=== PATIENT | male | born 1945 | race Caucasian/White ===

== ENCOUNTER 2016-09-28 13:49 | Inpatient (IN) | payer MEDICARE, BC ==
[2016-09-28] MEDS ORDERED: IPRATROPIUM-ALBUTEROL 3 ML NEB INHALATION STA ×2 (14:56→16:10)
[2016-09-28] MEDS ORDERED: methylPREDNISolone SOD SUCCI 125 MG/2 ML VIAL IV STA (14:56)
--- NOTE | 2016-09-28 14:59 | ED ---
General Adult HPI - General Chief complaint: Shortness of Breath Stated complaint: sob Time Seen by Provider: 09/28/16 13:50 Source: patient, RN notes reviewed Mode of arrival: EMS Limitations: physical limitation - History of Present Illness Initial comments: This is a 70-year-old male with a past mental history significant for smoking but he states he quit 4 years ago. Patient comes in today because of difficulty breathing over the last 2 weeks per patient states he coughed so hard that is when he becomes very short of breath per patient states he has not producing much sputum. Patient denies any fever chills per patient denies any palpitations chest pain. Patient states he has no headache no numbness no weakness. Patient denies any recent injury or trauma per patient denies abdominal pain patient denies nausea vomiting diarrhea. Patient states she's on 4 L of oxygen 24 7. - Related Data Home Medications Medication Instructions Recorded Confirmed Clopidogrel [Plavix] 75 mg PO DAILY 03/10/14 09/28/16 traZODone HCL [Desyrel] 50 mg PO HS 03/10/14 09/28/16 Aspirin 81 mg PO DAILY 05/01/14 09/28/16 Multivitamin [Men's Multi-Vitamin] 1 tab PO DAILY 05/01/14 09/28/16 Simvastatin [Zocor] 40 mg PO DAILY 05/01/14 09/28/16 ALPRAZolam [Xanax] 0.5 mg PO HS PRN 12/23/14 09/28/16 Losartan [Cozaar] 25 mg PO QAM 12/23/14 09/28/16 Omeprazole [PriLOSEC] 40 mg PO QAM 12/23/14 09/28/16 HYDROcodone/APAP 7.5-325MG [[place] 1 tab PO TID PRN 12/24/14 09/28/16 7.5-325] Acetaminophen/Diphenhydramine 1 tab PO HS PRN 02/02/16 09/28/16 [Tylenol PM 500-25mg] Budesonide/Formoterol Fumarate 2 puff INHALATION RT-BID 02/02/16 09/28/16 [Symbicort 160-4.5 Mcg Inhaler] Carvedilol [Coreg] 3.125 mg PO QAM 02/02/16 09/28/16 Nitroglycerin Sl Tabs [Nitrostat] 0.4 mg SUBLINGUAL Q5M PRN 02/02/16 09/28/16 Oxybutynin Chloride 5 mg PO BID 02/02/16 09/28/16 Polyethylene Glycol 3350 [Miralax] 17 gm PO DAILY 02/02/16 09/28/16 Ranitidine HCl 150 mg PO BID 02/02/16 09/28/16 Tamsulosin [Flomax] 0.4 mg PO DAILY 02/02/16 09/28/16 Citalopram Hydrobromide 40 mg PO HS 03/24/16 09/28/16 [Citalopram HBr] Gabapentin [Neurontin] 300 mg PO QAM 09/02/16 09/28/16 Ipratropium-Albuterol Nebulize 3 ml INHALATION RT-Q6H PRN 09/28/16 09/28/16 [Duoneb 0.5 mg-3 mg/3 ml Soln] Allergies Allergy/AdvReac Type Severity Reaction Status Date / Time No Known Allergies Allergy Verified 09/28/16 14:19 Review of Systems ROS Statement: Those systems with pertinent positive or pertinent negative responses have been documented in the HPI. ROS Other: All systems not noted in ROS Statement are negative. Past Medical History Past Medical History: Coronary Artery Disease (CAD), Chest Pain / Angina, Heart Failure, COPD, CVA/TIA, Deep Vein Thrombosis (DVT), GERD/Reflux, Hearing Disorder / Deafness, Hyperlipidemia, Hypertension, Memory Impairment, Myocardial Infarction (GA), Musculoskeletal Disorder, Pneumonia, Prostate Disorder, Respiratory Disorder, Vascular Disorder Additional Past Medical History / Comment(s): HX OF CVA WITH SOME SPEECH DIFFICULTY (since 1999). TIA'S. PVD. PER PATIENT BLOCKED RIGHT CAROTID. RESPIRATORY FAILURE, CONTINUOUS OXYGEN 4L. BPH. CHRONIC BRONCHITIS. DJD. STOMACH ULCER. DIVERTICULITIS. HEMORRHOIDS, POLYPS. VANIA ANKLE FX IN THE PAST. DJD WITH BACK PAIN . USES WALKER OR WHEELCHAIR. CHRONIC LEG AND BACK PAIN. Last Myocardial Infarction Date:: 1997 History of Any Multi-Drug Resistant Organisms: MRSA Date of last positivie culture/infection: 12/26/2014 MDRO Source:: SPUTUM Past Surgical History: AICD, Back Surgery, Coronary Bypass/CABG, Heart Catheterization, Heart Catheterization With Stent, Pacemaker, Tonsillectomy Additional Past Surgical History / Comment(s): FEBRUARY 2016 PACER ([id number] , #SS [id number]). CABG 5 vessel 1998. Cath with stents (5 total). Bilateral carotid endarterectomies. Back surgery x 2. Bilateral fem/pops, bilateral stenting in legs (5 total). L and R inguinal hernia repairs. Cataract removal bilaterally. Back injections for pain. Past Anesthesia/Blood Transfusion Reactions: No Reported Reaction Additional Past Anesthesia/Blood Transfusion Reaction / Comment(s): Never had blood transfusion. Date of Last Stent Placement:: 2013 Type of Cardiac Device: Permanent Pacemaker, AICD Device Placement Date:: 02/2016 Past Psychological History: Anxiety, Depression Additional Psychological History / Comment(s): . Smoking Status: Former smoker Past Alcohol Use History: None Reported Additional Past Alcohol Use History / Comment(s): Pt quit smoking in 2011. SMOKED 1 PPD, SMOKED FOR 50 YEARS Past Drug Use History: None Reported - Past Family History Brother(s) Family Medical History: Cancer Sister(s) Family Medical History: Congestive Heart Failure (CHF), Vascular Disorder Additional Family Medical History / Comment(s): PVD Mother Family Medical History: Cancer, Coronary Artery Disease (CAD) Additional Family Medical History / Comment(s): Multiple heart surgery Father Family Medical History: Coronary Artery Disease (CAD) Additional Family Medical History / Comment(s): Colon CA after 50's General Exam - General Exam Comments Initial Comments: GENERAL: Patient is well-developed and well-nourished. Patient is nontoxic and well- hydrated and is in mild distress. ENT: Neck is soft and supple. No significant lymphadenopathy is noted. Oropharynx is clear. Moist mucous membranes. Neck has full range of motion without eliciting any pain. EYES: The sclera were anicteric and conjunctiva were pink and moist. Extraocular movements were intact and pupils were equal round and reactive to light. Eyelids were unremarkable. PULMONARY: Patient has diminished breath sounds with expiratory wheezing CARDIOVASCULAR: There is a regular rate and rhythm without any murmurs gallops or rubs. ABDOMEN: Soft and nontender with normal bowel sounds. No palpable organomegaly was noted. There is no palpable pulsatile mass. SKIN: Skin is clear with no lesions or rashes and otherwise unremarkable. NEUROLOGIC: Patient is alert and oriented x3. Cranial nerves II through XII are grossly intact. Motor and sensory are also intact. Normal speech, volume and content. Symmetrical smile. MUSCULOSKELETAL: Normal extremities with adequate strength and full range of motion. No lower extremity swelling or edema. No calf tenderness. LYMPHATICS: No significant lymphadenopathy is noted PSYCHIATRIC: Normal psychiatric evaluation. Normal interpersonal interactions appears functionally intact in deals appropriately with others. No signs of depression. No signs of anxiety. Limitations: physical limitation Course Vital Signs 09/28/16 09/28/16 09/28/16 13:51 14:10 15:11 Temperature 98.5 F Pulse Rate 93 90 Respiratory 18 20 Rate Blood Pressure 108/58 O2 Sat by Pulse 91 L Oximetry 09/28/16 09/28/16 15:22 15:37 Temperature Pulse Rate 100 89 Respiratory 18 Rate Blood Pressure 142/77 O2 Sat by Pulse 98 Oximetry Medical Decision Making - Medical Decision Making EKG shows ventricular paced rhythm at 89 bpm QRS is 254 QT interval 550 QTC is 669. Patient's EKG shows no ST segment elevation or depression or T-wave abdomen is noted. Patient's chest x-ray shows an early infiltrate right lower lobe. I gave the patient a breathing treatment emergency department he continued to have expiratory wheezings are repeated treatment. Patient also got [facility] emergency department. I spoke with Dr. Prieto he agreed to admit the patient a consult to Dr. Mantilla admitted the patient wrote a milligrams continue breathing treatments on the floor as well as steroids. - Lab Data Result diagrams: 09/28/16 14:00 09/28/16 14:00 Lab Results 09/28/16 09/28/16 09/28/16 Range/Units 14:00 14:00 14:00 WBC 4.9 (3.8-10.6) k/uL RBC 4.13 L (4.30-5.90) m/uL Hgb 12.1 L (13.0-17.5) gm/dL Hct 37.3 L (39.0-53.0) % MCV 90.3 (80.0-100.0) fL MCH 29.3 (25.0-35.0) pg MCHC 32.4 (31.0-37.0) g/dL RDW 13.9 (11.5-15.5) % Plt Count 134 L (150-450) k/uL Neutrophils % 82 % Lymphocytes % 8 % Monocytes % 6 % Eosinophils % 1 % Basophils % 0 % Neutrophils # 4.0 (1.3-7.7) k/uL Lymphocytes # 0.4 L (1.0-4.8) k/uL Monocytes # 0.3 (0-1.0) k/uL Eosinophils # 0.1 (0-0.7) k/uL Basophils # 0.0 (0-0.2) k/uL PT (9.0-12.0) sec INR (<1.1) APTT (22.0-30.0) sec Sodium 142 (137-145) mmol/L Potassium 4.5 (3.5-5.1) mmol/L Chloride 98 (98-107) mmol/L Carbon Dioxide 33 H (22-30) mmol/L Anion Gap 11 mmol/L BUN 17 (9-20) mg/dL Creatinine 0.86 (0.66-1.25) mg/dL Est GFR (MDRD) Af Amer >60 (>60 ml/min/1.73 sqM) Est GFR (MDRD) Non-Af >60 (>60 ml/min/1.73 sqM) Glucose 112 H (74-99) mg/dL Calcium 8.9 (8.4-10.2) mg/dL Magnesium 1.9 (1.6-2.3) mg/dL Total Bilirubin 0.8 (0.2-1.3) mg/dL AST 16 L (17-59) U/L ALT 34 (21-72) U/L Alkaline Phosphatase 98 (38-126) U/L Total Creatine Kinase <20 L (55-170) U/L CK-MB (CK-2) 0.9 (0.0-2.4) ng/mL CK-MB (CK-2) Rel Index 0.0 Troponin I 0.014 (0.000-0.034) ng/mL Total Protein 6.7 (6.3-8.2) g/dL Albumin 3.8 (3.5-5.0) g/dL 09/28/16 Range/Units 14:00 WBC (3.8-10.6) k/uL RBC (4.30-5.90) m/uL Hgb (13.0-17.5) gm/dL Hct (39.0-53.0) % MCV (80.0-100.0) fL MCH (25.0-35.0) pg MCHC (31.0-37.0) g/dL RDW (11.5-15.5) % Plt Count (150-450) k/uL Neutrophils % % Lymphocytes % % Monocytes % % Eosinophils % % Basophils % % Neutrophils # (1.3-7.7) k/uL Lymphocytes # (1.0-4.8) k/uL Monocytes # (0-1.0) k/uL Eosinophils # (0-0.7) k/uL Basophils # (0-0.2) k/uL PT 10.5 (9.0-12.0) sec INR 1.0 (<1.1) APTT 23.6 (22.0-30.0) sec Sodium (137-145) mmol/L Potassium (3.5-5.1) mmol/L Chloride (98-107) mmol/L Carbon Dioxide (22-30) mmol/L Anion Gap mmol/L BUN (9-20) mg/dL Creatinine (0.66-1.25) mg/dL Est GFR (MDRD) Af Amer (>60 ml/min/1.73 sqM) Est GFR (MDRD) Non-Af (>60 ml/min/1.73 sqM) Glucose (74-99) mg/dL Calcium (8.4-10.2) mg/dL Magnesium (1.6-2.3) mg/dL Total Bilirubin (0.2-1.3) mg/dL AST (17-59) U/L ALT (21-72) U/L Alkaline Phosphatase (38-126) U/L Total Creatine Kinase (55-170) U/L CK-MB (CK-2) (0.0-2.4) ng/mL CK-MB (CK-2) Rel Index Troponin I (0.000-0.034) ng/mL Total Protein (6.3-8.2) g/dL Albumin (3.5-5.0) g/dL Critical Care Time Critical Care Time: Yes Total Critical Care Time: 35 Disposition Clinical Impression: Acute exacerbation of chronic obstructive airways disease, Pneumonia Disposition: ADMITTED IP TO THIS [facility] Time of Disposition: 16:08
[2016-09-28 15:07] LABS: Basophils % (A) 0 %; CH 28.7; CHCM 31.9; Eosinophils # (A) 0.1 k/uL (0-0.7); Eosinophils % (A) 1 %; HCT 37.3 % (39.0-53.0); HGB 12.1 gm/dL (13.0-17.5); Luc # (Auto) 0.13; Luc % (Auto) 3; Lymphocytes # (A) 0.4 k/uL (1.0-4.8); Lymphocytes % (A) 8 %; MCH 29.3 pg (25.0-35.0); MCHC 32.4 g/dL (31.0-37.0); MCV 90.3 fL (80.0-100.0); Mean Platelet Volume 6.6; Monocytes # (A) 0.3 k/uL (0-1.0); Monocytes % (A) 6 %; Neutrophils % (A) 82 %; RBC 4.13 m/uL (4.30-5.90); RDW 13.9 % (11.5-15.5); WBC 4.9 k/uL (3.8-10.6); WBC (Perox) 4.89
[2016-09-28 15:15] LABS: Partial Thromboplastin Time 23.6 sec (22.0-30.0); Prothrombin Time 10.5 sec (9.0-12.0)
[2016-09-28 15:18] LABS: ALT 34 U/L (21-72); AST 16 U/L (17-59); Alkaline Phosphatase 98 U/L (38-126); Anion Gap 11 mmol/L; Blood Urea Nitrogen 17 mg/dL (9-20); Calcium 8.9 mg/dL (8.4-10.2); Carbon Dioxide 33 mmol/L (22-30); Chloride 98 mmol/L (98-107); Glucose 112 mg/dL (74-99); Magnesium 1.9 mg/dL (1.6-2.3); Non-African American GFR(MDRD) >60 (>60 ml/min/1.73 sqM); Potassium 4.5 mmol/L (3.5-5.1); Sodium 142 mmol/L (137-145); Total Bilirubin 0.8 mg/dL (0.2-1.3); Total Protein 6.7 g/dL (6.3-8.2)
[2016-09-28 15:26] LABS: Creatine Kinase <20 U/L (55-170)
[2016-09-28 15:39] LABS: Creatine Kinase MB 0.9 ng/mL (0.0-2.4); Troponin I 0.014 ng/mL (0.000-0.034)
--- NOTE | 2016-09-28 15:54 | XR ---
EXAMINATION TYPE: XR chest 2V DATE OF EXAM: 09/28/2016 3:48 PM COMPARISON: 06/17/2016 HISTORY: Shortness of breath FINDINGS: The lungs are clear and there is no pneumothorax, pleural effusion, or focal pneumonia. Hypertrophi c and degenerative change of the spine. Postsurgical changes are noted. Hyperinflation suggests COPD. Atherosclerotic change aorta. Subsegmental changes involving the right lung base. IMPRESSION: 1. Right basilar atelectasis versus early infiltrate. Follow to resolution to exclude underlying neop lasm.
[2016-09-28] MEDS ORDERED: LEVOFLOXACIN 750MG-D5W PMX 750 MG in DEXTROSE/WATER 1 150ML.BAG IVPB SCH (16:15)
[2016-09-28] MEDS ORDERED: HYDROcodone/APAP 7.5-325MG 1 EACH TAB PO ONE (17:12)
[2016-09-28] MEDS ORDERED: diphenhydrAMINE 25 MG CAP PO PRN (22:34)
[2016-09-28] MEDS ORDERED: POLYETHYLENE GLYCOL 3350 17 GM POWD.PACK PO PRN (22:34)
[2016-09-28] MEDS ORDERED: NITROGLYCERIN SL TABS 0.4 MG TAB SUBLINGUAL PRN (22:34)
[2016-09-28 23:19] LABS: Glucose,Whole Blood 183 mg/dL (75-99)
[2016-09-28] MEDS: INSULIN LISPRO (humaLOG) 300 UNIT/3 ML VIAL SQ SCH (23:43)
[2016-09-28] MEDS: CITALOPRAM HYDROBROMIDE 20 MG TAB PO SCH (23:44)
[2016-09-28] MEDS: traZODone HCL 50 MG TAB PO SCH (23:44)
[2016-09-28] MEDS: TAMSULOSIN 0.4 MG CAP.ER.24H PO SCH (23:44)
[2016-09-28] MEDS: HYDROcodone/APAP 7.5-325MG 1 EACH TAB PO PRN (23:45)
[2016-09-28] MEDS: HEPARIN SODIUM,PORCINE 5,000 UNIT/ML 1 ML VIAL SQ SCH (23:46)
[2016-09-28] MEDS: methylPREDNISolone SOD SUCCI 125 MG/2 ML VIAL IV SCH (23:55)
[2016-09-29] MEDS: IPRATROPIUM-ALBUTEROL 3 ML NEB INHALATION PRN ×4 (00:17→21:17)
[2016-09-29] MEDS ORDERED: TEMAZEPAM 15 MG CAP PO PRN (00:18)
[2016-09-29] MEDS: ALPRAZolam 0.5 MG TAB PO PRN ×2 (03:52→21:35)
[2016-09-29] MEDS: methylPREDNISolone SOD SUCCI 125 MG/2 ML VIAL IV SCH ×4 (06:04→23:45)
[2016-09-29] MEDS: LOSARTAN 25 MG TAB PO SCH (06:43)
[2016-09-29] MEDS: CARVEDILOL 3.125 MG TAB PO SCH (06:44)
[2016-09-29 07:23] LABS: Glucose,Whole Blood 143 mg/dL (75-99)
[2016-09-29] MEDS: SYMBICORT 160-4.5 MCG INHALER INHALATION SCH ×2 (07:30→21:15)
[2016-09-29] MEDS ORDERED: INSULIN LISPRO (humaLOG) 300 UNIT/3 ML VIAL SQ SCH (07:30)
[2016-09-29] MEDS: ATORVASTATIN 20 MG TAB PO SCH (08:19)
[2016-09-29] MEDS: HEPARIN SODIUM,PORCINE 5,000 UNIT/ML 1 ML VIAL SQ SCH ×3 (08:19→23:45)
[2016-09-29] MEDS: INSULIN LISPRO (humaLOG) 300 UNIT/3 ML VIAL SQ SCH ×4 (08:19→21:27)
[2016-09-29] MEDS: PANTOPRAZOLE 40 MG TABLET PO SCH (08:19)
[2016-09-29] MEDS: ASPIRIN 81 MG CHEW PO SCH (08:19)
[2016-09-29] MEDS: GABAPENTIN 300 MG CAP PO SCH (08:20)
[2016-09-29] MEDS: CLOPIDOGREL 75 MG TAB PO SCH (08:20)
[2016-09-29] MEDS: OXYBUTYNIN CHLORIDE 5 MG TAB PO SCH ×2 (08:20→21:27)
[2016-09-29] MEDS: MULTIVITAMINS, THERA 1 EACH TAB PO SCH (08:20)
[2016-09-29] MEDS ORDERED: AZITHROMYCIN 500 MG in SODIUM CHLORIDE 0.9% 250 ML IVPB SCH (09:00)
--- NOTE | 2016-09-29 09:37 | HP ---
DATE OF ADMISSION: 09/28/2016 DATE OF SERVICE: 09/28/2016 CHIEF COMPLAINT: Shortness of breath and cough. HISTORY OF PRESENT ILLNESS: This 70-year-old gentleman with history of multiple medical problems with past medical history of multiple medical problems such as history of CAD, history of chest pain, CHF, COPD, history of deep venous thrombosis, gastroesophageal reflux disease, hyperlipidemia, cerebrovascular accident being followed by Dr. Oliver in the outpatient setting was complaining of shortness of breath and cough for the past several days. The patient had a significant history of smoking. The patient quit about 4 years ago. The patient became significantly short of breath. The patient denied any fever and because of increasing shortness of breath and cough and sputum the patient came to [facility] and admitted for further evaluation and treatment. A chest x-ray done in the ER showed a right basilar atelectasis versus infiltrate. There was no history of fever, rigors. No history of headache, loss of consciousness, seizures. PAST MEDICAL HISTORY: History of COPD, history of CHF, DVT, history of GERD, hearing defect. Medications prior to admission include: 1. MiraLAX 17 grams p.o. daily p.r.n. 2. Flomax 0.4 q.h.s. 3. Desyrel 50 mg q.h.s. 4. Zocor 40 mg p.o. daily. 5. Ranitidine 150 mg p.o. b.i.d. 6. Oxybutynin 5 mg p.o. b.i.d. 7. Prilosec 40 mg p.o. daily. 8. Nitrostat 0.4 subcu 5 p.r.n. 9. Multivitamin 1 p.o. daily. 10. Cozaar 20 mg q.a.m. 11. DuoNeb q.i.d. and p.r.n. 12. [place] 7.5 t.i.d. p.r.n. 13. Neurontin 300 mg q.a.m. 14. Plavix 75 mg p.o. daily. 15. Celexa 40 mg q.h.s. 16. Coreg 3.125 mg q.a.m. 17. Symbicort 160/4.5, 2 puffs b.i.d. 18. Aspirin 81 mg daily. 19. Tylenol PM 1 tablet q.h.s. p.r.n. 20. Xanax 0.5 mg q.6 p.r.n. ALLERGIES: None. FAMILY HISTORY: History of cancer, CAD, multiple heart surgeries in the family. SOCIAL HISTORY: Previous history of smoking. No history of recent smoking or alcohol intake. REVIEW OF SYSTEMS: ENT: Diminished hearing, diminished vision. CARDIOVASCULAR: No angina. RESPIRATORY: As mentioned earlier. GI: No nausea. : No dysuria. NERVOUS SYSTEM: No numbness or weakness. ALLERGY/IMMUNOLOGY: No asthma or hayfever. MUSCULOSKELETAL: As mentioned earlier. HEMATOLOGY: No history of anemia. ENDOCRINE: No history of diabetes or hypothyroidism. CONSTITUTIONAL: As mentioned earlier. DERMATOLOGY: Negative. RHEUMATOLOGY: Negative. PSYCHIATRY: As mentioned earlier. PHYSICAL EXAMINATION: Alert and oriented x3. Pulse 83, blood pressure 120/86, respirations 18, temperature 99.3, pulse ox 94% on 4 liters. HEENT: Conjunctivae normal. NECK: No jugular venous distention. CARDIOVASCULAR: S1 and S2, muffled. RESPIRATORY: Breath sounds diminished at the bases. Bilateral scattered rhonchi and crackles. Respiratory wheezing also present. ABDOMEN: Soft, nontender. No mass palpable. LEGS: No edema, no swelling. NERVOUS SYSTEM: Higher function as mentioned. Moves all four limbs. No focal motor deficits. LYMPHATIC: No lymphadenopathy in the neck, axillae or groin. SKIN: No ulcer, rash or bleeding. Labs at this time show WBC 4, hemoglobin 12.1. Other labs are noted. ASSESSMENT: 1. Chronic obstructive pulmonary disease acute exacerbation with acute purulent tracheobronchitis, possible right lower lobe bronchopneumonia. 2. Anemia, normocytic. 3. Mild thrombocytopenia. 4. History of coronary artery disease. 5. History of congestive heart failure. 6. History of chronic obstructive pulmonary disease. 7. History of cerebrovascular accident, transient ischemic attack. 8. History of deep venous thrombosis. 9. History of gastroesophageal reflux disease. 10. History of hypertension. 11. History of hyperlipidemia. 12. History of dementia. 13. History of myocardial infarction. 14. History of degenerative joint disease. 15. History of prostate disorder. 16. History of CVI. 17. History of transient ischemic attack. 18. History of peripheral vascular disease. 19. Chronic hypoxic respiratory failure at home on home oxygen 4-L. 20. History of benign prostatic hypertrophy. 21. History of chronic bronchitis. 22. History of stomach ulcer. 23. History of hemorrhoids. 24. History of chronic neck pain. 25. History of degenerative joint disease. 26. History of Methicillin-resistant Staphylococcus aureus. 27. History of automatic implantable cardiovascular defibrillator. 28. History of back surgery. 29. History of coronary artery disease, coronary artery bypass graft and stent. 30. History of bilateral carotid endarterectomy. 31. History of anxiety and depression, not otherwise specified. 32. Remote history of nicotine dependence. 33. FULL CODE. RECOMMENDATIONS AND DISCUSSION: In this 70-year-old gentleman who presented with multiple medical problems, will monitor the patient closely. Continue the current medications and continue symptomatic treatment. Continue with the bronchodilators, continue with empiric antibiotics. Will consult Dr. Rogers. Otherwise, will also give IV steroids. Monitor blood sugars closely. Optimize breathing treatments. I would recommend combination of Rocephin and Zithromax. See orders for details. Further recommendations to follow.
[2016-09-29 12:20] LABS: Glucose,Whole Blood 139 mg/dL (75-99)
[2016-09-29] MEDS: HYDROcodone/APAP 7.5-325MG 1 EACH TAB PO PRN ×2 (13:28→21:35)
[2016-09-29 14:09] VITALS: BMI 22.8
[2016-09-29] MEDS ORDERED: BENZONATATE 100 MG CAP PO PRN (15:57)
--- NOTE | 2016-09-29 15:57 | P.CNPUL ---
History of Present Illness Consult date: 09/29/16 Reason for consult: dyspnea, cough, COPD, pneumonia Chief complaint: Shortness of breath and cough History of present illness: This is a 70-year-old male well-known to me. He has a history of goal stage IV COPD. The last couple weeks has not been feeling well. His complaints include increasing shortness of breath coughing chest congestion some phlegm production. Lots of wheezing. Maybe slight fever and chills. The patient apparently came to the emergency room where he was evaluated admitted primarily with a COPD exacerbation. Despite all these complaints, the think he mostly complains about is his cough. His past medical history is positive for CAD COPD CHF CVA DVT GERD deafness hyperlipidemia hypertension dementia myocardial infarction pneumonia and peripheral last occlusive disease among other things Review of Systems 12 point review of system is positive for shortness of breath chest congestion cough wheezing and some phlegm production. He has not been feeling well for at least 10 days and maybe 14 days. Things have been getting worse. The rest of the 12 point review of system is unremarkable. Past Medical History Past Medical History: Coronary Artery Disease (CAD), Chest Pain / Angina, Heart Failure, COPD, CVA/TIA, Deep Vein Thrombosis (DVT), GERD/Reflux, Hearing Disorder / Deafness, Hyperlipidemia, Hypertension, Memory Impairment, Myocardial Infarction (SD), Musculoskeletal Disorder, Pneumonia, Prostate Disorder, Respiratory Disorder, Vascular Disorder Additional Past Medical History / Comment(s): HX OF CVA WITH SOME SPEECH DIFFICULTY (since 1999). TIA'S. PVD. PER PATIENT BLOCKED RIGHT CAROTID. RESPIRATORY FAILURE, CONTINUOUS OXYGEN 4L. BPH. CHRONIC BRONCHITIS. DJD. STOMACH ULCER. DIVERTICULITIS. HEMORRHOIDS, POLYPS. VANIA ANKLE FX IN THE PAST. DJD WITH BACK PAIN . USES WALKER OR WHEELCHAIR AND IN PROCESS OF GETTING AN ELECTRIC SCOOTER. CHRONIC LEG AND BACK PAIN.CONSTIPATION. PT STATED HAS LOSS OF APPETITE,WT LOSS APPROX 13 POUNDS IN A LITTLE OVER 2 MOTNHS. Last Myocardial Infarction Date:: 1997 History of Any Multi-Drug Resistant Organisms: MRSA Date of last positivie culture/infection: 12/26/2014 MDRO Source:: SPUTUM Past Surgical History: AICD, Back Surgery, Coronary Bypass/CABG, Heart Catheterization, Heart Catheterization With Stent, Pacemaker, Tonsillectomy Additional Past Surgical History / Comment(s): FEBRUARY 2016 PACER ([id number] , #SS [id number]). CABG 5 vessel 1997. Cath with stents (5 total). Bilateral carotid endarterectomies. Back surgery x 2. Bilateral fem/pops, bilateral stenting in legs (5 total). L and R inguinal hernia repairs. Cataract removal bilaterally. Back injections for pain. Past Anesthesia/Blood Transfusion Reactions: No Reported Reaction Additional Past Anesthesia/Blood Transfusion Reaction / Comment(s): Never had blood transfusion. Date of Last Stent Placement:: 2013 Type of Cardiac Device: Permanent Pacemaker, AICD Device Placement Date:: 02/2016 Past Psychological History: Anxiety, Depression Additional Psychological History / Comment(s): .[facility] SOMEONE TO CLEAN HIS APT 2X A MONTH. PT STATED HE COULD USE SOME HELP AT HOME WITH ADLS,SHOPPING ETC- PT STATED HE'S WEAK, CAN'T DO MUCH AND HE GETS TO SOB.IN PROCESS OF GETTING AN ELCTRIC SCOOTER. Smoking Status: Former smoker Past Alcohol Use History: None Reported Additional Past Alcohol Use History / Comment(s): Pt quit smoking in 2011. SMOKED 1 PPD, SMOKED FOR 50 YEARS Past Drug Use History: None Reported - Past Family History Brother(s) Family Medical History: Cancer Sister(s) Family Medical History: Congestive Heart Failure (CHF), Vascular Disorder Additional Family Medical History / Comment(s): PVD Mother Family Medical History: Cancer, Coronary Artery Disease (CAD) Additional Family Medical History / Comment(s): Multiple heart surgery Father Family Medical History: Coronary Artery Disease (CAD) Additional Family Medical History / Comment(s): Colon CA after 50's Medications and Allergies Home Medications Medication Instructions Recorded Confirmed Type Clopidogrel [Plavix] 75 mg PO DAILY 03/10/14 09/28/16 History traZODone HCL [Desyrel] 50 mg PO HS 03/10/14 09/28/16 History Aspirin 81 mg PO DAILY 05/01/14 09/28/16 History Multivitamin [Men's Multi-Vitamin] 1 tab PO DAILY 05/01/14 09/28/16 History Simvastatin [Zocor] 40 mg PO DAILY 05/01/14 09/28/16 History ALPRAZolam [Xanax] 0.5 mg PO HS PRN 12/23/14 09/28/16 History Losartan [Cozaar] 25 mg PO QAM 12/23/14 09/28/16 History Omeprazole [PriLOSEC] 40 mg PO QAM 12/23/14 09/28/16 History HYDROcodone/APAP 7.5-325MG [[place] 1 tab PO TID PRN 12/24/14 09/28/16 History 7.5-325] Acetaminophen/Diphenhydramine 1 tab PO HS PRN 02/02/16 09/28/16 History [Tylenol PM 500-25mg] Budesonide/Formoterol Fumarate 2 puff INHALATION RT-BID 02/02/16 09/28/16 History [Symbicort 160-4.5 Mcg Inhaler] Carvedilol [Coreg] 3.125 mg PO QAM 02/02/16 09/28/16 History Nitroglycerin Sl Tabs [Nitrostat] 0.4 mg SUBLINGUAL Q5M PRN 02/02/16 09/28/16 History Oxybutynin Chloride 5 mg PO BID 02/02/16 09/28/16 History Polyethylene Glycol 3350 [Miralax] 17 gm PO DAILY PRN 02/02/16 09/28/16 History Ranitidine HCl 150 mg PO BID 02/02/16 09/28/16 History Tamsulosin [Flomax] 0.4 mg PO HS 02/02/16 09/28/16 History Citalopram Hydrobromide 40 mg PO HS 03/24/16 09/28/16 History [Citalopram HBr] Gabapentin [Neurontin] 300 mg PO QAM 09/02/16 09/28/16 History Ipratropium-Albuterol Nebulize 3 ml INHALATION RT-Q6H PRN 09/28/16 09/28/16 History [Duoneb 0.5 mg-3 mg/3 ml Soln] Allergies Allergy/AdvReac Type Severity Reaction Status Date / Time No Known Allergies Allergy Verified 09/28/16 14:19 Physical Exam Osteopathic Statement: *. No significant issues noted on an osteopathic structural exam other than those noted in the History and Physical/Consult. Vitals: Vital Signs Temp Pulse Pulse Resp BP BP BP 09/29/16 15:00 98.5 F 99 16 119/64 09/29/16 11:45 82 09/29/16 11:32 80 09/29/16 09:00 120/82 09/29/16 07:40 80 09/29/16 07:30 76 09/29/16 06:20 97.2 F L 77 20 200/90 189/88 09/29/16 04:00 79 158/87 09/29/16 00:26 84 09/29/16 00:17 84 09/28/16 23:00 97.0 F L 99 20 141/91 09/28/16 20:35 99.6 F 86 18 127/66 09/28/16 19:40 90 16 136/81 09/28/16 18:44 103 H 18 136/81 09/28/16 17:41 102 H 18 132/57 09/28/16 16:50 104 H 20 122/55 09/28/16 16:34 96 09/28/16 16:22 98 Pulse Ox 09/29/16 15:00 94 L 09/29/16 11:45 09/29/16 11:32 09/29/16 09:00 09/29/16 07:40 09/29/16 07:30 09/29/16 06:20 98 09/29/16 04:00 09/29/16 00:26 09/29/16 00:17 09/28/16 23:00 96 09/28/16 20:35 95 09/28/16 19:40 98 09/28/16 18:44 96 09/28/16 17:41 96 09/28/16 16:50 97 09/28/16 16:34 09/28/16 16:22 Intake and Output 09/29/16 09/29/16 09/29/16 06:59 14:59 22:59 Intake Total 250 350 Balance 250 350 Intake: Intake, IV Titration 350 Amount Azithromycin 500 mg In 250 Sodium Chloride 0.9% 250 ml @ 125 mls/hr IVPB DAILY [facility]IND[facility] Rx#:[id number] cefTRIAXone 1,000 mg In 100 Sodium Chloride 0.9% 50 ml @ 100 mls/hr IVPB Q24HR SIND[facility] Rx#:[id number] Oral 250 Other: Weight 60.5 kg 60.5 kg Patient Weight 09/30/16 06:59 Weight 60.5 kg No acute distress, oriented 3. No respiratory distress. No audible wheezing. HEENT examination is grossly unremarkable. Mucous membranes are moist. No oral lesions. Neck supple. No adenopathy or thyromegaly. Cardiovascular examination reveals regular rhythm rate. Not tachycardic. S1- S2 normal. Lungs reveal coarse rhonchi and wheezes. Breath sounds diminished. This prolongation. Abdomen soft Extremities are intact. Results - Laboratory Findings CBC and BMP: 09/28/16 14:00 09/28/16 14:00 PT/INR, D-dimer PT 10.5 sec (9.0-12.0) 09/28/16 14:00 INR 1.0 (<1.1) 09/28/16 14:00 Abnormal lab findings: Abnormal Labs 09/28/16 09/29/16 09/29/16 23:15 07:18 12:19 POC Glucose (mg/dL) 183 H 143 H 139 H Assessment and Plan (1) Acute exacerbation of chronic obstructive airways disease Status: Acute (2) Pneumonia Status: Acute (3) COPD exacerbation Status: Acute Plan: The patient has either purulent tracheobronchitis or bronchopneumonia right lower lobe complicating his COPD exacerbation. We'll make sure he is on all the appropriate medications including things to help with his cough. He seems to be mostly focused on his cough more than anything else. We'll continue with oxygen bronchodilators steroids and antibiotics. Prognosis is guarded. Time with Patient: Greater than 30
[2016-09-29] MEDS: CHLORPHEN-HYDROcod 8-10mg/5ml 5 ML ORAL.SYRG PO SCH ×2 (16:12→23:45)
[2016-09-29 17:29] LABS: Glucose,Whole Blood 171 mg/dL (75-99)
[2016-09-29 20:48] LABS: Glucose,Whole Blood 180 mg/dL (75-99)
[2016-09-29] MEDS: TAMSULOSIN 0.4 MG CAP.ER.24H PO SCH (21:26)
[2016-09-29] MEDS: CITALOPRAM HYDROBROMIDE 20 MG TAB PO SCH (21:27)
[2016-09-29] MEDS: traZODone HCL 50 MG TAB PO SCH (21:27)
[2016-09-30 02:46] VITALS: PULSE 74
[2016-09-30] MEDS: methylPREDNISolone SOD SUCCI 125 MG/2 ML VIAL IV SCH (06:14)
[2016-09-30 07:41] LABS: Glucose,Whole Blood 164 mg/dL (75-99)
[2016-09-30 07:47] VITALS: BP 134/65; RESP 16; TEMP 97.3
[2016-09-30] MEDS: HEPARIN SODIUM,PORCINE 5,000 UNIT/ML 1 ML VIAL SQ SCH (07:49)
[2016-09-30] MEDS: ATORVASTATIN 20 MG TAB PO SCH (07:49)
[2016-09-30] MEDS: ASPIRIN 81 MG CHEW PO SCH (07:50)
[2016-09-30] MEDS: INSULIN LISPRO (humaLOG) 300 UNIT/3 ML VIAL SQ SCH (07:50)
[2016-09-30] MEDS: PANTOPRAZOLE 40 MG TABLET PO SCH (07:50)
[2016-09-30] MEDS: CARVEDILOL 3.125 MG TAB PO SCH (07:50)
[2016-09-30] MEDS: OXYBUTYNIN CHLORIDE 5 MG TAB PO SCH (07:51)
[2016-09-30] MEDS: LOSARTAN 25 MG TAB PO SCH (07:51)
[2016-09-30] MEDS: CLOPIDOGREL 75 MG TAB PO SCH (07:51)
[2016-09-30] MEDS: GABAPENTIN 300 MG CAP PO SCH (07:51)
[2016-09-30] MEDS: CHLORPHEN-HYDROcod 8-10mg/5ml 5 ML ORAL.SYRG PO SCH (07:51)
[2016-09-30] MEDS: MULTIVITAMINS, THERA 1 EACH TAB PO SCH (07:51)
[2016-09-30] MEDS: SYMBICORT 160-4.5 MCG INHALER INHALATION SCH (08:30)
[2016-09-30 08:38] LABS: Basophils % (A) 0 %; CH 29.1; CHCM 32.3; Eosinophils % (A) 0 %; HCT 35.9 % (39.0-53.0); HDW 2.56; HGB 11.1 gm/dL (13.0-17.5); Luc # (Auto) 0.03; Luc % (Auto) 1; Lymphocytes # (A) 0.3 k/uL (1.0-4.8); Lymphocytes % (A) 5 %; MCH 27.9 pg (25.0-35.0); MCHC 30.8 g/dL (31.0-37.0); MCV 90.6 fL (80.0-100.0); Mean Platelet Volume 7.2; Monocytes # (A) 0.3 k/uL (0-1.0); Monocytes % (A) 5 %; Neutrophils # (A) 5.2 k/uL (1.3-7.7); Neutrophils % (A) 90 %; RBC 3.96 m/uL (4.30-5.90); WBC 5.8 k/uL (3.8-10.6); WBC (Perox) 5.93
[2016-09-30] MEDS ORDERED: AZITHROMYCIN 500 MG TAB PO SCH (09:00)
[2016-09-30 09:06] LABS: Anion Gap 12 mmol/L; Blood Urea Nitrogen 26 mg/dL (9-20); Calcium 8.7 mg/dL (8.4-10.2); Carbon Dioxide 31 mmol/L (22-30); Chloride 100 mmol/L (98-107); Glucose 209 mg/dL (74-99); Non-African American GFR(MDRD) >60 (>60 ml/min/1.73 sqM); Potassium 4.5 mmol/L (3.5-5.1); Sodium 143 mmol/L (137-145)
--- NOTE | 2016-09-30 11:49 | PN ---
DATE OF SERVICE: 09/29/2016 This 70-year-old gentleman admitted with COPD acute exacerbation also had acute purulent tracheobronchitis and possibly right lower lobe bronchopneumonia also. The patient is being closely monitored. At this time the patient still has significant short of breath. Dr. Rogers is followed the patient. The patient is on IV steroids and antibiotics also. PAST MEDICAL HISTORY: Reviewed. REVIEW OF SYSTEMS: CARDIOVASCULAR: No angina. RESPIRATORY: As mentioned earlier. GI: As mentioned earlier. : No dysuria. NERVOUS SYSTEM: No numbness or weakness. ALLERGY/IMMUNOLOGY: No asthma or hayfever. MUSCULOSKELETAL: As mentioned earlier. HEMATOLOGY/ONCOLOGY: No history of anemia. ENDOCRINE: No history of diabetes or hypothyroidism. The current medications are: 1. [place] 7.5 t.i.d. p.r.n. 2. DuoNeb q.i.d. and p.r.n. 3. Xanax 0.5 q.h.s. 4. Aspirin 81 mg daily. 5. Lipitor 20 mg q.h.s. 6. Zithromax 500 mg p.o. daily. 7. Tessalon Perles. 8. Symbicort 160/4.5 two puffs b.i.d. 9. Coreg 3.125 q.a.m. 10. Rocephin 1 gram daily. 11. Tussionex. 12. Plavix 75 mg daily. 13. Benadryl 25 mg q.h.s. p.r.n. 14. Neurontin 300 mg q.a.m. 15. Heparin 5000 subcu . 16. Solu-Medrol 60 IV q.6. 17. Multivitamins 1 p.o. daily. 18. Nitrostat. 19. Ditropan 5 mg p.o. b.i.d. 20. Protonix 40 mg daily. 21. MiraLAX. 22. Flomax. 23. Zestril. 24. Desyrel. PHYSICAL EXAMINATION: The patient is alert and oriented x3. Pulse is 99, blood pressure 119/64, respirations 16, temperature 98.5, pulse ox 94% on 4 L. HEENT: Conjunctivae normal. NECK: No jugular venous distention. CARDIOVASCULAR: S1 and S2, muffled. RESPIRATORY: Breath sounds diminished at the bases. Bilateral scattered rhonchi and crackles. Breathing efforts are markedly increased. ABDOMEN: Soft, nontender. No mass palpable. LEGS: No edema, no swelling. NERVOUS SYSTEM: Higher function as mentioned. Moves all 4 limbs. LYMPHATICS: No lymphadenopathy of neck, axillae or groin. SKIN: No ulcers, rashes, bleeding. LABS: WBC 4.9, hemoglobin 12.1, platelets 134, otherwise Accu-Cheks are noted. Influenza was negative. ASSESSMENT: 1. Chronic obstructive pulmonary disease acute exacerbation with acute purulent tracheobronchitis or right lower lobe bronchopneumonia. 2. Anemia, normocytic, anemia of chronic disease. 3. Mild thrombocytopenia. 4. History of coronary artery disease. 5. History of congestive heart failure. 6. History of chronic obstructive pulmonary disease. 7. History of cerebrovascular accident, transient ischemic attack. 8. History of deep venous thrombosis. 9. History of gastroesophageal reflux disease. 10. Hypertension. 11. Hyperlipidemia. 12. History of dementia. 13. History of myocardial infarction. 14. History of degenerative joint disease. 15. History of prostate disorder. 16. History of CVI. 17. History of transient ischemic attack. 18. History of peripheral vascular disease. 19. Chronic hypoxic respiratory failure on home oxygen 4 L nasal cannula. 20. History of benign prostatic hypertrophy. 21. History of chronic bronchitis. 22. History of stomach ulcer. 23. History of hemorrhoids. 24. History of chronic neck pain. 25. History of degenerative joint disease. 26. History of methicillin-resistant Staphylococcus aureus. 27. History of AICD. 28. History of back surgery. 29. History of coronary artery disease, CABG and stent. 30. History of bilateral carotid endarterectomy. 31. History of anxiety and depression, not otherwise specified. 32. Remote history of nicotine dependence. 33. FULL CODE. RECOMMENDATIONS AND DISCUSSION: This 70-year-old gentleman who presented with multiple complex medical issues, we will monitor the patient closely. Continue the current medications. Continue symptomatic treatment with bronchodilators. Otherwise, continue with steroids, continue with empiric antibiotics. Closely follow with Dr. Rogers. Guarded prognosis because of multiple complex medical issues. Discussed with the patient, understands. Further recommendations to follow. [facility]
[2016-09-30 12:09] LABS: Glucose,Whole Blood 143 mg/dL (75-99)
[2016-09-30] MEDS ORDERED: methylPREDNISolone SOD SUCCI 40 MG/ML 1 ML VIAL IV SCH (16:00)
--- NOTE | 2016-10-01 12:43 | DS ---
DATE OF ADMISSION: 09/28/2016 DATE OF DISCHARGE: 09/30/2016 DATE OF SERVICE: 09/30/2016 FINAL DIAGNOSES: 1. Chronic obstructive pulmonary disease acute exacerbation with acute purulent tracheobronchitis and right lower lobe bronchopneumonia, possibly gram negative. 2. Anemia, normocytic anemia of chronic disease. 3. Mild thrombocytopenia. 4. History of coronary artery disease. 5. History of congestive heart failure. 6. History of chronic obstructive pulmonary disease. 7. History of cerebrovascular accident, transient ischemic attack. 8. History of deep venous thrombosis. 9. History of gastroesophageal reflux disease. 10. Hypertension. 11. Hyperlipidemia. 12. History of dementia. 13. History of myocardial infarction. 14. History of degenerative joint disease. 15. History of cerebrovascular accident. 16. History of transient ischemic attack. 17. History of peripheral vascular disease. 18. Chronic hypoxic respiratory failure on home oxygen 4 L nasal cannula. 19. Benign prostatic hypertrophy. 20. History of chronic bronchitis. 21. History of stomach ulcer. 22. History of hemorrhoids. 23. History of chronic neck pain. 24. History of degenerative joint disease. 25. History of methicillin-resistant Staphylococcus aureus. 26. History of AICD. 27. History of back surgery. 28. History of coronary artery disease, CABG, stent. 29. History of bilateral carotid endarterectomy. 30. Anxiety, depression, not otherwise specified. 31. Remote history of nicotine dependence. 32. FULL CODE. DISCHARGE DISPOSITION: The patient will be discharged in a stable condition with guarded prognosis. HISTORY OF PRESENT ILLNESS: This 70-year-old gentleman with a past medical history of multiple medical problems was admitted with COPD acute exacerbation and purulent tracheobronchitis. The patient was treated empirically with bronchodilators, antibiotics, steroids. Dr. Rogers saw the patient and cleared the patient for discharge. On exam, vitals are stable. CARDIOVASCULAR: S1 and S2, muffled. ABDOMEN: Soft. RESPIRATORY: A few scattered rhonchi. DISCHARGE ADVICE: 1. Diet is cardiac. 2. Activity limited until followup. 3. Follow up with Dr. Oliver in 2 to 3 days. 4. Follow up with Dr. Rogers as recommended. Medications are: 1. Xanax 0.5 q.h.s. p.r.n. 2. Acetaminophen diphenhydramine 1 p.o. q.h.s. p.r.n. 3. Aspirin 81 mg daily. 4. Zithromax 500 mg p.o. daily for 5 days. 5. Symbicort 2 puffs b.i.d. 6. Chlorpheniramine hydrocodone 5 mL b.i.d. p.r.n. 7. Coreg 3.125 mg p.o. q.a.m. 8. Celexa 40 mg q.h.s. 9. Plavix 75 mg p.o. daily. 10. Neurontin 300 mg q.a.m. 11. Hydrocodone 7.5 mg t.i.d. p.r.n. 12. Albuterol Atrovent updrafts q.i.d. and p.r.n. 13. Cozaar 25 mg p.o. q.a.m. 14. Multivitamin 1 p.o. daily. 15. Nitrostat 0.4 sublingual p.r.n. 16. Prilosec 40 mg q.a.m. 17. Oxybutynin 5 mg p.o. b.i.d. 18. MiraLAX 17 grams p.o. daily. 19. Ranitidine 150 mg p.o. b.i.d. 20. Zocor 40 mg p.o. daily. 21. Flomax 0.4 q.h.s. 22. Prednisone 40 mg daily for 3 days, 30 for 3 days, 20 for 3 days, 10 for 3 days and discontinue. 23. Desyrel 50 mg p.o. q.h.s.
== END 2016-09-30 13:14 | disposition home health service (06) | DRG 190 ==
LOC: EC 13:49 → 4MS4W 16:08
PROVIDERS: ADMIT Internal Medicine; ATTEND Internal Medicine
DX: J44.0 Chronic obstructive pulmonary disease with (acute) lower respiratory infection (principal); J18.0 Bronchopneumonia, unspecified organism; J96.11 Chronic respiratory failure with hypoxia; I11.0 Hypertensive heart disease with heart failure; F03.90 Unspecified dementia, unspecified severity, without behavioral disturbance, psychotic disturbance, mood disturbance, and anxiety; I50.9 Heart failure, unspecified; J44.1 Chronic obstructive pulmonary disease with (acute) exacerbation; D69.6 Thrombocytopenia, unspecified; D63.8 Anemia in other chronic diseases classified elsewhere; I25.10 Atherosclerotic heart disease of native coronary artery without angina pectoris; G89.29 Other chronic pain; K21.9 Gastro-esophageal reflux disease without esophagitis; E78.5 Hyperlipidemia, unspecified; M54.2 Cervicalgia; K64.9 Unspecified hemorrhoids; M19.90 Unspecified osteoarthritis, unspecified site; N40.0 Benign prostatic hyperplasia without lower urinary tract symptoms; F41.9 Anxiety disorder, unspecified; F32.9 Major depressive disorder, single episode, unspecified; I25.2 Old myocardial infarction; Z99.81 Dependence on supplemental oxygen; Z95.810 Presence of automatic (implantable) cardiac defibrillator; Z87.11 Personal history of peptic ulcer disease; Z95.1 Presence of aortocoronary bypass graft; Z95.5 Presence of coronary angioplasty implant and graft; Z86.14 Personal history of Methicillin resistant Staphylococcus aureus infection; Z87.891 Personal history of nicotine dependence; Z79.02 Long term (current) use of antithrombotics/antiplatelets; Z79.82 Long term (current) use of aspirin; Z82.49 Family history of ischemic heart disease and other diseases of the circulatory system; Z86.718 Personal history of other venous thrombosis and embolism; H91.90 Unspecified hearing loss, unspecified ear; Z80.0 Family history of malignant neoplasm of digestive organs; K59.00 Constipation, unspecified; M79.606 Pain in leg, unspecified; M54.9 Dorsalgia, unspecified; R63.4 Abnormal weight loss; Z79.891 Long term (current) use of opiate analgesic; Z79.51 Long term (current) use of inhaled steroids; Z79.899 Other long term (current) drug therapy; R53.1 Weakness; Z87.81 Personal history of (healed) traumatic fracture; Z87.01 Personal history of pneumonia (recurrent); Z86.010 Personal history of colon polyps; Z87.19 Personal history of other diseases of the digestive system; Z86.19 Personal history of other infectious and parasitic diseases; B96.89 Other specified bacterial agents as the cause of diseases classified elsewhere; Z98.42 Cataract extraction status, left eye; Z98.41 Cataract extraction status, right eye; I69.328 Other speech and language deficits following cerebral infarction; I65.21 Occlusion and stenosis of right carotid artery; Z95.820 Peripheral vascular angioplasty status with implants and grafts
CPT/HCPCS: 36415; 71020; 80048; 80053; 82550; 82553; 83605; 83735; 84484; 85025; 85610; 85730; 87040; 87502; 93005; 94640; 94760; 96365; 96375; 99291

== ENCOUNTER 2017-01-04 09:12 | Day surgery (SDC) | payer MEDICARE, BC ==
[2016-12-31 10:51] VITALS: BMI 23.1
[~2017-01-04 09:12] MED LIST: LACTATED RINGERS 1,000 ML IV SCH
[2017-01-04 11:17] VITALS: RESP 16; TEMP 97.1
[2017-01-04] MEDS ORDERED: LIDOCAINE 1% 20 ML VIAL (10MG/ML) FOR IV START INTRADERMA ONE (11:23)
[2017-01-04] MEDS ORDERED: fentaNYL (PF) 50 MCG/ML 2 ML AMP ONE (11:37)
[2017-01-04] MEDS ORDERED: hydrALAZINE HCL 20 MG/ML 1 ML VIAL ONE (11:37)
[2017-01-04] MEDS ORDERED: TRIAMCINOLONE ACETONIDE 40 MG/ML 1 ML VIAL ONE (11:37)
[2017-01-04] MEDS ORDERED: BUPIVACAINE (PF) 0.5% 30 ML VIAL ONE (11:37)
[2017-01-04] MEDS ORDERED: ENALAPRILAT 1.25 MG/ML 1 ML VIAL ONE (11:37)
--- NOTE | 2017-01-04 12:04 | P.PCN ---
Date of Procedure: 01/04/17 Procedure(s) Performed: PREOPERATIVE DIAGNOSIS: 1-Lumbar Spondylosis with Facet Arthropathy without myelopathy. 2- Lumber degenerative disc disease POSTOPERATIVE DIAGNOSIS: 1- Lumbar Spondylosis with Facet Arthropathy without myelopathy. 2- Lumber degenerative disc disease PROCEDURES : Left Radiofrequency thermocoagulation, L3-L4, L4-L5, and L5-S1 medial branch, with fluoroscopic guidance ANESTHESIA: IV sedation with fentaneyl 50 mcg and local infiltration with lidocaine 1% 3 ml EBL: Minimal PROCEDURE INDICATION: The patient with low back pain secondary to lumbar facet arthropathy who had more than 50% relief of her pain with previous diagnostic lumbar medial branch block with bupivacaine. PROCEDURE DESCRIPTION / TECHNIQUE: The patient was seen and identified in the preoperative area. Risks, benefits, complications, including but not limited to risk of infection ,bleeding , allergic reactions to the medications and no complete pain releife , and alternatives were discussed with the patient, the patient agreed to proceed with the procedure and signed the consent. IV was started. Vital signs remained stable throughout the procedure. Patient was taken to the OR and time out was completed. The patient was placed in the prone position on the procedure table. The lumber area was prepped and draped in the usual sterile fashion. . Vital signs were closely monitored during the procedure .IV sedation was used during the procedure to decrease patients anxiety. Using AP and then oblique fluoroscopy, the ``eye of the Jonatan dog corresponding to the connection between the superior and transverse articular processes of left L3, L4, and L5 were identified, marked, and localized with 1 % lidocaine. Subsequently, a 18 [id number] radiofrequency cannula with a 10- mm active tip was advanced guided by fluoroscopy to each of the ``eyes of the Jonatan dog at left L3, L4, and L5. Each site then underwent sensory testing at 50 Hz and 0 to 1 volt and motor testing at 2.5 Hz and 0 to 3 volt with local stimulation, but no radicular symptoms down the legs. Thereafter the left L3-4, L4-5, and L5-S1 sites underwent radiofrequency thermocoagulation at 80 degrees celsius for 90 seconds after injecting 0.5 ml of PF lidocaine 1%. then After the thermocoagulation done , 1 ml of the block solution containing Kenalog 40 mg and 3 ml of marain 0.5% was injected at the left L3-4 , L4-5 , and L5-S1, levels after negative aspiration of CSF and blood and with no paresthesias. Cannulas were retracted while injecting lidocaine 1% until the needle is out. At the end of the procedure, the skin was cleansed and bandages were applied. COMPLICATIONS: No acute complications. DISPOSITION / PLANS: The patient was placed in a supine position and transferred to the recovery area in a stable condition for observation and was discharged from the recovery room after meeting discharge criteria. Home discharge instructions given to the patient by the staff. The patient was reexamined prior to discharge. The patient will schedule a follow up in the clinic in 2-4 weeks.
[2017-01-04 12:46] VITALS: BP 122/57; PULSE 82
[2017-01-04] MEDS ORDERED: IV FLUID CONTINUATION 1,000 ML IV ONE (12:51)
--- NOTE | 2017-01-04 14:23 | FL ---
Fluoroscopy HISTORY: Pain 13 seconds fluoroscopy time supplied to the referring clinician. 3 intraoperative C-arm images docum ent the procedure. See dictated report from anesthesia.
== END 2017-01-04 13:18 | disposition home or self-care (01) ==
LOC: ORPAIN 09:12
PROVIDERS: ATTEND Specialist
DX: M51.36 Other intervertebral disc degeneration, lumbar region (principal); M47.816 Spondylosis without myelopathy or radiculopathy, lumbar region; M46.96 Unspecified inflammatory spondylopathy, lumbar region; I11.0 Hypertensive heart disease with heart failure; I50.9 Heart failure, unspecified; I25.10 Atherosclerotic heart disease of native coronary artery without angina pectoris; J44.9 Chronic obstructive pulmonary disease, unspecified; Z79.02 Long term (current) use of antithrombotics/antiplatelets; Z86.73 Personal history of transient ischemic attack (TIA), and cerebral infarction without residual deficits
CPT/HCPCS: 64635; 64636 ×2; 99152; J0360; J3301; J3010

== ENCOUNTER 2017-02-14 07:10 | Day surgery (SDC) | payer MEDICARE, BC ==
[2017-02-10 13:14] VITALS: BMI 23.6
[2017-02-14 07:58] VITALS: TEMP 96.7
[2017-02-14] MEDS: LACTATED RINGERS 1,000 ML IV SCH ×2 (08:06→08:21)
[2017-02-14] MEDS ORDERED: BUPIVACAINE (PF) 0.5% 30 ML VIAL ONE (08:23)
[2017-02-14] MEDS ORDERED: MIDAZOLAM 2 MG/2 ML VIAL ONE (08:23)
[2017-02-14] MEDS ORDERED: TRIAMCINOLONE ACETONIDE 40 MG/ML 1 ML VIAL ONE (08:23)
[2017-02-14] MEDS ORDERED: IV FLUID CONTINUATION 1,000 ML IV ONE (08:56)
--- NOTE | 2017-02-14 09:01 | FL ---
EXAMINATION TYPE: FL guided pain mgmt statistic DATE OF EXAM: 02/14/2017 8:51 AM HISTORY: Flouroscopy time 18 seconds of fluoroscopy provided. IMPRESSION: 1. Fluoroscopy time.
[2017-02-14 09:02] VITALS: RESP 18
--- NOTE | 2017-02-14 09:12 | P.PCN ---
Date of Procedure: 02/14/17 Preoperative Diagnosis: Lumbar spondylosis without myelopathy Lumbar postlaminectomy pain syndrome Postoperative Diagnosis: Same as above Procedure(s) Performed: Right lumbar medial branch radio frequency ablation under fluoroscopic guidance Implants: Anesthesia: other (Moderate sedation) Surgeon: Eb Ronquillo Pathology: none sent Condition: stable Disposition: PACU Indications for Procedure: Operative Findings: Description of Procedure: The patient was seen in the preop holding area consent was obtained then he was brought into the procedure room and placed in prone position. Skin was prepped with ChloraPrep and draped in a sterile manner. Lidocaine 1% was used to numb the skin up at the target points that were chosen as follows: For the L5-S1 level the target point was the superior medial aspect of the sacral ala on the right side of the spine on the AP view of fluoroscopy, the L4 5 level facet joint was identified due to fusion at this level with previous surgery. Then the 4 and L23 levels were identified and the target points were the connection between the transverse process and the superior articular process of L3, and L4 vertebra respectively on the right oblique view of fluoroscopy. I used 18- gauge 100 mm in length with 10 mm curved active tip radio frequency ablation needles for this procedure. AP, oblique, and lateral views of fluoroscopy were used to verify needle tip position. Then motor stimulation showed only local twitches of these needles with no radiation of twitching to the right lower extremity or to the groin anteriorly. Percent solution of 2 MLS Marcaine 0.5% + 40 mg of Kenalog. 1 mL of the solution was given in each needle then residency ablation started for 90 seconds at 80C. After the first session was done the needles were withdrawn by 1 or 2 mm and the bevels were turned 180 and then another session of ablation was started for 90 seconds at 80C. He tolerated procedure well. Fluoroscopy time 18 seconds. The patient will resume his Plavix in 24 hours.
[2017-02-14 09:19] VITALS: BP 124/81; PULSE 82
== END 2017-02-14 09:33 | disposition home or self-care (01) ==
LOC: ORPAIN 07:10
PROVIDERS: ATTEND Anesthesiology
DX: M47.816 Spondylosis without myelopathy or radiculopathy, lumbar region (principal); M96.1 Postlaminectomy syndrome, not elsewhere classified; Z79.02 Long term (current) use of antithrombotics/antiplatelets
CPT/HCPCS: 64635; 64636; 99152; J2250; J3301

== ENCOUNTER → 2017-05-05 | Outpatient (CLI) | payer MEDICARE, BC ==
--- NOTE | 2017-05-05 21:27 | CT ---
EXAMINATION TYPE: CT lumbar spine wo con DATE OF EXAM: 05/05/2017 COMPARISON: CT lumbar spine May 19, 2015 HISTORY: low back pain X many years, no known injury CT DLP: 810 mGycm Automated exposure control for dose reduction was used. FINDINGS: 5 lumbar type vertebral are redemonstrated. There is partial sacralization of the left L5 vertebra. T here is narrowing with slight irregularity and some mild spurring at this abnormal left L5-S1 articul ation which can cause pain redemonstrated without significant interval change. Osseous structures are demineralized. There is slight levoconvex scoliosis or scoliotic curvature centered at L4-L5 level. Spine is straightened on sagittal images. There is new mild height loss or compression along the infe rior L1 endplate which is sclerotic. There is moderate anterior spurring in the lower thoracic spine seen progressed from prior study. There is persistent moderate to advanced disc space narrowing with sclerosis and vacuum disc phenomenon and moderate spurring at right L4-L5 level. Posterior disc herni ations are redemonstrated at L3-L4 and L4-L5 levels on sagittal images. Axial images redemonstrates the T12-L1 and L1-L2 levels to have a mild broad disc bulge and mild face t degenerative changes bilaterally but spinal canal is preserved and bilateral neural foramina are pa tent at both levels. Axial images at the L2-L3 level shows broad-based posterior disc protrusion mild facet degenerative c hanges but spinal canal is preserved and bilateral neural foramina are patent. Axial images at the L3-L4 level show mild/moderate facet degenerative changes bilaterally. There is m oderate broad disc bulge. There is some effacement the anterior thecal sac. There is mild left-sided neural foraminal narrowing. Right-sided neural foramen is patent. No significant change from prior. Axial images at the L4-L5 level show moderate right and mild left facet degenerative changes. There i s moderate to severe broad disc bulge with central disc protrusion component effacing anterior thecal sac. There is moderate to severe right sided neural foraminal narrowing with encroachment on right L 4 nerve suspected on sagittal image 22. There is mild to moderate left-sided neural foraminal narrowi ng. No significant change from prior study is seen. Axial images at the L5-S1 level show sacralized left L5 segment. Spinal canal is preserved. There are mild to moderate facet degenerative changes seen bilaterally. Bilateral neural foramina are patent. Central calcifications in both kidney are presumed vascular. There is moderate to severe calcified pl aque of the aorta extending into branch vessels. There is aneurysmal change to the aorta measuring up to 3.2 cm in AP diameter on axial image 47. There is symmetric cortical thinning and atrophy of righ t kidney that is seen better on current study versus prior. There is irregular spurring and sclerosis of both sacroiliac joints, right greater than left redemons trated. IMPRESSION: MULTILEVEL DEGENERATIVE CHANGES IN LUMBAR SPINE DETAILED ABOVE WITH FINDINGS MOST PROMINENT AT L3- L4 AND L4-L5 LEVELS AGAIN SEEN, ENCROACHMENT ON RIGHT L4 NERVE IS FELT PRESENT. 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 INTERVAL NEW BUT SUSPECTED MILD CHRONIC COMPRESSION TYPE FRACTURE DEFORMITY INFERIOR L2 ENDPLATE OTHERWISE NO SIGNIFICANT CHANGE FROM PRIOR STUDY.
== END | disposition home or self-care (01) ==
LOC: RADCTMAIN 14:27
PROVIDERS: ATTEND Physical Medicine & Rehabilitation
DX: M47.816 Spondylosis without myelopathy or radiculopathy, lumbar region (principal)
CPT/HCPCS: 72131

== ENCOUNTER 2017-07-04 15:11 | Inpatient (IN) | payer MEDICARE, BC ==
[2017-07-04 15:35] LABS: Basophils % (A) 0 %; CH 29.6; CHCM 31.1; Eosinophils # (A) 0.1 k/uL (0-0.7); Eosinophils % (A) 1 %; HCT 44.2 % (39.0-53.0); HDW 2.73; HGB 13.7 gm/dL (13.0-17.5); Hypochromasia Slight; Luc % (Auto) 1; Lymphocytes # (A) 0.7 k/uL (1.0-4.8); Lymphocytes % (A) 7 %; MCH 29.6 pg (25.0-35.0); MCHC 31.1 g/dL (31.0-37.0); MCV 95.4 fL (80.0-100.0); Mean Platelet Volume 6.9; Monocytes # (A) 0.5 k/uL (0-1.0); Monocytes % (A) 5 %; Neutrophils % (A) 87 %; RBC 4.64 m/uL (4.30-5.90); RDW 13.8 % (11.5-15.5); WBC 10.4 k/uL (3.8-10.6); WBC (Perox) 10.74
[2017-07-04 15:46] LABS: ALT 32 U/L (21-72); AST 20 U/L (17-59); Alkaline Phosphatase 70 U/L (38-126); Anion Gap 8 mmol/L; Blood Urea Nitrogen 15 mg/dL (9-20); Calcium 8.5 mg/dL (8.4-10.2); Carbon Dioxide 32 mmol/L (22-30); Chloride 102 mmol/L (98-107); Glucose 168 mg/dL (74-99); Magnesium 1.8 mg/dL (1.6-2.3); Non-African American GFR(MDRD) >60 (>60 ml/min/1.73 sqM); Potassium 4.5 mmol/L (3.5-5.1); Sodium 142 mmol/L (137-145); Total Bilirubin 0.6 mg/dL (0.2-1.3); Total Protein 6.2 g/dL (6.3-8.2)
--- NOTE | 2017-07-04 15:54 | XR ---
EXAMINATION TYPE: XR chest 2V DATE OF EXAM: 07/04/2017 COMPARISON: 09/28/2016 TECHNIQUE: PA and lateral views submitted. HISTORY: Difficulty breathing FINDINGS: The lungs are clear and there is no pneumothorax, pleural effusion, or focal pneumonia. Postoperati ve change and cardiac device seen. Hyperinflation suggests COPD. Hypertrophic and degenerative change of the spine. Atherosclerotic change aorta. Pleural-based thickening on the right noted. No overt fa ilure. IMPRESSION: 1. No acute process. Correlate for COPD.
[2017-07-04 16:05] LABS: INR 1.1 (<1.2); Partial Thromboplastin Time 23.6 sec (22.0-30.0); Prothrombin Time 11.1 sec (9.0-12.0)
--- NOTE | 2017-07-04 16:23 | CT ---
EXAMINATION TYPE: CT lumbar spine wo con DATE OF EXAM: 07/04/2017 COMPARISON: Prior CT lumbar spine 05/05/2017 HISTORY: Patient complains of low back/tailbone pain. CT DLP: 571 mGycm Automated exposure control for dose reduction was used. An unenhanced CT of the lumbar spine was performed. Bone and soft tissue window settings are submitt ed as well as coronal and sagittal reconstructions. FINDINGS: Infrarenal abdominal aorta measures approximately 3.6 cm in greatest AP dimension. Limited dissection is present distally. Extensive atheromatous changes present. There is a spinal curvature. Multilevel spondylosis is present. L1-L2: Broad-based posterior disc bulge, endplate disc complex causes minimal anterior mass effect on the thecal sac. No significant central stenosis. L2-L3: Normal disc space height. No disc herniation protrusion or central stenosis. No facet joint arthropathy. No evidence for foraminal encroachment. L3-L4: Broad-based posterior disc bulge causes anterior mass effect on the thecal sac as on prior exa m. Circumferential extension causes some foraminal encroachment bilaterally. Mild central stenosis. F acet arthropathy with hypertrophy ligamentum flavum encroaches on the lateral recesses. L4-L5: Vacuum phenomenon again noted. Posterior extension of endplate disc complex causes anterior ma ss effect on the thecal sac. Facet arthropathy changes present. Spinal stenosis changes are stable. C ircumferential extension causes some foraminal encroachment right greater than left likely contribute d by scoliosis. L5-S1: No disc herniation protrusion or central stenosis. No facet joint arthropathy. There is facet arthropathy. Loss of disc height noted. No evidence for foraminal encroachment. IMPRESSION: There is not a significant interval change in the appearance of the lumbar spine compared to 2 months prior. Multilevel facet arthropathy. Spinal curvature. Inferior endplate of L1 show some sclerosis a s on prior exam, there may be local endplate deformity due to previous trauma.
--- NOTE | 2017-07-04 16:26 | CT ---
EXAMINATION TYPE: CT pelvis wo con DATE OF EXAM: 07/04/2017 COMPARISON: Previous exam 09/13/2010 HISTORY: Patient complains of low back/tailbone pain. CT DLP: 245.6 mGycm Automated exposure control for dose reduction was used. Helical imaging through the pelvis FINDINGS: Degenerative changes are present at the sacroiliac joints. Bone mineralization is maintained. No frac ture or dislocation. Degenerative changes are present in the lower lumbar spine. Partial sacralizatio n noted of the lumbosacral junction on the left. Sigmoid diverticular disease is present. Scoliotic curvature again noted in the lumbar spine. IMPRESSION: DEGENERATIVE CHANGES DESCRIBED. 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
[2017-07-04 16:27] LABS: Creatine Kinase MB 4.5 ng/mL (0.0-2.4); Troponin I 0.586 ng/mL (0.000-0.034)
--- NOTE | 2017-07-04 16:41 | ED ---
Fall HPI - General Stated Complaint: MEET Time Seen by Provider: 07/04/17 15:11 Source: patient, EMS, RN notes reviewed, old records reviewed - History of Present Illness Initial Comments: This is a 71-year-old male was brought in by EMS for shortness of breath. He started having shortness breath swallowing he states he fell twice last night he states she's felt short of breath and fell because of this. He complains some right-sided low back pain no loss of function is upper or lower extremities was able walk to [facility] upon arrival of EMS. He denies any chest pain he did have decreased breath sounds. MD Complaint: fall - Related Data Home Medications Medication Instructions Recorded Confirmed Clopidogrel [Plavix] 75 mg PO DAILY 03/10/14 07/04/17 traZODone HCL [Desyrel] 50 mg PO HS PRN 03/10/14 07/04/17 Aspirin 81 mg PO DAILY 05/01/14 07/04/17 Multivitamin [Men's Multi-Vitamin] 1 tab PO DAILY 05/01/14 07/04/17 Simvastatin [Zocor] 40 mg PO HS 05/01/14 07/04/17 ALPRAZolam [Xanax] 0.5 mg PO BID PRN 12/23/14 07/04/17 Losartan [Cozaar] 25 mg PO DAILY 12/23/14 07/04/17 HYDROcodone/APAP 7.5-325MG [Pickerel 1 tab PO Q8H PRN 12/24/14 07/04/17 7.5-325] Acetaminophen/Diphenhydramine 2 tab PO HS PRN 02/02/16 07/04/17 [Tylenol PM 500-25mg] Carvedilol [Coreg] 6.25 mg PO BID 02/02/16 07/04/17 Nitroglycerin Sl Tabs [Nitrostat] 0.4 mg SUBLINGUAL Q5M PRN 02/02/16 07/04/17 Oxybutynin Chloride 5 mg PO BID 02/02/16 07/04/17 Polyethylene Glycol 3350 [Miralax] 17 gm PO DAILY PRN 02/02/16 07/04/17 Ranitidine HCl 150 mg PO BID 02/02/16 07/04/17 Tamsulosin [Flomax] 0.4 mg PO HS 02/02/16 07/04/17 Ipratropium-Albuterol Nebulize 3 ml INHALATION RT-Q6H PRN 09/28/16 07/04/17 [Duoneb 0.5 mg-3 mg/3 ml Soln] Acetaminophen [Tylenol Extra 500 mg PO BID PRN 07/04/17 07/04/17 Strength] Albuterol Nebulized (Conc) 2.5 mg INHALATION RT-TID 07/04/17 07/04/17 [Ventolin Nebulized (Conc)] Budesonide [Pulmicort Flexhaler] 2 puff INHALATION RT-BID 07/04/17 07/04/17 Finasteride [Proscar] 5 mg PO DAILY 07/04/17 07/04/17 predniSONE 5 mg PO DAILY 07/04/17 07/04/17 Allergies Allergy/AdvReac Type Severity Reaction Status Date / Time No Known Allergies Allergy Verified 07/04/17 16:15 Review of Systems ROS Statement: Those systems with pertinent positive or pertinent negative responses have been documented in the HPI. ROS Other: All systems not noted in ROS Statement are negative. Past Medical History Past Medical History: Coronary Artery Disease (CAD), Chest Pain / Angina, Heart Failure, COPD, CVA/TIA, Deep Vein Thrombosis (DVT), GERD/Reflux, Hearing Disorder / Deafness, Hyperlipidemia, Hypertension, Memory Impairment, Myocardial Infarction (NE), Musculoskeletal Disorder, Pneumonia, Prostate Disorder, Respiratory Disorder, Vascular Disorder Additional Past Medical History / Comment(s): HX OF CVA WITH SOME SPEECH DIFFICULTY (since 1999). TIA'S. PVD. PER PATIENT BLOCKED RIGHT CAROTID. RESPIRATORY FAILURE, CONTINUOUS OXYGEN 4L. BPH. CHRONIC BRONCHITIS. DJD. STOMACH ULCER. DIVERTICULITIS. HEMORRHOIDS, POLYPS. VANIA ANKLE FX IN THE PAST. DJD WITH BACK PAIN . USES WALKER OR WHEELCHAIR, ELECTRIC SCOOTER. CHRONIC LEG AND BACK PAIN.CONSTIPATION. PT STATED HAS LOSS OF APPETITE,WT LOSS, GLAUCOMA , SHORTNESS OF BREATH Last Myocardial Infarction Date:: 1997 History of Any Multi-Drug Resistant Organisms: MRSA Date of last positivie culture/infection: 12/26/2014 MDRO Source:: SPUTUM Past Surgical History: AICD, Back Surgery, Coronary Bypass/CABG, Heart Catheterization, Heart Catheterization With Stent, Pacemaker, Tonsillectomy Additional Past Surgical History / Comment(s): FEBRUARY 2016 PACER ([id number] , #SS [id number]). CABG 5 vessel 1998. Cath with stents (5 total). Bilateral carotid endarterectomies. Back surgery x 2. Bilateral fem/pops, bilateral stenting in legs (6 total). L and R inguinal hernia repairs. Cataract removal bilaterally. Back injections for pain. Past Anesthesia/Blood Transfusion Reactions: No Reported Reaction Additional Past Anesthesia/Blood Transfusion Reaction / Comment(s): Never had blood transfusion. Date of Last Stent Placement:: 2013 Type of Cardiac Device: Permanent Pacemaker, AICD Device Placement Date:: 02/2016 Smoking Status: Former smoker - Past Family History Brother(s) Family Medical History: Cancer Sister(s) Family Medical History: Congestive Heart Failure (CHF), Vascular Disorder Additional Family Medical History / Comment(s): PVD Mother Family Medical History: Cancer, Coronary Artery Disease (CAD) Additional Family Medical History / Comment(s): Multiple heart surgery Father Family Medical History: Coronary Artery Disease (CAD) Additional Family Medical History / Comment(s): Colon CA after 50's General Exam - General Exam Comments Initial Comments: This is a well-developed well-nourished awake alert oriented 3 male General appearance: alert, in no apparent distress Head exam: Present: atraumatic, normocephalic, normal inspection Eye exam: Present: normal appearance, PERRL, EOMI. Absent: scleral icterus, conjunctival injection, periorbital swelling ENT exam: Present: normal exam, mucous membranes moist Neck exam: Present: normal inspection. Absent: tenderness, meningismus, lymphadenopathy Respiratory exam: Present: decreased breath sounds, other (Some basilar crepitus noted). Absent: respiratory distress, wheezes, rales, rhonchi, stridor Cardiovascular Exam: Present: regular rate, normal rhythm, normal heart sounds. Absent: systolic murmur, diastolic murmur, rubs, gallop, clicks GI/Abdominal exam: Present: soft, normal bowel sounds. Absent: distended, tenderness, guarding, rebound, rigid Extremities exam: Present: normal inspection, full ROM, normal capillary refill. Absent: tenderness, pedal edema, joint swelling, calf tenderness Back exam: Present: normal inspection Neurological exam: Present: alert, oriented X3, CN II-XII intact Psychiatric exam: Present: normal affect, normal mood Skin exam: Present: warm, dry, intact, normal color. Absent: rash Course Vital Signs 07/04/17 07/04/17 07/04/17 15:20 15:27 17:15 Temperature 97.6 F Pulse Rate 90 89 Respiratory 18 18 18 Rate Blood Pressure 137/84 148/85 O2 Sat by Pulse 100 100 Oximetry - Reevaluation(s) Reevaluation #1: 07/04/17 17:28 Reevaluation patient reveals that he feels improved he does admit now he's been having some intermittent chest pains over last day or 2. Medical Decision Making - Medical Decision Making I did discuss the findings with patient family patient will be admitted I did discuss the case with Dr. Rahman as well as with Dr. Stuart from cardiology - Lab Data Result diagrams: 07/04/17 15:26 07/04/17 15:26 Lab Results 07/04/17 07/04/17 07/04/17 Range/Units 15:26 15:26 15:26 WBC 10.4 (3.8-10.6) k/uL RBC 4.64 (4.30-5.90) m/uL Hgb 13.7 (13.0-17.5) gm/dL Hct 44.2 (39.0-53.0) % MCV 95.4 (80.0-100.0) fL MCH 29.6 (25.0-35.0) pg MCHC 31.1 (31.0-37.0) g/dL RDW 13.8 (11.5-15.5) % Plt Count 183 (150-450) k/uL Neutrophils % 87 % Lymphocytes % 7 % Monocytes % 5 % Eosinophils % 1 % Basophils % 0 % Neutrophils # 9.0 H (1.3-7.7) k/uL Lymphocytes # 0.7 L (1.0-4.8) k/uL Monocytes # 0.5 (0-1.0) k/uL Eosinophils # 0.1 (0-0.7) k/uL Basophils # 0.0 (0-0.2) k/uL Hypochromasia Slight PT (9.0-12.0) sec INR (<1.2) APTT (22.0-30.0) sec Sodium 142 (137-145) mmol/L Potassium 4.5 (3.5-5.1) mmol/L Chloride 102 (98-107) mmol/L Carbon Dioxide 32 H (22-30) mmol/L Anion Gap 8 mmol/L BUN 15 (9-20) mg/dL Creatinine 1.02 (0.66-1.25) mg/dL Est GFR (MDRD) Af Amer >60 (>60 ml/min/1.73 sqM) Est GFR (MDRD) Non-Af >60 (>60 ml/min/1.73 sqM) Glucose 168 H (74-99) mg/dL Calcium 8.5 (8.4-10.2) mg/dL Magnesium 1.8 (1.6-2.3) mg/dL Total Bilirubin 0.6 (0.2-1.3) mg/dL AST 20 (17-59) U/L ALT 32 (21-72) U/L Alkaline Phosphatase 70 (38-126) U/L Total Creatine Kinase 45 L (55-170) U/L CK-MB (CK-2) 4.5 H* (0.0-2.4) ng/mL CK-MB (CK-2) Rel Index 10.0 Troponin I 0.586 H* (0.000-0.034) ng/mL NT-Pro-B Natriuret Pep pg/mL Total Protein 6.2 L (6.3-8.2) g/dL Albumin 3.7 (3.5-5.0) g/dL 07/04/17 07/04/17 Range/Units 15:26 15:26 WBC (3.8-10.6) k/uL RBC (4.30-5.90) m/uL Hgb (13.0-17.5) gm/dL Hct (39.0-53.0) % MCV (80.0-100.0) fL MCH (25.0-35.0) pg MCHC (31.0-37.0) g/dL RDW (11.5-15.5) % Plt Count (150-450) k/uL Neutrophils % % Lymphocytes % % Monocytes % % Eosinophils % % Basophils % % Neutrophils # (1.3-7.7) k/uL Lymphocytes # (1.0-4.8) k/uL Monocytes # (0-1.0) k/uL Eosinophils # (0-0.7) k/uL Basophils # (0-0.2) k/uL Hypochromasia PT 11.1 (9.0-12.0) sec INR 1.1 (<1.2) APTT 23.6 (22.0-30.0) sec Sodium (137-145) mmol/L Potassium (3.5-5.1) mmol/L Chloride (98-107) mmol/L Carbon Dioxide (22-30) mmol/L Anion Gap mmol/L BUN (9-20) mg/dL Creatinine (0.66-1.25) mg/dL Est GFR (MDRD) Af Amer (>60 ml/min/1.73 sqM) Est GFR (MDRD) Non-Af (>60 ml/min/1.73 sqM) Glucose (74-99) mg/dL Calcium (8.4-10.2) mg/dL Magnesium (1.6-2.3) mg/dL Total Bilirubin (0.2-1.3) mg/dL AST (17-59) U/L ALT (21-72) U/L Alkaline Phosphatase (38-126) U/L Total Creatine Kinase (55-170) U/L CK-MB (CK-2) (0.0-2.4) ng/mL CK-MB (CK-2) Rel Index Troponin I (0.000-0.034) ng/mL NT-Pro-B Natriuret Pep 1490 pg/mL Total Protein (6.3-8.2) g/dL Albumin (3.5-5.0) g/dL - EKG Data -: EKG Interpreted by Me (Atrial sensed ventricular paced rhythm 88 was a heart rate RI interval 120 ) - Radiology Data Radiology results: report reviewed (Imaging shows no definite acute findings.), image reviewed Critical Care Time Critical Care Time: Yes Critical Care Time: 33 minutes of critical care time which includes initial presentation with monitoring of the EMS run and discussed with paramedics history physical labs x- rays reevaluation patient several occasions discussion with the patient family members regarding the findings discussed with the admitting physician as well as cardiology admission orders and documentation of the above. Disposition Clinical Impression: Non-ST elevation myocardial infarction (NSTEMI), COPD exacerbation Disposition: ADMITTED IP TO THIS HOSP Condition: Stable Referrals: Alejo Oliver MD [Primary Care Provider] - 1-2 days
[2017-07-04] MEDS ORDERED: HYDROcodone/APAP 7.5-325MG 1 EACH TAB PO ONE (17:02)
[2017-07-04] MEDS ORDERED: NITROGLYCERIN SL TABS 0.4 MG TAB SUBLINGUAL PRN ×2 (17:31→17:34)
[2017-07-04] MEDS ORDERED: HEPARIN SODIUM,PORCINE 5,000 UNIT/ML 1 ML VIAL IV ONE (17:31)
[2017-07-04] MEDS ORDERED: POLYETHYLENE GLYCOL 3350 17 GM POWD.PACK PO PRN (17:34)
[2017-07-04] MEDS ORDERED: traZODone HCL 50 MG TAB PO PRN (17:34)
[2017-07-04] MEDS ORDERED: ACETAMINOPHEN TAB 500 MG TAB PO PRN ×2 (17:34)
[2017-07-04] MEDS ORDERED: IPRATROPIUM-ALBUTEROL 3 ML NEB INHALATION PRN (17:34)
[2017-07-04] MEDS ORDERED: diphenhydrAMINE 50 MG CAP PO PRN (18:11)
[2017-07-04] MEDS: BUDESONIDE 0.5 MG/2 ML NEBU INHALATION SCH (19:25)
[2017-07-04] MEDS: HEPARIN SODIUM,PORCINE/D5W PMX 25,000 UNIT in DEXTROSE/WATER 1 500ML.BAG IV SCH (19:26)
[2017-07-04] MEDS: ALBUTEROL NEBULIZED 2.5 MG/3 ML INHALATION SCH (19:51)
[2017-07-04] MEDS: SODIUM CHLORIDE 0.9% 1,000 ML IV SCH (20:37)
[2017-07-04] MEDS: NITROGLYCERIN OINT 1 INCH/GM PACKET TOPICAL SCH (20:38)
[2017-07-04] MEDS: CARVEDILOL 6.25 MG TAB PO SCH (20:38)
[2017-07-04] MEDS: ATORVASTATIN 20 MG TAB PO SCH (20:38)
[2017-07-04] MEDS: TAMSULOSIN 0.4 MG CAP.ER.24H PO SCH (20:38)
[2017-07-04] MEDS: OXYBUTYNIN CHLORIDE 5 MG TAB PO SCH (20:38)
[2017-07-04] MEDS: FAMOTIDINE 20 MG TAB PO SCH (20:38)
[2017-07-04 23:09] LABS: Creatine Kinase MB 4.3 ng/mL (0.0-2.4)
[2017-07-04 23:10] LABS: Troponin I 0.731 ng/mL (0.000-0.034)
[2017-07-05] MEDS: NITROGLYCERIN OINT 1 INCH/GM PACKET TOPICAL SCH ×2 (00:58→05:33)
[2017-07-05 04:38] LABS: Creatine Kinase MB 3.5 ng/mL (0.0-2.4)
[2017-07-05 04:39] LABS: Troponin I 0.522 ng/mL (0.000-0.034)
[2017-07-05 07:16] LABS: Cholesterol 133 mg/dL (<200); HDL Cholesterol 56 mg/dL (40-60)
[2017-07-05] MEDS: ALBUTEROL NEBULIZED 2.5 MG/3 ML INHALATION SCH ×3 (08:01→19:46)
[2017-07-05] MEDS: BUDESONIDE 0.5 MG/2 ML NEBU INHALATION SCH ×2 (08:01→19:46)
[2017-07-05] MEDS: FINASTERIDE 5 MG TAB PO SCH (08:43)
[2017-07-05] MEDS: CARVEDILOL 6.25 MG TAB PO SCH (08:43)
[2017-07-05] MEDS: LOSARTAN 25 MG TAB PO SCH (08:43)
[2017-07-05] MEDS: FAMOTIDINE 20 MG TAB PO SCH ×2 (08:43→20:36)
[2017-07-05] MEDS: CLOPIDOGREL 75 MG TAB PO SCH (08:43)
[2017-07-05] MEDS: predniSONE 5 MG TAB PO SCH (08:44)
[2017-07-05] MEDS: OXYBUTYNIN CHLORIDE 5 MG TAB PO SCH ×2 (08:44→20:36)
[2017-07-05] MEDS: HYDROcodone/APAP 7.5-325MG 1 EACH TAB PO PRN ×2 (08:48→20:39)
[2017-07-05] MEDS ORDERED: ASPIRIN 81 MG PO SCH (09:00)
[2017-07-05] MEDS ORDERED: ASPIRIN 325 MG TAB PO SCH (09:00)
[2017-07-05 10:42] VITALS: BMI 24.5
--- NOTE | 2017-07-05 10:53 | P.CRDCN ---
History of Present Illness Consult date: 07/05/17 Requesting physician: Jeancarlos Rahman Reason for Consult (text): Abnormal troponins Chief complaint: Falls History of present illness: This is a 71-year-old gentleman who follows with Dr. Celena Mason in the office. He has a known history of coronary artery disease with prior bypass surgery in 1997, at which time he underwent a OLIVEIRA to the LAD, saphenous vein graft to the OM1, OM 2, circumflex, and RCA. Subsequent to that patient did undergo angioplasty with stenting of the saphenous vein graft to the OM 1 and 2 in 2008, and saphenous vein graft stenting to the OM1 in 2013, he has history also of hypertension, hyperlipidemia, by V AICD implantation, peripheral vascular disease with prior fem-pop surgery. She also has history of prior CVA , with subsequent memory loss. His daughter works in the operating room here at the hospital. Patient presents to the hospital following several falls at home. He states that he fell a total of 4 times. Patient does state that he was ordered to have a back brace placed as an outpatient because of his falls, he states that he got up in the middle of the night to use the restroom and became extremely dizzy he states that he fell into the wall a couple of times but was able to make it back to bed. Subsequent to that he attempted to get up again and this time fell down to the floor. He states that the reason he fell on this occasion is because his walker was entangled in his bed sheets. He denies syncope. Patient also states that he has noticed himself to be more short of breath than usual however he denies having any chest discomfort. EKG on arrival here showed atrial sensed V paced rhythm. Underlying normal sinus rhythm. Chest x-ray did not reveal any acute process. Suggestion of COPD. CT of the lumbar spine was performed, this revealed no significant interval change as compared to one performed 2 months ago. 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 But pressure on arrival to the hospital 137/80, heart rate 90, 100% on 4 L. Blood pressure this morning 185/ 80 with a heart rate in the 70s, 97% on 4 L of oxygen. White blood cell count on admission 10.4, hemoglobin 13.7, potassium 4.5, BUN 15, creatinine 1.02. BNP level 1490. Troponins 0.58, 73, 0.52. At the time of my examination this morning, patient denies any dizziness or lightheadedness, no chest discomfort, mild back discomfort. Past Medical History Past Medical History: Coronary Artery Disease (CAD), Chest Pain / Angina, Heart Failure, COPD, CVA/TIA, Deep Vein Thrombosis (DVT), GERD/Reflux, Hearing Disorder / Deafness, Hyperlipidemia, Hypertension, Memory Impairment, Myocardial Infarction (ID), Musculoskeletal Disorder, Pneumonia, Prostate Disorder, Respiratory Disorder, Vascular Disorder Additional Past Medical History / Comment(s): HX OF CVA WITH SOME SPEECH DIFFICULTY (since 1999). TIA'S. PVD. PER PATIENT BLOCKED RIGHT CAROTID. RESPIRATORY FAILURE, CONTINUOUS OXYGEN 4L. BPH. CHRONIC BRONCHITIS. DJD. STOMACH ULCER. DIVERTICULITIS. HEMORRHOIDS, POLYPS. VANIA ANKLE FX IN THE PAST. DJD WITH BACK PAIN . USES WALKER OR WHEELCHAIR, ELECTRIC SCOOTER. CHRONIC LEG AND BACK PAIN.CONSTIPATION. PT STATED HAS LOSS OF APPETITE,WT LOSS, GLAUCOMA , SHORTNESS OF BREATH Last Myocardial Infarction Date:: 1997 History of Any Multi-Drug Resistant Organisms: MRSA Date of last positivie culture/infection: 12/26/2014 MDRO Source:: SPUTUM Past Surgical History: AICD, Back Surgery, Coronary Bypass/CABG, Heart Catheterization, Heart Catheterization With Stent, Pacemaker, Tonsillectomy Additional Past Surgical History / Comment(s): FEBRUARY 2016 PACER ([facility] [id number] , #SS [id number]). CABG 5 vessel 1997. Cath with stents (5 total). Bilateral carotid endarterectomies. Back surgery x 2. Bilateral fem/pops, bilateral stenting in legs (6 total). L and R inguinal hernia repairs. Cataract removal bilaterally. Back injections for pain. Past Anesthesia/Blood Transfusion Reactions: No Reported Reaction Additional Past Anesthesia/Blood Transfusion Reaction / Comment(s): Never had blood transfusion. Date of Last Stent Placement:: 2013 Type of Cardiac Device: Permanent Pacemaker, AICD Device Placement Date:: 02/2016 Past Psychological History: Anxiety, Depression Additional Psychological History / Comment(s): .PT [facility] PA[facility] SOMEONE TO CLEAN HIS APT 2X A MONTH AND FAMILY HELPS WITH SHOPPING Smoking Status: Former smoker Past Alcohol Use History: None Reported Additional Past Alcohol Use History / Comment(s): Pt quit smoking in 2011. SMOKED 1 PPD, SMOKED FOR 50 YEARS Past Drug Use History: None Reported - Past Family History Brother(s) Family Medical History: Cancer Sister(s) Family Medical History: Congestive Heart Failure (CHF), Vascular Disorder Additional Family Medical History / Comment(s): PVD Mother Family Medical History: Cancer, Coronary Artery Disease (CAD) Additional Family Medical History / Comment(s): Multiple heart surgery Father Family Medical History: Coronary Artery Disease (CAD) Additional Family Medical History / Comment(s): Colon CA after 50's Medications and Allergies Home Medications Medication Instructions Recorded Confirmed Type Clopidogrel [Plavix] 75 mg PO DAILY 03/10/14 07/04/17 History traZODone HCL [Desyrel] 50 mg PO HS PRN 03/10/14 07/04/17 History Aspirin 81 mg PO DAILY 05/01/14 07/04/17 History Multivitamin [Men's Multi-Vitamin] 1 tab PO DAILY 05/01/14 07/04/17 History Simvastatin [Zocor] 40 mg PO HS 05/01/14 07/04/17 History ALPRAZolam [Xanax] 0.5 mg PO BID PRN 12/23/14 07/04/17 History Losartan [Cozaar] 25 mg PO DAILY 12/23/14 07/04/17 History HYDROcodone/APAP 7.5-325MG [[place] 1 tab PO Q8H PRN 12/24/14 07/04/17 History 7.5-325] Acetaminophen/Diphenhydramine 2 tab PO HS PRN 02/02/16 07/04/17 History [Tylenol PM 500-25mg] Carvedilol [Coreg] 6.25 mg PO BID 02/02/16 07/04/17 History Nitroglycerin Sl Tabs [Nitrostat] 0.4 mg SUBLINGUAL Q5M PRN 02/02/16 07/04/17 History Oxybutynin Chloride 5 mg PO BID 02/02/16 07/04/17 History Polyethylene Glycol 3350 [Miralax] 17 gm PO DAILY PRN 02/02/16 07/04/17 History Ranitidine HCl 150 mg PO BID 02/02/16 07/04/17 History Tamsulosin [Flomax] 0.4 mg PO HS 02/02/16 07/04/17 History Ipratropium-Albuterol Nebulize 3 ml INHALATION RT-Q6H PRN 09/28/16 07/04/17 History [Duoneb 0.5 mg-3 mg/3 ml Soln] Acetaminophen [Tylenol Extra 500 mg PO BID PRN 07/04/17 07/04/17 History Strength] Albuterol Nebulized (Conc) 2.5 mg INHALATION RT-TID 07/04/17 07/04/17 History [Ventolin Nebulized (Conc)] Budesonide [Pulmicort Flexhaler] 2 puff INHALATION RT-BID 07/04/17 07/04/17 History Finasteride [Proscar] 5 mg PO DAILY 07/04/17 07/04/17 History predniSONE 5 mg PO DAILY 07/04/17 07/04/17 History Allergies Allergy/AdvReac Type Severity Reaction Status Date / Time No Known Allergies Allergy Verified 07/04/17 16:15 Physical Exam Vitals: Vital Signs Temp Pulse Pulse Resp BP BP Pulse Ox 07/05/17 08:19 78 07/05/17 08:02 77 97 07/05/17 08:00 97.3 F L 72 18 185/81 96 07/05/17 03:27 97.5 F L 63 16 148/64 93 L 07/04/17 23:12 98.9 F 77 16 153/67 95 07/04/17 20:00 98.8 F 76 16 178/70 94 L 07/04/17 19:29 101 H 07/04/17 17:15 89 18 148/85 100 07/04/17 15:27 18 07/04/17 15:20 97.6 F 90 18 137/84 100 Intake and Output 07/04/17 07/05/17 07/05/17 22:59 06:59 14:59 Intake Total 224 468.266 Output Total 150 Balance 224 318.266 Intake: IV 224 288 Heparin Sodium,Porcine/ 64 128 D5w Pmx 25,000 unit In Dextrose/Water 1 500ml. bag @ 12 UNITS/KG/HR 16 mls/hr IV .Q24H [facility] Rx#: [id number] Sodium Chloride 0.9% 1, 160 160 000 ml @ 20 mls/hr IV . Q24H [facility] Rx#:[id number] Intake, IV Titration 180.266 Amount Heparin Sodium,Porcine/ 180.266 D5w Pmx 25,000 unit In Dextrose/Water 1 500ml. bag @ 12 UNITS/KG/HR 16 mls/hr IV .Q24H [facility] Rx#: [id number] Output: Urine 150 Other: Weight 64.3 kg 64.7 kg PHYSICAL EXAMINATION: HEENT: Head is atraumatic, normocephalic. Pupils equal, round. Neck is supple. There is no elevated jugular venous pressure. HEART EXAMINATION: Heart S1 S2 1 systolic ejection murmur is heard. CHEST EXAMINATION: Lungs are clear with mild diminished air entry to the bases. No chest wall tenderness is noted on palpation or with deep breathing. ABDOMEN: Soft, nontender. Bowel sounds are heard. No organomegaly noted. EXTREMITIES: 1+ peripheral pulses with no evidence of peripheral edema and no calf tenderness noted. NEUROLOGIC patient is awake, alert and oriented -3. Intermittently has memory loss. . Results 07/04/17 15:26 07/04/17 15:26 Cardiac Enzymes 07/04/17 07/04/17 07/04/17 Range/Units 15:26 15:26 21:57 AST 20 (17-59) U/L CK-MB (CK-2) 4.5 H* 4.3 H* (0.0-2.4) ng/mL Troponin I 0.586 H* 0.731 H* (0.000-0.034) ng/mL 07/05/17 Range/Units 03:12 AST (17-59) U/L CK-MB (CK-2) 3.5 H* (0.0-2.4) ng/mL Troponin I 0.522 H* (0.000-0.034) ng/mL Coagulation 07/04/17 07/05/17 07/05/17 Range/Units 15:26 01:02 06:14 PT 11.1 (9.0-12.0) sec APTT 23.6 64.5 H 74.5 H (22.0-30.0) sec Lipids 07/05/17 Range/Units 06:15 Triglycerides 84 (<150) mg/dL Cholesterol 133 (<200) mg/dL HDL Cholesterol 56 (40-60) mg/dL CBC 07/04/17 Range/Units 15:26 WBC 10.4 (3.8-10.6) k/uL RBC 4.64 (4.30-5.90) m/uL Hgb 13.7 (13.0-17.5) gm/dL Hct 44.2 (39.0-53.0) % Plt Count 183 (150-450) k/uL Comprehensive Metabolic Panel 07/04/17 Range/Units 15:26 Sodium 142 (137-145) mmol/L Potassium 4.5 (3.5-5.1) mmol/L Chloride 102 (98-107) mmol/L Carbon Dioxide 32 H (22-30) mmol/L BUN 15 (9-20) mg/dL Creatinine 1.02 (0.66-1.25) mg/dL Glucose 168 H (74-99) mg/dL Calcium 8.5 (8.4-10.2) mg/dL AST 20 (17-59) U/L ALT 32 (21-72) U/L Alkaline Phosphatase 70 (38-126) U/L Total Protein 6.2 L (6.3-8.2) g/dL Albumin 3.7 (3.5-5.0) g/dL Current Medications Generic Name Dose Route Start Last Admin Trade Name Freq PRN Reason Stop Dose Admin Acetaminophen 500 mg 07/04/17 17:34 Tylenol Tab PO BID PRN MILD Pain Acetaminophen 1,000 mg 07/04/17 17:34 Tylenol Tab PO HS PRN for sleep Hydrocodone Bitart/Acetaminophen 1 each 07/04/17 17:34 07/05/17 08:48 [place] 7.5-325 PO 1 each Q8H PRN Administration MODERATE TO SEVERE Pain Albuterol Sulfate 2.5 mg 07/04/17 20:00 07/05/17 08:01 Ventolin Nebulized INHALATION 2.5 mg RT-TID [facility] Administration Albuterol/Ipratropium 3 ml 07/04/17 17:34 07/04/17 19:25 Duoneb 0.5 Mg-3 Mg/3 Ml Soln INHALATION 3 ml RT-Q6H PRN Administration Shortness Of Breath Alprazolam 0.5 mg 07/04/17 17:34 Xanax PO BID PRN Anxiety Aspirin 325 mg 07/05/17 09:00 07/05/17 08:43 Aspirin PO 325 mg DAILY [facility] Administration Atorvastatin Calcium 20 mg 07/04/17 21:00 07/04/17 20:38 Lipitor PO 20 mg HS [facility] Administration Budesonide 0.5 mg 07/04/17 20:00 07/05/17 08:01 Pulmicort INHALATION 0.5 mg RT-BID [facility] Administration Carvedilol 6.25 mg 07/04/17 21:00 07/05/17 08:43 Coreg PO 6.25 mg BID [facility] Administration Clopidogrel Bisulfate 75 mg 07/05/17 09:00 07/05/17 08:43 Plavix PO 75 mg DAILY [facility] Administration Diphenhydramine HCl 50 mg 07/04/17 18:11 Benadryl PO HS PRN for sleep Famotidine 20 mg 07/04/17 21:00 07/05/17 08:43 Pepcid PO 20 mg BID [facility] Administration Finasteride 5 mg 07/05/17 09:00 07/05/17 08:43 Proscar PO 5 mg DAILY [facility] Administration Heparin Sodium/Dextrose 25,000 500 mls @ 16 mls/hr 07/04/17 17:45 07/05/17 06 :42 unit/ IV Solution IV 12 units/kg/hr .Q24H [facility] 16 mls/hr Protocol Titration 12 UNITS/KG/HR Sodium Chloride 1,000 mls @ 20 mls/hr 07/04/17 17:45 07/04/17 20:37 Saline 0.9% IV Not Given .Q24H [facility] Losartan Potassium 25 mg 07/05/17 09:00 07/05/17 08:43 Cozaar PO 25 mg DAILY [facility] Administration Multivitamins 1 each 07/05/17 12:00 Theragran PO DAILY@1200 [facility] Nitroglycerin 1 inch 07/04/17 19:00 07/05/17 05:33 Nitro-Bid Oint TOPICAL 1 inch Q6HR [facility] Administration Nitroglycerin 0.4 mg 07/04/17 17:31 Nitrostat SUBLINGUAL Q5M PRN Chest Pain Oxybutynin Chloride 5 mg 07/04/17 21:00 07/05/17 08:44 Ditropan PO 5 mg BID [facility] Administration Polyethylene Glycol 17 gm 07/04/17 17:34 Miralax PO DAILY PRN Constipation Prednisone 5 mg 07/05/17 09:00 07/05/17 08:44 PO 5 mg DAILY [facility] Administration Tamsulosin HCl 0.4 mg 07/04/17 21:00 07/04/17 20:38 Flomax PO 0.4 mg HS [facility] Administration Trazodone HCl 50 mg 07/04/17 17:34 Desyrel PO HS PRN SLEEP Intake and Output 07/04/17 07/05/17 07/05/17 22:59 06:59 14:59 Intake Total 224 468.266 Output Total 150 Balance 224 318.266 Intake: IV 224 288 Heparin Sodium,Porcine/ 64 128 D5w Pmx 25,000 unit In Dextrose/Water 1 500ml. bag @ 12 UNITS/KG/HR 16 mls/hr IV .Q24H [facility] Rx#: [id number] Sodium Chloride 0.9% 1, 160 160 000 ml @ 20 mls/hr IV . Q24H [facility] Rx#:[id number] Intake, IV Titration 180.266 Amount Heparin Sodium,Porcine/ 180.266 D5w Pmx 25,000 unit In Dextrose/Water 1 500ml. bag @ 12 UNITS/KG/HR 16 mls/hr IV .Q24H [facility] Rx#: [id number] Output: Urine 150 Other: Weight 64.3 kg 64.7 kg 07/04/17 15:26 07/04/17 15:26 EKG Interpretations (text) EKG shows an a sensed V paced rhythm with underlying normal sinus rhythm, nonspecific ST-T wave changes Assessment and Plan Plan: Assessment and plan #1 frequent falls with no clear-cut evidence of syncope. #2 symptoms of shortness of breath, chest x-ray suggests no acute process, correlation for COPD. Mild abnormality in BNP suggesting mild congestive cardiac failure, systolic acute on chronic. Most recent echocardiogram with Doppler study revealed an ejection fraction of 30-35%. #3 history of IV AICD implantation #4 known history of coronary artery disease with prior coronary artery bypass grafting in 1997, subsequent to that patient underwent stenting of the SVG to the OM1 and 2 in 2008 and stenting of the OM1 in 2013 # 5 peripheral vascular disease with prior fem-pop and left carotid endarterectomy #6 hypertension #7 hyperlipidemia #8 prior CVA #9 DVT history #10 COPD #11 abnormal troponins, suggesting possible acute coronary syndrome. Plan We will repeat an echocardiogram with Doppler study. We will also check orthostatic blood pressure and heart rate every shift. Decrease aspirin 81 mg daily, increase Coreg to 12-1/2 mg one tablet by mouth twice a day, continue Lipitor, Cozaar, his continue nitro paste and start the patient on small dose of Imdur. Give the patient one time dose of IV Lasix. Continue maximal medical therapy. Further recommendations to follow. DNP note has been reviewed, I agree with a documented findings and plan of care. Patient was seen and examined.
[2017-07-05] MEDS ORDERED: FUROSEMIDE 10 MG/ML 4 ML VIAL IV STA (10:57)
--- NOTE | 2017-07-05 11:40 | P.PN ---
Progress Note - Text this is an addendum to the dictated cardiology consultation. The patient has a history of CAD, ischemic cardiomyopathy, peripheral vascular disease who presented after a fall and lower back pain. He is limited in his physical activity and has chronic dyspnea on exertion. It is unclear if he had any chest discomfort over the last few days or the last few weeks. If he had discomfort it is not over the last 24 hours and it is at rest. He has a biventricular pacer and his EKG shows no acute changes. He has underwent perkiness revascularization in the past and last underwent cardiac catheterization in February 2014. He uses the walker at home and has a brace for his back. His physical examination shows no significant fluid overload and he has systolic murmur with no gallop. His lab work are suggestive of a non-STEMI but he has no clear evidence of recent chest discomfort. I will obtain an echocardiogram with Doppler, we will interrogate his device to rule out any tachyarrhythmia. I will continue anticoagulation for 24 hours and depending on his progress further recommendation will be made. Thank you for this consult we will follow with you.
[2017-07-05] MEDS: CARVEDILOL 12.5 MG TAB PO SCH ×2 (11:41→17:57)
[2017-07-05] MEDS: MULTIVITAMINS, THERA 1 EACH TAB PO SCH (11:53)
--- NOTE | 2017-07-05 12:22 | ECHOF ---
Referral Reason:chf MEASUREMENTS -------- HEIGHT: 162.6 cm WEIGHT: 64.4 kg BP: 185/81 IVSd: 1.8 cm (0.6 - 1.1) LVIDd: 3.0 cm (3.9 - 5.3) LVPWd: 1.9 cm (0.6 - 1.1) IVSs: 2.0 cm LVIDs: 1.8 cm LVPWs: 2.5 cm Ao Diam: 3.5 cm (2.0 - 3.7) AV Cusp: 1.6 cm (1.5 - 2.6) LA Diam: 4.0 cm (2.7 - 3.8) MV EXCURSION: 21.518 mm (> 18.000) MV EF SLOPE: 123 mm/s (70 - 150) EPSS: 0.6 cm MV E Vince: 0.51 m/s MV DecT: 208 ms MV A Vince: 1.02 m/s MV E/A Ratio: 0.50 RAP: 5.00 mmHg RVSP: 16.07 mmHg FINDINGS -------- Pacerwire seen in RV and RA. AICD This was a technically good study. There is severe concentric left ventricular hypertrophy. Overall left ventricular systolic function is moderately impaired with, an EF between 35 - 40 %. Septal Hypokinesis Mid to basal inferiorlateral is hypokinetic The right ventricle is normal in size and function. The left atrium is normal in size. The right atrium is normal in size. Aortic valve is trileaflet and is mildly thickened. There is mild aortic valve sclerosis. The mitral valve leaflets are mildly thickened. Mild mitral annular calcification present. Mild mitral regurgitation is present. Mild tricuspid regurgitation present. The right ventricular systolic pressure, as measured by Doppler, is 16.07mmHg. Pulmonic valve appears structurally normal. The aortic root is mildy dilated. The pericardium is normal. CONCLUSIONS -------- 1. Pacerwire seen in RV and RA. 2. The right atrium is normal in size. 3. Aortic valve is trileaflet and is mildly thickened. 4. There is mild aortic valve sclerosis. 5. The mitral valve leaflets are mildly thickened. 6. Mild mitral annular calcification present. 7. Mild mitral regurgitation is present. 8. Mild tricuspid regurgitation present. 9. The right ventricular systolic pressure, as measured by Doppler, is 16.07mmHg. 10. Pulmonic valve appears structurally normal. 11. The aortic root is mildy dilated. 12. AICD 13. The pericardium is normal. 14. This was a technically good study. 15. There is severe concentric left ventricular hypertrophy. 16. Overall left ventricular systolic function is moderately impaired with, an EF between 35 - 40 %. 17. Septal Hypokinesis 18. Mid to basal inferiorlateral is hypokinetic 19. The right ventricle is normal in size and function. 20. The left atrium is normal in size. ASSEMBLER FAUCETS: Margie San RDCS
--- NOTE | 2017-07-05 15:52 | HP ---
HISTORY AND PHYSICAL DATE OF ADMISSION: 07/04/17 PRESENTING COMPLAINT: Fall. HISTORY OF PRESENTING COMPLAINT: This is a very pleasant, 71 -year-old patient of Dr. Alejo Oliver with rather extensive medical history. Chronic stable medical conditions include COPD, anemia, congestive heart failure, GERD, hypertension, hyperlipidemia, some dementia, peripheral artery disease, blocked arteries, on home oxygen 4 L. Patient also has an AICD in place. The patient has a wheelchair and a walker. The patient was using a walker when he tripped and fell backwards. He fell very hard he says. He was able to get up. The patient is wearing a brace that he wears when he is ambulatory as he fell 4 weeks ago. He was seen by Dr. Recinos from [facility]. The patient denies any anterior chest wall pain. When he came in the patient's troponins were up and suspected to have acute non-Q-wave myocardial infarction. The patient is on IV heparin. The patient has had no precordial pain. REVIEW OF SYSTEMS: Constitutional: Tired. HEENT: Decreased hearing. Respiratory: Baseline some shortness of breath. CARDIOVASCULAR: Anterior chest wall pain. GASTROINTESTINAL: Heartburn. Genitourinary: None. MUSCULOSKELETAL: Pain in many joints including lower back. Dermatological: Some bruising. Hematological: None. Lymphatics none. Psychiatry: Forgetful. Neurological: None. PAST MEDICAL HISTORY: Past history of COPD, anemia, coronary artery disease with CABG, CHF, DVT, stroke, mildly affecting the speech, GERD, hypertension, hyperlipidemia, some dementia, osteoarthritis, peripheral artery disease with lower extremity arteries blocked, oxygen on 4 L, BPH, peptic ulcer disease, AICD, right calf block, patient uses a wheelchair and a walker. PAST SURGICAL HISTORY: AICD, back surgery, coronary artery bypass. Cardiac cath with stent. Bilateral carotid endarterectomy. Bilateral fem pops. Stenting in the legs, left and right inguinal hernia. Permanent pacemaker. PAST PSYCH HISTORY: Past psych history of anxiety and depression. SOCIAL HISTORY: Patient lives at [facility]. Family helps with shopping. The patient stopped smoking 5 years ago and had smoked a pack a day for 50 years. FAMILY HISTORY: Coronary artery disease. Multiple heart surgeries. HOME MEDICATIONS: 1. Ventolin nebulizer t.i.d. 2. Desyrel 50 mg q.h.s. p.r.n. 3. Flomax 0.4 mg q.h.s. 4. Zocor 40 mg q.h.s. 5. DuoNeb q.6h p.r.n. 6. [place] 7.5, 1 tab q.8h p.r.n. 7. Tylenol p.m. 8. Tylenol extra-strength 500 mg b.i.d. p.r.n. 9. Xanax 0.5 p.o. b.i.d. p.r.n. 10.Zantac 150 mg p.o. b.i.d. 11.Pulmicort 2 puffs b.i.d. 12.Prednisone 5 mg p.o. daily. 13.MiraLAX 17 g p.o. daily p.r.n. 14.Oxybutynin 5 mg p.o. b.i.d. 15.Nitrostat 0.4 sublingual q.5 p.r.n. 16.Plavix 75 mg p.o. daily. 17.Men's multivitamin 1 tab p.o. daily. 18.Cozaar 25 mg p.o. daily. 19.Proscar 5 mg p.o. daily. 20.Coreg 6.25 p.o. b.i.d. 21.Aspirin 81 mg p.o. daily. ALLERGIES: None. PHYSICAL EXAMINATION: Vital signs on presentation: Temperature 97.6, pulse 90, respiratory rate 18, blood pressure 137/84, pulse 100% on 2 L. GENERAL APPEARANCE: Average build, sitting up, tired appearing. Eyes: Pupils equal. Conjunctivae normal. HEENT oral cavity normal. NECK: JVD not raised. Mass not palpable. Respiratory effort normal. LUNGS: Diminished breath sounds. Cardiovascular first and second sounds normal. Minimal edema. ABDOMEN: Soft, nontender. Liver and spleen not palpable. Lymphatics: No lymph nodes palpable in the neck or axillae. Psychiatry alert and oriented times three. Mood and affect normal. Musculoskeletal: Evidence of osteoarthritis especially of the hands and knees. Minimal tenderness of the lumbar spine. Additionally patient is wearing a chest brace in the shape of a cross. INVESTIGATIONS: White count 10.4, hemoglobin 7.7, potassium 4.5, BUN and creatinine is normal. Troponin 0.5, 0.7, 0.5, proBNP 1419. EKG showing paced rhythm. The lumbar CT-spine, source of chronic changes. No acute fracture reported. ASSESSMENT: 1. Possible acute non-Q-wave myocardial infarction. The patient really does not have any chest pain. 2. Coronary artery disease with prior history of coronary bypass. 3. Chronic obstructive pulmonary disease in an ex-smoker. 4. Chronic congestive heart failure. Ejection fraction not known. 5. Gastroesophageal reflux disease. 6. Essential hypertension. 7. Hyperlipidemia. 8. Late onset Alzheimer's dementia. 9. Primary osteoarthritis multiple joints. 10.Severe peripheral artery disease. 11.Chronic hypoxic respiratory failure from chronic obstructive pulmonary disease on 4 L oxygen at home. 12.Benign prostatic hypertrophy. 13.Peptic ulcer disease. 14.AICD. 15.Right carotid 100% stenosis. 16.Gait dysfunction, uses a wheelchair walker. 17.Blood injury to the lumbar spine. PLAN: Cardiology Dr. Clarke was consulted. The patient is on IV heparin. Will consult Dr. Recinos team from [facility]. Patient's home medications were resumed. Care was discussed with the patient. Questions were answered. Copy to Dr. Alejo Oliver. MMODL / IJN: [id number] /
[2017-07-05] MEDS: HEPARIN SODIUM,PORCINE/D5W PMX 25,000 UNIT in DEXTROSE/WATER 1 500ML.BAG IV SCH ×2 (16:33→20:37)
[2017-07-05] MEDS: SODIUM CHLORIDE 0.9% 1,000 ML IV SCH (16:33)
[2017-07-05] MEDS: ATORVASTATIN 20 MG TAB PO SCH (20:36)
[2017-07-05] MEDS: TAMSULOSIN 0.4 MG CAP.ER.24H PO SCH (20:36)
[2017-07-06] MEDS: ALPRAZolam 0.5 MG TAB PO PRN ×2 (02:00→13:37)
[2017-07-06] MEDS: CARVEDILOL 12.5 MG TAB PO SCH (06:16)
[2017-07-06] MEDS: ALBUTEROL NEBULIZED 2.5 MG/3 ML INHALATION SCH ×2 (08:10→13:01)
[2017-07-06] MEDS: BUDESONIDE 0.5 MG/2 ML NEBU INHALATION SCH (08:11)
[2017-07-06] MEDS: FAMOTIDINE 20 MG TAB PO SCH (08:53)
[2017-07-06] MEDS: FINASTERIDE 5 MG TAB PO SCH (08:53)
[2017-07-06] MEDS: CLOPIDOGREL 75 MG TAB PO SCH (08:53)
[2017-07-06] MEDS: predniSONE 5 MG TAB PO SCH (08:54)
[2017-07-06] MEDS: OXYBUTYNIN CHLORIDE 5 MG TAB PO SCH (08:54)
[2017-07-06] MEDS: LOSARTAN 25 MG TAB PO SCH (08:54)
[2017-07-06] MEDS ORDERED: ISOSORBIDE MONONITRATE ER 30 MG TAB.ER.24H PO SCH (09:00)
[2017-07-06] MEDS ORDERED: ASPIRIN 81 MG PO SCH (09:00)
--- NOTE | 2017-07-06 11:13 | P.PN ---
Subjective Progress Note Date: 07/06/17 This is a 71-year-old gentleman who follows with Dr. Celnea Mason in the office. He has a known history of coronary artery disease with prior bypass surgery in 1997, at which time he underwent a OLIVEIRA to the LAD, saphenous vein graft to the OM1, OM 2, circumflex, and RCA. Subsequent to that patient did undergo angioplasty with stenting of the saphenous vein graft to the OM 1 and 2 in 2008, and saphenous vein graft stenting to the OM1 in 2013, he has history also of hypertension, hyperlipidemia, by V AICD implantation, peripheral vascular disease with prior fem-pop surgery. She also has history of prior CVA , with subsequent memory loss. His daughter works in the operating room here at the hospital. Patient presents to the hospital following several falls at home. He states that he fell a total of 4 times. Patient does state that he was ordered to have a back brace placed as an outpatient because of his falls, he states that he got up in the middle of the night to use the restroom and became extremely dizzy he states that he fell into the wall a couple of times but was able to make it back to bed. Subsequent to that he attempted to get up again and this time fell down to the floor. He states that the reason he fell on this occasion is because his walker was entangled in his bed sheets. He denies syncope. Patient also states that he has noticed himself to be more short of breath than usual however he denies having any chest discomfort. EKG on arrival here showed atrial sensed V paced rhythm. Underlying normal sinus rhythm. Chest x-ray did not reveal any acute process. Suggestion of COPD. CT of the lumbar spine was performed, this revealed no significant interval change as compared to one performed 2 months ago. 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 But pressure on arrival to the hospital 137/80, heart rate 90, 100% on 4 L. Blood pressure this morning 185/ 80 with a heart rate in the 70s, 97% on 4 L of oxygen. White blood cell count on admission 10.4, hemoglobin 13.7, potassium 4.5, BUN 15, creatinine 1.02. BNP level 1490. Troponins 0.58, 73, 0.52. At the time of my examination this morning, patient denies any dizziness or lightheadedness, no chest discomfort, mild back discomfort. 07/06/2017 Patient seen and examined this morning, no episodes of dizziness or lightheadedness. Pacemaker was checked yesterday and is functioning appropriately, no evidence of any tachycardia or bradycardia arrhythmias. Blood pressure after medication administration 132/60 with heart rate in the 70s. No orthostatics noted. Objective - Vital Signs Vital signs: Vital Signs Temp 98.2 F 07/06/17 03:47 Pulse 76 07/06/17 08:19 Resp 16 07/06/17 08:00 BP 132/66 07/06/17 08:30 Pulse Ox 97 07/06/17 08:00 Intake & Output 07/05/17 07/06/17 07/06/17 18:59 06:59 18:59 Intake Total 460 962.934 180 Output Total 300 1 Balance 160 961.934 180 Weight 64.7 kg 64.3 kg Intake: IV 576 Heparin Sodium,Porcine/ 256 D5w Pmx 25,000 unit In Dextrose/Water 1 500ml. bag @ 12 UNITS/KG/HR 16 mls/hr IV .Q24H SINDHU Rx#: [id number] Sodium Chloride 0.9% 1, 320 000 ml @ 20 mls/hr IV . Q24H SINDHU Rx#:[id number] Intake, IV Titration 386.934 Amount Heparin Sodium,Porcine/ 386.934 D5w Pmx 25,000 unit In Dextrose/Water 1 500ml. bag @ 12 UNITS/KG/HR 16 mls/hr IV .Q24H SINDHU Rx#: [id number] Oral 460 180 Output: Urine 300 1 Other: # Voids 1 # Bowel Movements 1 - Exam PHYSICAL EXAMINATION: HEENT: Head is atraumatic, normocephalic. Pupils equal, round. Neck is supple. There is no elevated jugular venous pressure. HEART EXAMINATION: Heart S1 S2 1 systolic ejection murmur is heard. CHEST EXAMINATION: Lungs are clear with mild diminished air entry to the bases. No chest wall tenderness is noted on palpation or with deep breathing. ABDOMEN: Soft, nontender. Bowel sounds are heard. No organomegaly noted. EXTREMITIES: 1+ peripheral pulses with no evidence of peripheral edema and no calf tenderness noted. NEUROLOGIC patient is awake, alert and oriented -3. Intermittently has memory loss. . - Labs CBC & Chem 7: 07/04/17 15:26 07/04/17 15:26 Labs: Abnormal Lab Results - Last 24 Hours (Table) 07/05/17 07/06/17 Range/Units 18:59 06:14 APTT 48.1 H 45.3 H (22.0-30.0) sec Assessment and Plan Plan: Assessment and plan #1 frequent falls with no clear-cut evidence of syncope. #2 symptoms of shortness of breath, chest x-ray suggests no acute process, correlation for COPD. Mild abnormality in BNP suggesting mild congestive cardiac failure, systolic acute on chronic. Most recent echocardiogram with Doppler study revealed an ejection fraction of 30-35%. #3 history of IV AICD implantation #4 known history of coronary artery disease with prior coronary artery bypass grafting in 1997, subsequent to that patient underwent stenting of the SVG to the OM1 and 2 in 2008 and stenting of the OM1 in 2013 # 5 peripheral vascular disease with prior fem-pop and left carotid endarterectomy #6 hypertension #7 hyperlipidemia #8 prior CVA #9 DVT history #10 COPD #11 abnormal troponins, suggesting possible acute coronary syndrome. Plan Echo cardiac gram with Doppler study revealed an ejection fraction of 35-40%. No evidence of orthostasis. Pacer check did not reveal any evidence of any tachycardia or bradycardia arrhythmias. From cardiology's perspective, patient may be able to be discharged once cleared by the primary and we will make him a follow-up appointment in the office post discharge. DNP note has been reviewed, I agree with a documented findings and plan of care. Patient was seen and examined.
[2017-07-06 11:21] VITALS: BP 181/86; RESP 18
[2017-07-06 11:40] VITALS: TEMP 96.7
[2017-07-06] MEDS: MULTIVITAMINS, THERA 1 EACH TAB PO SCH (12:34)
[2017-07-06 13:10] VITALS: PULSE 80
[2017-07-06] MEDS: HYDROcodone/APAP 7.5-325MG 1 EACH TAB PO PRN (13:36)
--- NOTE | 2017-07-06 13:40 | P.CNOR ---
History of Present Illness - [facility] Consult date: 07/06/17 Requesting physician: Jeancarlos Rahman Consult reason: fracture (L1 inferior endplate compression fracture deformity), low back pain History of present illness: Patient is a very pleasant 71-year-old male who is seen at the bedside for further evaluation for his known L1 compression fracture deformity. He has been following with Dr. Recinos at [facility] in the outpatient setting. He has a TLSO brace which he has been wearing during activities and while ambulating. Patient presented to the emergency department on 07/04/2017 for shortness of breath along with 2 falls. Medicine states patient tripped on his oxygen tubing the time of his fall. He is currently on home oxygen supplementation. Patient has COPD. Since his admittance to the hospital, he states his low back pain has been fairly well controlled. He has been working with therapy to increase mobility and ambulation. He denies a specific lower extremity weakness or radiculopathy bilaterally. Upon admission , was found to have elevated troponin 1 and CK-MB. He is being seen and treated by cardiology as well. He is currently on a heparin drip. Nursing states they're planning to try to convert him to oral prior to discharge. Patient may be discharged to a rehabilitation facility. Patient currently denies any increased back pain with coughing or sneezing. Past Medical History Past Medical History: Coronary Artery Disease (CAD), Chest Pain / Angina, Heart Failure, COPD, CVA/TIA, Deep Vein Thrombosis (DVT), GERD/Reflux, Hearing Disorder / Deafness, Hyperlipidemia, Hypertension, Memory Impairment, Myocardial Infarction (CA), Musculoskeletal Disorder, Pneumonia, Prostate Disorder, Respiratory Disorder, Vascular Disorder Additional Past Medical History / Comment(s): HX OF CVA WITH SOME SPEECH DIFFICULTY (since 1999). TIA'S. PVD. PER PATIENT BLOCKED RIGHT CAROTID. RESPIRATORY FAILURE, CONTINUOUS OXYGEN 4L. BPH. CHRONIC BRONCHITIS. DJD. STOMACH ULCER. DIVERTICULITIS. HEMORRHOIDS, POLYPS. VANIA ANKLE FX IN THE PAST. DJD WITH BACK PAIN . USES WALKER OR WHEELCHAIR, ELECTRIC SCOOTER. CHRONIC LEG AND BACK PAIN.CONSTIPATION. PT STATED HAS LOSS OF APPETITE,WT LOSS, GLAUCOMA , SHORTNESS OF BREATH Last Myocardial Infarction Date:: 1997 History of Any Multi-Drug Resistant Organisms: MRSA Year Discovered:: 12/26/2014 MDRO Source:: SPUTUM Past Surgical History: AICD, Back Surgery, Coronary Bypass/CABG, Heart Catheterization, Heart Catheterization With Stent, Pacemaker, Tonsillectomy Additional Past Surgical History / Comment(s): FEBRUARY 2016 PACER ([facility] PM [id number] , #SS [id number]). CABG 5 vessel 1998. Cath with stents (5 total). Bilateral carotid endarterectomies. Back surgery x 2. Bilateral fem/pops, bilateral stenting in legs (6 total). L and R inguinal hernia repairs. Cataract removal bilaterally. Back injections for pain. Past Anesthesia/Blood Transfusion Reactions: No Reported Reaction Additional Past Anesthesia/Blood Transfusion Reaction / Comm: Never had blood transfusion. Date of Last Stent Placement:: 2013 Type of Cardiac Device: Permanent Pacemaker, AICD Device Placement Date:: 02/2016 Past Psychological History: Anxiety, Depression Additional Psychological History / Comment(s): .[facility] TO CLEAN HIS APT 2X A MONTH AND FAMILY HELPS WITH SHOPPING Smoking Status: Former smoker Past Alcohol Use History: None Reported Additional Past Alcohol Use History / Comment(s): Pt quit smoking in 2011. SMOKED 1 PPD, SMOKED FOR 50 YEARS Past Drug Use History: None Reported - Past Family History Brother(s) Family Medical History: Cancer Sister(s) Family Medical History: Congestive Heart Failure (CHF), Vascular Disorder Additional Family Medical History / Comment(s): PVD Mother Family Medical History: Cancer, Coronary Artery Disease (CAD) Additional Family Medical History / Comment(s): Multiple heart surgery Father Family Medical History: Coronary Artery Disease (CAD) Additional Family Medical History / Comment(s): Colon CA after 50's Medications and Allergies Home Medications Medication Instructions Recorded Confirmed Type Clopidogrel [Plavix] 75 mg PO DAILY 03/10/14 07/04/17 History traZODone HCL [Desyrel] 50 mg PO HS PRN 03/10/14 07/04/17 History Aspirin 81 mg PO DAILY 05/01/14 07/04/17 History Multivitamin [Men's Multi-Vitamin] 1 tab PO DAILY 05/01/14 07/04/17 History Simvastatin [Zocor] 40 mg PO HS 05/01/14 07/04/17 History ALPRAZolam [Xanax] 0.5 mg PO BID PRN 12/23/14 07/04/17 History Losartan [Cozaar] 25 mg PO DAILY 12/23/14 07/04/17 History HYDROcodone/APAP 7.5-325MG [[place] 1 tab PO Q8H PRN 12/24/14 07/04/17 History 7.5-325] Acetaminophen/Diphenhydramine 2 tab PO HS PRN 02/02/16 07/04/17 History [Tylenol PM 500-25mg] Nitroglycerin Sl Tabs [Nitrostat] 0.4 mg SUBLINGUAL Q5M PRN 02/02/16 07/04/17 History Oxybutynin Chloride 5 mg PO BID 02/02/16 07/04/17 History Polyethylene Glycol 3350 [Miralax] 17 gm PO DAILY PRN 02/02/16 07/04/17 History Ranitidine HCl 150 mg PO BID 02/02/16 07/04/17 History Tamsulosin [Flomax] 0.4 mg PO HS 02/02/16 07/04/17 History Ipratropium-Albuterol Nebulize 3 ml INHALATION RT-Q6H PRN 09/28/16 07/04/17 History [Duoneb 0.5 mg-3 mg/3 ml Soln] Acetaminophen [Tylenol Extra 500 mg PO BID PRN 07/04/17 07/04/17 History Strength] Albuterol Nebulized (Conc) 2.5 mg INHALATION RT-TID 07/04/17 07/04/17 History [Ventolin Nebulized (Conc)] Budesonide [Pulmicort Flexhaler] 2 puff INHALATION RT-BID 07/04/17 07/04/17 History Finasteride [Proscar] 5 mg PO DAILY 07/04/17 07/04/17 History predniSONE 5 mg PO DAILY 07/04/17 07/04/17 History Carvedilol [Coreg*] 12.5 mg PO BID-W/MEALS #60 tab 07/06/17 Rx Isosorbide Mononitrate ER [Imdur] 30 mg PO DAILY #30 tab 07/06/17 Rx Allergies Allergy/AdvReac Type Severity Reaction Status Date / Time No Known Allergies Allergy Verified 07/04/17 16:15 Physical Examination Physical exam: Patient is awake, alert, and oriented 3 Vital signs stable Good chest excursion with deep inspiration and expiration; nasal cannula intact Examination of lumbar spine reveals skin is intact with no abrasions, lacerations or bruises; no erythema, purulence or signs of infection No significant pain with palpation over the lumbar spine Dorsiflexion, plantarflexion, and extensor hallucis longus positive sustained bilaterally Lower extremity strength 5/5 bilaterally Straight leg test negative bilateral lower extremities No signs or symptoms of DVT; no calf pain No pain with internal and external rotation of the hips bilaterally Neurovascularly intact Results Pertinent studies: CT lumbar spine taken on 07/04/2017: L1 inferior endplate compression fracture deformity with some evidence of sclerosis as compared to previous exam taken on 05/05/2017; L1-2 broad-based posterior disc bulge; L3-4 broad-based posterior disc bulge, facet arthropathy, and ligamentum flavum hypertrophy resulting in mild central canal stenosis and foraminal encroachment bilaterally; L4-5 vacuum phenomenon, facet arthropathy, and endplate disc complex resulting in spinal canal stenosis that is stable compared to previous study; L5-S1 degenerative disc disease and facet arthropathy; Degenerative scoliosis; multilevel spondylosis CT of the pelvis: No evidence of fracture or dislocation; degenerative changes present in the sacroiliac joints; degenerative changes present in the lower lumbar spine with partial sacralization noted at the lumbosacral junction on the left; scoliotic curvature of the lumbar spine - Labs Labs: Abnormal Lab Results - Last 24 Hours (Table) 07/05/17 07/06/17 Range/Units 18:59 06:14 APTT 48.1 H 45.3 H (22.0-30.0) sec H & H 07/04/17 Range/Units 15:26 Hgb 13.7 (13.0-17.5) gm/dL Hct 44.2 (39.0-53.0) % Coagulation 07/04/17 Range/Units 15:26 INR 1.1 (<1.2) Result Diagrams: 07/04/17 15:26 07/04/17 15:26 Assessment and Plan (1) Closed compression fracture of L1 lumbar vertebral body Status: Acute (2) Low back pain Status: Acute (3) Lumbar facet arthropathy Status: Acute (4) Lumbar canal stenosis Status: Acute (5) Disc disease, degenerative, lumbar or lumbosacral Status: Acute (6) COPD (chronic obstructive pulmonary disease) Status: Acute (7) Status post fall Status: Acute (8) Elevated troponin I level Status: Acute (9) Elevated CK-MB level Status: Acute Plan: Assessment: L1 inferior endplate compression fracture deformity Low back pain Lumbar facet spondylosis L3-4 and L4-5 spinal canal stenosis L5-S1 degenerative disc disease Elevated troponin and CK-MB at admission COPD Status post-fall 2 Plan: 1. After further examination of the patient, discussed with the patient, and reviewing of imaging, it does not appear he's had significant change in his previously diagnosed L1 compression fracture deformity after his 2 recent falls. He states his back pain has been adequately controlled. He continues to wear his TLSO brace during activities and while ambulating. He is not experiencing any increased pain with coughing or sneezing. He does not have any pain with palpation over his lumbar spine. At this time, we'll plan for him to continue with conservative treatment. He should continue wearing his TLSO brace while sitting upright at greater than 45, while ambulating, while participating in therapy, and while doing activities. He does not have to wear this brace while lying in bed or while bathing. We will plan have him follow up with Dr. Recinos in the outpatient setting for continued treatment for his L1 compression fracture deformity. At this time, patient is clear for discharge from orthopedic spine standpoint. 2. Medicine and cardiology to continue following the patient for his other medical diagnoses Time with Patient: Less than 30
--- NOTE | 2017-07-06 22:44 | DS ---
DISCHARGE SUMMARY FINAL DIAGNOSES: 1. Acute non-Q-wave myocardial infarction. 2. Coronary artery disease with prior history of coronary bypass. 3. Chronic obstructive pulmonary disease in an ex-smoker. 4. Chronic congestive heart failure from systolic dysfunction, ejection fraction 35% to 40% from underlying coronary artery disease. 5. Gastroesophageal reflux disease. 6. Essential hypertension. 7. Hyperlipidemia. 8. Alzheimer's dementia, late onset type. 9. Primary osteoarthritis multiple joints. 10.Severe peripheral artery disease. 11.Chronic hypoxic respiratory failure from chronic obstructive pulmonary disease on 4L oxygen at home. 12.Benign prostatic hypertrophy. 13.Peptic ulcer disease. 14.Automatic implantable cardioverter-defibrillator. 15.Right carotid 100% stenosis, chronic. 16.Gait dysfunction, uses a walker/wheelchair. 17.Subacute L1 compression fracture, some herniated disc and blood injury to the spine. HOSPITAL COURSE: This patient presented with a fall, already is wearing a TLSO brace. Seen by Dr. Burton from orthopedics. The patient admitted to wearing his TLSO brace. Patient does follow with Dr. Recinos as an outpatient, seen by Dr. Clarke from cardiology. Two-D echo showed an EF of 35% to 40%. Care was discussed with the patient. PHYSICAL EXAMINATION: LUNGS: Decreased breath sounds. CARDIOVASCULAR: First and second sounds normal. DISCHARGE MEDICATIONS: 1. Plavix 75 mg a day. 2. Trazodone 50 mg q.h.s. p.r.n. 3. Aspirin 81 mg a day. 4. Men's multivitamin 1 tablet p.o. daily. 5. Zocor 40 mg q.h.s. 6. Xanax 0.5 p.o. b.i.d. p.r.n. 7. Cozaar 25 mg p.o. daily. 8. [place] 7.5, 1 tablet q.8h p.r.n. 9. Tylenol PM 2 tablets q.h.s. p.r.n. 10.Nitrostat 0.4 sublingual q.5 p.r.n. 11.Oxybutynin 5 mg p.o. b.i.d. 12.MiraLAX 17 g p.o. daily p.r.n. 13.Zantac 150 mg p.o. b.i.d. 14.Flomax 0.4 mg p.o. q.h.s. 15.DuoNeb every 6 hours p.r.n. 16.Ventolin 2.5 nebulizer t.i.d. 17.Pulmicort 2 puffs b.i.d. 18.Proscar 5 mg p.o. daily. 19.Prednisone 5 mg p.o. daily. 20.Coreg 12.5 p.o. b.i.d. 21.Imdur ER 30 mg p.o. daily. TLSO brace to continue. Follow up with Dr. Alejo Oliver in 2 days, Dr. Alpesh Recinos on 07/18/2017, Dr. Nataliya Mason in 2 weeks. CBC, BMP in 3 days. Orthopedic instructions as per Dr. Burton's team. Care was discussed with the patient. Questions were answered. Discharge planning more than 35 minutes. MMODL / IJN: [id number] /
== END 2017-07-06 16:44 | disposition home or self-care (01) | DRG 280 ==
LOC: EC 15:11 → 6SEL 17:31
PROVIDERS: ADMIT Hospitalist; ATTEND Hospitalist
DX: I21.4 Non-ST elevation (NSTEMI) myocardial infarction (principal); I50.23 Acute on chronic systolic (congestive) heart failure; J96.11 Chronic respiratory failure with hypoxia; Z99.81 Dependence on supplemental oxygen; M48.56XA Collapsed vertebra, not elsewhere classified, lumbar region, initial encounter for fracture; I65.21 Occlusion and stenosis of right carotid artery; J44.9 Chronic obstructive pulmonary disease, unspecified; G30.1 Alzheimer's disease with late onset; F02.80 Dementia in other diseases classified elsewhere, unspecified severity, without behavioral disturbance, psychotic disturbance, mood disturbance, and anxiety; I25.10 Atherosclerotic heart disease of native coronary artery without angina pectoris; K21.9 Gastro-esophageal reflux disease without esophagitis; E78.5 Hyperlipidemia, unspecified; M19.91 Primary osteoarthritis, unspecified site; I73.9 Peripheral vascular disease, unspecified; N40.0 Benign prostatic hyperplasia without lower urinary tract symptoms; K27.9 Peptic ulcer, site unspecified, unspecified as acute or chronic, without hemorrhage or perforation; R26.9 Unspecified abnormalities of gait and mobility; F41.9 Anxiety disorder, unspecified; H91.90 Unspecified hearing loss, unspecified ear; M51.37 Other intervertebral disc degeneration, lumbosacral region; F32.9 Major depressive disorder, single episode, unspecified; M41.9 Scoliosis, unspecified; M46.96 Unspecified inflammatory spondylopathy, lumbar region; R29.6 Repeated falls; H40.9 Unspecified glaucoma; I11.0 Hypertensive heart disease with heart failure; M48.061 Spinal stenosis, lumbar region without neurogenic claudication; I25.5 Ischemic cardiomyopathy; Z95.810 Presence of automatic (implantable) cardiac defibrillator; Z87.891 Personal history of nicotine dependence; Z95.1 Presence of aortocoronary bypass graft; Z79.82 Long term (current) use of aspirin; Z79.02 Long term (current) use of antithrombotics/antiplatelets; Z79.899 Other long term (current) drug therapy; Z79.52 Long term (current) use of systemic steroids; Z82.49 Family history of ischemic heart disease and other diseases of the circulatory system; Z80.0 Family history of malignant neoplasm of digestive organs; Z87.19 Personal history of other diseases of the digestive system; Z86.718 Personal history of other venous thrombosis and embolism; Z87.11 Personal history of peptic ulcer disease; Z87.01 Personal history of pneumonia (recurrent); I69.328 Other speech and language deficits following cerebral infarction; I25.2 Old myocardial infarction; Z86.14 Personal history of Methicillin resistant Staphylococcus aureus infection; Z98.41 Cataract extraction status, right eye; Z98.42 Cataract extraction status, left eye; Z91.81 History of falling; Q89.9 Congenital malformation, unspecified; W01.0XXA Fall on same level from slipping, tripping and stumbling without subsequent striking against object, initial encounter
CPT/HCPCS: 36415; 71020; 72131; 72192; 80053; 80061; 82550; 82553; 83735; 83880; 84484; 85025; 85610; 85730; 93005; 93306; 94640; 94760; 96365; 96376; 99291

== ENCOUNTER 2017-11-08 05:41 | Day surgery (SDC) | payer MEDICARE, BC ==
[2017-11-03 15:22] VITALS: BMI 24.0
[2017-11-08] MEDS ORDERED: ATORVASTATIN 80 MG TAB PO STA (05:56)
[2017-11-08] MEDS ORDERED: ALPRAZolam 0.5 MG TAB PO PRN (05:56)
[2017-11-08] MEDS ORDERED: ASPIRIN 325 MG TAB PO STA (05:56)
[2017-11-08] MEDS ORDERED: ALPRAZolam 0.25 MG TAB PO PRN (05:56)
[2017-11-08] MEDS ORDERED: SODIUM CHLORIDE 0.9% 1,000 ML in EMPTY BAG 1 BAG IV ONE (05:56)
[2017-11-08] MEDS ORDERED: NITROGLYCERIN SL TABS 0.4 MG TAB SUBLINGUAL PRN (05:56)
[2017-11-08 07:22] VITALS: PULSE 80; TEMP 97.6
[2017-11-08] MEDS ORDERED: MIDAZOLAM 2 MG/2 ML VIAL ONE (07:28)
[2017-11-08] MEDS ORDERED: HEPARIN SODIUM 1,000 UN/ML (10ML VL) ONE (07:28)
[2017-11-08] MEDS ORDERED: diphenhydrAMINE 50 MG/ML 1 ML VIAL ONE (07:28)
[2017-11-08] MEDS ORDERED: VERAPAMIL 2.5 MG/ML 2 ML AMP ONE (07:28)
[2017-11-08] MEDS ORDERED: LIDOCAINE 2% INJ 20 MG/ML (20 ML MDV) ONE (07:28)
[2017-11-08] MEDS ORDERED: MIDAZOLAM 2 MG/2 ML VIAL IV ONE (07:35)
[2017-11-08] MEDS ORDERED: LIDOCAINE 2% INJ 20 MG/ML SQ ONE (07:42)
[2017-11-08] MEDS: VERAPAMIL SYRINGE (5 MG/10 ML) INTRAARTER ONE ×2 (07:45→08:34)
[2017-11-08] MEDS ORDERED: HEPARIN SODIUM 1,000 UN/ML (10ML VL) IV ONE (07:48)
[2017-11-08] MEDS ORDERED: NITROGLYCERIN SL TABS 0.4 MG TAB SUBLINGUAL ONE ×2 (07:49→08:46)
[2017-11-08] MEDS: NITROGLYCERIN SL TABS 0.4 MG TAB SUBLINGUAL ONE ×2 (07:52→08:23)
[2017-11-08] MEDS: NITROGLYCERIN 1000MCG/10ML SYRINGE INTRACORON ONE ×2 (08:16→08:32)
[2017-11-08] MEDS ORDERED: HYDROmorphone 2 MG/ML 1 ML SYRINGE ONE (08:21)
[2017-11-08] MEDS ORDERED: HYDROmorphone 2 MG/ML 1 ML SYRINGE IV ONE (08:23)
[2017-11-08] MEDS ORDERED: IOHEXOL 350 MG/ML (PER ML) 100ML BTL INJ ONE (08:34)
[2017-11-08] MEDS ORDERED: RX INFO: IV CONTRAST WAS GIVEN 1 EACH MISC MISCELLANE PRN (09:07)
[2017-11-08] MEDS ORDERED: HYDROmorphone 0.5 MG/0.5 ML SYRINGE IVP STA (09:09)
[2017-11-08] MEDS ORDERED: CARVEDILOL 3.125 MG TAB PO STA (09:10)
[2017-11-08] MEDS ORDERED: amLODIPine 5 MG TAB PO STA (09:11)
[2017-11-08] MEDS ORDERED: SODIUM CHLORIDE 0.9% 1,000 ML IV SCH (09:15)
--- NOTE | 2017-11-08 10:57 | ECHOF ---
Referral Reason:LV Function MEASUREMENTS -------- HEIGHT: 162.6 cm WEIGHT: 63.5 kg BP: RVIDd: 3.1 cm (< 3.3) IVSd: 1.4 cm (0.6 - 1.1) LVIDd: 3.7 cm (3.9 - 5.3) LVPWd: 1.7 cm (0.6 - 1.1) IVSs: 2.0 cm LVIDs: 2.9 cm LVPWs: 1.9 cm LAESV Index (A-L): 26.12 ml/m Ao Diam: 4.0 cm (2.0 - 3.7) AV Cusp: 1.5 cm (1.5 - 2.6) LA Diam: 4.0 cm (2.7 - 3.8) MV EXCURSION: 16.312 mm (> 18.000) MV EF SLOPE: 27 mm/s (70 - 150) EPSS: 1.2 cm MV E Vince: 0.50 m/s MV DecT: 138 ms MV A Vince: 1.09 m/s MV E/A Ratio: 0.46 RAP: 5.00 mmHg RVSP: 6.62 mmHg FINDINGS -------- Sinus rhythm. Pacerwire seen in RV and RA. This was a technically good study. The left ventricular size is normal. There is moderate concentric left ventricular hypertrophy. O verall left ventricular systolic function is moderate-severely impaired with, an EF between 30 - 35 % . Basal inferior LV wall motion is akinetic. Basal inferoseptal LV wall motion is akinetic. M id inferior LV wall motion is akinetic. Mid inferoseptal LV wall motion is akinetic. Apical inf erior LV wall motion is akinetic. The right ventricle is normal in size and function. The left atrium is normal in size. The right atrium is normal in size. Aortic valve is trileaflet and is mildly thickened. The mitral valve leaflets are mildly thickened. Mild mitral regurgitation is present. Mild tricuspid regurgitation present. There is no evidence of pulmonary hypertension. The right v entricular systolic pressure, as measured by Doppler, is 6.62mmHg. There is no pulmonic regurgitation present. The aortic root is mildy dilated measuring 4.0 cm There is no pericardial effusion. CONCLUSIONS -------- 1. Sinus rhythm. 2. Pacerwire seen in RV and RA. 3. This was a technically good study. 4. The left ventricular size is normal. 5. There is moderate concentric left ventricular hypertrophy. 6. Overall left ventricular systolic function is moderate-severely impaired with, an EF between 30 - 35 %. 7. Basal inferior LV wall motion is akinetic. 8. Basal inferoseptal LV wall motion is akinetic. 9. Mid inferior LV wall motion is akinetic. 10. Mid inferoseptal LV wall motion is akinetic. 11. Apical inferior LV wall motion is akinetic. 12. The left atrium is normal in size. 13. Aortic valve is trileaflet and is mildly thickened. 14. The mitral valve leaflets are mildly thickened. 15. Mild mitral regurgitation is present. 16. Mild tricuspid regurgitation present. 17. There is no evidence of pulmonary hypertension. 18. There is no pulmonic regurgitation present. 19. The aortic root is mildy dilated measuring 4.0 cm 20. There is no pericardial effusion. MARKETING TECHNOLOGY COORDINATOR: Margie San RDCS
[2017-11-08 15:40] VITALS: RESP 20
[2017-11-08 17:22] VITALS: BP 157/89
--- NOTE | 2017-11-09 08:26 | CC ---
CARDIAC CATHETERIZATION REPORT DATE OF SERVICE: 11/08/2017 PROCEDURE: Left heart catheterization, coronary angiography and selective injection of bypass grafts and left internal mammary artery. Procedure performed from left radial approach. Moderate conscious sedation time was 61 minutes. CLINICAL INFORMATION: Mr. Antonio Burton is a 72-year-old gentleman who underwent aortocoronary bypass surgery in 1997 and since then has had intervention of both his vein grafts to the obtuse marginal branches and also RCA. Over the years, the RCA graft was occluded and [place] RCA had diffuse disease. OLIVEIRA was patent. Because of symptoms strongly suggestive of unstable angina, he was advised cardiac catheterization after due discussion regarding risks benefits options. He has history of prior aortobifemoral surgery and therefore procedure was advised to be performed from the left radial approach. PROCEDURE NOTE: Under local anesthesia and strict aseptic precautions, a 6-Filipino introducer was placed in the left radial artery. Using a standard left Genet catheter, I tried to selectively cannulate the left coronary artery, but had to switch to 3.5 curved catheter with this I performed selective coronary angiography of the left system. Using a Daya catheter, I performed selective angiography of the left internal mammary artery graft. The same catheter was used and a sub selective injection of the [place] RCA was performed, which appeared to be totally occluded. Using initially an AR1 catheter, I performed selective coronary angiography of the first obtuse marginal bypass graft. The second obtuse marginal bypass graft was cannulated using a left coronary bypass catheter. I crossed the aortic valve, but very limited data was obtained for LV pressures. The catheter and sheath was taken out and a Vasc Band applied as per protocol. The patient had good hemostasis. Saturation in the fingers of the left hand was 96%. The patient received 2000 units of heparin intravenously. The patient tolerated procedure well without complications. The results were discussed with the patient as well as his daughter and I reviewed the angiograms with the daughter as well. We will pursue medical therapy for now, but he could potentially require intervention of the [place] LAD and/or the first obtuse marginal graft, but I will discuss this further during his office visit. Technically, these are difficult procedures, especially with access from the left radial location. CARDIAC CATHETERIZATION FINDINGS: LEFT MAIN CORONARY ARTERY: This is a short patent vessel which has about a 30% to 35% lesion in the ostium. It bifurcates into LAD and circumflex. LEFT ANTERIOR DESCENDING CORONARY ARTERY: This has a 90% proximal lesion which represents progression of disease. It extends anteriorly gives off a diagonal and septal branch and there is competitive flow in the mid portion suggesting that there is competitive flow from the left internal mammary artery graft. The LAD now has a 90% proximal lesion, which represents progression of disease compared to the previous study from 2013. LEFT POSTERIOR CIRCUMFLEX CORONARY ARTERY: This vessel is totally occluded as a flush without any antegrade flow, but the obtuse marginal branches are grafted. RIGHT CORONARY ARTERY: This was a highly diseased vessel and now I only could get a sub selective injection. It appears that this vessel is occluded chronically right at the ostium. SAPHENOUS VEIN GRAFT TO THE RCA: This graft is totally occluded and seen as a stump. SAPHENOUS VEIN GRAFT TO THE FIRST OBTUSE MARGINAL BRANCH OF CIRCUMFLEX: This was stented in the body of the graft in October of 2013. At the site of the previous stenting, there is about a 40% stenosis within the stent with very brisk flow and all the distal branches were opacified. Just after the origin within the circumflex marginal branch, there is about another 40% to 50% narrowing and minor diffuse irregularities. Within the OM1 graft, there is a 40% stenosis in the stented segment and beyond insertion site there is another 40% to 45% narrowing noted. SAPHENOUS VEIN GRAFT TO THE SECOND OBTUSE MARGINAL GRAFT: This graft is widely patent at its origin, course and insertion site and stented segment is widely patent. Distal branches have mild disease. LEFT INTERNAL MAMMARY ARTERY GRAFT TO THE LAD. This graft is widely patent, opacifies the entire LAD and distally seems to have some minor irregularities. I performed somewhat of a sub selective injection even though it was from the left radial approach. LEFT VENTRICULOGRAM: This was not performed. FINAL IMPRESSION: This patient has progression of disease. The proximal left anterior descending artery has a 90% stenosis and a heavily calcified segment. The ostium of the left main also has 30% to 35% narrowing. The first obtuse marginal graft has about a 40% stenosis within the stented segment and also distally beyond the insertion site. The second obtuse marginal is widely patent and OLIVEIRA to LAD is widely patent. RECOMMENDATIONS: I am recommending medical therapy for now, but down the road if his symptoms persist, PCI of LAD could be performed, although this is a technically difficult procedure. We will discuss further in the office. Findings and details of the procedure were discussed with the patient as well as his daughter. He was sent to the room in a stable condition. MMODL / IJN: [id number] /
--- NOTE | 2017-11-09 08:32 | LTR ---
Dear Dr. Marcos: Please find enclosed my detailed cardiac cath report for Mr. Burton. His options are somewhat limited, but I will decide regarding intervention of the proximal LAD, which is not opacified by the OLIVEIRA graft and this is a progression of disease. Within the body of the vein graft to the obtuse marginal 1, there is 40% stenosis but the flow is brisk and therefore I may not perform intervention. I will discuss this further in the office. Thank you for your referral and please call for questions. With kindest regards. Sincerely yours, Nataliya Mason MD MMABRAML / LOUISEN: [id number] /
== END 2017-11-08 17:25 | disposition home or self-care (01) ==
LOC: CATHCVL 05:41
PROVIDERS: ATTEND Internal Medicine Interventional Cardiology
DX: I25.110 Atherosclerotic heart disease of native coronary artery with unstable angina pectoris (principal); I25.700 Atherosclerosis of coronary artery bypass graft(s), unspecified, with unstable angina pectoris; I25.82 Chronic total occlusion of coronary artery; Z95.1 Presence of aortocoronary bypass graft; Z95.5 Presence of coronary angioplasty implant and graft; Z95.0 Presence of cardiac pacemaker; I08.1 Rheumatic disorders of both mitral and tricuspid valves; I77.819 Aortic ectasia, unspecified site; I11.0 Hypertensive heart disease with heart failure; I50.9 Heart failure, unspecified; J44.9 Chronic obstructive pulmonary disease, unspecified; I25.2 Old myocardial infarction; I95.1 Orthostatic hypotension; E78.00 Pure hypercholesterolemia, unspecified; I77.9 Disorder of arteries and arterioles, unspecified; I44.2 Atrioventricular block, complete; Z82.49 Family history of ischemic heart disease and other diseases of the circulatory system; Z99.81 Dependence on supplemental oxygen; Z79.02 Long term (current) use of antithrombotics/antiplatelets; Z79.51 Long term (current) use of inhaled steroids; Z79.52 Long term (current) use of systemic steroids; Z79.899 Other long term (current) drug therapy; Z87.891 Personal history of nicotine dependence
CPT/HCPCS: 93306; 93459; C1894; J2001; J2250; J1170; Q9967; J1644

== ENCOUNTER 2017-11-22 10:01 | Day surgery (SDC) | payer MEDICARE, BC ==
[~2017-11-22 10:01] MED LIST changes: +ALPRAZolam 0.25 MG TAB PO PRN; +ALPRAZolam 0.5 MG TAB PO PRN; +ASPIRIN 325 MG TAB PO STA; +ATORVASTATIN 80 MG TAB PO STA; -LACTATED RINGERS 1,000 ML IV SCH; +NITROGLYCERIN SL TABS 0.4 MG TAB SUBLINGUAL PRN; +NOREPINEPHRINE 1 MG/ML 4 ML VIAL IV ONE; +SODIUM CHLORIDE 0.9% 1,000 ML in EMPTY BAG 1 BAG IV ONE; +SODIUM CHLORIDE 0.9% 250 ML BAG ONE
[2017-11-22] MEDS ORDERED: LIDOCAINE 2% INJ 20 MG/ML (20 ML MDV) ONE (10:24)
[2017-11-22] MEDS ORDERED: MIDAZOLAM 2 MG/2 ML VIAL ONE (11:42)
[2017-11-22] MEDS ORDERED: diphenhydrAMINE 50 MG/ML 1 ML VIAL ONE (11:43)
[2017-11-22] MEDS ORDERED: fentaNYL (PF) 50 MCG/ML 2 ML AMP ONE (11:46)
[2017-11-22] MEDS ORDERED: NITROGLYCERIN SL TABS 0.4 MG TAB SUBLINGUAL ONE ×4 (11:46→13:11)
[2017-11-22] MEDS ORDERED: diphenhydrAMINE 50 MG/ML 1 ML VIAL IVP ONE (11:51)
[2017-11-22] MEDS ORDERED: fentaNYL (PF) 50 MCG/ML 2 ML AMP IV ONE (11:51)
[2017-11-22] MEDS ORDERED: LIDOCAINE 2% INJ 20 MG/ML SQ ONE (11:52)
[2017-11-22] MEDS ORDERED: MIDAZOLAM 2 MG/2 ML VIAL IVP ONE (11:59)
[2017-11-22] MEDS ORDERED: BIVALIRUDIN BOLUS 250 MG/50 ML IV ONE (12:03)
[2017-11-22] MEDS ORDERED: BIVALIRUDIN 250 MG in SODIUM CHLORIDE 0.9% 50 ML IV ONE ×2 (12:05→13:17)
[2017-11-22] MEDS ORDERED: MORPHINE SULFATE 4 MG/ML SYRINGE ONE (12:25)
[2017-11-22] MEDS ORDERED: MORPHINE SULFATE 4 MG/ML SYRINGE IV ONE (12:30)
[2017-11-22] MEDS ORDERED: niCARdipine 25 MG/10 ML VIAL ONE (13:38)
[2017-11-22] MEDS: niCARdipine Syringe (1,000 mcg/10 mL) INTRAARTER ONE ×2 (13:39→13:45)
[2017-11-22] MEDS ORDERED: CLOPIDOGREL 75 MG TAB ONE ×2 (13:49→13:50)
[2017-11-22] MEDS ORDERED: CLOPIDOGREL 75 MG TAB PO ONE (13:51)
[2017-11-22] MEDS ORDERED: IOHEXOL 350 MG/ML (PER ML) 100ML BTL INJ ONE (13:56)
[2017-11-22] MEDS ORDERED: NITROGLYCERIN SL TABS 0.4 MG TAB SUBLINGUAL PRN (14:12)
[2017-11-22] MEDS ORDERED: ACETAMINOPHEN TAB 500 MG TAB PO PRN ×2 (14:12)
[2017-11-22] MEDS ORDERED: LOSARTAN 25 MG TAB PO PRN (14:12)
[2017-11-22] MEDS ORDERED: ZOLPIDEM 5 MG TAB PO PRN (14:14)
[2017-11-22] MEDS ORDERED: ATROPINE SULFATE 0.1 MG/ML 10ML SYRINGE IV PRN (14:14)
[2017-11-22] MEDS ORDERED: MAG HYDROX/AL HYDROX/SIMETH 30 ML CUP PO PRN (14:14)
[2017-11-22] MEDS ORDERED: RX INFO: IV CONTRAST WAS GIVEN 1 EACH MISC MISCELLANE PRN (14:14)
[2017-11-22] MEDS ORDERED: SODIUM CHLORIDE 0.9% 1,000 ML IV SCH (14:15)
[2017-11-22] MEDS ORDERED: MORPHINE SULFATE 4 MG/ML SYRINGE IVP PRN (14:17)
[2017-11-22] MEDS ORDERED: diphenhydrAMINE 50 MG CAP PO PRN (15:34)
[2017-11-22] MEDS: HYDROcodone/APAP 7.5-325MG 1 EACH TAB PO PRN ×2 (16:42→20:53)
[2017-11-22 17:17] VITALS: RESP 18
[2017-11-22] MEDS: CARVEDILOL 6.25 MG TAB PO SCH (17:44)
[2017-11-22] MEDS: ALBUTEROL NEBULIZED 2.5 MG/3 ML INHALATION SCH (19:53)
[2017-11-22] MEDS ORDERED: ALBUTEROL NEB (CONC) 2.5 MG/0.5 ML INHALATION SCH (20:00)
[2017-11-22] MEDS: FAMOTIDINE 20 MG TAB PO SCH (20:46)
[2017-11-22] MEDS: OXYBUTYNIN CHLORIDE 5 MG TAB PO SCH (20:46)
[2017-11-22] MEDS ORDERED: traZODone HCL 50 MG TAB PO SCH (21:00)
[2017-11-22] MEDS ORDERED: ATORVASTATIN 80 MG TAB PO SCH (21:00)
[2017-11-22] MEDS ORDERED: TAMSULOSIN 0.4 MG CAP.ER.24H PO SCH (21:00)
--- NOTE | 2017-11-22 21:35 | PTCA ---
PERCUTANEOUSTRANS CORORONARY ANGIOGRAPHY DATE OF SERVICE: 11/22/2017 PROCEDURES: 1. Orbital atherectomy of distal left main and proximal left anterior descending coronary artery. 2. Percutaneous transluminal coronary angioplasty and stenting of distal left main and proximal left anterior descending coronary arteries with 2 drug-eluting stents. PERFORMED BY: Dr. Celena Mason ANESTHESIA: Moderate conscious sedation time was 121 minutes. CLINICAL INFORMATION: Mr. Burton is a 72-year-old gentleman with a known history of CAD, prior bypass surgery, carotid surgery, and also aortobiiliac operation. Apparently he had aortocoronary bypass surgery in 1997 with a OLIVEIRA to LAD, vein graft to the 2 obtuse marginal branches of circumflex and RCA. Over the years, the vein graft to the RCA was occluded. I have stented both his obtuse marginals 1 and 2 and as recently as 11/08/2017 I performed a cardiac catheterization which revealed that one of the obtuse marginals had an in-stent restenosis of 40% to 50% and a distal insertion site stenosis of another 50% to 60%. However, the left main and proximal LAD had a very tight 90% lesion with heavy calcification. He was brought in for orbital atherectomy of the left main and LAD and also to evaluate the obtuse marginal. Risks, benefits and options were explained. Specifically the high-risk nature, given the complexity and calcification, was discussed with the patient and daughter. PROCEDURE NOTE: Under local anesthesia and strict aseptic precautions, a 6-Rwandan introducer was placed in the right femoral artery. I was able to gain access with a micropuncture technique, and using progressively increasing dilators, a 6-Rwandan introducer was placed. Initially I used a 3.5 curved left Genet catheter. I had a decent guide support, but I could not cross the lesion with a Whisper wire that I used initially. After some attempts, I switched over to an XB LAD 3.5 guide catheter. With this I was more coaxial. I tried the Whisper wire again without success. I then used a Fielder XT wire with a 0.009 tip. With this I was able to cross the lesion. Wire was kept distally. I then advanced the balloon and exchanged this wire for a Viper wire. I was trying to advance the orbital atherectomy catheter. Then the wire came out. I had to go back and rewire with the same 0.009 Fielder XT wire and again exchange it with a Viper wire. With the Viper wire in the diagonal location, I was able to advance the orbital atherectomy catheter and I made at least 4 passes at a low speed. I had a decent angiographic appearance. Patient had transient hypotension and also some chest tightness, which resolved. Subsequently I used a 2.5 caliber 8 mm long NC Trek balloon and pre-dilated the lesion. I then went ahead and switched over to a Whisper wire. With the Whisper wire in the diagonal location, I advanced and deployed a 12 mm long 2.75 caliber Xience drug-eluting stent, with excellent result. Distal to the stented segment there appeared to be a small flap, and I addressed this with another 2.5 caliber 15 mm long Xience stent. Excellent angiographic result was achieved. Patient received 225 mg of Plavix. He was already on Plavix. He was also on Angiomax bolus and infusion. The sheath was sutured. Excellent angiographic result was achieved. Results were discussed with the patient and family, and he was sent to the room in stable condition. MMODL / IJN: [id number] /
--- NOTE | 2017-11-22 21:38 | LTR ---
To: Dr. Marcos Re: Antonio Burton (41) Dear Dr. Marcos, Thank you for the opportunity to participate in the care of . Antonio Burton. I am pleased to report to you that this gentleman had an excellent angiographic result after a few anxious moments. I will consider intervening on the vein graft to the obtuse marginal at a later date. I expect he will be in the hospital for another 24 hours. Please find enclosed my report for your records. Thank you very much for the opportunity to participate in the care of this fine patient. With kindest regards and sincerely yours, Celena Mason MD MMABRAML / IJN: [id number] /
[2017-11-23 06:33] LABS: Basophils % (A) 0 %; Eosinophils # (A) 0.2 k/uL (0-0.7); Eosinophils % (A) 3 %; HCT 32.2 % (39.0-53.0); Hypochromasia Slight; Lymphocytes # (A) 0.9 k/uL (1.0-4.8); Lymphocytes % (A) 17 %; MCH 29.3 pg (25.0-35.0); MCHC 31.1 g/dL (31.0-37.0); MCV 94.3 fL (80.0-100.0); Mean Platelet Volume 6.9; Monocytes # (A) 0.3 k/uL (0-1.0); Monocytes % (A) 7 %; Neutrophils # (A) 3.7 k/uL (1.3-7.7); Neutrophils % (A) 72 %; Platelet Count 151 k/uL (150-450); RBC 3.42 m/uL (4.30-5.90); RDW 14.1 % (11.5-15.5); WBC 5.2 k/uL (3.8-10.6)
[2017-11-23] MEDS: CARVEDILOL 6.25 MG TAB PO SCH (06:38)
[2017-11-23 06:39] LABS: Anion Gap 7 mmol/L; Blood Urea Nitrogen 17 mg/dL (9-20); Calcium 8.8 mg/dL (8.4-10.2); Carbon Dioxide 34 mmol/L (22-30); Chloride 102 mmol/L (98-107); Glucose 119 mg/dL (74-99); Potassium 4.1 mmol/L (3.5-5.1); Sodium 143 mmol/L (137-145)
[2017-11-23] MEDS: ALBUTEROL NEBULIZED 2.5 MG/3 ML INHALATION SCH (07:25)
[2017-11-23] MEDS: OXYBUTYNIN CHLORIDE 5 MG TAB PO SCH (08:37)
[2017-11-23] MEDS: FAMOTIDINE 20 MG TAB PO SCH (08:37)
[2017-11-23] MEDS ORDERED: CLOPIDOGREL 75 MG TAB PO SCH (09:00)
[2017-11-23] MEDS ORDERED: predniSONE 5 MG TAB PO SCH (09:00)
[2017-11-23] MEDS ORDERED: ASPIRIN 81 MG PO SCH (09:00)
[2017-11-23 09:34] VITALS: BMI 23.6
[2017-11-23 09:35] VITALS: BP 153/72; PULSE 87; TEMP 97.2
[2017-11-23] MEDS ORDERED: MULTIVITAMINS, THERA 1 EACH TAB PO SCH (12:00)
--- NOTE | 2017-11-23 15:36 | DS ---
DISCHARGE SUMMARY Mr. Burton underwent a complex PCI with orbital atherectomy and stenting of a distal left main and proximal LAD. He is doing remarkably well. Right groin is clean and dry with a good pulse. He has had previous history of aorto bi-iliac surgery. His vital signs are stable. EKG and labs are good. EKG revealed paced rhythm, S1-S2 heard normally. Short systolic murmur noted. Lungs revealed decent air entry. Abdomen and lower extremity exam unchanged. Plan is to continue current medications, increase activity, discharge the patient. I will see him in the office on Tuesday. Discharge instructions regarding activity, diet and medications were given and patient will be discharged today. 1. MMODL / IJN: [id number] /
== END 2017-11-23 11:27 | disposition home or self-care (01) ==
LOC: CATHCVL 10:01 → 6SEL 13:53 → CATHCVL 11-23 11:27
PROVIDERS: ATTEND Internal Medicine Interventional Cardiology
DX: I25.10 Atherosclerotic heart disease of native coronary artery without angina pectoris (principal); I25.84 Coronary atherosclerosis due to calcified coronary lesion; T82.855A Stenosis of coronary artery stent, initial encounter; I50.9 Heart failure, unspecified; Z87.891 Personal history of nicotine dependence; I44.2 Atrioventricular block, complete; Z95.5 Presence of coronary angioplasty implant and graft; Z95.1 Presence of aortocoronary bypass graft; Z95.0 Presence of cardiac pacemaker; I25.2 Old myocardial infarction; E78.00 Pure hypercholesterolemia, unspecified; J44.9 Chronic obstructive pulmonary disease, unspecified; Z99.81 Dependence on supplemental oxygen; I77.9 Disorder of arteries and arterioles, unspecified; I95.1 Orthostatic hypotension; Z79.02 Long term (current) use of antithrombotics/antiplatelets; Z79.82 Long term (current) use of aspirin; Z79.51 Long term (current) use of inhaled steroids; Z79.52 Long term (current) use of systemic steroids; Z79.899 Other long term (current) drug therapy
CPT/HCPCS: 94640 ×2; 94760; 80048; 85025; C1769 ×8; C9602; C1887 ×2; C1725 ×4; C1894; C1874; C1714; J2001; J2250; J2270; J1200; Q9967; J3010; J0583; J7512

== ENCOUNTER 2018-01-28 13:53 | Emergency (ER) | payer MEDICARE, BC ==
[2018-01-28] MEDS ORDERED: ALPRAZolam 0.5 MG TAB PO STA (14:29)
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
[2018-01-28 14:54] VITALS: BP 135/74; PULSE 77; RESP 16; TEMP 98
== END 2018-01-28 15:24 | disposition home or self-care (01) ==
LOC: EC 13:53
DX: F41.0 Panic disorder [episodic paroxysmal anxiety] (principal); I25.10 Atherosclerotic heart disease of native coronary artery without angina pectoris; I11.0 Hypertensive heart disease with heart failure; I50.9 Heart failure, unspecified; J44.9 Chronic obstructive pulmonary disease, unspecified; K21.9 Gastro-esophageal reflux disease without esophagitis; I25.2 Old myocardial infarction; F32.9 Major depressive disorder, single episode, unspecified; Z86.73 Personal history of transient ischemic attack (TIA), and cerebral infarction without residual deficits; Z86.718 Personal history of other venous thrombosis and embolism; Z99.81 Dependence on supplemental oxygen; Z86.14 Personal history of Methicillin resistant Staphylococcus aureus infection; Z95.810 Presence of automatic (implantable) cardiac defibrillator; Z95.5 Presence of coronary angioplasty implant and graft; Z95.1 Presence of aortocoronary bypass graft; Z87.891 Personal history of nicotine dependence; Z79.02 Long term (current) use of antithrombotics/antiplatelets; Z79.82 Long term (current) use of aspirin; Z79.899 Other long term (current) drug therapy; Z79.52 Long term (current) use of systemic steroids
CPT/HCPCS: 99284

== ENCOUNTER → 2018-02-14 | Outpatient (CLI) | payer MEDICARE, BC ==
[2018-02-14 13:29] LABS: HCT 38.4 % (39.0-53.0); HGB 11.9 gm/dL (13.0-17.5); Hypochromasia Moderate; MCH 28.7 pg (25.0-35.0); MCHC 31.1 g/dL (31.0-37.0); MCV 92.4 fL (80.0-100.0); Mean Platelet Volume 6.5; Platelet Count 166 k/uL (150-450); RBC 4.15 m/uL (4.30-5.90); RDW 14.2 % (11.5-15.5); WBC 6.8 k/uL (3.8-10.6)
[2018-02-14 13:42] LABS: Anion Gap 12 mmol/L; Blood Urea Nitrogen 14 mg/dL (9-20); Carbon Dioxide 31 mmol/L (22-30); Chloride 98 mmol/L (98-107); Potassium 4.6 mmol/L (3.5-5.1); Sodium 141 mmol/L (137-145)
== END | disposition home or self-care (01) ==
LOC: LABPAT 12:54
PROVIDERS: ATTEND Internal Medicine Interventional Cardiology
DX: Z01.812 Encounter for preprocedural laboratory examination (principal); I25.5 Ischemic cardiomyopathy
CPT/HCPCS: 36415; 80051; 82565; 84520; 85027

== ENCOUNTER 2018-02-21 09:15 | Day surgery (SDC) | payer MEDICARE, BC ==
[~2018-02-21 09:15] MED LIST changes: -NOREPINEPHRINE 1 MG/ML 4 ML VIAL IV ONE; -SODIUM CHLORIDE 0.9% 250 ML BAG ONE
[2018-02-21] MEDS ORDERED: amLODIPine 5 MG TAB ONE (10:19)
[2018-02-21] MEDS ORDERED: LIDOCAINE 2% INJ 20 MG/ML (20 ML MDV) ONE (10:27)
[2018-02-21] MEDS ORDERED: diphenhydrAMINE 50 MG/ML 1 ML VIAL ONE (10:33)
[2018-02-21] MEDS ORDERED: MIDAZOLAM 2 MG/2 ML VIAL ONE (10:33)
[2018-02-21] MEDS ORDERED: diphenhydrAMINE 50 MG/ML 1 ML VIAL IVP ONE (10:40)
[2018-02-21] MEDS: MIDAZOLAM 2 MG/2 ML VIAL IVP ONE ×2 (10:40→10:54)
[2018-02-21] MEDS ORDERED: fentaNYL (PF) 50 MCG/ML 2 ML AMP ONE (10:46)
[2018-02-21] MEDS ORDERED: LIDOCAINE 2% INJ 20 MG/ML SQ ONE (10:47)
[2018-02-21] MEDS ORDERED: fentaNYL (PF) 50 MCG/ML 2 ML AMP IV ONE (10:48)
[2018-02-21] MEDS ORDERED: NITROGLYCERIN SL TABS 0.4 MG TAB SUBLINGUAL ONE ×2 (10:53→10:54)
[2018-02-21] MEDS: NITROGLYCERIN 1000MCG/10ML SYRINGE INTRACORON ONE ×2 (10:54→11:51)
[2018-02-21] MEDS ORDERED: METOPROLOL TARTRATE 5 MG/5 ML VIAL IVP ONE ×2 (10:56→10:58)
[2018-02-21] MEDS ORDERED: BIVALIRUDIN BOLUS 250 MG/50 ML IV ONE (11:03)
[2018-02-21] MEDS ORDERED: BIVALIRUDIN 250 MG in SODIUM CHLORIDE 0.9% 50 ML IV ONE (11:04)
[2018-02-21] MEDS ORDERED: IOPAMIDOL-370 100ML BTL INJ ONE ×2 (11:37→12:01)
[2018-02-21] MEDS ORDERED: CLOPIDOGREL 75 MG TAB ONE (11:58)
[2018-02-21] MEDS ORDERED: ZOLPIDEM 5 MG TAB PO PRN (12:01)
[2018-02-21] MEDS ORDERED: CLOPIDOGREL 75 MG TAB PO ONE (12:01)
[2018-02-21] MEDS ORDERED: ATROPINE SULFATE 0.1 MG/ML 10ML SYRINGE IV PRN (12:01)
[2018-02-21] MEDS ORDERED: NITROGLYCERIN SL TABS 0.4 MG TAB SUBLINGUAL PRN ×2 (12:01→15:06)
[2018-02-21] MEDS ORDERED: MAG HYDROX/AL HYDROX/SIMETH 30 ML CUP PO PRN (12:01)
[2018-02-21] MEDS ORDERED: RX INFO: IV CONTRAST WAS GIVEN 1 EACH MISC MISCELLANE PRN (12:01)
--- NOTE | 2018-02-21 13:04 | PTCA ---
PERCUTANEOUSTRANS CORORONARY ANGIOGRAPHY DATE OF SERVICE: 02/21/2018. PROCEDURES: 1. PTCA and stenting of in-stent restenosis within a saphenous vein graft to the obtuse marginal 1. 2. Stenting of distal portion of the body of the vein graft to the obtuse marginal 1 just before the insertion site. 3. PTCA of the insertion site of the vein graft into the obtuse marginal 1. PERFORMED BY: Dr. Celena Mason. Moderate conscious sedation time was 1 hour 9 minutes. Patient was administered fentanyl, Versed, Benadryl and was monitored very closely for oxygen saturation, hemodynamics and EKG. CLINICAL INFORMATION: Mr. Antonio Burton is a 72-year-old gentleman with a history of aortocoronary bypass surgery in 1997 and since then he has had multiple interventions. The latest cardiac cath was performed in October and this time his vein graft to the RCA was known to be occluded. He had a habematolel LAD lesion of about 90% heavily calcified supplying fair- sized diagonal branches. His circumflex was totally occluded. His obtuse marginal 1 graft had an insertion tight stenosis of about 70% to 80% and also a body of the vein stenosis of about 60% to 70%. The obtuse marginal 2 graft was widely patent. He underwent stenting after orbital atherectomy of the habematolel LAD and left main with excellent angiographic result. He was brought in electively for PCI of the obtuse marginal 1. Risks, benefits, options and rationale were carefully explained to the patient. He understood all details and wished to proceed with the procedure. He has a aorto-bi- iliac surgery and peripheral vascular disease, but he was advised to have the procedure performed from the right femoral approach because of the guide support issues. PROCEDURE NOTE: Under local anesthesia and strict aseptic precautions, a 6-Estonian introducer was placed in the right femoral artery. Micropuncture needle technique was used and I used a 6- Estonian dilator prior to placing the sheath. I used a 3.5 curved left Genet catheter to perform selective coronary angiography of the left system. This study noted that the previously stented LAD was widely patent. He had a left main and LAD orbital atherectomy performed and this was widely patent with remarkably good flow. I then turned my attention to the vein graft. Obtuse marginal 1 graft was cannulated with a left bypass guide catheter. I used a run-through wire to cross the lesion. I advanced and used a 3.5 NC Trek balloon of 12 mm length to dilate the proximal stent within the body of the graft. Then I tried to advance a Moz[place] balloon of 2.5 caliber 13 mm length, which was a NC balloon. With this I dilated the distal lesion in the body of the vein graft. I had difficulty because of the guide support and also the distal nature of the lesion. I then used a garcia wire which was a run-through wire. The initial wire was actually a Whisper wire. The second wire was a run-through wire. With this I was able to advance and deploy a 2.75 caliber 8 mm Xience stent into the distal portion of the body of the vein graft. However, beyond the stented segment, there was still an area of narrowing and could not reach this with a stent and I used a 2.5 Trek balloon and went up to 13 atmospheres to open up this area. The same balloon was then used to again dilate within the stented segment in the proximal portion of the body of the graft. The patient received Angiomax bolus and infusion as per protocol. He also received 150 mg of Plavix and he was already on aspirin and Plavix. Excellent angiographic result was achieved within the distal portion of the body of the graft, but the insertion site had about a 30% to 40% narrowing still persisting. Remarkably good angiographic flow was noted. Results were discussed with the patient and I talked to the daughter by phone. The patient's sheath was sutured and he was sent to the room in a stable condition. He will be on aspirin, Plavix and will be seen in the office in about 10 days. Results were discussed with the patient and family. MMODL / IJN: [id number] /
[2018-02-21] MEDS ORDERED: amLODIPine 5 MG TAB PO STA (14:09)
[2018-02-21] MEDS ORDERED: METOPROLOL TARTRATE 5 MG/5 ML VIAL IVP SCH (14:15)
[2018-02-21] MEDS ORDERED: ACETAMINOPHEN TAB 500 MG TAB PO PRN (15:06)
[2018-02-21] MEDS ORDERED: LOSARTAN 25 MG TAB PO PRN (15:06)
[2018-02-21] MEDS ORDERED: ALPRAZolam 0.5 MG TAB PO PRN (15:06)
[2018-02-21] MEDS: HYDROcodone/APAP 7.5-325MG 1 EACH TAB PO PRN ×2 (15:40→21:40)
[2018-02-21] MEDS: ALBUTEROL NEBULIZED 2.5 MG/3 ML INHALATION SCH ×2 (16:50→19:55)
[2018-02-21] MEDS: SODIUM CHLORIDE 0.9% 1,000 ML IV SCH (20:25)
[2018-02-21] MEDS: FAMOTIDINE 20 MG TAB PO SCH (20:27)
[2018-02-21] MEDS: OXYBUTYNIN CHLORIDE 5 MG TAB PO SCH (20:27)
[2018-02-21] MEDS: CARVEDILOL 6.25 MG TAB PO SCH (20:28)
[2018-02-21] MEDS ORDERED: traZODone HCL 50 MG TAB PO SCH (21:00)
[2018-02-21] MEDS ORDERED: ATORVASTATIN 80 MG TAB PO SCH (21:00)
[2018-02-21] MEDS ORDERED: TAMSULOSIN 0.4 MG CAP.ER.24H PO SCH (21:00)
[2018-02-22] MEDS: SODIUM CHLORIDE 0.9% 1,000 ML IV SCH (04:47)
[2018-02-22 06:32] LABS: Basophils % (A) 0 %; Eosinophils # (A) 0.2 k/uL (0-0.7); Eosinophils % (A) 3 %; HCT 35.1 % (39.0-53.0); HGB 11.1 gm/dL (13.0-17.5); Hypochromasia Moderate; Lymphocytes # (A) 1.1 k/uL (1.0-4.8); Lymphocytes % (A) 17 %; MCH 29.4 pg (25.0-35.0); MCHC 31.7 g/dL (31.0-37.0); MCV 92.7 fL (80.0-100.0); Monocytes # (A) 0.5 k/uL (0-1.0); Monocytes % (A) 8 %; Neutrophils # (A) 4.7 k/uL (1.3-7.7); Neutrophils % (A) 71 %; Platelet Count 172 k/uL (150-450); RBC 3.79 m/uL (4.30-5.90); RDW 14.4 % (11.5-15.5); WBC 6.7 k/uL (3.8-10.6)
[2018-02-22] MEDS: CARVEDILOL 6.25 MG TAB PO SCH (06:39)
[2018-02-22 06:47] LABS: Anion Gap 9 mmol/L; Blood Urea Nitrogen 15 mg/dL (9-20); Calcium 9.2 mg/dL (8.4-10.2); Carbon Dioxide 32 mmol/L (22-30); Chloride 102 mmol/L (98-107); Glucose 127 mg/dL (74-99); Sodium 143 mmol/L (137-145)
[2018-02-22] MEDS: ALBUTEROL NEBULIZED 2.5 MG/3 ML INHALATION SCH ×2 (07:30→13:00)
[2018-02-22 08:06] VITALS: RESP 16; TEMP 97
[2018-02-22] MEDS: FAMOTIDINE 20 MG TAB PO SCH (08:07)
[2018-02-22] MEDS: OXYBUTYNIN CHLORIDE 5 MG TAB PO SCH (08:07)
[2018-02-22] MEDS ORDERED: MULTIVITAMINS, THERA 1 EACH TAB PO SCH (09:00)
[2018-02-22] MEDS ORDERED: CLOPIDOGREL 75 MG TAB PO SCH ×2 (09:00)
[2018-02-22] MEDS ORDERED: FINASTERIDE 5 MG TAB PO SCH (09:00)
[2018-02-22] MEDS ORDERED: predniSONE 5 MG TAB PO SCH (09:00)
[2018-02-22] MEDS ORDERED: ASPIRIN 81 MG PO SCH ×2 (09:00)
[2018-02-22 10:43] VITALS: BMI 25.4
[2018-02-22] MEDS ORDERED: CARVEDILOL 6.25 MG TAB PO STA (11:46)
[2018-02-22 12:07] VITALS: BP 183/82
[2018-02-22 13:03] VITALS: PULSE 92
--- NOTE | 2018-02-22 17:04 | PN ---
PROGRESS NOTE Antonio Burton had a PTCA and stenting of a vein graft to the obtuse marginal. He is doing well today. His right groin is clean and dry with a good pulse. His EKG revealed ventricular paced and atrial sensed rhythm. Labs are good. Vital signs are stable. S1-S2 heard normally. Short systolic murmur noted. Lungs reveal diminished air entry. Abdomen and lower extremity exam unchanged. Plan is to increase activity. Discharge him today and I will see him in the office in one week. MMODL / IJN: [id number] /
[2018-02-22] MEDS ORDERED: CARVEDILOL 6.25 MG TAB PO SCH (21:00)
[2018-02-23] MEDS ORDERED: CARVEDILOL 12.5 MG TAB PO SCH ×2 (09:00)
[2018-02-23] MEDS ORDERED: CARVEDILOL 6.25 MG TAB PO SCH (21:00)
== END 2018-02-22 13:53 | disposition home or self-care (01) ==
LOC: CATHCVL 09:15 → 6SEL 13:33 → CATHCVL 02-22 13:53
PROVIDERS: ATTEND Internal Medicine Interventional Cardiology
DX: I25.810 Atherosclerosis of coronary artery bypass graft(s) without angina pectoris (principal); I11.0 Hypertensive heart disease with heart failure; I50.9 Heart failure, unspecified; Z87.891 Personal history of nicotine dependence; I65.23 Occlusion and stenosis of bilateral carotid arteries; I44.2 Atrioventricular block, complete; E78.00 Pure hypercholesterolemia, unspecified; J44.9 Chronic obstructive pulmonary disease, unspecified; Z95.5 Presence of coronary angioplasty implant and graft; Z95.0 Presence of cardiac pacemaker; Z79.02 Long term (current) use of antithrombotics/antiplatelets; Z79.82 Long term (current) use of aspirin; Z79.51 Long term (current) use of inhaled steroids; Z79.52 Long term (current) use of systemic steroids; Z79.899 Other long term (current) drug therapy
CPT/HCPCS: 94640 ×3; 93454; 80048; 85025; C9604; C1769 ×4; C1887; C1725 ×3; C1894; C1874; J2001; S0138; J2250; J1200; J3010; J0583; J7512; Q9967

== ENCOUNTER 2018-03-23 22:39 | Inpatient (IN) | payer MEDICARE, BC ==
[2018-03-23] MEDS ORDERED: LEVOFLOXACIN 750 MG TAB PO STA (22:58)
[2018-03-23] MEDS ORDERED: methylPREDNISolone SOD SUCCI 125 MG/2 ML VIAL IV STA (22:58)
[2018-03-23] MEDS ORDERED: SODIUM CHLORIDE 0.9% 1,000 ML IV STA (22:58)
[2018-03-23] MEDS ORDERED: ALBUTEROL NEBULIZED 2.5 MG/3 ML INHALATION STA (22:58)
[2018-03-23 23:13] LABS: Basophils % (A) 0 %; Eosinophils # (A) 0.1 k/uL (0-0.7); Eosinophils % (A) 1 %; HCT 35.9 % (39.0-53.0); HGB 11.3 gm/dL (13.0-17.5); Hypochromasia Slight; Lymphocytes # (A) 0.7 k/uL (1.0-4.8); Lymphocytes % (A) 8 %; MCH 28.4 pg (25.0-35.0); MCHC 31.6 g/dL (31.0-37.0); MCV 90.1 fL (80.0-100.0); Mean Platelet Volume 6.7; Monocytes # (A) 0.6 k/uL (0-1.0); Monocytes % (A) 6 %; Neutrophils # (A) 7.5 k/uL (1.3-7.7); Neutrophils % (A) 83 %; Platelet Count 187 k/uL (150-450); RBC 3.98 m/uL (4.30-5.90); RDW 14.3 % (11.5-15.5)
[2018-03-23 23:22] LABS: ALT 33 U/L (21-72); AST 24 U/L (17-59); Albumin 4.2 g/dL (3.5-5.0); Alkaline Phosphatase 80 U/L (38-126); Anion Gap 11 mmol/L; Blood Urea Nitrogen 16 mg/dL (9-20); Calcium 9.6 mg/dL (8.4-10.2); Carbon Dioxide 30 mmol/L (22-30); Chloride 99 mmol/L (98-107); Glucose 136 mg/dL (74-99); Potassium 4.8 mmol/L (3.5-5.1); Sodium 140 mmol/L (137-145); Total Bilirubin 0.6 mg/dL (0.2-1.3); Total Protein 6.6 g/dL (6.3-8.2)
[2018-03-23 23:35] LABS: INR 1.1 (<1.2); Partial Thromboplastin Time 22.4 sec (22.0-30.0)
[2018-03-23 23:44] LABS: Creatine Kinase 21 U/L (55-170)
[2018-03-23 23:46] LABS: D-Dimer 2.78 mg/L FEU (<0.60)
[2018-03-23 23:58] LABS: Creatine Kinase MB 0.6 ng/mL (0.0-2.4); Troponin I <0.012 ng/mL (0.000-0.034)
--- NOTE | 2018-03-24 00:03 | XR ---
EXAMINATION TYPE: XR chest 2V DATE OF EXAM: 03/23/2018 COMPARISON: 07/04/2017 HISTORY: Difficulty breathing TECHNIQUE: Frontal and lateral views of the chest are obtained. FINDINGS: There is no heart failure nor confluent pneumonic infiltrate. There is some coarsening of interstitial markings. There is some blunting of the costophrenic angles. There is left axillary pace maker with the lead tips in the right ventricle. There are sternal wires. IMPRESSION: There is pleural reaction at the lung bases. No heart failure. Minimal pulmonary fibroti c changes. No change compared to old exam.
--- NOTE | 2018-03-24 00:32 | ED ---
SOB HPI - General Chief Complaint: Shortness of Breath Stated Complaint: Difficulty Breathing Time Seen by Provider: 03/23/18 22:46 Source: patient Mode of arrival: EMS Limitations: no limitations - History of Present Illness Initial Comments: 72 years old male presents with a history with the shortness of breath he has ongoing shortness of breath for the last 2 weeks with a minimal exertion he gets unbearable he does wear oxygen 24 on Tuesday he uses 4 L also has a history of heart disease and headache stent put and 2 weeks ago he denies any fever no chills he does have a chronic cough he does bring up some phlegm review of system is unremarkable otherwise - Related Data Home Medications Medication Instructions Recorded Confirmed Clopidogrel [Plavix] 75 mg PO DAILY 03/10/14 03/23/18 traZODone HCL [Desyrel] 50 mg PO HS 03/10/14 03/23/18 Aspirin 81 mg PO DAILY 05/01/14 03/23/18 Multivitamin [Men's Multi-Vitamin] 1 tab PO DAILY 05/01/14 03/23/18 Losartan [Cozaar] 25 mg PO DAILY PRN 12/23/14 03/23/18 HYDROcodone/APAP 7.5-325MG [[place] 1 tab PO Q6H PRN 12/24/14 03/23/18 7.5-325] Acetaminophen/Diphenhydramine 2 tab PO HS PRN 02/02/16 03/23/18 [Tylenol PM 500-25mg] Nitroglycerin Sl Tabs [Nitrostat] 0.4 mg SUBLINGUAL Q5M PRN 02/02/16 03/23/18 Oxybutynin Chloride 5 mg PO BID 02/02/16 03/23/18 Ranitidine HCl 150 mg PO BID 02/02/16 03/23/18 Tamsulosin [Flomax] 0.4 mg PO HS 02/02/16 03/23/18 Acetaminophen [Tylenol Extra 500 mg PO BID PRN 07/04/17 03/23/18 Strength] Albuterol Nebulized (Conc) 2.5 mg INHALATION RT-TID 07/04/17 03/23/18 [Ventolin Nebulized (Conc)] Finasteride [Proscar] 5 mg PO DAILY 07/04/17 03/23/18 predniSONE 5 mg PO DAILY 07/04/17 03/23/18 Bisacodyl [Dulcolax] 5 - 15 mg PO DAILY PRN 11/03/17 03/23/18 Carvedilol [Coreg*] 12.5 mg PO HS 03/23/18 03/23/18 Previous Rx's Medication Instructions Recorded Atorvastatin [Lipitor] 80 mg PO HS #30 tab 11/23/17 ALPRAZolam [Xanax] 0.5 mg PO TID PRN #7 tablet 01/28/18 Carvedilol [Coreg] 6.25 mg PO DAILY tab 02/22/18 Allergies Allergy/AdvReac Type Severity Reaction Status Date / Time No Known Allergies Allergy Verified 03/23/18 23:04 Review of Systems ROS Statement: Those systems with pertinent positive or pertinent negative responses have been documented in the HPI. ROS Other: All systems not noted in ROS Statement are negative. Past Medical History Past Medical History: Coronary Artery Disease (CAD), Chest Pain / Angina, Heart Failure, COPD, CVA/TIA, Deep Vein Thrombosis (DVT), Eye Disorder, GERD/Reflux, Hearing Disorder / Deafness, Hyperlipidemia, Hypertension, Memory Impairment, Myocardial Infarction ([place]), Musculoskeletal Disorder, Pneumonia, Prostate Disorder, Respiratory Disorder, Vascular Disorder Additional Past Medical History / Comment(s): Daily steroids for "years." HX OF CVA W/SOME SPEECH DIFFICULTY (since 1999). TIA'S. PVD. "BLOCKED RIGHT CAROTID." RESPIRATORY FAILURE, CONTINUOUS OXYGEN 4L. BPH. CHRONIC BRONCHITIS. DDD. STOMACH ULCER. DIVERTICULITIS. HEMORRHOIDS, COLON POLYPS. USES WALKER OR WHEELCHAIR, ELECTRIC SCOOTER. CHRONIC LEG AND BACK PAIN. CONSTIPATION. GLAUCOMA LT EYE. SOB, ON O2 4L/NC. FREQ FALLS., SEE CARDIOLOGY H & P. Last Myocardial Infarction Date:: 1997 History of Any Multi-Drug Resistant Organisms: MRSA Date of last positivie culture/infection: 12/26/2014 MDRO Source:: SPUTUM Past Surgical History: AICD, Back Surgery, Coronary Bypass/CABG, Heart Catheterization, Heart Catheterization With Stent, Pacemaker, Tonsillectomy Additional Past Surgical History / Comment(s): FEBRUARY 2016 PACER ([facility] [id number] , #SS [id number]). CABG 5 vessel 1997. Cath with stents (6 total). Esvin Carotid Endarterectomies. Back surgery x 2. Bilateral fem/pops, esvin stenting in legs (6 total). Cataracts removed,. Back injections for pain. AICD, HEART CATH . Past Anesthesia/Blood Transfusion Reactions: No Reported Reaction Additional Past Anesthesia/Blood Transfusion Reaction / Comment(s): Never had blood transfusion. Date of Last Stent Placement:: 2013 Type of Cardiac Device: Permanent Pacemaker, AICD Device Placement Date:: 02/2016 Past Psychological History: Anxiety, Depression Smoking Status: Former smoker Past Alcohol Use History: None Reported Past Drug Use History: None Reported - Past Family History Brother(s) Family Medical History: Cancer Sister(s) Family Medical History: Congestive Heart Failure (CHF), Vascular Disorder Additional Family Medical History / Comment(s): PVD Mother Family Medical History: Coronary Artery Disease (CAD) Additional Family Medical History / Comment(s): Multiple heart surgery Father Family Medical History: Cancer, Coronary Artery Disease (CAD) Additional Family Medical History / Comment(s): Colon CA after 50's General Exam - General Exam Comments Initial Comments: General: The patient is awake and alert, in mild distress Skin: Skin is warm and dry and no rashes or lesions are noted. Eye: Pupils are equal, round and reactive to light, extra-ocular movements are intact; there is normal conjunctiva bilaterally. Ears, nose, mouth and throat: There are moist mucous membranes and no oral lesions. Neck: The neck is supple, there is no tenderness or JVD. Cardiovascular: There is a regular rate and rhythm. No murmur, rub or gallop is appreciated. Respiratory: To auscultation bilateral, decreased breath sounds exam is consistent with a moderate COPD Gastrointestinal: Soft, non-distended, non-tender abdomen without masses or organomegaly noted. There is no rebound or guarding present. Bowel sounds are unremarkable. Back: There is no tenderness to palpation in the midline. There is no obvious deformity. Musculoskeletal: Normal ROM, no tenderness, There is no pedal edema. There is no calf tenderness or swelling. No cords were appreciated. Neurological: CN II-XII intact, Cranial nerves III through XII are intact. There are no obvious motor or sensory deficits. Coordination appears grossly intact. Speech is normal. Psychiatric: Cooperative, appropriate mood & affect, normal judgment. Limitations: no limitations Course Vital Signs 03/23/18 03/23/18 03/23/18 22:41 22:43 23:16 Temperature 98.8 F Pulse Rate 87 Respiratory 22 22 Rate Blood Pressure 94/67 84/61 O2 Sat by Pulse 96 Oximetry 03/23/18 03/24/18 03/24/18 23:59 00:00 00:12 Temperature 98.7 F Pulse Rate 78 88 80 Respiratory 22 Rate Blood Pressure 136/77 O2 Sat by Pulse 99 Oximetry EKG is atrial sensed ventricular paced rhythm ventricular rate is 82 MD interval is 116 QRS duration is 138 QT/QTc is 458/535 this is a paced EKG Upon reviewing noticed him CBC is normal troponin is within normal range EKG is paced compress metabolic panel is normal chest x-ray ruled out any congestive heart failure or infiltrate 8 d-dimer is definitely elevated is 2.78 he would need a week he would need a CT angiogram to rule out pulmonary embolus, patient will be admitted to Dr. Mendoza service [facility] and will follow -up on the CT angio report Medical Decision Making - Lab Data Result diagrams: 03/23/18 22:44 03/23/18 22:44 Lab Results 03/23/18 03/23/18 03/23/18 Range/Units 22:44 22:44 22:44 WBC 9.0 (3.8-10.6) k/uL RBC 3.98 L (4.30-5.90) m/uL Hgb 11.3 L (13.0-17.5) gm/dL Hct 35.9 L (39.0-53.0) % MCV 90.1 (80.0-100.0) fL MCH 28.4 (25.0-35.0) pg MCHC 31.6 (31.0-37.0) g/dL RDW 14.3 (11.5-15.5) % Plt Count 187 (150-450) k/uL Neutrophils % 83 % Lymphocytes % 8 % Monocytes % 6 % Eosinophils % 1 % Basophils % 0 % Neutrophils # 7.5 (1.3-7.7) k/uL Lymphocytes # 0.7 L (1.0-4.8) k/uL Monocytes # 0.6 (0-1.0) k/uL Eosinophils # 0.1 (0-0.7) k/uL Basophils # 0.0 (0-0.2) k/uL Hypochromasia Slight PT (9.0-12.0) sec INR (<1.2) APTT (22.0-30.0) sec D-Dimer (<0.60) mg/L FEU Sodium 140 (137-145) mmol/L Potassium 4.8 (3.5-5.1) mmol/L Chloride 99 (98-107) mmol/L Carbon Dioxide 30 (22-30) mmol/L Anion Gap 11 mmol/L BUN 16 (9-20) mg/dL Creatinine 0.90 (0.66-1.25) mg/dL Est GFR (CKD-EPI)AfAm >90 (>60 ml/min/1.73 sqM) Est GFR (CKD-EPI)NonAf 84 (>60 ml/min/1.73 sqM) Glucose 136 H (74-99) mg/dL Calcium 9.6 (8.4-10.2) mg/dL Total Bilirubin 0.6 (0.2-1.3) mg/dL AST 24 (17-59) U/L ALT 33 (21-72) U/L Alkaline Phosphatase 80 (38-126) U/L Total Creatine Kinase 21 L (55-170) U/L CK-MB (CK-2) 0.6 (0.0-2.4) ng/mL CK-MB (CK-2) Rel Index 2.9 Troponin I <0.012 (0.000-0.034) ng/mL Total Protein 6.6 (6.3-8.2) g/dL Albumin 4.2 (3.5-5.0) g/dL 03/23/18 Range/Units 22:44 WBC (3.8-10.6) k/uL RBC (4.30-5.90) m/uL Hgb (13.0-17.5) gm/dL Hct (39.0-53.0) % MCV (80.0-100.0) fL MCH (25.0-35.0) pg MCHC (31.0-37.0) g/dL RDW (11.5-15.5) % Plt Count (150-450) k/uL Neutrophils % % Lymphocytes % % Monocytes % % Eosinophils % % Basophils % % Neutrophils # (1.3-7.7) k/uL Lymphocytes # (1.0-4.8) k/uL Monocytes # (0-1.0) k/uL Eosinophils # (0-0.7) k/uL Basophils # (0-0.2) k/uL Hypochromasia PT 11.0 (9.0-12.0) sec INR 1.1 (<1.2) APTT 22.4 (22.0-30.0) sec D-Dimer 2.78 H (<0.60) mg/L FEU Sodium (137-145) mmol/L Potassium (3.5-5.1) mmol/L Chloride (98-107) mmol/L Carbon Dioxide (22-30) mmol/L Anion Gap mmol/L BUN (9-20) mg/dL Creatinine (0.66-1.25) mg/dL Est GFR (CKD-EPI)AfAm (>60 ml/min/1.73 sqM) Est GFR (CKD-EPI)NonAf (>60 ml/min/1.73 sqM) Glucose (74-99) mg/dL Calcium (8.4-10.2) mg/dL Total Bilirubin (0.2-1.3) mg/dL AST (17-59) U/L ALT (21-72) U/L Alkaline Phosphatase (38-126) U/L Total Creatine Kinase (55-170) U/L CK-MB (CK-2) (0.0-2.4) ng/mL CK-MB (CK-2) Rel Index Troponin I (0.000-0.034) ng/mL Total Protein (6.3-8.2) g/dL Albumin (3.5-5.0) g/dL Disposition Clinical Impression: Dyspnea, Elevated d-dimer Disposition: ADMITTED IP TO THIS HOSP Referrals: Randolph Marcos MD [Primary Care Provider] - 1-2 days
[2018-03-24] MEDS ORDERED: IPRATROPIUM-ALBUTEROL 3 ML NEB INHALATION PRN ×2 (00:33→13:12)
[2018-03-24] MEDS ORDERED: ACETAMINOPHEN TAB 500 MG TAB PO PRN ×3 (00:36→03:02)
[2018-03-24] MEDS ORDERED: NITROGLYCERIN SL TABS 0.4 MG TAB SUBLINGUAL PRN (00:36)
[2018-03-24] MEDS ORDERED: LOSARTAN 25 MG TAB PO PRN (00:36)
--- NOTE | 2018-03-24 01:59 | CT ---
EXAMINATION TYPE: CT chest angio for PE DATE OF EXAM: 03/24/2018 COMPARISON: 03/11/2014 HISTORY: sob;elevated d-dimer CT DLP: 209.30 mGycm Automated exposure control for dose reduction was used. CONTRAST: CT Chest for pulmonary embolism performed with with IV Contrast, patient injected with 75 mL of Isovu e 370. FINDINGS: There is diffuse pulmonary emphysema. There is bullous disease. There is mild coarsening of interstit ial markings with reticular infiltrate at the posterior lung base on the right side. There is no pleu ral effusion. Heart size is normal. There is no pericardial effusion. There are no filling defects in the pulmonary arteries. There is atheromatous change in the thoracic aorta. There is no evidence of aneurysm or dissection. There is a 1.5 cm pretracheal lymph node. There is some hyperplasia of the ad renal glands. IMPRESSION: No evidence of pulmonary embolism. Bullous emphysema. There is increased reticular infiltrate at the right posterior lung base compared to old exam.
[2018-03-24 02:59] VITALS: BMI 23.1
[2018-03-24] MEDS ORDERED: diphenhydrAMINE 25 MG CAP PO PRN (03:02)
[2018-03-24] MEDS: methylPREDNISolone SOD SUCCI 125 MG/2 ML VIAL IV SCH ×4 (06:24→23:13)
[2018-03-24] MEDS: ALBUTEROL NEBULIZED 2.5 MG/3 ML INHALATION SCH ×2 (07:25→12:45)
[2018-03-24] MEDS: CLOPIDOGREL 75 MG TAB PO SCH (08:55)
[2018-03-24] MEDS: CARVEDILOL 6.25 MG TAB PO SCH (08:55)
[2018-03-24] MEDS: FAMOTIDINE 20 MG TAB PO SCH ×2 (08:55→20:27)
[2018-03-24] MEDS: OXYBUTYNIN CHLORIDE 5 MG TAB PO SCH ×2 (08:56→20:27)
[2018-03-24] MEDS: MULTIVITAMINS, THERA 1 EACH TAB PO SCH (08:56)
[2018-03-24] MEDS: ASPIRIN 81 MG PO SCH (08:56)
[2018-03-24] MEDS: FINASTERIDE 5 MG TAB PO SCH (08:56)
[2018-03-24] MEDS ORDERED: predniSONE 5 MG TAB PO SCH (09:00)
[2018-03-24] MEDS: ALPRAZolam 0.5 MG TAB PO PRN ×2 (09:04→17:09)
[2018-03-24] MEDS: HYDROcodone/APAP 7.5-325MG 1 EACH TAB PO PRN ×2 (10:51→23:12)
[2018-03-24 11:35] LABS: Glucose,Whole Blood 262 mg/dL (75-99)
--- NOTE | 2018-03-24 12:17 | P.HPIM ---
History of Present Illness H&P Date: 03/24/18 Chief Complaint: Dyspnea/COPD exacerbation This is a 72-year-old gentleman who follows with Dr. Celena Mason in the office. He has a known history of coronary artery disease with prior bypass surgery in 1997, at which time he underwent a OLIVEIRA to the LAD, saphenous vein graft to the OM1, OM 2, circumflex, and RCA. Subsequent to that patient did undergo angioplasty with stenting of the saphenous vein graft to the OM 1 and 2 in 2008, and saphenous vein graft stenting to the OM1 in 2013, he has history also of hypertension, hyperlipidemia, by V AICD implantation, peripheral vascular disease with prior fem-pop surgery. She also has history of prior CVA , with subsequent memory loss. His daughter works in the operating room here at the hospital. Patient was brought into the emergency department at [facility] yesterday because of increased shortness breath over the last 2 days associated with minimal coughing and the patient was feeling quite panicky he ended up seeing the ER and he underwent chest x-ray followed by a CT angiography was negative for reversible however it did show significant worsening of the right lower lobe infiltrate, he was given IV anabiotic and IV steroid and he was admitted to the hospital for treatment of the chronic obstructive pulmonary disease exacerbation with possible right lower lobe pneumonia. Review of Systems Constitutional: Reports anorexia, Reports weakness, Denies chronic pain, Denies lethargy, Denies malaise, Denies weight loss Eyes: denies blurred vision, denies bulging eye, denies decreased vision Ears: deny: decreased hearing Ears, nose, mouth and throat: Denies dysphagia, Denies neck lump, Denies sore throat Cardiovascular: Reports decreased exercise tolerance, Reports dyspnea on exertion, Reports high blood pressure, Reports shortness of breath, Denies chest pain, Denies rapid heart beat, Denies syncope Respiratory: Reports congestion, Reports cough, Reports cough with sputum, Reports home oxygen, Reports wheezing, Denies sleep apnea, Denies snoring Gastrointestinal: Reports BRBPR, Reports heartburn, Denies abdominal pain, Denies melena, Denies nausea, Denies vomiting Genitourinary: Reports nocturia, Denies dysuria Musculoskeletal: Reports atrophy, Reports gait dysfunction, Denies myalgias Musculoskeletal: absent: ankle pain, ankle stiffness, ankle swelling, elbow pain , elbow stiffness, elbow swelling, foot pain, foot stiffness, foot swelling, hand pain, hand stiffness, hand swelling, hip pain, hip stiffness, hip swelling , knee pain, knee stiffness, knee swelling, shoulder pain, shoulder stiffness, shoulder swelling, wrist pain, wrist stiffness, wrist swelling Integumentary: Denies pruritus, Denies rash Neurological: Reports memory loss, Denies numbness, Denies weakness Psychiatric: Reports anxiety Endocrine: Denies fatigue, Denies weight change Past Medical History Past Medical History: Coronary Artery Disease (CAD), Chest Pain / Angina, Heart Failure, COPD, CVA/TIA, Deep Vein Thrombosis (DVT), Eye Disorder, GERD/Reflux, Hearing Disorder / Deafness, Hyperlipidemia, Hypertension, Memory Impairment, Myocardial Infarction ([place]), Musculoskeletal Disorder, Pneumonia, Prostate Disorder, Respiratory Disorder, Vascular Disorder Additional Past Medical History / Comment(s): Daily steroids for "years." HX OF CVA W/SOME SPEECH DIFFICULTY (since 1999). TIA'S. PVD. "BLOCKED RIGHT CAROTID." RESPIRATORY FAILURE, CONTINUOUS OXYGEN 4L. BPH. CHRONIC BRONCHITIS. DDD. STOMACH ULCER. DIVERTICULITIS. HEMORRHOIDS, COLON POLYPS. USES WALKER OR WHEELCHAIR, ELECTRIC SCOOTER. CHRONIC LEG AND BACK PAIN. CONSTIPATION. GLAUCOMA LT EYE. SOB, ON O2 4L/NC. FREQ FALLS., SEE CARDIOLOGY H & P. Last Myocardial Infarction Date:: 1997 History of Any Multi-Drug Resistant Organisms: MRSA Date of last positivie culture/infection: 12/26/2014 MDRO Source:: SPUTUM Past Surgical History: AICD, Back Surgery, Coronary Bypass/CABG, Heart Catheterization, Heart Catheterization With Stent, Pacemaker, Tonsillectomy Additional Past Surgical History / Comment(s): FEBRUARY 2016 PACER ([facility] PM [id number] , #SS [id number]). CABG 5 vessel 1997. Cath with stents (6 total). Esvin Carotid Endarterectomies. Back surgery x 2. Bilateral fem/pops, esvin stenting in legs (6 total). Cataracts removed,. Back injections for pain. AICD, HEART CATH . Past Anesthesia/Blood Transfusion Reactions: No Reported Reaction Additional Past Anesthesia/Blood Transfusion Reaction / Comment(s): Never had blood transfusion. Date of Last Stent Placement:: 2013 Type of Cardiac Device: Permanent Pacemaker, AICD Device Placement Date:: 02/2016 Past Psychological History: Anxiety, Depression Additional Psychological History / Comment(s): LIVES AT [facility] Smoking Status: Former smoker (Patient used to smoke about pack every day smoked since he was 18 and he quit about 6 years ago.) Past Alcohol Use History: None Reported Additional Past Alcohol Use History / Comment(s): Pt quit smoking in 2011. SMOKED 1 PPD, SMOKED FOR 50 YEARS Past Drug Use History: None Reported - Past Family History Brother(s) Family Medical History: Cancer (Brother at age of 75 from stage IV stomach cancer.) Sister(s) Family Medical History: Congestive Heart Failure (CHF) (Sr. at age 57 from CABG.), Vascular Disorder Additional Family Medical History / Comment(s): PVD Mother Family Medical History: Coronary Artery Disease (CAD) (Mother at age 62 from CAD and PAD.) Additional Family Medical History / Comment(s): Multiple heart surgery Father Family Medical History: Cancer (Father at age of 89 from colon cancer and COPD along with CAD.), Coronary Artery Disease (CAD) Additional Family Medical History / Comment(s): Colon CA after 50's Son(s) Family Medical History: No Reported History (Patient has one son no major medical problems.) Daughter(s) Family Medical History: No Reported History (Patient had 2 daughters one works in the ER here at the other one committed suicide while she was in [place]) Medications and Allergies Home Medications Medication Instructions Recorded Confirmed Type Clopidogrel [Plavix] 75 mg PO DAILY 03/10/14 03/23/18 History traZODone HCL [Desyrel] 50 mg PO HS 03/10/14 03/23/18 History Aspirin 81 mg PO DAILY 05/01/14 03/23/18 History Multivitamin [Men's Multi-Vitamin] 1 tab PO DAILY 05/01/14 03/23/18 History Losartan [Cozaar] 25 mg PO DAILY PRN 12/23/14 03/23/18 History HYDROcodone/APAP 7.5-325MG [[place] 1 tab PO Q6H PRN 12/24/14 03/23/18 History 7.5-325] Acetaminophen/Diphenhydramine 2 tab PO HS PRN 02/02/16 03/23/18 History [Tylenol PM 500-25mg] Nitroglycerin Sl Tabs [Nitrostat] 0.4 mg SUBLINGUAL Q5M PRN 02/02/16 03/23/18 History Oxybutynin Chloride 5 mg PO BID 02/02/16 03/23/18 History Ranitidine HCl 150 mg PO BID 02/02/16 03/23/18 History Tamsulosin [Flomax] 0.4 mg PO HS 02/02/16 03/23/18 History Acetaminophen [Tylenol Extra 500 mg PO BID PRN 07/04/17 03/23/18 History Strength] Albuterol Nebulized (Conc) 2.5 mg INHALATION RT-TID 07/04/17 03/23/18 History [Ventolin Nebulized (Conc)] Finasteride [Proscar] 5 mg PO DAILY 07/04/17 03/23/18 History predniSONE 5 mg PO DAILY 07/04/17 03/23/18 History Bisacodyl [Dulcolax] 5 - 15 mg PO DAILY PRN 11/03/17 03/23/18 History Atorvastatin [Lipitor] 80 mg PO HS #30 tab 11/23/17 03/23/18 Rx ALPRAZolam [Xanax] 0.5 mg PO TID PRN #7 tablet 01/28/18 03/23/18 Rx Carvedilol [Coreg] 6.25 mg PO DAILY tab 02/22/18 03/23/18 Rx Carvedilol [Coreg*] 12.5 mg PO HS 03/23/18 03/23/18 History Allergies Allergy/AdvReac Type Severity Reaction Status Date / Time No Known Allergies Allergy Verified 03/23/18 23:04 Physical Exam Vitals: Vital Signs Temp Pulse Pulse Resp BP BP Pulse Ox 03/24/18 07:38 84 03/24/18 07:28 80 98 03/24/18 06:10 97.5 F L 81 16 164/89 100 03/24/18 03:58 16 03/24/18 02:58 97.5 F L 74 16 152/74 97 03/24/18 02:22 80 16 152/95 100 03/24/18 00:12 80 03/24/18 00:00 98.7 F 88 22 136/77 99 03/23/18 23:59 78 03/23/18 23:16 84/61 03/23/18 22:43 22 03/23/18 22:41 98.8 F 87 22 94/67 96 Intake and Output 03/23/18 03/24/18 03/24/18 22:59 06:59 14:59 Other: # Voids 2 Weight 61.689 kg 61 kg - Constitutional General appearance: average body habitus, mild distress - EENT Eyes: anicteric sclerae, EOMI, PERRLA, no ptosis, no scleral icterus, normal appearance ENT: hearing grossly normal, NA/AT, normal oropharynx, no thrush Ears: bilateral: normal - Neck Neck: no lymphadenopathy, normal ROM, no rigidity, no stridor, no thyromegaly Carotids: bilateral: upstroke delayed Thyroid: bilateral: normal size - Respiratory Respiratory: bilateral: diminished, wheezing, prolonged expiration, negative: dullness, rales, rhonchi - Cardiovascular Rhythm: regular Heart sounds: normal: S1, S2 Abnormal Heart Sounds: systolic murmur (AICD.) - Gastrointestinal General gastrointestinal: normal bowel sounds, soft, no splenomegaly, no tenderness, no umbilical hernia, no ventral hernia - Integumentary Integumentary: normal, normal turgor - Neurologic Neurologic: CNII-XII intact - Musculoskeletal Musculoskeletal: generalized weakness, strength equal bilaterally - Psychiatric Psychiatric: A&O x's 3, appropriate affect, intact judgment & insight Results CBC & Chem 7: 03/23/18 22:44 03/23/18 22:44 Labs: Abnormal Lab Results - Last 24 Hours (Table) 03/23/18 03/23/18 03/23/18 Range/Units 22:44 22:44 22:44 RBC 3.98 L (4.30-5.90) m/uL Hgb 11.3 L (13.0-17.5) gm/dL Hct 35.9 L (39.0-53.0) % Lymphocytes # 0.7 L (1.0-4.8) k/uL D-Dimer (<0.60) mg/L FEU Glucose 136 H (74-99) mg/dL Total Creatine Kinase 21 L (55-170) U/L 03/23/18 Range/Units 22:44 RBC (4.30-5.90) m/uL Hgb (13.0-17.5) gm/dL Hct (39.0-53.0) % Lymphocytes # (1.0-4.8) k/uL D-Dimer 2.78 H (<0.60) mg/L FEU Glucose (74-99) mg/dL Total Creatine Kinase (55-170) U/L Thrombosis Risk Factor Assmnt - DVT/VTE Prophylaxis DVT/VTE Prophylaxis: Pharmacologic Prophylaxis ordered, Mechanical Prophylaxis ordered - Choose All That Apply Each Factor Represents 1 point: Abnormal pulmonary function (COPD) Each Risk Factor Represents 2 Points: Age 61-74 years Thrombosis Risk Factor Assessment Total Risk Factor Score: 3 Thrombosis Risk Factor Assessment Level: Moderate Risk Assessment and Plan Assessment: Assessment and plan: 1. Acute respiratory failure due to acute COPD exacerbation with right lower lobe pneumonia. Continue DuoNeb 3 mg 4 times every day, Solu-Medrol 60 mg IV push every 6 hours, Mucinex 1200 mg orally twice every day, Pulmicort 1 mg nebulization twice every day, pulmonary consultation, Levaquin 500 mg orally once every day. 2. Right lower lobe pneumonia. Continue Levaquin 500 mg orally once every day as well as Mucinex 1200 mg orally twice every day. 3. CAD post CABG and multiple PCI. Continue aspirin 81 mg once every day, Plavix 75 mg oral's every day, Coreg 12.5 mg in the morning and 6.5 at bedtime, Lipitor 80 mg orally once every day. 4. PAD post multiple interventions. Continue aspirin and Plavix and Lipitor. 5. Enlarged prostate. Continue with postcard 5 mg orally once every day and Flomax 0.4 mg orally once every day. 6. GERD. Continue patient on Pepcid. 7. Hyperlipidemia. Continue patient on Lipitor 80 mg orally once every day. 8. COPD. Continue treatment as in paragraph #1. 9. Hypertension. Continue patient on Coreg. 10. Memory loss. Stable at this time. 11. Chronic low back pain continue current pain management. 12. DVT prophylaxis. Heparin 5000 units subcutaneously every 12 hours. 13. GI prophylaxis. Continue patient on Pepcid 20 mg orally twice every day. 14. Medical debility. Physical therapy evaluation.
--- NOTE | 2018-03-24 13:11 | P.CNPUL ---
History of Present Illness Consult date: 03/24/18 Requesting physician: Sundar Gaona Reason for consult: dyspnea, chest pain, COPD, hypoxemia Chief complaint: Acute exacerbation of chronic obstructive pulmonary disease History of present illness: Mr. Parada is a 72-year-old white male patient of Dr. Marcos, who was brought to the hospital by EMS, for evaluation of increased shortness of breath. Yesterday on 03/23/2018 patient had to call the ambulance, his dyspnea got to the point where he could hardly talk or get around his apartment. Patient's daughter is at the bedside, and she states the patient has been trying to save money by turning the air conditioning off frequently, and utilizing his portable oxygen tanks instead of the wall unit the patient continuous oxygen. Patient has severe end-stage emphysema/COPD, with an underlying FEV1 of 18% of predicted, and this is consistent with GOLD stage IV COPD. Patient wears 4 L per nasal cannula continuously, and he is prednisone dependent, on 5 mg of prednisone daily. He has albuterol nebulized treatments 3-4 times a day, not on any other inhalers at this time. Chest x-ray completed in the emergency department did not show any heart failure nor confluent pneumonic infiltrate, there was some coarsening of the interstitial markings, there was some blunting of the costophrenic angle, left chest pacemaker was noted in place. Patient was found to have a elevated d-dimer at 2.78, CT angios was completed which did not show any evidence of pulmonary embolism, showed bullous emphysema and some increased reticular infiltrate at the right posterior lung base. Patient denied any fever or chills, denied any exposure to sick contacts. He has an occasional cough, and last night he reports a small amount of blood in his sputum, in addition he had some burning sensation in his throat with coughing. Patient had undergone a PTCA and stenting of in-stent restenosis within a saphenous vein graft to the obtuse marginal 1, and stenting of distal portion of the body of the vein graft. Since original coronary artery bypass graft surgery was back in 1997 and patient had since had multiple interventions. Patient's latest echocardiogram from 11/08/2017 showed impaired left ventricular systolic function with an EF between 30-35%, no evidence of pulmonary hypertension, mild tricuspid, and mild mitral regurgitation. Other medical history includes CVA/TIA, ischemic cardiomyopathy status post AICD placement, his speech difficulty, PVD status post bilateral fem-pop bypass and stents, carotid artery disease with history of bilateral carotid endarterectomies, GERD/reflux, hypertension, hyperlipidemia, BPH, anxiety, depression, former nicotine dependence. Patient did have some chest tightness last night, that was radiating to his jaw, EKG showed paced rhythm. Cardiac enzymes were negative. No leukocytosis, WBC is 9.0, hemoglobin is 11.3, electrolytes and renal profile within normal limits. Patient was initiated on IV steroids, Levaquin, nebulized bronchodilators, and were seen this patient in regards to acute exacerbation of his chronic obstructive pulmonary disease. Review of Systems All systems: negative Constitutional: Denies chills, Denies fever Eyes: denies blurred vision, denies pain Ears, nose, mouth and throat: Denies headache, Denies sore throat Cardiovascular: Reports decreased exercise tolerance, Reports dyspnea on exertion, Denies chest pain, Denies shortness of breath Respiratory: Reports cough with sputum, Reports dyspnea, Reports home oxygen, Denies cough Gastrointestinal: Denies abdominal pain, Denies diarrhea, Denies nausea, Denies vomiting Musculoskeletal: Denies myalgias Integumentary: Denies pruritus, Denies rash Neurological: Denies numbness, Denies weakness Psychiatric: Denies anxiety, Denies depression Endocrine: Denies fatigue, Denies weight change Past Medical History Past Medical History: Coronary Artery Disease (CAD), Chest Pain / Angina, Heart Failure, COPD, CVA/TIA, Deep Vein Thrombosis (DVT), Eye Disorder, GERD/Reflux, Hearing Disorder / Deafness, Hyperlipidemia, Hypertension, Memory Impairment, Myocardial Infarction ([place]), Musculoskeletal Disorder, Pneumonia, Prostate Disorder, Respiratory Disorder, Vascular Disorder Additional Past Medical History / Comment(s): Daily steroids for "years." HX OF CVA W/SOME SPEECH DIFFICULTY (since 1999). TIA'S. PVD. "BLOCKED RIGHT CAROTID." RESPIRATORY FAILURE, CONTINUOUS OXYGEN 4L. BPH. CHRONIC BRONCHITIS. DDD. STOMACH ULCER. DIVERTICULITIS. HEMORRHOIDS, COLON POLYPS. USES WALKER OR WHEELCHAIR, ELECTRIC SCOOTER. CHRONIC LEG AND BACK PAIN. CONSTIPATION. GLAUCOMA LT EYE. SOB, ON O2 4L/NC. FREQ FALLS., SEE CARDIOLOGY H & P. Last Myocardial Infarction Date:: 1997 History of Any Multi-Drug Resistant Organisms: MRSA Date of last positivie culture/infection: 12/26/2014 MDRO Source:: SPUTUM Past Surgical History: AICD, Back Surgery, Coronary Bypass/CABG, Heart Catheterization, Heart Catheterization With Stent, Pacemaker, Tonsillectomy Additional Past Surgical History / Comment(s): FEBRUARY 2016 PACER ([facility] [id number] , #SS [id number]). CABG 5 vessel 1998. Cath with stents (6 total). Richard Carotid Endarterectomies. Back surgery x 2. Bilateral fem/pops, richard stenting in legs (6 total). Cataracts removed,. Back injections for pain. AICD, HEART CATH . Past Anesthesia/Blood Transfusion Reactions: No Reported Reaction Additional Past Anesthesia/Blood Transfusion Reaction / Comment(s): Never had blood transfusion. Date of Last Stent Placement:: 2013 Type of Cardiac Device: Permanent Pacemaker, AICD Device Placement Date:: 02/2016 Past Psychological History: Anxiety, Depression Additional Psychological History / Comment(s): LIVES AT [facility] Smoking Status: Former smoker (Patient used to smoke about pack every day smoked since he was 18 and he quit about 6 years ago.) Past Alcohol Use History: None Reported Additional Past Alcohol Use History / Comment(s): Pt quit smoking in 2011. SMOKED 1 PPD, SMOKED FOR 50 YEARS Past Drug Use History: None Reported - Past Family History Brother(s) Family Medical History: Cancer (Brother at age of 75 from stage IV stomach cancer.) Sister(s) Family Medical History: Congestive Heart Failure (CHF) (Sr. at age 57 from CABG.), Vascular Disorder Additional Family Medical History / Comment(s): PVD Son(s) Family Medical History: No Reported History (Patient has one son no major medical problems.) Daughter(s) Family Medical History: No Reported History (Patient had 2 daughters one works in the ER here at the other one committed suicide while she was in [place]) Mother Family Medical History: Coronary Artery Disease (CAD) (Mother at age 62 from CAD and PAD.) Additional Family Medical History / Comment(s): Multiple heart surgery Father Family Medical History: Cancer (Father at age of 89 from colon cancer and COPD along with CAD.), Coronary Artery Disease (CAD) Additional Family Medical History / Comment(s): Colon CA after 50's Medications and Allergies Home Medications Medication Instructions Recorded Confirmed Type Clopidogrel [Plavix] 75 mg PO DAILY 03/10/14 03/23/18 History traZODone HCL [Desyrel] 50 mg PO HS 03/10/14 03/23/18 History Aspirin 81 mg PO DAILY 05/01/14 03/23/18 History Multivitamin [Men's Multi-Vitamin] 1 tab PO DAILY 05/01/14 03/23/18 History Losartan [Cozaar] 25 mg PO DAILY PRN 12/23/14 03/23/18 History HYDROcodone/APAP 7.5-325MG [[place] 1 tab PO Q6H PRN 12/24/14 03/23/18 History 7.5-325] Acetaminophen/Diphenhydramine 2 tab PO HS PRN 02/02/16 03/23/18 History [Tylenol PM 500-25mg] Nitroglycerin Sl Tabs [Nitrostat] 0.4 mg SUBLINGUAL Q5M PRN 02/02/16 03/23/18 History Oxybutynin Chloride 5 mg PO BID 02/02/16 03/23/18 History Ranitidine HCl 150 mg PO BID 02/02/16 03/23/18 History Tamsulosin [Flomax] 0.4 mg PO HS 02/02/16 03/23/18 History Acetaminophen [Tylenol Extra 500 mg PO BID PRN 07/04/17 03/23/18 History Strength] Albuterol Nebulized (Conc) 2.5 mg INHALATION RT-TID 07/04/17 03/23/18 History [Ventolin Nebulized (Conc)] Finasteride [Proscar] 5 mg PO DAILY 07/04/17 03/23/18 History predniSONE 5 mg PO DAILY 07/04/17 03/23/18 History Bisacodyl [Dulcolax] 5 - 15 mg PO DAILY PRN 11/03/17 03/23/18 History Atorvastatin [Lipitor] 80 mg PO HS #30 tab 11/23/17 03/23/18 Rx ALPRAZolam [Xanax] 0.5 mg PO TID PRN #7 tablet 01/28/18 03/23/18 Rx Carvedilol [Coreg] 6.25 mg PO DAILY tab 02/22/18 03/23/18 Rx Carvedilol [Coreg*] 12.5 mg PO HS 03/23/18 03/23/18 History Allergies Allergy/AdvReac Type Severity Reaction Status Date / Time No Known Allergies Allergy Verified 03/23/18 23:04 Physical Exam Vitals: Vital Signs Temp Pulse Pulse Resp BP BP Pulse Ox 03/24/18 07:38 84 03/24/18 07:28 80 98 03/24/18 06:10 97.5 F L 81 16 164/89 100 03/24/18 03:58 16 03/24/18 02:58 97.5 F L 74 16 152/74 97 03/24/18 02:22 80 16 152/95 100 03/24/18 00:12 80 03/24/18 00:00 98.7 F 88 22 136/77 99 03/23/18 23:59 78 03/23/18 23:16 84/61 03/23/18 22:43 22 03/23/18 22:41 98.8 F 87 22 94/67 96 Intake and Output 03/23/18 03/24/18 03/24/18 22:59 06:59 14:59 Other: # Voids 2 Weight 61.689 kg 61 kg GENERAL EXAM: Alert, pleasant, 72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 EYES: Normal reaction of pupils, equal size. Conjunctiva pink, sclera white. NOSE: Clear with pink turbinates. THROAT: No erythema or exudates. NECK: No masses, no JVD, no thyroid enlargement, no adenopathy. CHEST: No chest wall deformity. Symmetrical expansion. LUNGS: Markedly diminished breath sounds noted bilaterally, with end expiratory wheezing on forced exhale maneuver CVS: Regular rate and rhythm, normal S1 and S2, no gallops, no murmurs, no rubs ABDOMEN: Soft, nontender. No hepatosplenomegaly, normal bowel sounds, no guarding or rigidity. EXTREMITIES: No clubbing, no edema, no cyanosis, 2+ pulses and upper and lower extremities. MUSCULOSKELETAL: Muscle strength and tone normal. SPINE: No scoliosis or deformity SKIN: No rashes CENTRAL NERVOUS SYSTEM: Alert and oriented -3. No focal deficits, tone is normal in all 4 extremities. PSYCHIATRIC: Alert and oriented -3. Appropriate affect. Intact judgment and insight. Results - Laboratory Findings CBC and BMP: 03/23/18 22:44 03/23/18 22:44 PT/INR, D-dimer PT 11.0 sec (9.0-12.0) 03/23/18 22:44 INR 1.1 (<1.2) 03/23/18 22:44 D-Dimer 2.78 mg/L FEU (<0.60) H 03/23/18 22:44 Abnormal lab findings: Abnormal Labs 03/23/18 03/23/18 03/23/18 22:44 22:44 22:44 RBC 3.98 L Hgb 11.3 L Hct 35.9 L Lymphocytes # 0.7 L D-Dimer Glucose 136 H POC Glucose (mg/dL) Total Creatine Kinase 21 L 03/23/18 03/24/18 22:44 11:31 RBC Hgb Hct Lymphocytes # D-Dimer 2.78 H Glucose POC Glucose (mg/dL) 262 H Total Creatine Kinase - Diagnostic Findings Chest x-ray: report reviewed, image reviewed CT scan - chest: report reviewed, image reviewed Additional studies: EKG reviewed Assessment and Plan Plan: Assessment: #1. Acute exacerbation of chronic obstructive pulmonary disease, chest x-ray did not show any infiltrates, CTA chest showed reticular infiltrate at the right posterior lung base, possible area of pneumonia #2. Advanced COPD/emphysema, FEV1 of 18% of predicted, GOLD stage IV, with chronic hypoxemic respiratory failure, prednisone dependent #3. Elevated d-dimer, nonspecific, CTA chest negative for any evidence of pulmonary embolism #4. Recent PTCA and stenting of in-stent restenosis within the saphenous vein graft to the OM1 and of the distal portion of the vein graft to the OM1 on 02/21 #5. Coronary artery disease, history of coronary artery bypass grafting in 1997 , and multiple interventions since then #6. History of ischemic cardiomyopathy, with EF of 30-35%, status post AICD placement #7. History of CVA/TIA #8. History of carotid artery disease, status post bilateral carotid endarterectomy #9. Lipidemia, hypertension #10. History of myocardial infarction #11. Peripheral vascular disease, status post fem-pop bypass, and stent placements #12. Chronic back pain, #13. Anxiety, depression #13. Nicotine dependence, in remission, patient carries a 48 year pack smoking history, quit 6 years ago Plan: Agree with current medical treatment, continue IV steroids, continue current antibiotic coverage, sputum for culture, nebulized bronchodilators. CT angios was reviewed, and did show small area of reticular infiltrate at the right posterior lung base, cannot exclude pneumonia. GI and DVT prophylaxis. I performed a history & physical examination of the patient and discussed their management with my nurse practitioner, Daniella Bejarano. I reviewed the nurse practitioner's note and agree with the documented findings and plan of care. Lung sounds are markedly diminished bilaterally. The findings and the impression was discussed with the patient. I attest to the documentation by the nurse practitioner. Time with Patient: Greater than 30
[2018-03-24] MEDS: INSULIN ASPART 100 UNIT/ML 1 ML 10 ML VIAL SQ SCH ×3 (13:13→20:34)
[2018-03-24] MEDS: IPRATROPIUM-ALBUTEROL 3 ML NEB INHALATION SCH ×2 (15:35→19:34)
[2018-03-24 16:35] LABS: Hemoglobin A1C 7.1 % (4.0-6.0)
[2018-03-24 17:23] LABS: Glucose,Whole Blood 194 mg/dL (75-99)
[2018-03-24] MEDS: BUDESONIDE 1 MG/2 ML NEBU INHALATION SCH (19:34)
[2018-03-24] MEDS: HEPARIN SODIUM,PORCINE 5,000 UNIT/ML 1 ML VIAL SQ SCH (20:27)
[2018-03-24 20:48] LABS: Glucose,Whole Blood 225 mg/dL (75-99)
[2018-03-24] MEDS ORDERED: CARVEDILOL 12.5 MG TAB PO SCH (21:00)
[2018-03-24] MEDS ORDERED: TAMSULOSIN 0.4 MG CAP.ER.24H PO SCH (21:00)
[2018-03-24] MEDS ORDERED: ATORVASTATIN 80 MG TAB PO SCH (21:00)
[2018-03-24] MEDS ORDERED: traZODone HCL 50 MG TAB PO SCH (21:00)
[2018-03-25] MEDS: ALPRAZolam 0.5 MG TAB PO PRN ×2 (00:20→12:06)
[2018-03-25] MEDS: methylPREDNISolone SOD SUCCI 125 MG/2 ML VIAL IV SCH ×2 (05:33→11:33)
[2018-03-25] MEDS: IPRATROPIUM-ALBUTEROL 3 ML NEB INHALATION SCH ×3 (07:21→16:08)
[2018-03-25] MEDS: BUDESONIDE 1 MG/2 ML NEBU INHALATION SCH (07:21)
[2018-03-25 07:40] LABS: Glucose,Whole Blood 192 mg/dL (75-99)
[2018-03-25] MEDS: CLOPIDOGREL 75 MG TAB PO SCH (08:22)
[2018-03-25] MEDS: CARVEDILOL 6.25 MG TAB PO SCH (08:22)
[2018-03-25] MEDS: INSULIN ASPART 100 UNIT/ML 1 ML 10 ML VIAL SQ SCH ×2 (08:22→13:22)
[2018-03-25] MEDS: FAMOTIDINE 20 MG TAB PO SCH (08:22)
[2018-03-25] MEDS: ASPIRIN 81 MG PO SCH (08:22)
[2018-03-25] MEDS: OXYBUTYNIN CHLORIDE 5 MG TAB PO SCH (08:23)
[2018-03-25] MEDS: HEPARIN SODIUM,PORCINE 5,000 UNIT/ML 1 ML VIAL SQ SCH (08:23)
[2018-03-25] MEDS: FINASTERIDE 5 MG TAB PO SCH (08:23)
[2018-03-25] MEDS: MULTIVITAMINS, THERA 1 EACH TAB PO SCH (08:23)
[2018-03-25 08:27] LABS: ALT 27 U/L (21-72); AST 18 U/L (17-59); Albumin 3.8 g/dL (3.5-5.0); Alkaline Phosphatase 71 U/L (38-126); Anion Gap 10 mmol/L; Blood Urea Nitrogen 20 mg/dL (9-20); Calcium 9.4 mg/dL (8.4-10.2); Carbon Dioxide 31 mmol/L (22-30); Chloride 100 mmol/L (98-107); Glucose 193 mg/dL (74-99); Potassium 4.2 mmol/L (3.5-5.1); Sodium 141 mmol/L (137-145); Total Bilirubin 0.6 mg/dL (0.2-1.3); Total Protein 6.2 g/dL (6.3-8.2)
[2018-03-25 08:35] LABS: Basophils % (A) 0 %; Eosinophils % (A) 0 %; HCT 35.2 % (39.0-53.0); HGB 10.9 gm/dL (13.0-17.5); Hypochromasia Slight; Lymphocytes # (A) 0.4 k/uL (1.0-4.8); Lymphocytes % (A) 3 %; MCH 27.8 pg (25.0-35.0); MCHC 30.8 g/dL (31.0-37.0); MCV 90.2 fL (80.0-100.0); Mean Platelet Volume 6.3; Monocytes # (A) 0.3 k/uL (0-1.0); Monocytes % (A) 3 %; Neutrophils # (A) 10.8 k/uL (1.3-7.7); Neutrophils % (A) 94 %; Platelet Count 226 k/uL (150-450); RBC 3.91 m/uL (4.30-5.90); RDW 14.3 % (11.5-15.5); WBC 11.5 k/uL (3.8-10.6)
[2018-03-25] MEDS ORDERED: LEVOFLOXACIN 500 MG TAB PO SCH (09:00)
--- NOTE | 2018-03-25 11:18 | P.PN ---
Subjective Progress Note Date: 03/25/18 Principal diagnosis: Acute exacerbation of chronic obstructive pulmonary disease Mr. Parada is a 72-year-old white male patient of Dr. Marcos, who was brought to the hospital by EMS, for evaluation of increased shortness of breath. Yesterday on 03/23/2018 patient had to call the ambulance, his dyspnea got to the point where he could hardly talk or get around his apartment. Patient's daughter is at the bedside, and she states the patient has been trying to save money by turning the air conditioning off frequently, and utilizing his portable oxygen tanks instead of the wall unit the patient continuous oxygen. Patient has severe end-stage emphysema/COPD, with an underlying FEV1 of 18% of predicted, and this is consistent with GOLD stage IV COPD. Patient wears 4 L per nasal cannula continuously, and he is prednisone dependent, on 5 mg of prednisone daily. He has albuterol nebulized treatments 3-4 times a day, not on any other inhalers at this time. Chest x-ray completed in the emergency department did not show any heart failure nor confluent pneumonic infiltrate, there was some coarsening of the interstitial markings, there was some blunting of the costophrenic angle, left chest pacemaker was noted in place. Patient was found to have a elevated d-dimer at 2.78, CT angios was completed which did not show any evidence of pulmonary embolism, showed bullous emphysema and some increased reticular infiltrate at the right posterior lung base. Patient denied any fever or chills, denied any exposure to sick contacts. He has an occasional cough, and last night he reports a small amount of blood in his sputum, in addition he had some burning sensation in his throat with coughing. Patient had undergone a PTCA and stenting of in-stent restenosis within a saphenous vein graft to the obtuse marginal 1, and stenting of distal portion of the body of the vein graft. Since original coronary artery bypass graft surgery was back in 1997 and patient had since had multiple interventions. Patient's latest echocardiogram from 11/08/2017 showed impaired left ventricular systolic function with an EF between 30-35%, no evidence of pulmonary hypertension, mild tricuspid, and mild mitral regurgitation. Other medical history includes CVA/TIA, ischemic cardiomyopathy status post AICD placement, his speech difficulty, PVD status post bilateral fem-pop bypass and stents, carotid artery disease with history of bilateral carotid endarterectomies, GERD/reflux, hypertension, hyperlipidemia, BPH, anxiety, depression, former nicotine dependence. Patient did have some chest tightness last night, that was radiating to his jaw, EKG showed paced rhythm. Cardiac enzymes were negative. No leukocytosis, WBC is 9.0, hemoglobin is 11.3, electrolytes and renal profile within normal limits. Patient was initiated on IV steroids, Levaquin, nebulized bronchodilators, and were seen this patient in regards to acute exacerbation of his chronic obstructive pulmonary disease. The patient is seen again today 03/25/2018 in follow-up on the regular medical floor. He is awake and alert in no acute distress. He denies any worsening shortness of breath, cough or congestion. He is breathing easier today as compared to yesterday. He is maintaining good O2 saturations in the high 90s on 4 L/m per nasal cannula. She's been afebrile. Hemodynamically stable. White count 11.5. Hemoglobin 10.9. Creatinine 0.80. He is quite anxious to go home. 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 EYES: Normal reaction of pupils, equal size. Conjunctiva pink, sclera white. NOSE: Clear with pink turbinates. THROAT: No erythema or exudates. NECK: No masses, no JVD, no thyroid enlargement, no adenopathy. CHEST: No chest wall deformity. Symmetrical expansion. LUNGS: Markedly diminished breath sounds noted bilaterally, with end expiratory wheezing on forced exhale maneuver CVS: Regular rate and rhythm, normal S1 and S2, no gallops, no murmurs, no rubs ABDOMEN: Soft, nontender. No hepatosplenomegaly, normal bowel sounds, no guarding or rigidity. EXTREMITIES: No clubbing, no edema, no cyanosis, 2+ pulses and upper and lower extremities. MUSCULOSKELETAL: Muscle strength and tone normal. SPINE: No scoliosis or deformity SKIN: No rashes CENTRAL NERVOUS SYSTEM: Alert and oriented -3. No focal deficits, tone is normal in all 4 extremities. PSYCHIATRIC: Alert and oriented -3. Appropriate affect. Intact judgment and insight. - Labs CBC & Chem 7: 03/25/18 07:42 03/25/18 07:42 Labs: Abnormal Lab Results - Last 24 Hours (Table) 03/23/18 03/24/18 03/24/18 Range/Units 22:44 11:31 17:20 WBC (3.8-10.6) k/uL RBC (4.30-5.90) m/uL Hgb (13.0-17.5) gm/dL Hct (39.0-53.0) % MCHC (31.0-37.0) g/dL Neutrophils # (1.3-7.7) k/uL Lymphocytes # (1.0-4.8) k/uL Carbon Dioxide (22-30) mmol/L Glucose (74-99) mg/dL POC Glucose (mg/dL) 262 H 194 H (75-99) mg/dL Hemoglobin A1c 7.1 H (4.0-6.0) % Total Protein (6.3-8.2) g/dL 03/24/18 03/25/18 03/25/18 Range/Units 20:31 07:28 07:42 WBC 11.5 H (3.8-10.6) k/uL RBC 3.91 L (4.30-5.90) m/uL Hgb 10.9 L (13.0-17.5) gm/dL Hct 35.2 L (39.0-53.0) % MCHC 30.8 L (31.0-37.0) g/dL Neutrophils # 10.8 H (1.3-7.7) k/uL Lymphocytes # 0.4 L (1.0-4.8) k/uL Carbon Dioxide (22-30) mmol/L Glucose (74-99) mg/dL POC Glucose (mg/dL) 225 H 192 H (75-99) mg/dL Hemoglobin A1c (4.0-6.0) % Total Protein (6.3-8.2) g/dL 03/25/18 Range/Units 07:42 WBC (3.8-10.6) k/uL RBC (4.30-5.90) m/uL Hgb (13.0-17.5) gm/dL Hct (39.0-53.0) % MCHC (31.0-37.0) g/dL Neutrophils # (1.3-7.7) k/uL Lymphocytes # (1.0-4.8) k/uL Carbon Dioxide 31 H (22-30) mmol/L Glucose 193 H (74-99) mg/dL POC Glucose (mg/dL) (75-99) mg/dL Hemoglobin A1c (4.0-6.0) % Total Protein 6.2 L (6.3-8.2) g/dL Assessment and Plan Assessment: Assessment: #1. Acute exacerbation of chronic obstructive pulmonary disease, chest x-ray did not show any infiltrates, CTA chest showed reticular infiltrate at the right posterior lung base, possible area of pneumonia #2. Advanced COPD/emphysema, FEV1 of 18% of predicted, GOLD stage IV, with chronic hypoxemic respiratory failure, prednisone dependent #3. Elevated d-dimer, nonspecific, CTA chest negative for any evidence of pulmonary embolism #4. Recent PTCA and stenting of in-stent restenosis within the saphenous vein graft to the OM1 and of the distal portion of the vein graft to the OM1 on 02/21 #5. Coronary artery disease, history of coronary artery bypass grafting in 1997 , and multiple interventions since then #6. History of ischemic cardiomyopathy, with EF of 30-35%, status post AICD placement #7. History of CVA/TIA #8. History of carotid artery disease, status post bilateral carotid endarterectomy #9. Lipidemia, hypertension #10. History of myocardial infarction #11. Peripheral vascular disease, status post fem-pop bypass, and stent placements #12. Chronic back pain, #13. Anxiety, depression #13. Nicotine dependence, in remission, patient carries a 48 year pack smoking history, quit 6 years ago Plan: The patient was seen and evaluated by Dr. Hackett. He is currently stable from the pulmonary standpoint. He is quite anxious to go home. He could be discharged on oral antibiotics, oral prednisone burst and taper and his home pulmonary medications. He should follow-up with Dr. Rogers in our office in 1-2 weeks' time. He is however encouraged to call sooner with any recurrence of symptoms or other questions or concerns. I, the cosigning physician, performed a history & physical examination of the patient. Lungs sounds are clear, diminished. Maintaining good O2 saturations in the 90s on 4 L/m per nasal cannula. I discussed the assessment and plan of care with my nurse practitioner, Coty Kraus. I attest to the above note as dictated by her.
[2018-03-25 11:43] LABS: Glucose,Whole Blood 199 mg/dL (75-99)
[2018-03-25] MEDS: HYDROcodone/APAP 7.5-325MG 1 EACH TAB PO PRN (12:04)
[2018-03-25 15:12] VITALS: BP 120/70; PULSE 86; RESP 17; TEMP 96.6
--- NOTE | 2018-03-25 17:24 | P.DS ---
Providers Date of admission: 03/24/18 14:23 Attending physician: Randolph Marcos Consults: 03/24/18 00:33 Consult Physician Stat Consulting Provider: Walter Rogers Reason/Comments: Acute exacerbation of COPD Do you want consulting provider notified?: Yes Primary care physician: Randolph Marcos [facility] Course: This is a 72-year-old gentleman who follows with Dr. Celena Mason in the office. He has a known history of coronary artery disease with prior bypass surgery in 1997, at which time he underwent a OLIVEIRA to the LAD, saphenous vein graft to the OM1, OM 2, circumflex, and RCA. Subsequent to that patient did undergo angioplasty with stenting of the saphenous vein graft to the OM 1 and 2 in 2008, and saphenous vein graft stenting to the OM1 in 2013, he has history also of hypertension, hyperlipidemia, by V AICD implantation, peripheral vascular disease with prior fem-pop surgery. She also has history of prior CVA , with subsequent memory loss. His daughter works in the operating room here at the hospital. Patient was brought into the emergency department at [facility] yesterday because of increased shortness breath over the last 2 days associated with minimal coughing and the patient was feeling quite panicky he ended up seeing the ER and he underwent chest x-ray followed by a CT angiography was negative for reversible however it did show significant worsening of the right lower lobe infiltrate, he was given IV anabiotic and IV steroid and he was admitted to the hospital for treatment of the chronic obstructive pulmonary disease exacerbation with possible right lower lobe pneumonia. 03/25: Patient was improving with the IV treatments provided the hospital, patient is requesting early discharge and was cleared by pulmonary today. Patient has home O2 nasal cannula 2 L 24 7, also has a power scooter, and has nebulized machine and treatments. Patient lives alone with son nearby patient can assist with his needs and can comply to his treatments. Discharge Medication List Clopidogrel [Plavix] 75 mg PO DAILY 03/10/14 [History] traZODone HCL [Desyrel] 50 mg PO HS 03/10/14 [History] Aspirin 81 mg PO DAILY 05/01/14 [History] Multivitamin [Men's Multi-Vitamin] 1 tab PO DAILY 05/01/14 [History] Losartan [Cozaar] 25 mg PO DAILY PRN 12/23/14 [History] HYDROcodone/APAP 7.5-325MG [[place] 7.5-325] 1 tab PO Q6H PRN 12/24/14 [History] Acetaminophen/Diphenhydramine [Tylenol PM 500-25mg] 2 tab PO HS PRN 02/02/16 [ History] Nitroglycerin Sl Tabs [Nitrostat] 0.4 mg SUBLINGUAL Q5M PRN 02/02/16 [History] Oxybutynin Chloride 5 mg PO BID 02/02/16 [History] Ranitidine HCl 150 mg PO BID 02/02/16 [History] Tamsulosin [Flomax] 0.4 mg PO HS 02/02/16 [History] Acetaminophen [Tylenol Extra Strength] 500 mg PO BID PRN 07/04/17 [History] Albuterol Nebulized (Conc) [Ventolin Nebulized (Conc)] 2.5 mg INHALATION RT-TID 07/04/17 [History] Finasteride [Proscar] 5 mg PO DAILY 07/04/17 [History] Bisacodyl [Dulcolax] 5 - 15 mg PO DAILY PRN 11/03/17 [History] Atorvastatin [Lipitor] 80 mg PO HS #30 tab 11/23/17 [Rx] ALPRAZolam [Xanax] 0.5 mg PO TID PRN #7 tablet 01/28/18 [Rx] Carvedilol [Coreg] 6.25 mg PO DAILY tab 02/22/18 [Rx] Carvedilol [Coreg*] 12.5 mg PO HS 03/23/18 [History] Budesonide [Pulmicort] 1 mg INHALATION RT-BID nebu 03/25/18 [Rx] Levofloxacin [Levaquin] 500 mg PO DAILY #9 tab 03/25/18 [Rx] Multivitamins, Thera [Multivitamin (formulary)] 1 each PO DAILY tab 03/25/18 [ Rx] predniSONE 5 mg PO DAILY #0 03/25/18 [Rx] predniSONE 40 mg PO DAILY #21 tab 03/25/18 [Rx] Patient Condition at Discharge: Stable Plan - Discharge Summary New Discharge Prescriptions: New Budesonide [Pulmicort] 1 mg INHALATION RT-BID nebu Levofloxacin [Levaquin] 500 mg PO DAILY #9 tab Multivitamins, Thera [Multivitamin (formulary)] 1 each PO DAILY tab predniSONE 40 mg PO DAILY #21 tab Continue Clopidogrel [Plavix] 75 mg PO DAILY traZODone HCL [Desyrel] 50 mg PO HS Aspirin 81 mg PO DAILY Multivitamin [Men's Multi-Vitamin] 1 tab PO DAILY Losartan [Cozaar] 25 mg PO DAILY PRN PRN Reason: FOR ELEV >130 HYDROcodone/APAP 7.5-325MG [[place] 7.5-325] 1 tab PO Q6H PRN PRN Reason: Pain Nitroglycerin Sl Tabs [Nitrostat] 0.4 mg SUBLINGUAL Q5M PRN PRN Reason: Chest Pain Acetaminophen/Diphenhydramine [Tylenol PM 500-25mg] 2 tab PO HS PRN PRN Reason: for sleep Tamsulosin [Flomax] 0.4 mg PO HS Oxybutynin Chloride 5 mg PO BID Ranitidine HCl 150 mg PO BID Finasteride [Proscar] 5 mg PO DAILY Albuterol Nebulized (Conc) [Ventolin Nebulized (Conc)] 2.5 mg INHALATION RT- TID Acetaminophen [Tylenol Extra Strength] 500 mg PO BID PRN PRN Reason: Pain Bisacodyl [Dulcolax] 5 - 15 mg PO DAILY PRN PRN Reason: Constipation Atorvastatin [Lipitor] 80 mg PO HS #30 tab ALPRAZolam [Xanax] 0.5 mg PO TID PRN #7 tablet PRN Reason: Anxiety Carvedilol [Coreg] 6.25 mg PO DAILY tab Carvedilol [Coreg*] 12.5 mg PO HS predniSONE 5 mg PO DAILY #0 Discharge Medication List Clopidogrel [Plavix] 75 mg PO DAILY 03/10/14 [History] traZODone HCL [Desyrel] 50 mg PO HS 03/10/14 [History] Aspirin 81 mg PO DAILY 05/01/14 [History] Multivitamin [Men's Multi-Vitamin] 1 tab PO DAILY 05/01/14 [History] Losartan [Cozaar] 25 mg PO DAILY PRN 12/23/14 [History] HYDROcodone/APAP 7.5-325MG [[place] 7.5-325] 1 tab PO Q6H PRN 12/24/14 [History] Acetaminophen/Diphenhydramine [Tylenol PM 500-25mg] 2 tab PO HS PRN 02/02/16 [ History] Nitroglycerin Sl Tabs [Nitrostat] 0.4 mg SUBLINGUAL Q5M PRN 02/02/16 [History] Oxybutynin Chloride 5 mg PO BID 02/02/16 [History] Ranitidine HCl 150 mg PO BID 02/02/16 [History] Tamsulosin [Flomax] 0.4 mg PO HS 02/02/16 [History] Acetaminophen [Tylenol Extra Strength] 500 mg PO BID PRN 07/04/17 [History] Albuterol Nebulized (Conc) [Ventolin Nebulized (Conc)] 2.5 mg INHALATION RT-TID 07/04/17 [History] Finasteride [Proscar] 5 mg PO DAILY 07/04/17 [History] Bisacodyl [Dulcolax] 5 - 15 mg PO DAILY PRN 11/03/17 [History] Atorvastatin [Lipitor] 80 mg PO HS #30 tab 11/23/17 [Rx] ALPRAZolam [Xanax] 0.5 mg PO TID PRN #7 tablet 01/28/18 [Rx] Carvedilol [Coreg] 6.25 mg PO DAILY tab 02/22/18 [Rx] Carvedilol [Coreg*] 12.5 mg PO HS 03/23/18 [History] Budesonide [Pulmicort] 1 mg INHALATION RT-BID nebu 03/25/18 [Rx] Levofloxacin [Levaquin] 500 mg PO DAILY #9 tab 03/25/18 [Rx] Multivitamins, Thera [Multivitamin (formulary)] 1 each PO DAILY tab 03/25/18 [ Rx] predniSONE 5 mg PO DAILY #0 03/25/18 [Rx] predniSONE 40 mg PO DAILY #21 tab 03/25/18 [Rx] Follow up Appointment(s)/Referral(s): Randolph Marcos MD [Primary Care Provider] - 1-2 days Walter Rogers DO [Doctor of Osteopathic Medicine] - 1 Week (office closed, call tuesday to set up appointment ) Patient Instructions/Handouts: COPD (Chronic Obstructive Pulmonary Disease) (DC ) Activity/Diet/Wound Care/Special Instructions: heart healthy diet activity as tolerated continue Home O2 Discharge Disposition: HOME SELF-CARE
== END 2018-03-25 16:33 | disposition home or self-care (01) | DRG 190 ==
LOC: EC 22:39 → 4MS4W 03-24 00:33 → OBSVTOIN 03-24 14:23
PROVIDERS: ADMIT Internal Medicine Geriatric Medicine; ATTEND Internal Medicine Geriatric Medicine
DX: J43.9 Emphysema, unspecified (principal); J18.9 Pneumonia, unspecified organism; J96.21 Acute and chronic respiratory failure with hypoxia; E78.5 Hyperlipidemia, unspecified; F32.9 Major depressive disorder, single episode, unspecified; F41.9 Anxiety disorder, unspecified; G89.29 Other chronic pain; H40.9 Unspecified glaucoma; H91.90 Unspecified hearing loss, unspecified ear; I11.0 Hypertensive heart disease with heart failure; I25.10 Atherosclerotic heart disease of native coronary artery without angina pectoris; I25.2 Old myocardial infarction; I25.5 Ischemic cardiomyopathy; I73.9 Peripheral vascular disease, unspecified; K21.9 Gastro-esophageal reflux disease without esophagitis; N40.0 Benign prostatic hyperplasia without lower urinary tract symptoms; R79.1 Abnormal coagulation profile; F17.201 Nicotine dependence, unspecified, in remission; K64.9 Unspecified hemorrhoids; M79.606 Pain in leg, unspecified; R29.6 Repeated falls; M54.5 Low back pain; K57.90 Diverticulosis of intestine, part unspecified, without perforation or abscess without bleeding; I69.928 Other speech and language deficits following unspecified cerebrovascular disease; Z79.02 Long term (current) use of antithrombotics/antiplatelets; Z79.52 Long term (current) use of systemic steroids; Z79.82 Long term (current) use of aspirin; Z79.899 Other long term (current) drug therapy; Z99.81 Dependence on supplemental oxygen; Z98.61 Coronary angioplasty status; Z95.810 Presence of automatic (implantable) cardiac defibrillator; Z95.1 Presence of aortocoronary bypass graft; Z87.11 Personal history of peptic ulcer disease; Z86.010 Personal history of colon polyps; Z86.14 Personal history of Methicillin resistant Staphylococcus aureus infection; Z87.01 Personal history of pneumonia (recurrent); Z86.718 Personal history of other venous thrombosis and embolism; Z98.42 Cataract extraction status, left eye; Z98.41 Cataract extraction status, right eye; Z96.1 Presence of intraocular lens; Z82.5 Family history of asthma and other chronic lower respiratory diseases; Z82.49 Family history of ischemic heart disease and other diseases of the circulatory system; Z80.0 Family history of malignant neoplasm of digestive organs
CPT/HCPCS: 36415; 71046; 71275; 80053; 82550; 82553; 83036; 84484; 85025; 85379; 85610; 85730; 87070; 87077; 87186; 87205; 93005; 94640; 94760; 96374; 99285

== ENCOUNTER 2018-04-16 09:35 | Observation (INO) | payer MEDICARE, BC ==
[2018-04-16] MEDS ORDERED: methylPREDNISolone SOD SUCCI 125 MG/2 ML VIAL IV STA (09:38)
[2018-04-16] MEDS ORDERED: ALBUTEROL NEBULIZED 2.5 MG/3 ML INHALATION STA (09:40)
[2018-04-16] MEDS ORDERED: IPRATROPIUM 0.5 MG/2.5 ML NEBU INHALATION STA (09:40)
[2018-04-16] MEDS ORDERED: SODIUM CHLORIDE 0.9% 500 ML IV STA (09:40)
[2018-04-16 10:34] LABS: Basophils % (A) 0 %; Eosinophils # (A) 0.1 k/uL (0-0.7); Eosinophils % (A) 1 %; HCT 38.4 % (39.0-53.0); HGB 12.1 gm/dL (13.0-17.5); Lymphocytes # (A) 0.6 k/uL (1.0-4.8); Lymphocytes % (A) 7 %; MCHC 31.5 g/dL (31.0-37.0); Mean Platelet Volume 6.3; Monocytes # (A) 0.6 k/uL (0-1.0); Monocytes % (A) 7 %; Neutrophils # (A) 7.2 k/uL (1.3-7.7); Neutrophils % (A) 84 %; Platelet Count 246 k/uL (150-450); RBC 4.32 m/uL (4.30-5.90); RDW 14.9 % (11.5-15.5); WBC 8.6 k/uL (3.8-10.6)
[2018-04-16 10:51] LABS: Prothrombin Time 10.2 sec (9.0-12.0)
[2018-04-16 10:52] LABS: ALT 42 U/L (21-72); AST 26 U/L (17-59); Albumin 3.5 g/dL (3.5-5.0); Alkaline Phosphatase 75 U/L (38-126); Anion Gap 5 mmol/L; Blood Urea Nitrogen 21 mg/dL (9-20); Calcium 9.2 mg/dL (8.4-10.2); Carbon Dioxide 29 mmol/L (22-30); Chloride 100 mmol/L (98-107); Glucose 189 mg/dL (74-99); Magnesium 2.1 mg/dL (1.6-2.3); Potassium 4.6 mmol/L (3.5-5.1); Sodium 134 mmol/L (137-145); Total Bilirubin 0.6 mg/dL (0.2-1.3); Total Protein 6.1 g/dL (6.3-8.2)
--- NOTE | 2018-04-16 10:53 | XR ---
EXAMINATION TYPE: XR chest 2V DATE OF EXAM: 04/16/2018 HISTORY: difficulty breathing. REFERENCE: Previous study dated 03/23/2018. FINDINGS: There has been a previous midline sternotomy. A bipolar pacing device is present on the lef t. The lungs are overinflated. There are chronic interstitial changes. There is no evidence of superimpo sed pneumonia or edema. The heart is not enlarged. IMPRESSION: COPD.
--- NOTE | 2018-04-16 10:55 | ED ---
General Adult HPI - General Chief complaint: Shortness of Breath Stated complaint: SOB Source: patient Mode of arrival: ambulatory Limitations: no limitations - History of Present Illness Initial comments: Dictation was produced using [employer] dictation software. please excuse any grammatical, word or spelling errors. Chief Complaint: 72-year-old male past medical history of end-stage COPD, CHF and coronary artery disease presents with difficulty breathing 3 days. History of Present Illness: Patient arrives via EMS for chief complaint of shortness of breath. Patient states that at home he became short of breath. Last known normal was 2 days ago. Patient is a history of COPD on home oxygen. Patient states his oxygenation on 3 L. He turned his oxygen up to 5 L short of breath. EMS was called. EMS administered a breathing treatment. He reports significant improvement after first breathing treatment. Patient denies any constitutional symptoms. He is however making more phlegm than usual. Patient has history of congestive heart failure but does not know what his ejection fraction is. Denies any chest pain or pain complaint at this time. The ROS documented in this emergency department record has been reviewed and confirmed by me. Those systems with pertinent positive or negative responses have been documented in the HPI. All other systems are other negative and/or noncontributory. - Related Data Home Medications Medication Instructions Recorded Confirmed Clopidogrel [Plavix] 75 mg PO DAILY 03/10/14 03/23/18 traZODone HCL [Desyrel] 50 mg PO HS 03/10/14 03/23/18 Aspirin 81 mg PO DAILY 05/01/14 03/23/18 Multivitamin [Men's Multi-Vitamin] 1 tab PO DAILY 05/01/14 03/23/18 Losartan [Cozaar] 25 mg PO DAILY PRN 12/23/14 03/23/18 HYDROcodone/APAP 7.5-325MG [[place] 1 tab PO Q6H PRN 12/24/14 03/23/18 7.5-325] Acetaminophen/Diphenhydramine 2 tab PO HS PRN 02/02/16 03/23/18 [Tylenol PM 500-25mg] Nitroglycerin Sl Tabs [Nitrostat] 0.4 mg SUBLINGUAL Q5M PRN 02/02/16 03/23/18 Oxybutynin Chloride 5 mg PO BID 02/02/16 03/23/18 Ranitidine HCl 150 mg PO BID 02/02/16 03/23/18 Tamsulosin [Flomax] 0.4 mg PO HS 02/02/16 03/23/18 Acetaminophen [Tylenol Extra 500 mg PO BID PRN 07/04/17 03/23/18 Strength] Albuterol Nebulized (Conc) 2.5 mg INHALATION RT-TID 07/04/17 03/23/18 [Ventolin Nebulized (Conc)] Finasteride [Proscar] 5 mg PO DAILY 07/04/17 03/23/18 Bisacodyl [Dulcolax] 5 - 15 mg PO DAILY PRN 11/03/17 03/23/18 Carvedilol [Coreg*] 12.5 mg PO HS 03/23/18 03/23/18 Previous Rx's Medication Instructions Recorded Atorvastatin [Lipitor] 80 mg PO HS #30 tab 11/23/17 ALPRAZolam [Xanax] 0.5 mg PO TID PRN #7 tablet 01/28/18 Carvedilol [Coreg] 6.25 mg PO DAILY tab 02/22/18 Budesonide [Pulmicort] 1 mg INHALATION RT-BID nebu 03/25/18 Levofloxacin [Levaquin] 500 mg PO DAILY #9 tab 03/25/18 Multivitamins, Thera [Multivitamin 1 each PO DAILY tab 03/25/18 (formulary)] predniSONE 5 mg PO DAILY #0 03/25/18 predniSONE 40 mg PO DAILY #21 tab 03/25/18 Allergies Allergy/AdvReac Type Severity Reaction Status Date / Time No Known Allergies Allergy Verified 03/23/18 23:04 Review of Systems ROS Statement: Those systems with pertinent positive or pertinent negative responses have been documented in the HPI. ROS Other: All systems not noted in ROS Statement are negative. Past Medical History Past Medical History: Coronary Artery Disease (CAD), Chest Pain / Angina, Heart Failure, COPD, CVA/TIA, Deep Vein Thrombosis (DVT), Eye Disorder, GERD/Reflux, Hearing Disorder / Deafness, Hyperlipidemia, Hypertension, Memory Impairment, Myocardial Infarction (CA), Musculoskeletal Disorder, Pneumonia, Prostate Disorder, Respiratory Disorder, Vascular Disorder Additional Past Medical History / Comment(s): Daily steroids for "years." HX OF CVA W/SOME SPEECH DIFFICULTY (since 1999). TIA'S. PVD. "BLOCKED RIGHT CAROTID." RESPIRATORY FAILURE, CONTINUOUS OXYGEN 4L. BPH. CHRONIC BRONCHITIS. DDD. STOMACH ULCER. DIVERTICULITIS. HEMORRHOIDS, COLON POLYPS. USES WALKER OR WHEELCHAIR, ELECTRIC SCOOTER. CHRONIC LEG AND BACK PAIN. CONSTIPATION. GLAUCOMA LT EYE. SOB, ON O2 4L/NC. FREQ FALLS., SEE CARDIOLOGY H & P. Last Myocardial Infarction Date:: 1997 History of Any Multi-Drug Resistant Organisms: MRSA Date of last positivie culture/infection: 03/25/18 MDRO Source:: SPUTUM Past Surgical History: AICD, Back Surgery, Coronary Bypass/CABG, Heart Catheterization, Heart Catheterization With Stent, Pacemaker, Tonsillectomy Additional Past Surgical History / Comment(s): FEBRUARY 2016 PACER ([facility] PM [id number] , #SS [id number]). CABG 5 vessel 1997. Cath with stents (6 total). Esvin Carotid Endarterectomies. Back surgery x 2. Bilateral fem/pops, esvin stenting in legs (6 total). Cataracts removed,. Back injections for pain. AICD, HEART CATH . Past Anesthesia/Blood Transfusion Reactions: No Reported Reaction Additional Past Anesthesia/Blood Transfusion Reaction / Comment(s): Never had blood transfusion. Date of Last Stent Placement:: 2013 Type of Cardiac Device: Permanent Pacemaker, AICD Device Placement Date:: 02/2016 Past Psychological History: Anxiety, Depression Smoking Status: Former smoker Past Alcohol Use History: None Reported Past Drug Use History: None Reported - Past Family History Brother(s) Family Medical History: Cancer (Brother at age of 75 from stage IV stomach cancer.) Sister(s) Family Medical History: Congestive Heart Failure (CHF) (Sr. at age 57 from CABG.), Vascular Disorder Additional Family Medical History / Comment(s): PVD Son(s) Family Medical History: No Reported History (Patient has one son no major medical problems.) Daughter(s) Family Medical History: No Reported History (Patient had 2 daughters one works in the ER here at the other one committed suicide while she was in [place]) Mother Family Medical History: Coronary Artery Disease (CAD) (Mother at age 62 from CAD and PAD.) Additional Family Medical History / Comment(s): Multiple heart surgery Father Family Medical History: Cancer (Father at age of 89 from colon cancer and COPD along with CAD.), Coronary Artery Disease (CAD) Additional Family Medical History / Comment(s): Colon CA after 50's General Exam - General Exam Comments Initial Comments: PHYSICAL EXAM: General Impression: Alert and oriented x3, mild respiratory distress HEENT: Normocephalic atraumatic, extra-ocular movements intact, pupils equal and reactive to light bilaterally, mucous membranes moist. Cardiovascular: Heart regular rate and rhythm, S1&S2 audible, no murmurs, rubs or gallops Chest: Diminished lung sounds bilaterally, bilateral crackles Abdomen: Bowel sounds present, abdomen soft, non-tender, non-distended, no organomegaly Musculoskeletal: Pulses present and equal in all extremities, no peripheral edema Motor: Moves all extremities grossly Neurological: CN II-XII grossly intact, no focal motor or sensory deficits noted Skin: Intact with no visualized rashes Psych: Normal affect and mood Limitations: no limitations Course Vital Signs 04/16/18 04/16/18 04/16/18 09:40 10:16 10:34 Temperature 97.5 F L Pulse Rate 85 76 86 Respiratory 24 Rate Blood Pressure 154/68 O2 Sat by Pulse 95 Oximetry Medical Decision Making - Medical Decision Making ED course: 72 year male with past medical history of COPD and multiple other comorbidities presents with chief complaint of difficulty in breathing. Vital signs upon arrival shows tachypnea of 24, rest of vital signs within normal limits.Laboratory evaluation obtained. CBC is unremarkable. Cardiac panel unremarkable. Blood gas shows mild alkalosis. Metabolic panel shows hyperglycemia. Patient given one breathing treatment per EMS and one breathing treatment here. Patient still states he feels short of breath. Patient showing mild symptoms of respiratory distress. He is however hemodynamically stable. Patient be admitted to observation for around-the- clock breathing treatments for COPD exacerbation. EKG interpretation: Ventricular rate 83. Paced rhythm, OR interval 118, care is 142, QTc 521. No OR prolongation, no QTC prolongation, no ST or T-wave changes noted. EKG compared to 03/23/2018 showing no changes. Overall, this EKG is unremarkable - Lab Data Result diagrams: 04/16/18 10:08 04/16/18 10:08 Lab Results 04/16/18 04/16/18 04/16/18 Range/Units 10:08 10:08 10:08 WBC 8.6 (3.8-10.6) k/uL RBC 4.32 (4.30-5.90) m/uL Hgb 12.1 L (13.0-17.5) gm/dL Hct 38.4 L (39.0-53.0) % MCV 89.0 (80.0-100.0) fL MCH 28.0 (25.0-35.0) pg MCHC 31.5 (31.0-37.0) g/dL RDW 14.9 (11.5-15.5) % Plt Count 246 (150-450) k/uL Neutrophils % 84 % Lymphocytes % 7 % Monocytes % 7 % Eosinophils % 1 % Basophils % 0 % Neutrophils # 7.2 (1.3-7.7) k/uL Lymphocytes # 0.6 L (1.0-4.8) k/uL Monocytes # 0.6 (0-1.0) k/uL Eosinophils # 0.1 (0-0.7) k/uL Basophils # 0.0 (0-0.2) k/uL PT (9.0-12.0) sec INR (<1.2) APTT (22.0-30.0) sec VBG pH (7.31-7.41) VBG pCO2 (37-51) mmHg VBG HCO3 (24-28) mmol/L Sodium 134 L (137-145) mmol/L Potassium 4.6 (3.5-5.1) mmol/L Chloride 100 (98-107) mmol/L Carbon Dioxide 29 (22-30) mmol/L Anion Gap 5 mmol/L BUN 21 H (9-20) mg/dL Creatinine 0.92 (0.66-1.25) mg/dL Est GFR (CKD-EPI)AfAm >90 (>60 ml/min/1.73 sqM) Est GFR (CKD-EPI)NonAf 82 (>60 ml/min/1.73 sqM) Glucose 189 H (74-99) mg/dL Calcium 9.2 (8.4-10.2) mg/dL Magnesium 2.1 (1.6-2.3) mg/dL Total Bilirubin 0.6 (0.2-1.3) mg/dL AST 26 (17-59) U/L ALT 42 (21-72) U/L Alkaline Phosphatase 75 (38-126) U/L Total Creatine Kinase <20 L (55-170) U/L CK-MB (CK-2) 1.0 (0.0-2.4) ng/mL CK-MB (CK-2) Rel Index Troponin I <0.012 (0.000-0.034) ng/mL Total Protein 6.1 L (6.3-8.2) g/dL Albumin 3.5 (3.5-5.0) g/dL 04/16/18 04/16/18 Range/Units 10:08 10:55 WBC (3.8-10.6) k/uL RBC (4.30-5.90) m/uL Hgb (13.0-17.5) gm/dL Hct (39.0-53.0) % MCV (80.0-100.0) fL MCH (25.0-35.0) pg MCHC (31.0-37.0) g/dL RDW (11.5-15.5) % Plt Count (150-450) k/uL Neutrophils % % Lymphocytes % % Monocytes % % Eosinophils % % Basophils % % Neutrophils # (1.3-7.7) k/uL Lymphocytes # (1.0-4.8) k/uL Monocytes # (0-1.0) k/uL Eosinophils # (0-0.7) k/uL Basophils # (0-0.2) k/uL PT 10.2 (9.0-12.0) sec INR 1.0 (<1.2) APTT 21.0 L (22.0-30.0) sec VBG pH 7.44 H (7.31-7.41) VBG pCO2 41 (37-51) mmHg VBG HCO3 28 (24-28) mmol/L Sodium (137-145) mmol/L Potassium (3.5-5.1) mmol/L Chloride (98-107) mmol/L Carbon Dioxide (22-30) mmol/L Anion Gap mmol/L BUN (9-20) mg/dL Creatinine (0.66-1.25) mg/dL Est GFR (CKD-EPI)AfAm (>60 ml/min/1.73 sqM) Est GFR (CKD-EPI)NonAf (>60 ml/min/1.73 sqM) Glucose (74-99) mg/dL Calcium (8.4-10.2) mg/dL Magnesium (1.6-2.3) mg/dL Total Bilirubin (0.2-1.3) mg/dL AST (17-59) U/L ALT (21-72) U/L Alkaline Phosphatase (38-126) U/L Total Creatine Kinase (55-170) U/L CK-MB (CK-2) (0.0-2.4) ng/mL CK-MB (CK-2) Rel Index Troponin I (0.000-0.034) ng/mL Total Protein (6.3-8.2) g/dL Albumin (3.5-5.0) g/dL Disposition Clinical Impression: COPD exacerbation Disposition: ADMITTED IP TO THIS HOSP Condition: Fair Referrals: Randolph Marcos MD [Primary Care Provider] - 1-2 days Time of Disposition: 11:26
[2018-04-16 11:06] LABS: Creatine Kinase <20 U/L (55-170)
[2018-04-16 11:16] LABS: VBG PH 7.44 (7.31-7.41)
[2018-04-16 11:19] LABS: Troponin I <0.012 ng/mL (0.000-0.034)
[2018-04-16] MEDS ORDERED: NALOXONE 0.4 MG/ML 1 ML VIAL IV PRN (11:26)
[2018-04-16] MEDS ORDERED: LOSARTAN 25 MG TAB PO PRN (11:28)
[2018-04-16] MEDS ORDERED: ALBUTEROL NEBULIZED 2.5 MG/3 ML INHALATION SCH (12:00)
[2018-04-16] MEDS ORDERED: ACETAMINOPHEN TAB 500 MG TAB PO PRN (12:04)
[2018-04-16] MEDS ORDERED: BISACODYL 5 MG TABLET.DR PO PRN (12:04)
[2018-04-16] MEDS ORDERED: IPRATROPIUM-ALBUTEROL 3 ML NEB INHALATION PRN (12:07)
--- NOTE | 2018-04-16 12:20 | P.HPIM ---
History of Present Illness H&P Date: 04/16/18 Chief Complaint: Difficulty breathing This is a 72-year-old male patient of Dr. Marcos, Dr. Celena Mason, Dr. Rogers, Dr. Recinos. He has a known history of coronary artery disease with prior bypass surgery in 1997, at which time he underwent a OLIVEIRA to the LAD, saphenous vein graft to the OM1, OM 2, circumflex, and RCA. Subsequent to that patient did undergo angioplasty with stenting of the saphenous vein graft to the OM 1 and 2 in 2008, and saphenous vein graft stenting to the OM1 in 2013, and most recently in October 2017 he underwent PTCA and stenting of the distal left main and proximal left anterior descending coronary arteries with 2 drug- eluting stents, 02/21/2018 he underwent PTCA and stenting of an in-stent restenosis saphenous vein graft to the obtuse marginal 1. He is a recent hospitalization March 23 for acute respiratory failure due to acute COPD exacerbation and right lower lobe pneumonia. He was discharged home in stable condition. Patient states that he did well after that. He now states he has had a cough with samish colored sputum production and shortness of breath. Patient also states he has home O2 normally at 3 L nasal cannula. He states he sometimes gets confused about adjusting the amount of oxygen at home. He also complains that he is cold due to his apartment being cold and thinks he may have had a fever. He also states that he recently was given a inhaler from Dr. Mantilla but it caused too much $143 and this was replaced with something cheaper that he does not think works. He complains of shortness of breath even to bend over to empty garbage can. He denies having any nausea, vomiting, diarrhea. No abdominal pain. No dysuria. Currently he resides at [facility]. He is normally using an walker for ambulation or he uses a power scooter and does travel over to [facility] and other places. He came into [facility] emergency center for evaluation. Chest x-ray showed COPD. Patient was given nebulizer treatments and Solu-Medrol 125 mg IV push with some improvement of his shortness of breath. Plan is for patient to be monitored overnight. Patient states that his daughter is on her way here and has told him that he needs to move out of [facility] which she is very tearful and upset about. He states he likes it there as he has made friends and he also has some independence with his scooter. He states she apparently wants him to go to an [facility] and he does not want to do this. Social work consult will be placed. Review of Systems All systems: negative Constitutional: Reports chills, Denies fever Eyes: denies blurred vision, denies pain Ears, nose, mouth and throat: Denies dental pain, Denies headache, Denies mouth pain, Denies sore throat Cardiovascular: Reports decreased exercise tolerance, Reports dyspnea on exertion, Denies chest pain, Denies leg edema, Denies lightheadedness, Denies shortness of breath, Denies syncope Respiratory: Reports cough, Reports cough with sputum, Reports dyspnea, Reports home oxygen, Denies excessive sputum, Denies hemoptysis Gastrointestinal: Denies abdominal pain, Denies diarrhea, Denies nausea, Denies vomiting Musculoskeletal: Reports gait dysfunction, Denies frequent falls, Denies myalgias Integumentary: Denies pruritus, Denies rash Neurological: Denies numbness, Denies weakness Psychiatric: Denies anxiety, Denies depression Endocrine: Denies fatigue, Denies weight change Past Medical History Past Medical History: Coronary Artery Disease (CAD), Chest Pain / Angina, Heart Failure, COPD, CVA/TIA, Deep Vein Thrombosis (DVT), Eye Disorder, GERD/Reflux, Hearing Disorder / Deafness, Hyperlipidemia, Hypertension, Memory Impairment, Myocardial Infarction ([place]), Musculoskeletal Disorder, Pneumonia, Prostate Disorder, Respiratory Disorder, Vascular Disorder Additional Past Medical History / Comment(s): Daily steroids for "years." HX OF CVA W/SOME SPEECH DIFFICULTY (since 1999). TIA'S. PVD. "BLOCKED RIGHT CAROTID." RESPIRATORY FAILURE, CONTINUOUS OXYGEN 4L. BPH. CHRONIC BRONCHITIS. DDD. STOMACH ULCER. DIVERTICULITIS. HEMORRHOIDS, COLON POLYPS. USES WALKER OR WHEELCHAIR, ELECTRIC SCOOTER. CHRONIC LEG AND BACK PAIN. CONSTIPATION. GLAUCOMA LT EYE. SOB, ON O2 4L/NC. FREQ FALLS., SEE CARDIOLOGY H & P. Last Myocardial Infarction Date:: 1997 History of Any Multi-Drug Resistant Organisms: MRSA Date of last positivie culture/infection: 03/25/18 MDRO Source:: SPUTUM Past Surgical History: AICD, Back Surgery, Coronary Bypass/CABG, Heart Catheterization, Heart Catheterization With Stent, Pacemaker, Tonsillectomy Additional Past Surgical History / Comment(s): FEBRUARY 2016 PACER ([facility] PM [id number] , #SS [id number]). CABG 5 vessel 1998. Cath with stents (6 total). Richard Carotid Endarterectomies. Back surgery x 2. Bilateral fem/pops, richard stenting in legs (6 total). Cataracts removed,. Back injections for pain. AICD, PTCA and stent and January 2018. Past Anesthesia/Blood Transfusion Reactions: No Reported Reaction Additional Past Anesthesia/Blood Transfusion Reaction / Comment(s): Never had blood transfusion. Date of Last Stent Placement:: 2013 Type of Cardiac Device: Permanent Pacemaker, AICD Device Placement Date:: 02/2016 Past Psychological History: Anxiety, Depression Smoking Status: Former smoker Past Alcohol Use History: None Reported Additional Past Alcohol Use History / Comment(s): Patient smokes 1 pack per day for 50 years and quit in 2011. Past Drug Use History: None Reported - Past Family History Brother(s) Family Medical History: Cancer (Brother at age of 75 from stage IV stomach cancer.) Additional Family Medical History / Comment(s): Patient has a brother that at age 75 from stage IV stomach cancer. Sister(s) Family Medical History: Congestive Heart Failure (CHF) (Sr. at age 57 from CABG.), Vascular Disorder Additional Family Medical History / Comment(s): Patient has a sister that at age 57 from CABG. PVD Son(s) Family Medical History: No Reported History (Patient has one son no major medical problems.) Additional Family Medical History / Comment(s): Patient has one son with no major medical problems. Daughter(s) Family Medical History: No Reported History (Patient had 2 daughters one works in the ER here at the other one committed suicide while she was in [place]) Additional Family Medical History / Comment(s): daughter patient has 2 daughters and one works in the OR here in 1 was killed in [place]. Mother Family Medical History: Coronary Artery Disease (CAD) (Mother at age 62 from CAD and PAD.) Additional Family Medical History / Comment(s): Mother at age 62 from coronary artery disease and peripheral artery disease status post multiple heart surgeries. Father Family Medical History: Cancer (Father at age of 89 from colon cancer and COPD along with CAD.), Coronary Artery Disease (CAD) Additional Family Medical History / Comment(s): Family at age 89 from colon cancer and COPD along with coronary artery disease. Medications and Allergies Home Medications Medication Instructions Recorded Confirmed Type Clopidogrel [Plavix] 75 mg PO DAILY 03/10/14 03/23/18 History traZODone HCL [Desyrel] 50 mg PO HS 03/10/14 03/23/18 History Aspirin 81 mg PO DAILY 05/01/14 03/23/18 History Multivitamin [Men's Multi-Vitamin] 1 tab PO DAILY 05/01/14 03/23/18 History Losartan [Cozaar] 25 mg PO DAILY PRN 12/23/14 03/23/18 History HYDROcodone/APAP 7.5-325MG [[place] 1 tab PO Q6H PRN 12/24/14 03/23/18 History 7.5-325] Acetaminophen/Diphenhydramine 2 tab PO HS PRN 02/02/16 03/23/18 History [Tylenol PM 500-25mg] Nitroglycerin Sl Tabs [Nitrostat] 0.4 mg SUBLINGUAL Q5M PRN 02/02/16 03/23/18 History Oxybutynin Chloride 5 mg PO BID 02/02/16 03/23/18 History Ranitidine HCl 150 mg PO BID 02/02/16 03/23/18 History Tamsulosin [Flomax] 0.4 mg PO HS 02/02/16 03/23/18 History Acetaminophen [Tylenol Extra 500 mg PO BID PRN 07/04/17 03/23/18 History Strength] Albuterol Nebulized (Conc) 2.5 mg INHALATION RT-TID 07/04/17 03/23/18 History [Ventolin Nebulized (Conc)] Finasteride [Proscar] 5 mg PO DAILY 07/04/17 03/23/18 History Bisacodyl [Dulcolax] 5 - 15 mg PO DAILY PRN 11/03/17 03/23/18 History Atorvastatin [Lipitor] 80 mg PO HS #30 tab 11/23/17 03/23/18 Rx ALPRAZolam [Xanax] 0.5 mg PO TID PRN #7 tablet 01/28/18 03/23/18 Rx Carvedilol [Coreg] 6.25 mg PO DAILY tab 02/22/18 03/23/18 Rx Carvedilol [Coreg*] 12.5 mg PO HS 03/23/18 03/23/18 History Budesonide [Pulmicort] 1 mg INHALATION RT-BID nebu 03/25/18 Rx Levofloxacin [Levaquin] 500 mg PO DAILY #9 tab 03/25/18 Rx Multivitamins, Thera [Multivitamin 1 each PO DAILY tab 03/25/18 Rx (formulary)] predniSONE 5 mg PO DAILY #0 03/25/18 03/23/18 Rx predniSONE 40 mg PO DAILY #21 tab 03/25/18 Rx Allergies Allergy/AdvReac Type Severity Reaction Status Date / Time No Known Allergies Allergy Verified 03/23/18 23:04 Physical Exam Vitals: Vital Signs Temp Pulse Resp BP Pulse Ox 04/16/18 10:34 86 04/16/18 10:16 76 04/16/18 09:40 97.5 F L 85 24 154/68 95 Intake and Output 04/15/18 04/16/18 04/16/18 22:59 06:59 14:59 Other: Weight 62.596 kg General appearance: average body habitus, mild distress - EENT Eyes: anicteric sclerae, EOMI, PERRLA, no ptosis, no scleral icterus, normal appearance ENT: hearing grossly normal, NA/AT, normal oropharynx, no thrush Ears: bilateral: normal - Neck Neck: no lymphadenopathy, normal ROM, no rigidity, no stridor, no thyromegaly Carotids: bilateral: upstroke delayed Thyroid: bilateral: normal size - Respiratory Respiratory: bilateral: diminished, wheezing, prolonged expiration, negative: dullness, rales, rhonchi - Cardiovascular Rhythm: regular Heart sounds: normal: S1, S2 Abnormal Heart Sounds: systolic murmur (AICD.) - Gastrointestinal General gastrointestinal: normal bowel sounds, soft, no splenomegaly, no tenderness, no umbilical hernia, no ventral hernia - Integumentary Integumentary: normal, normal turgor - Neurologic Neurologic: CNII-XII intact - Musculoskeletal Musculoskeletal: generalized weakness, strength equal bilaterally - Psychiatric Psychiatric: A&O x's 3, appropriate affect, intact judgment & insight Results CBC & Chem 7: 04/16/18 10:08 04/16/18 10:08 Labs: Abnormal Lab Results - Last 24 Hours (Table) 04/16/18 04/16/18 04/16/18 Range/Units 10:08 10:08 10:08 Hgb 12.1 L (13.0-17.5) gm/dL Hct 38.4 L (39.0-53.0) % Lymphocytes # 0.6 L (1.0-4.8) k/uL APTT (22.0-30.0) sec VBG pH (7.31-7.41) Sodium 134 L (137-145) mmol/L BUN 21 H (9-20) mg/dL Glucose 189 H (74-99) mg/dL Total Creatine Kinase <20 L (55-170) U/L Total Protein 6.1 L (6.3-8.2) g/dL 04/16/18 04/16/18 Range/Units 10:08 10:55 Hgb (13.0-17.5) gm/dL Hct (39.0-53.0) % Lymphocytes # (1.0-4.8) k/uL APTT 21.0 L (22.0-30.0) sec VBG pH 7.44 H (7.31-7.41) Sodium (137-145) mmol/L BUN (9-20) mg/dL Glucose (74-99) mg/dL Total Creatine Kinase (55-170) U/L Total Protein (6.3-8.2) g/dL Thrombosis Risk Factor Assmnt - DVT/VTE Prophylaxis DVT/VTE Prophylaxis: Pharmacologic Prophylaxis ordered Assessment and Plan Plan: 1. Acute respiratory distress due to acute COPD exacerbation with acute tracheobronchitis. Continue DuoNeb 3 mg 4 times every day, Solu-Medrol 40 mg IV push every 8 hours, azithromycin 500 mg daily, Mucinex 600 mg orally twice every day, Pulmicort 1 mg nebulization twice every day, pulmonary consultation. 2. Chronic hypoxic respiratory failure on home O2. Continue oxygen therapy. 3. CAD post CABG and multiple PCI. Continue aspirin 81 mg once every day, Plavix 75 mg oral's every day, Coreg 12.5 mg in the morning and 6.5 at bedtime, Lipitor 80 mg orally once every day. 4. PAD post multiple interventions. Continue aspirin and Plavix and Lipitor. 5. Enlarged prostate. Continue with Proscar 5 mg orally once every day and Flomax 0.4 mg orally once every day. 6. GERD. Continue patient on Pepcid. 7. Hyperlipidemia. Continue patient on Lipitor 80 mg orally once every day. 8. COPD. Continue treatment as in paragraph #1. 9. Hypertension. Continue patient on Coreg. 10. Memory loss. Stable at this time. 11. Chronic low back pain continue current pain management. 12. DVT prophylaxis. Heparin 5000 units subcutaneously every 12 hours. 13. GI prophylaxis. Continue patient on Pepcid 20 mg orally twice every day. 14. Medical debility. Physical therapy evaluation. Discharge plan: To be determined. Patient currently resides at [facility] Social work consult regarding patient's concern for moving from [facility] as daughter has told him should he needs more help. Patient will be admitted to the hospital for a minimum of 2 nights stay. Impression and plan of care have been directed as dictated by the signing physician. Esperanza Ramírez nurse practitioner acting as scribe for signing physician.
[2018-04-16] MEDS: INSULIN ASPART 100 UNIT/ML 1 ML 10 ML VIAL SQ SCH ×3 (13:14→21:09)
[2018-04-16] MEDS: HYDROcodone/APAP 7.5-325MG 1 EACH TAB PO PRN ×2 (13:52→20:01)
[2018-04-16] MEDS: methylPREDNISolone SOD SUCCI 40 MG/ML 1 ML VIAL IV SCH ×2 (15:05→23:54)
[2018-04-16] MEDS: IPRATROPIUM-ALBUTEROL 3 ML NEB INHALATION SCH ×2 (16:10→19:31)
[2018-04-16 17:34] LABS: Glucose,Whole Blood 329 mg/dL (75-99)
[2018-04-16] MEDS: ALPRAZolam 0.5 MG TAB PO PRN (18:17)
[2018-04-16] MEDS: BUDESONIDE 1 MG/2 ML NEBU INHALATION SCH (19:31)
[2018-04-16] MEDS: HEPARIN SODIUM,PORCINE 5,000 UNIT/ML 1 ML VIAL SQ SCH (20:01)
[2018-04-16] MEDS: OXYBUTYNIN CHLORIDE 5 MG TAB PO SCH (20:01)
[2018-04-16] MEDS: FAMOTIDINE 20 MG TAB PO SCH (20:01)
[2018-04-16] MEDS: guaiFENesin 600 MG TABLET.ER PO SCH (20:01)
[2018-04-16] MEDS ORDERED: ATORVASTATIN 80 MG TAB PO SCH (21:00)
[2018-04-16] MEDS ORDERED: TAMSULOSIN 0.4 MG CAP.ER.24H PO SCH (21:00)
[2018-04-16] MEDS ORDERED: traZODone HCL 50 MG TAB PO SCH (21:00)
[2018-04-16] MEDS ORDERED: CARVEDILOL 12.5 MG TAB PO SCH (21:00)
[2018-04-16 21:01] LABS: Glucose,Whole Blood 322 mg/dL (75-99)
[2018-04-17] MEDS: ALPRAZolam 0.5 MG TAB PO PRN ×2 (04:15→09:19)
[2018-04-17] MEDS: HYDROcodone/APAP 7.5-325MG 1 EACH TAB PO PRN ×2 (04:18→09:19)
[2018-04-17] MEDS: IPRATROPIUM-ALBUTEROL 3 ML NEB INHALATION SCH ×3 (05:09→11:23)
[2018-04-17] MEDS ORDERED: CARVEDILOL 6.25 MG TAB PO SCH (07:30)
[2018-04-17 07:39] LABS: Glucose,Whole Blood 273 mg/dL (75-99)
[2018-04-17 07:56] VITALS: BP 169/69; RESP 20; TEMP 97.4
[2018-04-17] MEDS: BUDESONIDE 1 MG/2 ML NEBU INHALATION SCH (07:57)
[2018-04-17 08:00] VITALS: PULSE 80
[2018-04-17] MEDS: INSULIN ASPART 100 UNIT/ML 1 ML 10 ML VIAL SQ SCH (08:44)
[2018-04-17] MEDS ORDERED: ASPIRIN 81 MG PO SCH (09:00)
[2018-04-17] MEDS ORDERED: FAMOTIDINE 20 MG TAB PO SCH (09:00)
[2018-04-17] MEDS ORDERED: CLOPIDOGREL 75 MG TAB PO SCH (09:00)
[2018-04-17] MEDS ORDERED: FINASTERIDE 5 MG TAB PO SCH (09:00)
[2018-04-17] MEDS ORDERED: AZITHROMYCIN 500 MG TAB PO SCH (09:00)
[2018-04-17] MEDS: methylPREDNISolone SOD SUCCI 40 MG/ML 1 ML VIAL IV SCH (09:18)
[2018-04-17] MEDS: OXYBUTYNIN CHLORIDE 5 MG TAB PO SCH (09:19)
[2018-04-17] MEDS: guaiFENesin 600 MG TABLET.ER PO SCH (09:19)
[2018-04-17] MEDS: FAMOTIDINE 20 MG TAB PO SCH (09:20)
[2018-04-17] MEDS: HEPARIN SODIUM,PORCINE 5,000 UNIT/ML 1 ML VIAL SQ SCH (09:21)
--- NOTE | 2018-04-17 11:15 | P.CNPUL ---
History of Present Illness Consult date: 04/17/18 Reason for consult: dyspnea, cough, COPD, hypoxemia Chief complaint: Shortness of breath History of present illness: Pulmonary consult dated 04/17/2018 72-year-old male well-known to me. He has a history of end-stage oxygen- dependent COPD. He also has a history of CAD and CHF. The patient presents with a couple days worth of increasing shortness of breath. The patient states that of shortness of breath has gotten worse over last few days. He does use home oxygen 24 7 at between 2-3 L. His breathing got worse, he turned his oxygen up. In addition to shortness of breath cough chest congestion and tightness in his chest. Coughing up a small amount of phlegm. The patient typically does not produce a lot of phlegm. The patient tells us today when the room that he would like to be discharged home. He feels better at home that he doesn't here in the hospital. He is probably able to be discharged home but will have to go home on some oral antibiotics and some prednisone. I would also want to see him next week in the office just to make sure he was okay. His past medical history is positive for CAD angina pectoris heart failure DVT CVA gastroesophageal reflux disease decreased hearing hyperlipidemia hypertension dementia myocardial infarction BPH and peripheral vascular occlusive disease. He has many more medical problems as well. Surgical history includes among other things AICD placement, back surgery, bypass grafting, heart catheterization, stent placement, pacemaker insertion and tonsillectomy. Review of Systems A 12 point review of system is positive for chronic shortness of breath. In addition to that, the Patient had an acute exacerbation characterized by worsening shortness breath cough chest congestion phlegm production and chest tightness. Past Medical History Past Medical History: Coronary Artery Disease (CAD), Chest Pain / Angina, Heart Failure, COPD, CVA/TIA, Deep Vein Thrombosis (DVT), Eye Disorder, GERD/Reflux, Hearing Disorder / Deafness, Hyperlipidemia, Hypertension, Memory Impairment, Myocardial Infarction ([place]), Musculoskeletal Disorder, Pneumonia, Prostate Disorder, Respiratory Disorder, Vascular Disorder Additional Past Medical History / Comment(s): Daily steroids for "years." HX OF CVA W/SOME SPEECH DIFFICULTY (since 1999). TIA'S. PVD. "BLOCKED RIGHT CAROTID." RESPIRATORY FAILURE, CONTINUOUS OXYGEN 4L. BPH. CHRONIC BRONCHITIS. DDD. STOMACH ULCER. DIVERTICULITIS. HEMORRHOIDS, COLON POLYPS. USES WALKER OR WHEELCHAIR, ELECTRIC SCOOTER. CHRONIC LEG AND BACK PAIN. CONSTIPATION. GLAUCOMA LT EYE. SOB, ON O2 4L/NC. FREQ FALLS., SEE CARDIOLOGY H & P. Last Myocardial Infarction Date:: 1997 History of Any Multi-Drug Resistant Organisms: MRSA Date of last positivie culture/infection: 03/25/18 MDRO Source:: SPUTUM Past Surgical History: AICD, Back Surgery, Coronary Bypass/CABG, Heart Catheterization, Heart Catheterization With Stent, Pacemaker, Tonsillectomy Additional Past Surgical History / Comment(s): FEBRUARY 2016 PACER ([facility] PM 3242 , #SS [id number]). CABG 5 vessel 1997. Cath with stents (6 total). Esvin Carotid Endarterectomies. Back surgery x 2. Bilateral fem/pops, esvin stenting in legs (6 total). Cataracts removed,. Back injections for pain. AICD, PTCA and stent and January 2018. Past Anesthesia/Blood Transfusion Reactions: No Reported Reaction Additional Past Anesthesia/Blood Transfusion Reaction / Comment(s): Never had blood transfusion. Date of Last Stent Placement:: 2013 Type of Cardiac Device: Permanent Pacemaker, AICD Device Placement Date:: 02/2016 Past Psychological History: Anxiety, Depression Smoking Status: Former smoker Past Alcohol Use History: None Reported Additional Past Alcohol Use History / Comment(s): Patient smokes 1 pack per day for 50 years and quit in 2011. Past Drug Use History: None Reported - Past Family History Brother(s) Family Medical History: Cancer (Brother at age of 75 from stage IV stomach cancer.) Additional Family Medical History / Comment(s): Patient has a brother that at age 75 from stage IV stomach cancer. Sister(s) Family Medical History: Congestive Heart Failure (CHF) (Sr. at age 57 from CABG.), Vascular Disorder Additional Family Medical History / Comment(s): Patient has a sister that at age 57 from CABG. PVD Son(s) Family Medical History: No Reported History (Patient has one son no major medical problems.) Additional Family Medical History / Comment(s): Patient has one son with no major medical problems. Daughter(s) Family Medical History: No Reported History (Patient had 2 daughters one works in the ER here at the other one committed suicide while she was in [place]) Additional Family Medical History / Comment(s): daughter patient has 2 daughters and one works in the OR here in 1 was killed in [place]. Mother Family Medical History: Coronary Artery Disease (CAD) (Mother at age 62 from CAD and PAD.) Additional Family Medical History / Comment(s): Mother at age 62 from coronary artery disease and peripheral artery disease status post multiple heart surgeries. Father Family Medical History: Cancer (Father at age of 89 from colon cancer and COPD along with CAD.), Coronary Artery Disease (CAD) Additional Family Medical History / Comment(s): Family at age 89 from colon cancer and COPD along with coronary artery disease. Medications and Allergies Home Medications Medication Instructions Recorded Confirmed Type Clopidogrel [Plavix] 75 mg PO DAILY 03/10/14 04/16/18 History traZODone HCL [Desyrel] 50 mg PO HS 03/10/14 04/16/18 History Aspirin 81 mg PO DAILY 05/01/14 04/16/18 History Multivitamin [Men's Multi-Vitamin] 1 tab PO DAILY 05/01/14 04/16/18 History Losartan [Cozaar] 25 mg PO DAILY PRN 12/23/14 04/16/18 History HYDROcodone/APAP 7.5-325MG [[place] 1 tab PO Q6H PRN 12/24/14 04/16/18 History 7.5-325] Acetaminophen/Diphenhydramine 2 tab PO HS PRN 02/02/16 04/16/18 History [Tylenol PM 500-25mg] Nitroglycerin Sl Tabs [Nitrostat] 0.4 mg SUBLINGUAL Q5M PRN 02/02/16 04/16/18 History Oxybutynin Chloride 5 mg PO BID 02/02/16 04/16/18 History Ranitidine HCl 150 mg PO BID 02/02/16 04/16/18 History Tamsulosin [Flomax] 0.4 mg PO HS 02/02/16 04/16/18 History Acetaminophen [Tylenol Extra 500 mg PO BID PRN 07/04/17 04/16/18 History Strength] Albuterol Nebulized (Conc) 2.5 mg INHALATION RT-TID 07/04/17 04/16/18 History [Ventolin Nebulized (Conc)] Finasteride [Proscar] 5 mg PO DAILY 07/04/17 04/16/18 History Bisacodyl [Dulcolax] 5 - 15 mg PO DAILY PRN 11/03/17 04/16/18 History Atorvastatin [Lipitor] 80 mg PO HS #30 tab 11/23/17 04/16/18 Rx ALPRAZolam [Xanax] 0.5 mg PO TID PRN #7 tablet 01/28/18 04/16/18 Rx Carvedilol [Coreg] 6.25 mg PO DAILY tab 02/22/18 04/16/18 Rx Budesonide [Pulmicort] 1 mg INHALATION RT-BID nebu 03/25/18 04/16/18 Rx predniSONE 5 mg PO DAILY #0 03/25/18 04/16/18 Rx Carvedilol [Coreg] 12.5 mg PO HS 04/16/18 04/16/18 History Multivitamins, Thera [Multivitamin 1 tab PO DAILY 04/16/18 04/16/18 History (formulary)] Allergies Allergy/AdvReac Type Severity Reaction Status Date / Time No Known Allergies Allergy Verified 04/16/18 13:33 Physical Exam Osteopathic Statement: *. No significant issues noted on an osteopathic structural exam other than those noted in the History and Physical/Consult. Vitals: Vital Signs Temp Pulse Pulse Resp BP BP Pulse Ox 04/17/18 09:26 20 04/17/18 08:11 80 04/17/18 07:57 80 04/17/18 07:00 97.4 F L 85 20 169/69 98 04/16/18 23:00 97.8 F 90 19 121/63 97 04/16/18 19:44 88 18 04/16/18 19:31 90 18 04/16/18 16:19 86 16 04/16/18 16:10 88 18 04/16/18 15:20 16 04/16/18 14:38 16 04/16/18 14:35 97.0 F L 92 20 145/77 96 04/16/18 12:55 98 F 80 20 152/67 95 Intake and Output 04/16/18 04/17/18 04/17/18 22:59 06:59 14:59 Other: Voiding Method Toilet Toilet # Voids 1 No acute distress, oriented 3. Nasal O2 in place. HEENT examination is grossly unremarkable. Mucous membranes are moist. No oral lesions. Neck supple. Full range of motion. No adenopathy thyromegaly or neck vein distention. Cardiovascular examination reveals regular rhythm rate. S1-S2 normal. No S3 or S4. No discernible murmur noted. Heart sounds are distant. Lungs reveal severely diminished breath sounds throughout. A few scattered mild rhonchi. No wheezes or crackles. Breath sounds equal bilaterally. There is significant prolongation on forced maneuver. Abdomen soft bowel sounds are heard. No masses or tenderness. Extremities are intact. No cyanosis clubbing or edema. Skin is without rash or lesion. Neurologic examination is brief but nonfocal. Results - Laboratory Findings CBC and BMP: 04/16/18 10:08 04/16/18 10:08 PT/INR, D-dimer PT 10.2 sec (9.0-12.0) 04/16/18 10:08 INR 1.0 (<1.2) 04/16/18 10:08 Abnormal lab findings: Abnormal Labs 04/16/18 04/16/18 04/16/18 10:08 10:08 10:08 Hgb 12.1 L Hct 38.4 L Lymphocytes # 0.6 L APTT VBG pH Sodium 134 L BUN 21 H Glucose 189 H POC Glucose (mg/dL) Total Creatine Kinase <20 L Total Protein 6.1 L 04/16/18 04/16/18 04/16/18 10:08 10:55 17:12 Hgb Hct Lymphocytes # APTT 21.0 L VBG pH 7.44 H Sodium BUN Glucose POC Glucose (mg/dL) 329 H Total Creatine Kinase Total Protein 04/16/18 04/17/18 21:00 07:22 Hgb Hct Lymphocytes # APTT VBG pH Sodium BUN Glucose POC Glucose (mg/dL) 322 H 273 H Total Creatine Kinase Total Protein - Diagnostic Findings Chest x-ray: report reviewed (Chest x-ray and labs are reviewed. Medications are also reviewed.), image reviewed Assessment and Plan Assessment: Assessment COPD exacerbation complicated by purulent tracheobronchitis. No evidence of pneumonia on chest x-ray History of CAD with previous myocardial infarction History of hypertension History of hyperlipidemia BPH Gastroesophageal reflux disease CVA Deep venous thrombosis. Status post bypass grafting and AICD placement Multiple other medical problems and comorbidities Plan: Plan dated 04/19/2018 The patient's medications x-rays and labs are reviewed. The patient wants to be discharged home. He probably could be discharged home on prednisone 40 mg a day. I would keep him on that dose for 4 days and taper by 10 mg every fourth day. He should be started on a small or short course of oral antibiotics. I be happy to see him next week in the office. Additional recommendations and suggestions are forthcoming. Prognosis is guarded. Time with Patient: Greater than 30
[2018-04-17 11:49] LABS: Hemoglobin A1C 8.8 % (4.0-6.0)
[2018-04-17] MEDS ORDERED: MULTIVITAMINS, THERA 1 EACH TAB PO SCH (12:00)
[2018-04-17 12:22] LABS: Glucose,Whole Blood 355 mg/dL (75-99)
--- NOTE | 2018-04-17 14:20 | P.DS ---
Providers Date of admission: 04/16/18 11:27 Expected date of discharge: 04/17/18 Attending physician: Sundar Gaona Consults: 04/16/18 12:07 Consult Physician Routine Consulting Provider: Mirela Hackett Consult Reason/Comments: copd Do you want consulting provider notified?: Yes Primary care physician: [facility] Course: This is a 72-year-old male patient of Dr. Marcos, Dr. Celena Mason, Dr. Rogers, Dr. Recinos. He has a known history of coronary artery disease with prior bypass surgery in 1997, at which time he underwent a OLIVEIRA to the LAD, saphenous vein graft to the OM1, OM 2, circumflex, and RCA. Subsequent to that patient did undergo angioplasty with stenting of the saphenous vein graft to the OM 1 and 2 in 2008, and saphenous vein graft stenting to the OM1 in 2013, and most recently in October 2017 he underwent PTCA and stenting of the distal left main and proximal left anterior descending coronary arteries with 2 drug- eluting stents, 02/21/2018 he underwent PTCA and stenting of an in-stent restenosis saphenous vein graft to the obtuse marginal 1. He is a recent hospitalization March 23 for acute respiratory failure due to acute COPD exacerbation and right lower lobe pneumonia. He was discharged home in stable condition. Patient states that he did well after that. He now states he has had a cough with [place] colored sputum production and shortness of breath. Patient also states he has home O2 normally at 3 L nasal cannula. He states he sometimes gets confused about adjusting the amount of oxygen at home. He also complains that he is cold due to his apartment being cold and thinks he may have had a fever. He also states that he recently was given a inhaler from Dr. Mantilla but it caused too much $143 and this was replaced with something cheaper that he does not think works. He complains of shortness of breath even to bend over to empty garbage can. He denies having any nausea, vomiting, diarrhea. No abdominal pain. No dysuria. Currently he resides at [facility]. He is normally using an walker for ambulation or he uses a power scooter and does travel over to [facility] and other places. He came into [facility] emergency center for evaluation. Chest x-ray showed COPD. Patient was given nebulizer treatments and Solu-Medrol 125 mg IV push with some improvement of his shortness of breath. Plan is for patient to be monitored overnight. Patient states that his daughter is on her way here and has told him that he needs to move out of [facility] which she is very tearful and upset about. He states he likes it there as he has made friends and he also has some independence with his scooter. He states she apparently wants him to go to an [facility] and he does not want to do this. Social work consult will be placed. 04/17: Patient has been seen by Dr. Rogers and cleared for discharge. Patient has provided a sputum this morning for culture. He states he is eating okay. He has had 2 bowel movements. His breathing status is improved since admission. Patient is anxious to go home. Patient will be discharged home today in stable condition. Discharge diagnoses: 1. Acute respiratory distress due to acute COPD exacerbation with acute tracheobronchitis. 2. Chronic hypoxic respiratory failure on home O2. 3. CAD post CABG and multiple PCI. 4. PAD post multiple interventions. 5. Enlarged prostate. 6. GERD. 7. Hyperlipidemia. 8. COPD. 9. Hypertension. 10. Memory loss. 11. Chronic low back pain Discharge plan: [facility] Impression and plan of care have been directed as dictated by the signing physician. Esperanza Ramírez nurse practitioner acting as scribe for signing physician. Patient Condition at Discharge: Good Plan - Discharge Summary Discharge Rx Participant: No New Discharge Prescriptions: New Azithromycin [Zithromax] 500 mg PO DAILY #3 tab predniSONE 10 mg PO DIRECTED #30 tab predniSONE 0 mg PO DIRECTED #30 tab Continue Clopidogrel [Plavix] 75 mg PO DAILY traZODone HCL [Desyrel] 50 mg PO HS Aspirin 81 mg PO DAILY Multivitamin [Men's Multi-Vitamin] 1 tab PO DAILY Losartan [Cozaar] 25 mg PO DAILY PRN PRN Reason: FOR ELEV >130 HYDROcodone/APAP 7.5-325MG [[place] 7.5-325] 1 tab PO Q6H PRN PRN Reason: Pain Nitroglycerin Sl Tabs [Nitrostat] 0.4 mg SUBLINGUAL Q5M PRN PRN Reason: Chest Pain Acetaminophen/Diphenhydramine [Tylenol PM 500-25mg] 2 tab PO HS PRN PRN Reason: for sleep Tamsulosin [Flomax] 0.4 mg PO HS Oxybutynin Chloride 5 mg PO BID Ranitidine HCl 150 mg PO BID Finasteride [Proscar] 5 mg PO DAILY Albuterol Nebulized (Conc) [Ventolin Nebulized (Conc)] 2.5 mg INHALATION RT- TID Acetaminophen [Tylenol Extra Strength] 500 mg PO BID PRN PRN Reason: Pain Bisacodyl [Dulcolax] 5 - 15 mg PO DAILY PRN PRN Reason: Constipation Atorvastatin [Lipitor] 80 mg PO HS #30 tab ALPRAZolam [Xanax] 0.5 mg PO TID PRN #7 tablet PRN Reason: Anxiety Carvedilol [Coreg] 6.25 mg PO DAILY tab Budesonide [Pulmicort] 1 mg INHALATION RT-BID nebu predniSONE 5 mg PO DAILY #0 Multivitamins, Thera [Multivitamin (formulary)] 1 tab PO DAILY Carvedilol [Coreg] 12.5 mg PO HS Discharge Medication List Clopidogrel [Plavix] 75 mg PO DAILY 03/10/14 [History] traZODone HCL [Desyrel] 50 mg PO HS 03/10/14 [History] Aspirin 81 mg PO DAILY 05/01/14 [History] Multivitamin [Men's Multi-Vitamin] 1 tab PO DAILY 05/01/14 [History] Losartan [Cozaar] 25 mg PO DAILY PRN 12/23/14 [History] HYDROcodone/APAP 7.5-325MG [[place] 7.5-325] 1 tab PO Q6H PRN 12/24/14 [History] Acetaminophen/Diphenhydramine [Tylenol PM 500-25mg] 2 tab PO HS PRN 02/02/16 [ History] Nitroglycerin Sl Tabs [Nitrostat] 0.4 mg SUBLINGUAL Q5M PRN 02/02/16 [History] Oxybutynin Chloride 5 mg PO BID 02/02/16 [History] Ranitidine HCl 150 mg PO BID 02/02/16 [History] Tamsulosin [Flomax] 0.4 mg PO HS 02/02/16 [History] Acetaminophen [Tylenol Extra Strength] 500 mg PO BID PRN 07/04/17 [History] Albuterol Nebulized (Conc) [Ventolin Nebulized (Conc)] 2.5 mg INHALATION RT-TID 07/04/17 [History] Finasteride [Proscar] 5 mg PO DAILY 07/04/17 [History] Bisacodyl [Dulcolax] 5 - 15 mg PO DAILY PRN 11/03/17 [History] Atorvastatin [Lipitor] 80 mg PO HS #30 tab 11/23/17 [Rx] ALPRAZolam [Xanax] 0.5 mg PO TID PRN #7 tablet 01/28/18 [Rx] Carvedilol [Coreg] 6.25 mg PO DAILY tab 02/22/18 [Rx] Budesonide [Pulmicort] 1 mg INHALATION RT-BID nebu 03/25/18 [Rx] predniSONE 5 mg PO DAILY #0 03/25/18 [Rx] Carvedilol [Coreg] 12.5 mg PO HS 04/16/18 [History] Multivitamins, Thera [Multivitamin (formulary)] 1 tab PO DAILY 04/16/18 [History ] Azithromycin [Zithromax] 500 mg PO DAILY #3 tab 04/17/18 [Rx] predniSONE 0 mg PO DIRECTED #30 tab 04/17/18 [Rx] predniSONE 10 mg PO DIRECTED #30 tab 04/17/18 [Rx] Follow up Appointment(s)/Referral(s): Randolph Marcos MD [Primary Care Provider] - 1 Week (Call office appointment was made ) [facility], [NON-STAFF] - Patient Instructions/Handouts: Pneumonitis (DC), COPD (Chronic Obstructive Pulmonary Disease) (DC) Activity/Diet/Wound Care/Special Instructions: After completing Prednisone taper, resume home dose of prednisone. Discharge Disposition: HOME SELF-CARE
[2018-04-17] MEDS ORDERED: SYMBICORT 160-4.5 MCG INHALER INHALATION SCH (20:00)
[2018-04-18] MEDS ORDERED: predniSONE 20 MG TAB PO SCH (09:00)
== END 2018-04-17 14:29 | disposition home health service (06) ==
LOC: EC 09:35 → 4MS4W 11:27
PROVIDERS: ADMIT Internal Medicine; ATTEND Internal Medicine
DX: J44.1 Chronic obstructive pulmonary disease with (acute) exacerbation (principal); J44.0 Chronic obstructive pulmonary disease with (acute) lower respiratory infection; J20.9 Acute bronchitis, unspecified; Z99.81 Dependence on supplemental oxygen; J96.11 Chronic respiratory failure with hypoxia; I25.810 Atherosclerosis of coronary artery bypass graft(s) without angina pectoris; N40.0 Benign prostatic hyperplasia without lower urinary tract symptoms; K21.9 Gastro-esophageal reflux disease without esophagitis; E78.5 Hyperlipidemia, unspecified; I11.0 Hypertensive heart disease with heart failure; I50.9 Heart failure, unspecified; G89.29 Other chronic pain; M54.5 Low back pain; F41.9 Anxiety disorder, unspecified; F32.9 Major depressive disorder, single episode, unspecified; E87.3 Alkalosis; R73.9 Hyperglycemia, unspecified; H91.90 Unspecified hearing loss, unspecified ear; I73.9 Peripheral vascular disease, unspecified; R41.3 Other amnesia; R41.0 Disorientation, unspecified; M79.606 Pain in leg, unspecified; K59.00 Constipation, unspecified; R29.6 Repeated falls; H40.9 Unspecified glaucoma; K57.90 Diverticulosis of intestine, part unspecified, without perforation or abscess without bleeding; R53.81 Other malaise; Z79.02 Long term (current) use of antithrombotics/antiplatelets; Z79.82 Long term (current) use of aspirin; Z79.51 Long term (current) use of inhaled steroids; Z79.52 Long term (current) use of systemic steroids; Z79.899 Other long term (current) drug therapy; Z95.810 Presence of automatic (implantable) cardiac defibrillator; Z95.1 Presence of aortocoronary bypass graft; Z86.718 Personal history of other venous thrombosis and embolism; Z95.5 Presence of coronary angioplasty implant and graft; Z98.49 Cataract extraction status, unspecified eye; Z86.14 Personal history of Methicillin resistant Staphylococcus aureus infection; Z86.73 Personal history of transient ischemic attack (TIA), and cerebral infarction without residual deficits; Z87.01 Personal history of pneumonia (recurrent); I25.2 Old myocardial infarction; Z87.11 Personal history of peptic ulcer disease; Z87.891 Personal history of nicotine dependence; Z86.010 Personal history of colon polyps; Z82.5 Family history of asthma and other chronic lower respiratory diseases; Z81.8 Family history of other mental and behavioral disorders; Z80.0 Family history of malignant neoplasm of digestive organs; Z82.49 Family history of ischemic heart disease and other diseases of the circulatory system
CPT/HCPCS: 99285 ×2; 96374 ×2; 96361 ×2; 96376 ×2; 96372 ×2; 36415; 94640 ×4; 93005; 97162; 97166; 80053; 82550; 82553; 82803; 83735; 84484 ×2; 85025; 85610; 85730; 87070; 87205; 87077; 87186; 83036; 71046; G0378 ×2; S0138; J1644 ×2; J2920 ×2; J2930

== ENCOUNTER 2018-04-23 17:41 | Emergency (ER) | payer MEDICARE, BC ==
[2018-04-23 17:49] VITALS: RESP 20; TEMP 97.8
[2018-04-23] MEDS ORDERED: ALPRAZolam 0.5 MG TAB PO STA (18:39)
--- NOTE | 2018-04-23 18:43 | ED ---
General Adult HPI - General Chief complaint: Anxiety Stated complaint: Anxiety Time Seen by Provider: 04/23/18 18:19 Source: patient, EMS, RN notes reviewed Mode of arrival: EMS Limitations: no limitations - History of Present Illness Initial comments: Patient is a pleasant 72-year-old male presenting to the emergency department with anxiety. Patient states he ran out of his Xanax. Patient states he does have a prescription but the pharmacy will not fill it until tomorrow. Patient does feel anxious. Patient feels okay but having to come here. Patient denies any dyspnea and states his anxiety is just acting out. Patient states he would be comfortable with a dose of Xanax and discharge. No chest pain or confusion or other concerns. - Related Data Home Medications Medication Instructions Recorded Confirmed Clopidogrel [Plavix] 75 mg PO DAILY 03/10/14 04/23/18 traZODone HCL [Desyrel] 50 mg PO HS 03/10/14 04/23/18 Aspirin 81 mg PO DAILY 05/01/14 04/23/18 Multivitamin [Men's Multi-Vitamin] 1 tab PO DAILY 05/01/14 04/23/18 Losartan [Cozaar] 25 mg PO DAILY PRN 12/23/14 04/23/18 HYDROcodone/APAP 7.5-325MG [[place] 1 tab PO Q6H PRN 12/24/14 04/23/18 7.5-325] Acetaminophen/Diphenhydramine 2 tab PO HS PRN 02/02/16 04/23/18 [Tylenol PM 500-25mg] Nitroglycerin Sl Tabs [Nitrostat] 0.4 mg SUBLINGUAL Q5M PRN 02/02/16 04/23/18 Oxybutynin Chloride 5 mg PO BID 02/02/16 04/23/18 Ranitidine HCl 150 mg PO BID 02/02/16 04/23/18 Tamsulosin [Flomax] 0.4 mg PO HS 02/02/16 04/23/18 Acetaminophen [Tylenol Extra 500 mg PO BID PRN 07/04/17 04/23/18 Strength] Finasteride [Proscar] 5 mg PO DAILY 07/04/17 04/23/18 Bisacodyl [Dulcolax] 5 - 15 mg PO DAILY PRN 11/03/17 04/23/18 Carvedilol [Coreg] 12.5 mg PO HS 04/16/18 04/23/18 Albuterol Nebulized [Ventolin 2.5 mg INHALATION RT-TID 04/23/18 04/23/18 Nebulized] predniSONE See Taper PO DAILY 04/23/18 04/23/18 Previous Rx's Medication Instructions Recorded Atorvastatin [Lipitor] 80 mg PO HS #30 tab 11/23/17 ALPRAZolam [Xanax] 0.5 mg PO TID PRN #7 tablet 01/28/18 Carvedilol [Coreg] 6.25 mg PO DAILY tab 02/22/18 Budesonide [Pulmicort] 1 mg INHALATION RT-BID nebu 03/25/18 Allergies Allergy/AdvReac Type Severity Reaction Status Date / Time No Known Allergies Allergy Verified 04/23/18 17:57 Review of Systems ROS Statement: Those systems with pertinent positive or pertinent negative responses have been documented in the HPI. ROS Other: All systems not noted in ROS Statement are negative. Constitutional: Denies: fever Eyes: Denies: eye pain ENT: Denies: ear pain Respiratory: Denies: cough, dyspnea Cardiovascular: Denies: chest pain Endocrine: Denies: fatigue Gastrointestinal: Denies: abdominal pain Genitourinary: Denies: dysuria Musculoskeletal: Denies: back pain Skin: Denies: rash Neurological: Denies: weakness Psychiatric: Reports: anxiety. Denies: suicidal thoughts Past Medical History Past Medical History: Atrial Fibrillation, Coronary Artery Disease (CAD), Chest Pain / Angina, Heart Failure, COPD, CVA/TIA, Deep Vein Thrombosis (DVT), Eye Disorder, GERD/Reflux, Hearing Disorder / Deafness, Hyperlipidemia, Hypertension , Memory Impairment, Myocardial Infarction (CO), Musculoskeletal Disorder, Pneumonia, Prostate Disorder, Respiratory Disorder, Vascular Disorder Additional Past Medical History / Comment(s): Daily steroids for "years." HX OF CVA W/SOME SPEECH DIFFICULTY (since 1999). TIA'S. PVD. "BLOCKED RIGHT CAROTID." RESPIRATORY FAILURE, CONTINUOUS OXYGEN 4L. BPH. CHRONIC BRONCHITIS. DDD. STOMACH ULCER. DIVERTICULITIS. HEMORRHOIDS, COLON POLYPS. USES WALKER OR WHEELCHAIR, ELECTRIC SCOOTER. CHRONIC LEG AND BACK PAIN. CONSTIPATION. GLAUCOMA LT EYE. SOB, ON O2 4L/NC. FREQ FALLS., SEE CARDIOLOGY H & P. Last Myocardial Infarction Date:: 1997 History of Any Multi-Drug Resistant Organisms: MRSA Date of last positivie culture/infection: 03/25/18 MDRO Source:: SPUTUM Past Surgical History: AICD, Back Surgery, Coronary Bypass/CABG, Heart Catheterization, Heart Catheterization With Stent, Pacemaker, Tonsillectomy Additional Past Surgical History / Comment(s): FEBRUARY 2016 PACER ([facility] PM [id number] , #SS [id number]). CABG 5 vessel 1997. Cath with stents (6 total). Esvin Carotid Endarterectomies. Back surgery x 2. Bilateral fem/pops, esvin stenting in legs (6 total). Cataracts removed,. Back injections for pain. AICD, PTCA and stent and January 2018. Past Anesthesia/Blood Transfusion Reactions: No Reported Reaction Additional Past Anesthesia/Blood Transfusion Reaction / Comment(s): Never had blood transfusion. Date of Last Stent Placement:: 2013 Type of Cardiac Device: Permanent Pacemaker, AICD Device Placement Date:: 02/2016 Past Psychological History: Anxiety, Depression Smoking Status: Former smoker Past Alcohol Use History: None Reported Past Drug Use History: None Reported - Past Family History Brother(s) Family Medical History: Cancer (Brother at age of 75 from stage IV stomach cancer.) Additional Family Medical History / Comment(s): Patient has a brother that at age 75 from stage IV stomach cancer. Sister(s) Family Medical History: Congestive Heart Failure (CHF) (Sr. at age 57 from CABG.), Vascular Disorder Additional Family Medical History / Comment(s): Patient has a sister that at age 57 from CABG. PVD Son(s) Family Medical History: No Reported History (Patient has one son no major medical problems.) Additional Family Medical History / Comment(s): Patient has one son with no major medical problems. Daughter(s) Family Medical History: No Reported History (Patient had 2 daughters one works in the ER here at the other one committed suicide while she was in [place]) Additional Family Medical History / Comment(s): daughter patient has 2 daughters and one works in the OR here in 1 was killed in [place]. Mother Family Medical History: Coronary Artery Disease (CAD) (Mother at age 62 from CAD and PAD.) Additional Family Medical History / Comment(s): Mother at age 62 from coronary artery disease and peripheral artery disease status post multiple heart surgeries. Father Family Medical History: Cancer (Father at age of 89 from colon cancer and COPD along with CAD.), Coronary Artery Disease (CAD) Additional Family Medical History / Comment(s): Family at age 89 from colon cancer and COPD along with coronary artery disease. General Exam Limitations: no limitations General appearance: alert, in no apparent distress Head exam: Present: atraumatic Eye exam: Present: normal appearance, PERRL ENT exam: Present: normal oropharynx Neck exam: Present: normal inspection Respiratory exam: Present: normal lung sounds bilaterally Cardiovascular Exam: Present: irregular rhythm GI/Abdominal exam: Present: soft. Absent: tenderness Extremities exam: Present: normal inspection. Absent: pedal edema, calf tenderness Neurological exam: Present: alert Psychiatric exam: Present: normal affect, normal mood Skin exam: Present: normal color Course Vital Signs 04/23/18 17:42 Temperature 97.8 F Pulse Rate 95 Respiratory 20 Rate Blood Pressure 156/89 O2 Sat by Pulse 98 Oximetry Disposition Clinical Impression: Acute anxiety Disposition: HOME SELF-CARE Condition: Stable Instructions: Generalized Anxiety Disorder (ED) Additional Instructions: Please follow-up with primary care physician in the next couple of days for recheck. Return for difficulty breathing, chest pain, worsening or change in symptoms or other concerns. Is patient prescribed a controlled substance at d/c from ED?: No Referrals: Randolph Marcos MD [Primary Care Provider] - 1-2 days Time of Disposition: 18:43
[2018-04-23 18:59] VITALS: BP 128/70; PULSE 88
== END 2018-04-23 19:05 | disposition home or self-care (01) ==
LOC: EC 17:41
DX: F41.9 Anxiety disorder, unspecified (principal); I49.8 Other specified cardiac arrhythmias; J44.9 Chronic obstructive pulmonary disease, unspecified; I11.0 Hypertensive heart disease with heart failure; I50.9 Heart failure, unspecified; N40.0 Benign prostatic hyperplasia without lower urinary tract symptoms; K21.9 Gastro-esophageal reflux disease without esophagitis; J96.90 Respiratory failure, unspecified, unspecified whether with hypoxia or hypercapnia; G89.29 Other chronic pain; F32.9 Major depressive disorder, single episode, unspecified; H91.90 Unspecified hearing loss, unspecified ear; I25.2 Old myocardial infarction; Z87.891 Personal history of nicotine dependence; Z79.02 Long term (current) use of antithrombotics/antiplatelets; Z79.52 Long term (current) use of systemic steroids; Z79.82 Long term (current) use of aspirin; Z79.899 Other long term (current) drug therapy; Z86.14 Personal history of Methicillin resistant Staphylococcus aureus infection; Z86.73 Personal history of transient ischemic attack (TIA), and cerebral infarction without residual deficits; Z86.79 Personal history of other diseases of the circulatory system; Z86.718 Personal history of other venous thrombosis and embolism; Z86.010 Personal history of colon polyps; Z99.81 Dependence on supplemental oxygen; Z82.49 Family history of ischemic heart disease and other diseases of the circulatory system; Z95.1 Presence of aortocoronary bypass graft; Z95.0 Presence of cardiac pacemaker
CPT/HCPCS: 99283

== ENCOUNTER 2018-04-24 02:20 | Emergency (ER) | payer MEDICARE, BC ==
[2018-04-24 02:34] VITALS: TEMP 97.7
[2018-04-24 03:46] LABS: Basophils % (A) 0 %; Eosinophils % (A) 1 %; HCT 36.8 % (39.0-53.0); HGB 11.6 gm/dL (13.0-17.5); Lymphocytes # (A) 0.4 k/uL (1.0-4.8); Lymphocytes % (A) 6 %; MCH 27.9 pg (25.0-35.0); MCHC 31.6 g/dL (31.0-37.0); MCV 88.3 fL (80.0-100.0); Mean Platelet Volume 6.7; Monocytes # (A) 0.6 k/uL (0-1.0); Monocytes % (A) 8 %; Neutrophils # (A) 5.9 k/uL (1.3-7.7); Neutrophils % (A) 84 %; Platelet Count 165 k/uL (150-450); RBC 4.17 m/uL (4.30-5.90); RDW 15.1 % (11.5-15.5); WBC 7.1 k/uL (3.8-10.6)
[2018-04-24] MEDS ORDERED: ALPRAZolam 0.5 MG TAB PO STA (03:49)
--- NOTE | 2018-04-24 03:53 | ED ---
Psych HPI - General Chief Complaint: Psychiatric Symptoms Stated Complaint: mental health Time Seen by Provider: 04/24/18 02:25 Source: patient, police Mode of arrival: EMS Limitations: no limitations - History of Present Illness Initial Comments: This patient is 72-year-old man who presents to be evaluated after he apparently had made suicidal threats at his residence. The patient reports that he is currently out of his Xanax which she states she takes for his "nerves." The patient had been seen here earlier for the same, was given a dose of medication and went home. However tonight after that dose started to wear off he began feeling worse again. He describes feeling very shaky and like he cannot relax. Tonight she reportedly had started to wrap electrical cord around his neck and stated that he did not want to live anymore. The patient does report that he is out of Xanax because he had taken too frequently. MD Complaint: suicidal ideation -: hour(s) Associated Psychiatric Symptoms: suicidal ideation History of same: No - Related Data Home Medications Medication Instructions Recorded Confirmed Clopidogrel [Plavix] 75 mg PO DAILY 03/10/14 04/23/18 traZODone HCL [Desyrel] 50 mg PO HS 03/10/14 04/23/18 Aspirin 81 mg PO DAILY 05/01/14 04/23/18 Multivitamin [Men's Multi-Vitamin] 1 tab PO DAILY 05/01/14 04/23/18 Losartan [Cozaar] 25 mg PO DAILY PRN 12/23/14 04/23/18 HYDROcodone/APAP 7.5-325MG [[place] 1 tab PO Q6H PRN 12/24/14 04/23/18 7.5-325] Acetaminophen/Diphenhydramine 2 tab PO HS PRN 02/02/16 04/23/18 [Tylenol PM 500-25mg] Nitroglycerin Sl Tabs [Nitrostat] 0.4 mg SUBLINGUAL Q5M PRN 02/02/16 04/23/18 Oxybutynin Chloride 5 mg PO BID 02/02/16 04/23/18 Ranitidine HCl 150 mg PO BID 02/02/16 04/23/18 Tamsulosin [Flomax] 0.4 mg PO HS 02/02/16 04/23/18 Acetaminophen [Tylenol Extra 500 mg PO BID PRN 07/04/17 04/23/18 Strength] Finasteride [Proscar] 5 mg PO DAILY 07/04/17 04/23/18 Bisacodyl [Dulcolax] 5 - 15 mg PO DAILY PRN 11/03/17 04/23/18 Carvedilol [Coreg] 12.5 mg PO HS 04/16/18 04/23/18 Albuterol Nebulized [Ventolin 2.5 mg INHALATION RT-TID 04/23/18 04/23/18 Nebulized] predniSONE See Taper PO DAILY 04/23/18 04/23/18 Previous Rx's Medication Instructions Recorded Atorvastatin [Lipitor] 80 mg PO HS #30 tab 11/23/17 ALPRAZolam [Xanax] 0.5 mg PO TID PRN #7 tablet 01/28/18 Carvedilol [Coreg] 6.25 mg PO DAILY tab 02/22/18 Budesonide [Pulmicort] 1 mg INHALATION RT-BID nebu 03/25/18 Allergies Allergy/AdvReac Type Severity Reaction Status Date / Time No Known Allergies Allergy Verified 04/23/18 17:57 Review of Systems ROS Statement: Those systems with pertinent positive or pertinent negative responses have been documented in the HPI. ROS Other: All systems not noted in ROS Statement are negative. Constitutional: Denies: fever, chills Respiratory: Denies: cough, dyspnea Cardiovascular: Denies: chest pain, palpitations, edema, syncope Gastrointestinal: Denies: abdominal pain, vomiting, diarrhea Genitourinary: Denies: dysuria Musculoskeletal: Denies: back pain Skin: Denies: rash Neurological: Denies: headache, weakness, numbness Psychiatric: Reports: anxiety, suicidal thoughts. Denies: auditory hallucinations, visual hallucinations, homicidal thoughts Past Medical History Past Medical History: Atrial Fibrillation, Coronary Artery Disease (CAD), Chest Pain / Angina, Heart Failure, COPD, CVA/TIA, Deep Vein Thrombosis (DVT), Eye Disorder, GERD/Reflux, Hearing Disorder / Deafness, Hyperlipidemia, Hypertension , Memory Impairment, Myocardial Infarction ([place]), Musculoskeletal Disorder, Pneumonia, Prostate Disorder, Respiratory Disorder, Vascular Disorder Additional Past Medical History / Comment(s): Daily steroids for "years." HX OF CVA W/SOME SPEECH DIFFICULTY (since 1999). TIA'S. PVD. "BLOCKED RIGHT CAROTID." RESPIRATORY FAILURE, CONTINUOUS OXYGEN 4L. BPH. CHRONIC BRONCHITIS. DDD. STOMACH ULCER. DIVERTICULITIS. HEMORRHOIDS, COLON POLYPS. USES WALKER OR WHEELCHAIR, ELECTRIC SCOOTER. CHRONIC LEG AND BACK PAIN. CONSTIPATION. GLAUCOMA LT EYE. SOB, ON O2 4L/NC. FREQ FALLS., SEE CARDIOLOGY H & P. Last Myocardial Infarction Date:: 1997 History of Any Multi-Drug Resistant Organisms: MRSA Date of last positivie culture/infection: 03/25/18 MDRO Source:: SPUTUM Past Surgical History: AICD, Back Surgery, Coronary Bypass/CABG, Heart Catheterization, Heart Catheterization With Stent, Pacemaker, Tonsillectomy Additional Past Surgical History / Comment(s): FEBRUARY 2016 PACER ([facility] PM [id number] , #SS [id number]). CABG 5 vessel 1997. Cath with stents (6 total). Richard Carotid Endarterectomies. Back surgery x 2. Bilateral fem/pops, richard stenting in legs (6 total). Cataracts removed,. Back injections for pain. AICD, PTCA and stent and January 2018. Past Anesthesia/Blood Transfusion Reactions: No Reported Reaction Additional Past Anesthesia/Blood Transfusion Reaction / Comment(s): Never had blood transfusion. Date of Last Stent Placement:: 2013 Type of Cardiac Device: Permanent Pacemaker, AICD Device Placement Date:: 02/2016 Past Psychological History: Anxiety, Depression Smoking Status: Former smoker Past Alcohol Use History: None Reported Past Drug Use History: None Reported - Past Family History Brother(s) Family Medical History: Cancer (Brother at age of 75 from stage IV stomach cancer.) Additional Family Medical History / Comment(s): Patient has a brother that at age 75 from stage IV stomach cancer. Sister(s) Family Medical History: Congestive Heart Failure (CHF) (Sr. at age 57 from CABG.), Vascular Disorder Additional Family Medical History / Comment(s): Patient has a sister that at age 57 from CABG. PVD Son(s) Family Medical History: No Reported History (Patient has one son no major medical problems.) Additional Family Medical History / Comment(s): Patient has one son with no major medical problems. Daughter(s) Family Medical History: No Reported History (Patient had 2 daughters one works in the ER here at the other one committed suicide while she was in [place]) Additional Family Medical History / Comment(s): daughter patient has 2 daughters and one works in the OR here in 1 was killed in [place]. Mother Family Medical History: Coronary Artery Disease (CAD) (Mother at age 62 from CAD and PAD.) Additional Family Medical History / Comment(s): Mother at age 62 from coronary artery disease and peripheral artery disease status post multiple heart surgeries. Father Family Medical History: Cancer (Father at age of 89 from colon cancer and COPD along with CAD.), Coronary Artery Disease (CAD) Additional Family Medical History / Comment(s): Family at age 89 from colon cancer and COPD along with coronary artery disease. General Exam Limitations: no limitations General appearance: alert, in no apparent distress Head exam: Present: atraumatic, normocephalic Eye exam: Present: normal appearance. Absent: scleral icterus, conjunctival injection ENT exam: Present: normal oropharynx Neck exam: Present: normal inspection Respiratory exam: Present: normal lung sounds bilaterally. Absent: respiratory distress, wheezes, rales, rhonchi, stridor Cardiovascular Exam: Present: regular rate, normal rhythm, normal heart sounds. Absent: systolic murmur, diastolic murmur, rubs, gallop GI/Abdominal exam: Present: soft. Absent: distended, tenderness, guarding, rebound, rigid Extremities exam: Present: normal inspection, normal capillary refill. Absent: pedal edema, calf tenderness Back exam: Present: normal inspection. Absent: CVA tenderness (R), CVA tenderness (L) Neurological exam: Present: alert Psychiatric exam: Present: anxious, suicidal ideation. Absent: depressed, flat affect, manic, homicidal ideation Skin exam: Present: warm, dry, intact, normal color. Absent: rash Course Vital Signs 04/24/18 04/24/18 04/24/18 02:27 04:16 04:57 Temperature 97.7 F Pulse Rate 94 108 H 101 H Respiratory 20 18 18 Rate Blood Pressure 166/104 184/77 131/67 O2 Sat by Pulse 96 97 99 Oximetry 04/24/18 06:08 Temperature Pulse Rate 45 L Respiratory 17 Rate Blood Pressure 141/69 O2 Sat by Pulse 99 Oximetry Medical Decision Making - Lab Data Result diagrams: 04/24/18 03:20 04/24/18 03:20 Lab Results 04/24/18 04/24/18 04/24/18 Range/Units 03:20 03:20 04:47 WBC 7.1 (3.8-10.6) k/uL RBC 4.17 L (4.30-5.90) m/uL Hgb 11.6 L (13.0-17.5) gm/dL Hct 36.8 L (39.0-53.0) % MCV 88.3 (80.0-100.0) fL MCH 27.9 (25.0-35.0) pg MCHC 31.6 (31.0-37.0) g/dL RDW 15.1 (11.5-15.5) % Plt Count 165 (150-450) k/uL Neutrophils % 84 % Lymphocytes % 6 % Monocytes % 8 % Eosinophils % 1 % Basophils % 0 % Neutrophils # 5.9 (1.3-7.7) k/uL Lymphocytes # 0.4 L (1.0-4.8) k/uL Monocytes # 0.6 (0-1.0) k/uL Eosinophils # 0.0 (0-0.7) k/uL Basophils # 0.0 (0-0.2) k/uL Sodium 136 L (137-145) mmol/L Potassium 3.9 (3.5-5.1) mmol/L Chloride 100 (98-107) mmol/L Carbon Dioxide 29 (22-30) mmol/L Anion Gap 7 mmol/L BUN 19 (9-20) mg/dL Creatinine 0.80 (0.66-1.25) mg/dL Est GFR (CKD-EPI)AfAm >90 (>60 ml/min/1.73 sqM) Est GFR (CKD-EPI)NonAf 88 (>60 ml/min/1.73 sqM) Glucose 276 H (74-99) mg/dL Calcium 9.0 (8.4-10.2) mg/dL TSH 0.735 (0.465-4.680) mIU/L Urine Opiates Screen Detected H (NotDetected) Ur Oxycodone Screen Not Detected (NotDetected) Urine Methadone Screen Not Detected (NotDetected) Ur Propoxyphene Screen Not Detected (NotDetected) Ur Barbiturates Screen Not Detected (NotDetected) U Tricyclic Antidepress Not Detected (NotDetected) Ur Phencyclidine Scrn Not Detected (NotDetected) Ur Amphetamines Screen Not Detected (NotDetected) U Methamphetamines Scrn Not Detected (NotDetected) U Benzodiazepines Scrn Detected H (NotDetected) Urine Cocaine Screen Not Detected (NotDetected) U Marijuana (THC) Screen Not Detected (NotDetected) Serum Alcohol <10 mg/dL Disposition Clinical Impression: Acute anxiety, Hyperglycemia, Urinary retention Disposition: HOME SELF-CARE Condition: Good Instructions: Anxiety (ED), Hyperglycemia, Non-Diabetic (ED) Is patient prescribed a controlled substance at d/c from ED?: No Referrals: Randolph Marcos MD [Primary Care Provider] - 1-2 days Carl De Paz MD [STAFF PHYSICIAN] - 1-2 days
[2018-04-24 03:58] LABS: Alcohol <10 mg/dL; Anion Gap 7 mmol/L; Blood Urea Nitrogen 19 mg/dL (9-20); Carbon Dioxide 29 mmol/L (22-30); Chloride 100 mmol/L (98-107); Glucose 276 mg/dL (74-99); Potassium 3.9 mmol/L (3.5-5.1); Sodium 136 mmol/L (137-145)
[2018-04-24 05:23] LABS: Amphetamine Screen,Urine Not Detected (NotDetected); Barbiturate Screen,Urine Not Detected (NotDetected); Benzodiazepines Screen,Urine Detected (NotDetected); Cocaine Screen,Urine Not Detected (NotDetected); Methadone Screen, Urine Not Detected (NotDetected); Opiate Screen,Urine Detected (NotDetected); Oxycodone Screen, Urine Not Detected (NotDetected); Phencyclidine Screen,Urine Not Detected (NotDetected); Tricyclic Antidepressant,Urine Not Detected (NotDetected); Urn Cannabinoid Scrn Not Detected (NotDetected)
[2018-04-24 06:09] VITALS: BP 141/69; PULSE 45; RESP 17
== END 2018-04-24 06:55 | disposition home or self-care (01) ==
LOC: EC 02:20
DX: F41.9 Anxiety disorder, unspecified (principal); E11.65 Type 2 diabetes mellitus with hyperglycemia; R33.9 Retention of urine, unspecified; R45.851 Suicidal ideations; I48.91 Unspecified atrial fibrillation; I25.10 Atherosclerotic heart disease of native coronary artery without angina pectoris; I11.0 Hypertensive heart disease with heart failure; I50.9 Heart failure, unspecified; J44.9 Chronic obstructive pulmonary disease, unspecified; K21.9 Gastro-esophageal reflux disease without esophagitis; H91.90 Unspecified hearing loss, unspecified ear; E78.5 Hyperlipidemia, unspecified; I25.2 Old myocardial infarction; I73.9 Peripheral vascular disease, unspecified; F32.9 Major depressive disorder, single episode, unspecified; Z86.73 Personal history of transient ischemic attack (TIA), and cerebral infarction without residual deficits; Z87.891 Personal history of nicotine dependence; Z86.14 Personal history of Methicillin resistant Staphylococcus aureus infection; Z95.810 Presence of automatic (implantable) cardiac defibrillator; Z95.5 Presence of coronary angioplasty implant and graft; Z95.1 Presence of aortocoronary bypass graft; Z98.890 Other specified postprocedural states; Z79.02 Long term (current) use of antithrombotics/antiplatelets; Z79.52 Long term (current) use of systemic steroids; Z79.82 Long term (current) use of aspirin; Z79.899 Other long term (current) drug therapy
CPT/HCPCS: 36415; 80048; 80306; 80320; 84443; 85025; 99285

== ENCOUNTER 2018-05-04 16:50 | Emergency (ER) | payer MEDICARE, BC ==
[2018-05-04] MEDS ORDERED: IPRATROPIUM-ALBUTEROL 3 ML NEB INHALATION STA (17:00)
[2018-05-04 17:26] VITALS: RESP 18
[2018-05-04 17:28] LABS: Basophils % (A) 0 %; Eosinophils % (A) 0 %; HCT 35.8 % (39.0-53.0); HGB 11.6 gm/dL (13.0-17.5); Lymphocytes # (A) 0.4 k/uL (1.0-4.8); Lymphocytes % (A) 6 %; MCH 28.3 pg (25.0-35.0); MCHC 32.3 g/dL (31.0-37.0); MCV 87.5 fL (80.0-100.0); Mean Platelet Volume 6.7; Monocytes # (A) 0.3 k/uL (0-1.0); Monocytes % (A) 5 %; Neutrophils # (A) 5.7 k/uL (1.3-7.7); Neutrophils % (A) 87 %; Platelet Count 151 k/uL (150-450); RDW 15.1 % (11.5-15.5); WBC 6.5 k/uL (3.8-10.6)
[2018-05-04 17:38] LABS: ALT 32 U/L (21-72); AST 19 U/L (17-59); Albumin 3.6 g/dL (3.5-5.0); Alkaline Phosphatase 93 U/L (38-126); Anion Gap 9 mmol/L; Blood Urea Nitrogen 19 mg/dL (9-20); Calcium 9.9 mg/dL (8.4-10.2); Carbon Dioxide 28 mmol/L (22-30); Chloride 101 mmol/L (98-107); Glucose 318 mg/dL (74-99); Magnesium 1.7 mg/dL (1.6-2.3); Potassium 4.3 mmol/L (3.5-5.1); Sodium 138 mmol/L (137-145); Total Bilirubin 0.7 mg/dL (0.2-1.3); Total Protein 5.9 g/dL (6.3-8.2)
[2018-05-04 17:43] LABS: Creatine Kinase <20 U/L (55-170)
--- NOTE | 2018-05-04 17:52 | ED ---
General Adult HPI - General Chief complaint: Anxiety Stated complaint: diff breathing Time Seen by Provider: 05/04/18 17:00 Source: patient, EMS, RN notes reviewed, old records reviewed Mode of arrival: EMS Limitations: no limitations - History of Present Illness Initial comments: 72-year-old male presenting for evaluation of worsening dyspnea. Patient states that throughout the day today he has had significant worsening in his baseline dyspnea. He does have history of end-stage COPD currently on 4 L. He was evaluated by his online merchandiser yesterday. He states that he's had subjective fever and chills. He has had cough which is productive of white sputum. Denies any chest pain. Denies abdominal pain. Denies nausea vomiting or diarrhea. He does admit to being anxious and believes this may contribute to his dyspnea. He also reports suicidal thoughts although he has no specific plan. - Related Data Home Medications Medication Instructions Recorded Confirmed Clopidogrel [Plavix] 75 mg PO DAILY 03/10/14 05/04/18 traZODone HCL [Desyrel] 50 mg PO HS 03/10/14 05/04/18 Aspirin 81 mg PO DAILY 05/01/14 05/04/18 Multivitamin [Men's Multi-Vitamin] 1 tab PO DAILY 05/01/14 05/04/18 Losartan [Cozaar] 25 mg PO DAILY PRN 12/23/14 05/04/18 HYDROcodone/APAP 7.5-325MG [[place] 1 tab PO Q6H PRN 12/24/14 05/04/18 7.5-325] Acetaminophen/Diphenhydramine 2 tab PO HS PRN 02/02/16 05/04/18 [Tylenol PM 500-25mg] Nitroglycerin Sl Tabs [Nitrostat] 0.4 mg SUBLINGUAL Q5M PRN 02/02/16 05/04/18 Oxybutynin Chloride 5 mg PO BID 02/02/16 05/04/18 Ranitidine HCl 150 mg PO BID 02/02/16 05/04/18 Tamsulosin [Flomax] 0.4 mg PO HS 02/02/16 05/04/18 Acetaminophen [Tylenol Extra 500 mg PO BID PRN 07/04/17 05/04/18 Strength] Finasteride [Proscar] 5 mg PO DAILY 07/04/17 05/04/18 Bisacodyl [Dulcolax] 5 - 15 mg PO DAILY PRN 11/03/17 05/04/18 Carvedilol [Coreg] 12.5 mg PO HS 04/16/18 05/04/18 Albuterol Nebulized [Ventolin 2.5 mg INHALATION RT-TID 04/23/18 05/04/18 Nebulized] Previous Rx's Medication Instructions Recorded Atorvastatin [Lipitor] 80 mg PO HS #30 tab 11/23/17 ALPRAZolam [Xanax] 0.5 mg PO TID PRN #7 tablet 01/28/18 Carvedilol [Coreg] 6.25 mg PO DAILY tab 02/22/18 Budesonide [Pulmicort] 1 mg INHALATION RT-BID nebu 03/25/18 Allergies Allergy/AdvReac Type Severity Reaction Status Date / Time No Known Allergies Allergy Verified 05/04/18 17:49 Review of Systems ROS Statement: Those systems with pertinent positive or pertinent negative responses have been documented in the HPI. ROS Other: All systems not noted in ROS Statement are negative. Past Medical History Past Medical History: Atrial Fibrillation, Coronary Artery Disease (CAD), Chest Pain / Angina, Heart Failure, COPD, CVA/TIA, Deep Vein Thrombosis (DVT), Eye Disorder, GERD/Reflux, Hearing Disorder / Deafness, Hyperlipidemia, Hypertension , Memory Impairment, Myocardial Infarction ([place]), Musculoskeletal Disorder, Pneumonia, Prostate Disorder, Respiratory Disorder, Vascular Disorder Additional Past Medical History / Comment(s): Daily steroids for "years." HX OF CVA W/SOME SPEECH DIFFICULTY (since 1999). TIA'S. PVD. "BLOCKED RIGHT CAROTID." RESPIRATORY FAILURE, CONTINUOUS OXYGEN 4L. BPH. CHRONIC BRONCHITIS. DDD. STOMACH ULCER. DIVERTICULITIS. HEMORRHOIDS, COLON POLYPS. USES WALKER OR WHEELCHAIR, ELECTRIC SCOOTER. CHRONIC LEG AND BACK PAIN. CONSTIPATION. GLAUCOMA LT EYE. SOB, ON O2 4L/NC. FREQ FALLS., SEE CARDIOLOGY H & P. Last Myocardial Infarction Date:: 1997 History of Any Multi-Drug Resistant Organisms: MRSA Date of last positivie culture/infection: 03/25/18 MDRO Source:: SPUTUM Past Surgical History: AICD, Back Surgery, Coronary Bypass/CABG, Heart Catheterization, Heart Catheterization With Stent, Pacemaker, Tonsillectomy Additional Past Surgical History / Comment(s): FEBRUARY 2016 PACER ([facility] PM [id number] , #SS [id number]). CABG 5 vessel 1998. Cath with stents (6 total). Esvin Carotid Endarterectomies. Back surgery x 2. Bilateral fem/pops, esvin stenting in legs (6 total). Cataracts removed,. Back injections for pain. AICD, PTCA and stent and January 2018. Past Anesthesia/Blood Transfusion Reactions: No Reported Reaction Additional Past Anesthesia/Blood Transfusion Reaction / Comment(s): Never had blood transfusion. Date of Last Stent Placement:: 2013 Type of Cardiac Device: Permanent Pacemaker, AICD Device Placement Date:: 02/2016 Past Psychological History: Anxiety, Depression Smoking Status: Former smoker Past Alcohol Use History: None Reported Past Drug Use History: None Reported - Past Family History Brother(s) Family Medical History: Cancer (Brother at age of 75 from stage IV stomach cancer.) Additional Family Medical History / Comment(s): Patient has a brother that at age 75 from stage IV stomach cancer. Sister(s) Family Medical History: Congestive Heart Failure (CHF) (Sr. at age 57 from CABG.), Vascular Disorder Additional Family Medical History / Comment(s): Patient has a sister that at age 57 from CABG. PVD Son(s) Family Medical History: No Reported History (Patient has one son no major medical problems.) Additional Family Medical History / Comment(s): Patient has one son with no major medical problems. Daughter(s) Family Medical History: No Reported History (Patient had 2 daughters one works in the ER here at the other one committed suicide while she was in [place]) Additional Family Medical History / Comment(s): daughter patient has 2 daughters and one works in the OR here in 1 was killed in [place]. Mother Family Medical History: Coronary Artery Disease (CAD) (Mother at age 62 from CAD and PAD.) Additional Family Medical History / Comment(s): Mother at age 62 from coronary artery disease and peripheral artery disease status post multiple heart surgeries. Father Family Medical History: Cancer (Father at age of 89 from colon cancer and COPD along with CAD.), Coronary Artery Disease (CAD) Additional Family Medical History / Comment(s): Family at age 89 from colon cancer and COPD along with coronary artery disease. General Exam Limitations: no limitations General appearance: alert, in no apparent distress Head exam: Present: atraumatic, normocephalic Eye exam: Present: normal appearance, PERRL ENT exam: Present: mucous membranes dry Neck exam: Present: normal inspection. Absent: tenderness, meningismus Respiratory exam: Present: wheezes, decreased breath sounds, prolonged expiratory Cardiovascular Exam: Present: regular rate, normal rhythm GI/Abdominal exam: Present: soft. Absent: distended, tenderness, guarding Extremities exam: Present: normal inspection. Absent: normal capillary refill, pedal edema Neurological exam: Present: alert, oriented X3, CN II-XII intact. Absent: motor sensory deficit Psychiatric exam: Present: anxious, suicidal ideation Skin exam: Present: warm, dry, intact. Absent: cyanosis, diaphoretic Course Vital Signs 05/04/18 05/04/18 05/04/18 17:03 17:22 17:25 Temperature 98.1 F Pulse Rate 103 H 98 Respiratory 16 18 Rate Blood Pressure 173/87 O2 Sat by Pulse 99 Oximetry 05/04/18 05/04/18 17:34 18:57 Temperature Pulse Rate 96 103 H Respiratory 18 Rate Blood Pressure 158/88 O2 Sat by Pulse 94 L Oximetry EKG Findings - EKG Comments: EKG Findings:: EKG: Atrial sensed ventricular paced rhythm, rate of 99, DE interval 122, QRS duration 1:30, QTC 400, QTC 413. Medical Decision Making - Medical Decision Making Patient presenting with dyspnea, end-stage COPD on 4 L O2. Patient does have decreased air entry bilaterally. He attributes much of his symptoms to his anxiety. He is complaining of some suicidal ideation. Chest x-ray shows COPD, no focal pneumonia, normal white blood cell count, stable hemoglobin, normal electrolytes. Patient has no chest pain. He is offered observation for continued treatment of his COPD as well as mental health evaluation. He declines. He prefers to be evaluated in the emergency department by mental health. He is seen by EPS, denies any specific suicidal plan, or continued suicidal ideation. He is cleared by EPS for discharge. No need for inpatient psychiatric treatment. He does have good outpatient follow-up. He is eager for discharge. He will follow-up with his primary care physician. - Lab Data Result diagrams: 05/04/18 17:14 05/04/18 17:14 Lab Results 05/04/18 05/04/18 05/04/18 Range/Units 17:14 17:14 17:14 WBC 6.5 (3.8-10.6) k/uL RBC 4.10 L (4.30-5.90) m/uL Hgb 11.6 L (13.0-17.5) gm/dL Hct 35.8 L (39.0-53.0) % MCV 87.5 (80.0-100.0) fL MCH 28.3 (25.0-35.0) pg MCHC 32.3 (31.0-37.0) g/dL RDW 15.1 (11.5-15.5) % Plt Count 151 (150-450) k/uL Neutrophils % 87 % Lymphocytes % 6 % Monocytes % 5 % Eosinophils % 0 % Basophils % 0 % Neutrophils # 5.7 (1.3-7.7) k/uL Lymphocytes # 0.4 L (1.0-4.8) k/uL Monocytes # 0.3 (0-1.0) k/uL Eosinophils # 0.0 (0-0.7) k/uL Basophils # 0.0 (0-0.2) k/uL PT (9.0-12.0) sec INR (<1.2) APTT (22.0-30.0) sec Sodium 138 (137-145) mmol/L Potassium 4.3 (3.5-5.1) mmol/L Chloride 101 (98-107) mmol/L Carbon Dioxide 28 (22-30) mmol/L Anion Gap 9 mmol/L BUN 19 (9-20) mg/dL Creatinine 0.90 (0.66-1.25) mg/dL Est GFR (CKD-EPI)AfAm >90 (>60 ml/min/1.73 sqM) Est GFR (CKD-EPI)NonAf 84 (>60 ml/min/1.73 sqM) Glucose 318 H (74-99) mg/dL Calcium 9.9 (8.4-10.2) mg/dL Magnesium 1.7 (1.6-2.3) mg/dL Total Bilirubin 0.7 (0.2-1.3) mg/dL AST 19 (17-59) U/L ALT 32 (21-72) U/L Alkaline Phosphatase 93 (38-126) U/L Total Creatine Kinase <20 L (55-170) U/L CK-MB (CK-2) 1.6 (0.0-2.4) ng/mL CK-MB (CK-2) Rel Index Troponin I 0.023 (0.000-0.034) ng/mL Total Protein 5.9 L (6.3-8.2) g/dL Albumin 3.6 (3.5-5.0) g/dL 05/04/18 Range/Units 17:14 WBC (3.8-10.6) k/uL RBC (4.30-5.90) m/uL Hgb (13.0-17.5) gm/dL Hct (39.0-53.0) % MCV (80.0-100.0) fL MCH (25.0-35.0) pg MCHC (31.0-37.0) g/dL RDW (11.5-15.5) % Plt Count (150-450) k/uL Neutrophils % % Lymphocytes % % Monocytes % % Eosinophils % % Basophils % % Neutrophils # (1.3-7.7) k/uL Lymphocytes # (1.0-4.8) k/uL Monocytes # (0-1.0) k/uL Eosinophils # (0-0.7) k/uL Basophils # (0-0.2) k/uL PT 10.5 (9.0-12.0) sec INR 1.1 (<1.2) APTT 21.9 L (22.0-30.0) sec Sodium (137-145) mmol/L Potassium (3.5-5.1) mmol/L Chloride (98-107) mmol/L Carbon Dioxide (22-30) mmol/L Anion Gap mmol/L BUN (9-20) mg/dL Creatinine (0.66-1.25) mg/dL Est GFR (CKD-EPI)AfAm (>60 ml/min/1.73 sqM) Est GFR (CKD-EPI)NonAf (>60 ml/min/1.73 sqM) Glucose (74-99) mg/dL Calcium (8.4-10.2) mg/dL Magnesium (1.6-2.3) mg/dL Total Bilirubin (0.2-1.3) mg/dL AST (17-59) U/L ALT (21-72) U/L Alkaline Phosphatase (38-126) U/L Total Creatine Kinase (55-170) U/L CK-MB (CK-2) (0.0-2.4) ng/mL CK-MB (CK-2) Rel Index Troponin I (0.000-0.034) ng/mL Total Protein (6.3-8.2) g/dL Albumin (3.5-5.0) g/dL Disposition Clinical Impression: Acute anxiety, COPD (chronic obstructive pulmonary disease), Depression Disposition: HOME SELF-CARE Condition: Fair Instructions: Generalized Anxiety Disorder (ED), COPD (Chronic Obstructive Pulmonary Disease) (ED), Depression (ED) Is patient prescribed a controlled substance at d/c from ED?: No Referrals: Randolph Marcos MD [Primary Care Provider] - 1-2 days Time of Disposition: 19:58
[2018-05-04 17:54] LABS: INR 1.1 (<1.2); Partial Thromboplastin Time 21.9 sec (22.0-30.0); Prothrombin Time 10.5 sec (9.0-12.0)
[2018-05-04 17:56] LABS: Creatine Kinase MB 1.6 ng/mL (0.0-2.4); Troponin I 0.023 ng/mL (0.000-0.034)
--- NOTE | 2018-05-04 18:30 | XR ---
EXAMINATION TYPE: XR chest 2V DATE OF EXAM: 05/04/2018 COMPARISON: 04/16/2018 HISTORY: Short of breath TECHNIQUE: Frontal and lateral views of the chest are obtained. FINDINGS: Heart is normal. There is pulmonary hyperinflation and flattening of the diaphragm. There is slight coarsening of interstitial markings. There is left axillary pacemaker with the lead tips in the right ventricle. There are chest leads. IMPRESSION: COPD and pulmonary fibrosis. No acute lung disease. No change.
[2018-05-04 20:06] VITALS: BP 158/84; PULSE 94; TEMP 97.5
== END 2018-05-04 20:37 | disposition home or self-care (01) ==
LOC: EC 16:50
DX: J44.9 Chronic obstructive pulmonary disease, unspecified (principal); F41.9 Anxiety disorder, unspecified; F32.9 Major depressive disorder, single episode, unspecified; R45.851 Suicidal ideations; I48.91 Unspecified atrial fibrillation; I25.10 Atherosclerotic heart disease of native coronary artery without angina pectoris; I11.0 Hypertensive heart disease with heart failure; I50.9 Heart failure, unspecified; K21.9 Gastro-esophageal reflux disease without esophagitis; I25.2 Old myocardial infarction; N40.0 Benign prostatic hyperplasia without lower urinary tract symptoms; I73.9 Peripheral vascular disease, unspecified; Z86.73 Personal history of transient ischemic attack (TIA), and cerebral infarction without residual deficits; Z86.718 Personal history of other venous thrombosis and embolism; Z86.14 Personal history of Methicillin resistant Staphylococcus aureus infection; Z95.1 Presence of aortocoronary bypass graft; Z95.818 Presence of other cardiac implants and grafts; Z95.5 Presence of coronary angioplasty implant and graft; Z95.0 Presence of cardiac pacemaker; Z87.891 Personal history of nicotine dependence; Z79.02 Long term (current) use of antithrombotics/antiplatelets; Z79.82 Long term (current) use of aspirin; Z79.899 Other long term (current) drug therapy; Z82.49 Family history of ischemic heart disease and other diseases of the circulatory system; Z53.29 Procedure and treatment not carried out because of patient's decision for other reasons
CPT/HCPCS: 36415; 71046; 80053; 82550; 82553; 83735; 84484; 85025; 85610; 85730; 93005; 94640; 99285

== ENCOUNTER 2018-05-18 14:13 | Inpatient (IN) | payer MEDICARE, BC ==
[2018-05-18] MEDS ORDERED: LOSARTAN 25 MG TAB PO STA (14:51)
[2018-05-18 15:05] LABS: Appearance,Urine Cloudy (Clear); Bilirubin,Urine Negative (Negative); Blood,Urine Large (Negative); Color,Urine Light Red; Glucose,Urine (UA) 3+ (Negative); Ketones,Urine Negative (Negative); Leukocyte Esterase,Urine Moderate (Negative); Mucus,Urine Rare /hpf; Nitrite,Urine Negative (Negative); PH, Urine 5.5 (5.0-8.0); Protein,Urine 1+ (Negative); RBC,Urine >182 /hpf (0-5); Specific Gravity,Urine 1.016 (1.001-1.035); Urobilinogen,Urine <2.0 mg/dL (<2.0); WBC,Urine 15 /hpf (0-5)
[2018-05-18] MEDS ORDERED: SODIUM CHLORIDE 0.9% 1,000 ML IV STA ×2 (15:13)
[2018-05-18 15:48] LABS: Anisocytosis Slight; Basophils % (A) 0 %; Eosinophils # (A) 0.1 k/uL (0-0.7); Eosinophils % (A) 2 %; HCT 35.8 % (39.0-53.0); HGB 11.2 gm/dL (13.0-17.5); Hypochromasia Slight; Lymphocytes # (A) 0.9 k/uL (1.0-4.8); Lymphocytes % (A) 12 %; MCH 28.2 pg (25.0-35.0); MCHC 31.2 g/dL (31.0-37.0); MCV 90.6 fL (80.0-100.0); Mean Platelet Volume 6.7; Monocytes # (A) 0.5 k/uL (0-1.0); Monocytes % (A) 6 %; Neutrophils # (A) 5.7 k/uL (1.3-7.7); Neutrophils % (A) 78 %; Platelet Count 203 k/uL (150-450); RBC 3.96 m/uL (4.30-5.90); WBC 7.3 k/uL (3.8-10.6)
[2018-05-18 15:53] LABS: ALT 33 U/L (21-72); AST 18 U/L (17-59); Albumin 3.7 g/dL (3.5-5.0); Alkaline Phosphatase 80 U/L (38-126); Amylase 54 U/L (30-110); Anion Gap 4 mmol/L; Blood Urea Nitrogen 14 mg/dL (9-20); Calcium 9.2 mg/dL (8.4-10.2); Carbon Dioxide 33 mmol/L (22-30); Chloride 100 mmol/L (98-107); Glucose 220 mg/dL (74-99); INR 1.1 (<1.2); Lipase 55 U/L (23-300); Magnesium 1.8 mg/dL (1.6-2.3); Partial Thromboplastin Time 22.6 sec (22.0-30.0); Potassium 4.3 mmol/L (3.5-5.1); Prothrombin Time 10.9 sec (9.0-12.0); Sodium 137 mmol/L (137-145); Total Bilirubin 0.8 mg/dL (0.2-1.3); Total Protein 6.1 g/dL (6.3-8.2)
--- NOTE | 2018-05-18 15:57 | XR ---
EXAMINATION TYPE: XR chest 2V DATE OF EXAM: 05/18/2018 COMPARISON: 05/04/2018 TECHNIQUE: PA and lateral views submitted. HISTORY: Pain FINDINGS: Hyperinflation suggests COPD. There is a subsegmental consolidation at the right lung base. Coarsened interstitium suggests chronic interstitial lung disease. Postoperative change and cardiac device see n and is arthropathy of the shoulders. No pleural effusion or pneumothorax. Somewhat nodular pattern involving the right perihilar region. Cardiac device noted. Hypertrophic and degenerative change of t he spine. IMPRESSION: 1. COPD with somewhat nodular subsegmental consolidation at the right lung base as well as a nodule s een in the right upper lobe measuring less than a centimeter. CT of the chest recommended. 2. Correlate for chronic interstitial lung disease.
[2018-05-18] MEDS ORDERED: ALPRAZolam 0.5 MG TAB PO STA (15:59)
[2018-05-18 16:17] LABS: Creatine Kinase <20 U/L (55-170)
--- NOTE | 2018-05-18 16:27 | ED ---
General Adult HPI - General Chief complaint: Urogenital Stated complaint: weakness, blood in urine Time Seen by Provider: 05/18/18 14:48 Source: patient, EMS, RN notes reviewed, old records reviewed Mode of arrival: EMS Limitations: no limitations - History of Present Illness Initial comments: This patient's a 72-year-old male presents emergency Department chief complaint of acute urinary retention. Patient reports over the past 2 days he is having pain and difficulty with urination. Patient reports that he attempted to self catheterize himself yesterday and caused some pain and trauma. Patient states that he was concerned that he would have to do that against this evening. He has not had a self cath himself and over 5 years. His urologist is Dr. clark her. Patient daughter arrives and states that he has been slightly more confused over the past few weeks. Apparently Patient will turn off his oxygen when he thinks that his thermostat. He also reports to taking his blood pressure medications whenever he feels like it. They report that they're looking for placement into a detention. Patient reports that according to the primary care physician in the next time he comes emergency Department he should be placed for hospital care and then transition to detention facility. Patient reports that he has abdominal tenderness near his bladder. He reports that he does have some irritation around his urethra. He denies any chest pain, shortness of breath, headaches, nausea or vomiting. - Related Data Home Medications Medication Instructions Recorded Confirmed Clopidogrel [Plavix] 75 mg PO DAILY 03/10/14 05/18/18 traZODone HCL [Desyrel] 50 mg PO HS 03/10/14 05/18/18 Aspirin 81 mg PO DAILY 05/01/14 05/18/18 Multivitamin [Men's Multi-Vitamin] 1 tab PO DAILY 05/01/14 05/18/18 Losartan [Cozaar] 25 mg PO DAILY PRN 12/23/14 05/18/18 HYDROcodone/APAP 7.5-325MG [[place] 1 tab PO Q6H PRN 12/24/14 05/18/18 7.5-325] Acetaminophen/Diphenhydramine 2 tab PO HS PRN 02/02/16 05/18/18 [Tylenol PM 500-25mg] Nitroglycerin Sl Tabs [Nitrostat] 0.4 mg SUBLINGUAL Q5M PRN 02/02/16 05/18/18 Oxybutynin Chloride 5 mg PO BID 02/02/16 05/18/18 Ranitidine HCl 150 mg PO BID 02/02/16 05/18/18 Tamsulosin [Flomax] 0.4 mg PO HS 02/02/16 05/18/18 Acetaminophen [Tylenol Extra 500 mg PO BID PRN 07/04/17 05/18/18 Strength] Finasteride [Proscar] 5 mg PO DAILY 07/04/17 05/18/18 Bisacodyl [Dulcolax] 5 - 15 mg PO DAILY PRN 11/03/17 05/18/18 Carvedilol [Coreg] 12.5 mg PO HS 04/16/18 05/18/18 Albuterol Nebulized [Ventolin 2.5 mg INHALATION RT-TID 04/23/18 05/18/18 Nebulized] Theophylline 24 Hour [[place]-24] 300 mg PO HS 05/18/18 05/18/18 predniSONE 5 mg PO DAILY 05/18/18 05/18/18 Previous Rx's Medication Instructions Recorded Atorvastatin [Lipitor] 80 mg PO HS #30 tab 11/23/17 ALPRAZolam [Xanax] 0.5 mg PO TID PRN #7 tablet 01/28/18 Carvedilol [Coreg] 6.25 mg PO DAILY tab 02/22/18 Allergies Allergy/AdvReac Type Severity Reaction Status Date / Time No Known Allergies Allergy Verified 05/18/18 15:56 Review of Systems ROS Statement: Those systems with pertinent positive or pertinent negative responses have been documented in the HPI. ROS Other: All systems not noted in ROS Statement are negative. Past Medical History Past Medical History: Atrial Fibrillation, Coronary Artery Disease (CAD), Chest Pain / Angina, Heart Failure, COPD, CVA/TIA, Deep Vein Thrombosis (DVT), Eye Disorder, GERD/Reflux, Hearing Disorder / Deafness, Hyperlipidemia, Hypertension , Memory Impairment, Myocardial Infarction ([place]), Musculoskeletal Disorder, Pneumonia, Prostate Disorder, Respiratory Disorder, Vascular Disorder Additional Past Medical History / Comment(s): Daily steroids for "years." HX OF CVA W/SOME SPEECH DIFFICULTY (since 1999). TIA'S. PVD. "BLOCKED RIGHT CAROTID." RESPIRATORY FAILURE, CONTINUOUS OXYGEN 4L. BPH. CHRONIC BRONCHITIS. DDD. STOMACH ULCER. DIVERTICULITIS. HEMORRHOIDS, COLON POLYPS. USES WALKER OR WHEELCHAIR, ELECTRIC SCOOTER. CHRONIC LEG AND BACK PAIN. CONSTIPATION. GLAUCOMA LT EYE. SOB, ON O2 4L/NC. FREQ FALLS., SEE CARDIOLOGY H & P. Last Myocardial Infarction Date:: 1997 History of Any Multi-Drug Resistant Organisms: MRSA Date of last positivie culture/infection: 03/25/18 MDRO Source:: SPUTUM Past Surgical History: AICD, Back Surgery, Coronary Bypass/CABG, Heart Catheterization, Heart Catheterization With Stent, Pacemaker, Tonsillectomy Additional Past Surgical History / Comment(s): FEBRUARY 2016 PACER ([facility] PM [id number] , #SS [id number]). CABG 5 vessel 1997. Cath with stents (6 total). Richard Carotid Endarterectomies. Back surgery x 2. Bilateral fem/pops, richard stenting in legs (6 total). Cataracts removed,. Back injections for pain. AICD, PTCA and stent and January 2018. Past Anesthesia/Blood Transfusion Reactions: No Reported Reaction Additional Past Anesthesia/Blood Transfusion Reaction / Comment(s): Never had blood transfusion. Date of Last Stent Placement:: 2013 Type of Cardiac Device: Permanent Pacemaker, AICD Device Placement Date:: 02/2016 Past Psychological History: Anxiety, Depression Smoking Status: Former smoker Past Alcohol Use History: None Reported Past Drug Use History: None Reported - Past Family History Brother(s) Family Medical History: Cancer (Brother at age of 75 from stage IV stomach cancer.) Additional Family Medical History / Comment(s): Patient has a brother that at age 75 from stage IV stomach cancer. Sister(s) Family Medical History: Congestive Heart Failure (CHF) (Sr. at age 57 from CABG.), Vascular Disorder Additional Family Medical History / Comment(s): Patient has a sister that at age 57 from CABG. PVD Son(s) Family Medical History: No Reported History (Patient has one son no major medical problems.) Additional Family Medical History / Comment(s): Patient has one son with no major medical problems. Daughter(s) Family Medical History: No Reported History (Patient had 2 daughters one works in the ER here at the other one committed suicide while she was in [place]) Additional Family Medical History / Comment(s): daughter patient has 2 daughters and one works in the OR here in 1 was killed in [place]. Mother Family Medical History: Coronary Artery Disease (CAD) (Mother at age 62 from CAD and PAD.) Additional Family Medical History / Comment(s): Mother at age 62 from coronary artery disease and peripheral artery disease status post multiple heart surgeries. Father Family Medical History: Cancer (Father at age of 89 from colon cancer and COPD along with CAD.), Coronary Artery Disease (CAD) Additional Family Medical History / Comment(s): Family at age 89 from colon cancer and COPD along with coronary artery disease. General Exam - General Exam Comments Initial Comments: This patient's a 73-year-old male. He is alert and oriented 3. Appears no acute distress. Limitations: no limitations General appearance: alert, in no apparent distress Head exam: Present: atraumatic, normocephalic, normal inspection Eye exam: Present: normal appearance, PERRL, EOMI. Absent: scleral icterus, conjunctival injection, periorbital swelling ENT exam: Present: normal exam, mucous membranes moist Neck exam: Present: normal inspection. Absent: tenderness, meningismus, lymphadenopathy Respiratory exam: Present: normal lung sounds bilaterally. Absent: respiratory distress, wheezes, rales, rhonchi, stridor Cardiovascular Exam: Present: regular rate, normal rhythm, normal heart sounds. Absent: systolic murmur, diastolic murmur, rubs, gallop, clicks GI/Abdominal exam: Present: soft, tenderness (Suprapubic tenderness.), normal bowel sounds. Absent: distended, guarding, rebound, rigid exam: Present: normal inspection, other (Patient has blood over the urethral meatus.) Extremities exam: Present: normal inspection, full ROM, normal capillary refill. Absent: tenderness, pedal edema, joint swelling, calf tenderness Back exam: Present: normal inspection Neurological exam: Present: alert, oriented X3, CN II-XII intact Psychiatric exam: Present: normal affect, normal mood Skin exam: Present: warm, dry, intact, normal color. Absent: rash Course Vital Signs 05/18/18 05/18/18 14:16 15:42 Temperature 97.8 F Pulse Rate 84 80 Respiratory 18 18 Rate Blood Pressure 144/76 193/84 O2 Sat by Pulse 98 96 Oximetry Medical Decision Making - Medical Decision Making 72-year-old male comes emergency department stay for initially complaint of urinary retention. Morejon catheter is placed an approximate 500 mL of urine was drained. He does have some blood near the urethral meatus. Urinalysis does have approximately 15 white blood cells. We'll culture this for infection. Patient's family later states he is had increased confusion of the past few weeks and are searching for placement to a detention. They report that he has banged his a sign. No falls or trauma. Patient has no focal or lateralizing neurological deficits. At this time Patient will be admitted for increased weakness, confusion, and urinary retention and UTI. We'll start the Patient on Rocephin at this time. - Lab Data Result diagrams: 05/18/18 15:30 05/18/18 15:30 Lab Results 05/18/18 05/18/18 05/18/18 Range/Units 14:47 15:30 15:30 WBC (3.8-10.6) k/uL RBC (4.30-5.90) m/uL Hgb (13.0-17.5) gm/dL Hct (39.0-53.0) % MCV (80.0-100.0) fL MCH (25.0-35.0) pg MCHC (31.0-37.0) g/dL RDW (11.5-15.5) % Plt Count (150-450) k/uL Neutrophils % % Lymphocytes % % Monocytes % % Eosinophils % % Basophils % % Neutrophils # (1.3-7.7) k/uL Lymphocytes # (1.0-4.8) k/uL Monocytes # (0-1.0) k/uL Eosinophils # (0-0.7) k/uL Basophils # (0-0.2) k/uL Hypochromasia Anisocytosis PT (9.0-12.0) sec INR (<1.2) APTT (22.0-30.0) sec Sodium 137 (137-145) mmol/L Potassium 4.3 (3.5-5.1) mmol/L Chloride 100 (98-107) mmol/L Carbon Dioxide 33 H (22-30) mmol/L Anion Gap 4 mmol/L BUN 14 (9-20) mg/dL Creatinine 0.78 (0.66-1.25) mg/dL Est GFR (CKD-EPI)AfAm >90 (>60 ml/min/1.73 sqM) Est GFR (CKD-EPI)NonAf 89 (>60 ml/min/1.73 sqM) Glucose 220 H (74-99) mg/dL Calcium 9.2 (8.4-10.2) mg/dL Magnesium 1.8 (1.6-2.3) mg/dL Total Bilirubin 0.8 (0.2-1.3) mg/dL AST 18 (17-59) U/L ALT 33 (21-72) U/L Alkaline Phosphatase 80 (38-126) U/L Total Creatine Kinase <20 L (55-170) U/L CK-MB (CK-2) 1.3 (0.0-2.4) ng/mL CK-MB (CK-2) Rel Index Troponin I 0.016 (0.000-0.034) ng/mL Total Protein 6.1 L (6.3-8.2) g/dL Albumin 3.7 (3.5-5.0) g/dL Amylase 54 (30-110) U/L Lipase 55 (23-300) U/L Urine Color Light Red Urine Appearance Cloudy (Clear) Urine pH 5.5 (5.0-8.0) Ur Specific [place] 1.016 (1.001-1.035) Urine Protein 1+ H (Negative) Urine Glucose (UA) 3+ H (Negative) Urine Ketones Negative (Negative) Urine Blood Large H (Negative) Urine Nitrite Negative (Negative) Urine Bilirubin Negative (Negative) Urine Urobilinogen <2.0 (<2.0) mg/dL Ur Leukocyte Esterase Moderate H (Negative) Urine RBC >182 H (0-5) /hpf Urine WBC 15 H (0-5) /hpf Urine Mucus Rare H (None) /hpf 05/18/18 05/18/18 Range/Units 15:30 15:30 WBC 7.3 (3.8-10.6) k/uL RBC 3.96 L (4.30-5.90) m/uL Hgb 11.2 L (13.0-17.5) gm/dL Hct 35.8 L (39.0-53.0) % MCV 90.6 (80.0-100.0) fL MCH 28.2 (25.0-35.0) pg MCHC 31.2 (31.0-37.0) g/dL RDW 16.0 H (11.5-15.5) % Plt Count 203 (150-450) k/uL Neutrophils % 78 % Lymphocytes % 12 % Monocytes % 6 % Eosinophils % 2 % Basophils % 0 % Neutrophils # 5.7 (1.3-7.7) k/uL Lymphocytes # 0.9 L (1.0-4.8) k/uL Monocytes # 0.5 (0-1.0) k/uL Eosinophils # 0.1 (0-0.7) k/uL Basophils # 0.0 (0-0.2) k/uL Hypochromasia Slight Anisocytosis Slight PT 10.9 (9.0-12.0) sec INR 1.1 (<1.2) APTT 22.6 (22.0-30.0) sec Sodium (137-145) mmol/L Potassium (3.5-5.1) mmol/L Chloride (98-107) mmol/L Carbon Dioxide (22-30) mmol/L Anion Gap mmol/L BUN (9-20) mg/dL Creatinine (0.66-1.25) mg/dL Est GFR (CKD-EPI)AfAm (>60 ml/min/1.73 sqM) Est GFR (CKD-EPI)NonAf (>60 ml/min/1.73 sqM) Glucose (74-99) mg/dL Calcium (8.4-10.2) mg/dL Magnesium (1.6-2.3) mg/dL Total Bilirubin (0.2-1.3) mg/dL AST (17-59) U/L ALT (21-72) U/L Alkaline Phosphatase (38-126) U/L Total Creatine Kinase (55-170) U/L CK-MB (CK-2) (0.0-2.4) ng/mL CK-MB (CK-2) Rel Index Troponin I (0.000-0.034) ng/mL Total Protein (6.3-8.2) g/dL Albumin (3.5-5.0) g/dL Amylase (30-110) U/L Lipase (23-300) U/L Urine Color Urine Appearance (Clear) Urine pH (5.0-8.0) Ur Specific [place] (1.001-1.035) Urine Protein (Negative) Urine Glucose (UA) (Negative) Urine Ketones (Negative) Urine Blood (Negative) Urine Nitrite (Negative) Urine Bilirubin (Negative) Urine Urobilinogen (<2.0) mg/dL Ur Leukocyte Esterase (Negative) Urine RBC (0-5) /hpf Urine WBC (0-5) /hpf Urine Mucus (None) /hpf 05/18/18 17:36 EKG shows atrial sensed ventricular paced rhythm. Ventricular pacemaker to light.. Ventricular rate 87 bpm. Pulse 112. She orthodox 182 ms. QT QTc is 450/5541 ms. - Radiology Data Radiology results: report reviewed Chest x-ray shows COPD with nodular subsegmental, and consolidation at the right lung base as well as the nausea seen in the right upper lobe measuring less than a centimeter. Recommended CT of the chest. Also correlating for chronic interstitial lung disease. Disposition Clinical Impression: Urinary retention, UTI (urinary tract infection), Confusion Disposition: ADMITTED IP TO THIS HOSP Condition: Stable Is patient prescribed a controlled substance at d/c from ED?: No Referrals: Randolph Marcos MD [Primary Care Provider] - 1-2 days Time of Disposition: 17:38
[2018-05-18 16:30] LABS: Creatine Kinase MB 1.3 ng/mL (0.0-2.4); Troponin I 0.016 ng/mL (0.000-0.034)
[2018-05-18] MEDS ORDERED: cefTRIAXone IN SWFI 1,000 MG/10 ML SYRINGE IVP STA (17:39)
[2018-05-18] MEDS ORDERED: oxyCODONE-APAP 5-325MG 1 EACH TAB PO PRN (17:40)
[2018-05-18] MEDS ORDERED: HYDROcodone/APAP 5-325MG 1 EACH TAB PO PRN (17:40)
[2018-05-18] MEDS ORDERED: ONDANSETRON 4 MG/2 ML VIAL IVP PRN (17:40)
[2018-05-18] MEDS ORDERED: ACETAMINOPHEN TAB 325 MG TAB PO PRN (17:40)
[2018-05-18] MEDS ORDERED: NALOXONE 0.4 MG/ML 1 ML VIAL IV PRN (17:40)
[2018-05-18] MEDS ORDERED: LOSARTAN 25 MG TAB PO PRN (17:49)
[2018-05-18] MEDS ORDERED: NITROGLYCERIN SL TABS 0.4 MG TAB SUBLINGUAL PRN (17:49)
[2018-05-18] MEDS: SODIUM CHLORIDE 0.9% 1,000 ML IV SCH (18:08)
[2018-05-18] MEDS: HYDROcodone/APAP 7.5-325MG 1 EACH TAB PO PRN (19:13)
[2018-05-18] MEDS: ALBUTEROL NEBULIZED 2.5 MG/3 ML INHALATION SCH (19:23)
[2018-05-18] MEDS: ATORVASTATIN 80 MG TAB PO SCH (21:22)
[2018-05-18] MEDS: CARVEDILOL 12.5 MG TAB PO SCH (21:22)
[2018-05-18] MEDS: FAMOTIDINE 20 MG TAB PO SCH (21:22)
[2018-05-18] MEDS: TAMSULOSIN 0.4 MG CAP.ER.24H PO SCH (21:23)
[2018-05-18] MEDS: OXYBUTYNIN CHLORIDE 5 MG TAB PO SCH (21:23)
[2018-05-18] MEDS: THEOPHYLLINE 24 HOUR 300 MG CAP.ER.24H PO SCH (21:23)
[2018-05-18] MEDS: traZODone HCL 50 MG TAB PO SCH (21:27)
[2018-05-19] MEDS: SODIUM CHLORIDE 0.9% 1,000 ML IV SCH (05:51)
[2018-05-19] MEDS: ALPRAZolam 0.5 MG TAB PO PRN ×2 (06:13→20:34)
[2018-05-19] MEDS: ALBUTEROL NEBULIZED 2.5 MG/3 ML INHALATION SCH ×3 (07:36→20:03)
[2018-05-19] MEDS: FAMOTIDINE 20 MG TAB PO SCH ×2 (08:28→20:32)
[2018-05-19] MEDS: CARVEDILOL 6.25 MG TAB PO SCH (08:29)
[2018-05-19] MEDS: predniSONE 5 MG TAB PO SCH (08:29)
[2018-05-19] MEDS: CLOPIDOGREL 75 MG TAB PO SCH (08:29)
[2018-05-19] MEDS: ASPIRIN 81 MG PO SCH (08:29)
[2018-05-19] MEDS: OXYBUTYNIN CHLORIDE 5 MG TAB PO SCH ×2 (08:29→20:33)
[2018-05-19] MEDS: FINASTERIDE 5 MG TAB PO SCH (08:29)
[2018-05-19] MEDS: HYDROcodone/APAP 7.5-325MG 1 EACH TAB PO PRN ×3 (08:33→20:33)
[2018-05-19] MEDS ORDERED: PANTOPRAZOLE 40 MG/10 ML VIAL IV SCH (09:00)
[2018-05-19] MEDS: cefTRIAXone IN SWFI 1,000 MG/10 ML SYRINGE IVP SCH (09:28)
[2018-05-19] MEDS: DOCUSATE 100 MG CAP PO SCH (10:48)
[2018-05-19] MEDS: MULTIVITAMINS, THERA 1 EACH TAB PO SCH (11:55)
--- NOTE | 2018-05-19 12:48 | P.HPIM ---
History of Present Illness H&P Date: 05/19/18 Chief Complaint: Unable to void. This is a 72-year-old male patient of Dr. Marcos, Dr. Celena Mason, Dr. Rogers, Dr. Recinos. He has a known history of coronary artery disease with prior bypass surgery in 1997, at which time he underwent a OLIVEIRA to the LAD, saphenous vein graft to the OM1, OM 2, circumflex, and RCA. Subsequent to that patient did undergo angioplasty with stenting of the saphenous vein graft to the OM 1 and 2 in 2008, and saphenous vein graft stenting to the OM1 in 2013, and most recently in October 2017 he underwent PTCA and stenting of the distal left main and proximal left anterior descending coronary arteries with 2 drug- eluting stents, 02/21/2018 he underwent PTCA and stenting of an in-stent restenosis saphenous vein graft to the obtuse marginal 1. He is a recent hospitalization March 23 for acute respiratory failure due to acute COPD exacerbation and right lower lobe pneumonia. He was discharged home in stable condition. He had a subsequent observation admission April 16 for COPD exacerbation and acute tracheobronchitis and was discharged home. In the past 2 weeks, patient has had 4 visits to the emergency center for mental status changes, shortness of breath. Patient states he gets short of breath when he is in his apartment and hot. He apparently is turning off his oxygen and adjusting the thermostat thinking that this is his oxygen. Patient now presents stating that thighs are hurting and he is very weak. He does have a power scooter at home. Patient gives history that he had to do a self cath 5 years ago as advised by Dr. De Paz. He was having difficulty urinating at home and he attempted to self But not successful and caused additional pain and trauma. He came into [facility] emergency center for evaluation. Morejon catheter was placed with return of 500 mL of urine. There was some blood at the urethral meatus. Urinalysis was positive for urinary tract infection. He was afebrile with a normal white count. Blood sugar 220. Troponin was negative. EKG is a paced rhythm. Chest x-ray shows COPD with nodular subsegmental and consolidation at the right lung base as well as nodules seen in the right upper lobe measuring less than a centimeter. CT of the chest recommended. Correlate for chronic interstitial lung disease. Review of Systems All systems: negative Constitutional: Reports fatigue, Reports poor appetite, Reports weakness, Denies chills, Denies fever Eyes: denies blurred vision, denies pain Ears, nose, mouth and throat: Denies dental pain, Denies headache, Denies mouth pain, Denies sore throat Cardiovascular: Reports decreased exercise tolerance, Reports dyspnea on exertion, Denies chest pain, Denies leg edema, Denies lightheadedness, Denies shortness of breath, Denies syncope Respiratory: Reports dyspnea, Reports home oxygen, Denies cough, Denies cough with sputum, Denies wheezing Gastrointestinal: Denies abdominal pain, Denies diarrhea, Denies nausea, Denies vomiting Genitourinary: Reports dysuria, Reports urinary hesitancy, Reports urinary retention Musculoskeletal: Reports gait dysfunction, Denies myalgias Integumentary: Denies pruritus, Denies rash, Denies wounds Neurological: Reports change in mentation, Reports confusion, Reports gait dysfunction, Denies numbness, Denies weakness Psychiatric: Denies anxiety, Denies depression Endocrine: Denies fatigue, Denies weight change Past Medical History Past Medical History: Atrial Fibrillation, Coronary Artery Disease (CAD), Chest Pain / Angina, Heart Failure, COPD, CVA/TIA, Deep Vein Thrombosis (DVT), Eye Disorder, GERD/Reflux, Hearing Disorder / Deafness, Hyperlipidemia, Hypertension , Memory Impairment, Myocardial Infarction ([place]), Musculoskeletal Disorder, Pneumonia, Prostate Disorder, Respiratory Disorder, Vascular Disorder Additional Past Medical History / Comment(s): Daily steroids for "years." HX OF CVA W/SOME SPEECH DIFFICULTY (since 1999). TIA'S. PVD. "BLOCKED RIGHT CAROTID." RESPIRATORY FAILURE, CONTINUOUS OXYGEN 4L. BPH. CHRONIC BRONCHITIS. DDD. STOMACH ULCER. DIVERTICULITIS. HEMORRHOIDS, COLON POLYPS. USES WALKER OR WHEELCHAIR, ELECTRIC SCOOTER. CHRONIC LEG AND BACK PAIN. CONSTIPATION. GLAUCOMA LT EYE. SOB, ON O2 4L/NC. FREQ FALLS., SEE CARDIOLOGY H & P. Last Myocardial Infarction Date:: 1997 History of Any Multi-Drug Resistant Organisms: MRSA Date of last positivie culture/infection: 03/25/18 MDRO Source:: SPUTUM Past Surgical History: AICD, Back Surgery, Coronary Bypass/CABG, Heart Catheterization, Heart Catheterization With Stent, Pacemaker, Tonsillectomy Additional Past Surgical History / Comment(s): FEBRUARY 2016 PACER ([facility] PM [id number] , #SS [id number]). CABG 5 vessel 1998. Cath with stents (6 total). Richard Carotid Endarterectomies. Back surgery x 2. Bilateral fem/pops, richard stenting in legs (6 total). Cataracts removed,. Back injections for pain. AICD, PTCA and stent and January 2018. Past Anesthesia/Blood Transfusion Reactions: No Reported Reaction Additional Past Anesthesia/Blood Transfusion Reaction / Comment(s): Never had blood transfusion. Date of Last Stent Placement:: 2013 Type of Cardiac Device: Permanent Pacemaker, AICD Device Placement Date:: 02/2016 Smoking Status: Former smoker Additional Past Alcohol Use History / Comment(s): Patient was a smoker one pack per day for 50 years and quit in 2011. - Past Family History Brother(s) Family Medical History: Cancer Additional Family Medical History / Comment(s): Patient has a brother that at age 75 from stage IV stomach cancer. Sister(s) Family Medical History: Congestive Heart Failure (CHF), Vascular Disorder Additional Family Medical History / Comment(s): Patient has a sister that at age 57 from CABG. PVD Son(s) Family Medical History: No Reported History Additional Family Medical History / Comment(s): Patient has one son with no major medical problems. Daughter(s) Family Medical History: No Reported History Additional Family Medical History / Comment(s): daughter patient has 2 daughters and one works in the OR here in 1 was killed in [place]. Mother Family Medical History: Coronary Artery Disease (CAD) Additional Family Medical History / Comment(s): Mother at age 62 from coronary artery disease and peripheral artery disease status post multiple heart surgeries. Father Family Medical History: Cancer, Coronary Artery Disease (CAD) Additional Family Medical History / Comment(s): Family at age 89 from colon cancer and COPD along with coronary artery disease. Medications and Allergies Home Medications Medication Instructions Recorded Confirmed Type Clopidogrel [Plavix] 75 mg PO DAILY 03/10/14 05/18/18 History traZODone HCL [Desyrel] 50 mg PO HS 03/10/14 05/18/18 History Aspirin 81 mg PO DAILY 05/01/14 05/18/18 History Multivitamin [Men's Multi-Vitamin] 1 tab PO DAILY 05/01/14 05/18/18 History Losartan [Cozaar] 25 mg PO DAILY PRN 12/23/14 05/18/18 History HYDROcodone/APAP 7.5-325MG [[place] 1 tab PO Q6H PRN 12/24/14 05/18/18 History 7.5-325] Acetaminophen/Diphenhydramine 2 tab PO HS PRN 02/02/16 05/18/18 History [Tylenol PM 500-25mg] Nitroglycerin Sl Tabs [Nitrostat] 0.4 mg SUBLINGUAL Q5M PRN 02/02/16 05/18/18 History Oxybutynin Chloride 5 mg PO BID 02/02/16 05/18/18 History Ranitidine HCl 150 mg PO BID 02/02/16 05/18/18 History Tamsulosin [Flomax] 0.4 mg PO HS 02/02/16 05/18/18 History Acetaminophen [Tylenol Extra 500 mg PO BID PRN 07/04/17 05/18/18 History Strength] Finasteride [Proscar] 5 mg PO DAILY 07/04/17 05/18/18 History Bisacodyl [Dulcolax] 5 - 15 mg PO DAILY PRN 11/03/17 05/18/18 History Atorvastatin [Lipitor] 80 mg PO HS #30 tab 11/23/17 05/18/18 Rx ALPRAZolam [Xanax] 0.5 mg PO TID PRN #7 tablet 01/28/18 05/18/18 Rx Carvedilol [Coreg] 6.25 mg PO DAILY tab 02/22/18 05/18/18 Rx Carvedilol [Coreg] 12.5 mg PO HS 04/16/18 05/18/18 History Albuterol Nebulized [Ventolin 2.5 mg INHALATION RT-TID 04/23/18 05/18/18 History Nebulized] Theophylline 24 Hour [Sulaiman-24] 300 mg PO HS 05/18/18 05/18/18 History predniSONE 5 mg PO DAILY 05/18/18 05/18/18 History Allergies Allergy/AdvReac Type Severity Reaction Status Date / Time No Known Allergies Allergy Verified 05/18/18 15:56 Physical Exam Vitals: Vital Signs Temp Pulse Pulse Resp BP BP Pulse Ox 05/19/18 07:48 76 05/19/18 07:36 72 05/19/18 06:58 96.4 F L 79 16 112/54 98 05/18/18 23:00 97.2 F L 75 16 130/59 100 05/18/18 19:33 73 16 05/18/18 19:25 70 18 05/18/18 19:05 97.3 F L 79 14 109/56 96 05/18/18 18:04 88 16 159/66 95 05/18/18 15:42 80 18 193/84 96 05/18/18 14:16 97.8 F 84 18 144/76 98 Intake and Output 05/18/18 05/19/18 05/19/18 22:59 06:59 14:59 Output Total 950 700 Balance -950 -700 Output: Urine 950 700 Other: Voiding Method Indwelling Catheter General appearance: average body habitus, mild distress - EENT Eyes: anicteric sclerae, EOMI, PERRLA, no ptosis, no scleral icterus, normal appearance ENT: hearing grossly normal, NA/AT, normal oropharynx, no thrush Ears: bilateral: normal - Neck Neck: no lymphadenopathy, normal ROM, no rigidity, no stridor, no thyromegaly Carotids: bilateral: upstroke delayed Thyroid: bilateral: normal size - Respiratory Respiratory: bilateral: diminished, wheezing, prolonged expiration, negative: dullness, rales, rhonchi - Cardiovascular Rhythm: regular Heart sounds: normal: S1, S2 Abnormal Heart Sounds: systolic murmur (AICD.) - Gastrointestinal General gastrointestinal: normal bowel sounds, soft, no splenomegaly, no tenderness, no umbilical hernia, no ventral hernia - Integumentary Integumentary: normal, normal turgor - Neurologic Neurologic: CNII-XII intact - Musculoskeletal Musculoskeletal: generalized weakness, strength equal bilaterally - Psychiatric Psychiatric: A&O x's 3 but with mild confusion, appropriate affect, judgment & insight are questionable Results CBC & Chem 7: 05/18/18 15:30 05/18/18 15:30 Labs: Abnormal Lab Results - Last 24 Hours (Table) 05/18/18 05/18/18 05/18/18 Range/Units 14:47 15:30 15:30 RBC (4.30-5.90) m/uL Hgb (13.0-17.5) gm/dL Hct (39.0-53.0) % RDW (11.5-15.5) % Lymphocytes # (1.0-4.8) k/uL Carbon Dioxide 33 H (22-30) mmol/L Glucose 220 H (74-99) mg/dL Total Creatine Kinase <20 L (55-170) U/L Total Protein 6.1 L (6.3-8.2) g/dL Urine Protein 1+ H (Negative) Urine Glucose (UA) 3+ H (Negative) Urine Blood Large H (Negative) Ur Leukocyte Esterase Moderate H (Negative) Urine RBC >182 H (0-5) /hpf Urine WBC 15 H (0-5) /hpf Urine Mucus Rare H (None) /hpf 05/18/18 Range/Units 15:30 RBC 3.96 L (4.30-5.90) m/uL Hgb 11.2 L (13.0-17.5) gm/dL Hct 35.8 L (39.0-53.0) % RDW 16.0 H (11.5-15.5) % Lymphocytes # 0.9 L (1.0-4.8) k/uL Carbon Dioxide (22-30) mmol/L Glucose (74-99) mg/dL Total Creatine Kinase (55-170) U/L Total Protein (6.3-8.2) g/dL Urine Protein (Negative) Urine Glucose (UA) (Negative) Urine Blood (Negative) Ur Leukocyte Esterase (Negative) Urine RBC (0-5) /hpf Urine WBC (0-5) /hpf Urine Mucus (None) /hpf Microbiology - Last 24 Hours (Table) 05/18/18 18:07 Urine Culture - Preliminary Urine,Catheterized Thrombosis Risk Factor Assmnt - DVT/VTE Prophylaxis DVT/VTE Prophylaxis: Pharmacologic Prophylaxis ordered - Choose All That Apply Any of the Below Risk Factors Present?: Yes Each Factor Represents 1 point: Abnormal pulmonary function (COPD) Other Risk Factors: Yes Each Risk Factor Represents 2 Points: Age 61-74 years Other congenital or acquired thrombophilia - If yes, enter type in comment: No Thrombosis Risk Factor Assessment Total Risk Factor Score: 3 Thrombosis Risk Factor Assessment Level: Moderate Risk Assessment and Plan Plan: 1. Acute urinary retention requiring Morejon catheter placement. Continue Flomax 0.4 mg at bedtime, Proscar 5 mg daily, consult with urology. Maintain Morejon for this time. 2. Acute urinary tract infection. Urine culture is in progress. Patient will be continued on ceftriaxone. 3. Metabolic encephalopathy secondary to infection and urinary retention. Continue treatment as above. 2. Chronic hypoxic respiratory failure on home O2 and COPD not in exacerbation. Continue oxygen therapy, Ventolin nebulizer treatments 3 times daily. 3. CAD post CABG and multiple PCI. Continue aspirin 81 mg once every day, Plavix 75 mg oral's every day, Coreg 6.25 mg daily and 12.5 mg at bedtime, Lipitor 80 mg orally once every day. 4. PAD post multiple interventions. Continue aspirin and Plavix and Lipitor. 5. Enlarged prostate. Continue with Proscar 5 mg orally once every day and Flomax 0.4 mg orally once every day. 6. GERD. Protonix. 7. Hyperlipidemia. Continue patient on Lipitor 80 mg orally once every day. 8. COPD. Continue Ventolin nebulizer treatments 3 times daily. 9. Hypertension. Continue patient on Coreg. 10. Memory loss is significant mental status changes at home possibly due to hypoxemia, early dementia. 11. Chronic low back pain continue current pain management with [facility]. 12. DVT prophylaxis. Heparin 5000 units subcutaneously every 12 hours. 13. GI prophylaxis. Continue Tenex. 14. Medical debility. Physical therapy evaluation. Discharge plan: PT OT consults for possible subacute rehab. Social work consult regarding safety at home and subacute rehab. Patient will be admitted to the hospital for a minimum of 2 nights stay. Impression and plan of care have been directed as dictated by the signing physician. Esperanza Ramírez nurse practitioner acting as scribe for signing physician.
--- NOTE | 2018-05-19 15:30 | P.GSCN ---
History of Present Illness Consult date: 05/19/18 Reason for Consult: Urinary retention History of present illness: The patient is a 72-year-old male admitted through the emergency room yesterday evening for evaluation of confusion and urinary retention. He has a history of a slow urinary flow and had been taking Flomax daily. He says he had more problems yesterday. He has a history of urinary retention and was given a catheter 5 years ago to use as needed but says he did not try to use it until yesterday afternoon. The urinary retention was felt to be related to a somewhat hypotonic bladder. He tried passing the catheter and developed pain and bleeding and came to the emergency room. The catheter was inserted and drained 500 mL. Urinalysis at that time showed microscopic hematuria and a small amount of pyuria. The patient was started on Rocephin due to the possibility of a urinary tract infection and was admitted. He has remained afebrile. Urine draining from his catheter is clear. The patient says he usually voids every 3-4 hours during the day and 2 or 3 times at night. At night he says he sometimes has extreme hesitancy and usually only void small amounts. aHe is not always certain that he voids completely. He's had no recent gross hematuria or dysuria other than that associated with attempts at passing the catheter yesterday. Patient has chronic constipation and says he usually has a bowel movement every for 5 days. His last bowel movement was 4 days ago. Review of Systems - Constitutional Reports lethargy, Reports weakness - Cardiovascular Reports shortness of breath - Gastrointestinal Reports constipation, Denies abdominal pain - Genitourinary Reports as per HPI Past Medical History Past Medical History: Atrial Fibrillation, Coronary Artery Disease (CAD), Chest Pain / Angina, Heart Failure, COPD, CVA/TIA, Deep Vein Thrombosis (DVT), Eye Disorder, GERD/Reflux, Hearing Disorder / Deafness, Hyperlipidemia, Hypertension , Memory Impairment, Myocardial Infarction ([place]), Musculoskeletal Disorder, Pneumonia, Prostate Disorder, Respiratory Disorder, Vascular Disorder Additional Past Medical History / Comment(s): Daily steroids for "years." HX OF CVA W/SOME SPEECH DIFFICULTY (since 1999). TIA'S. PVD. "BLOCKED RIGHT CAROTID." RESPIRATORY FAILURE, CONTINUOUS OXYGEN 4L. BPH. CHRONIC BRONCHITIS. DDD. STOMACH ULCER. DIVERTICULITIS. HEMORRHOIDS, COLON POLYPS. USES WALKER OR WHEELCHAIR, ELECTRIC SCOOTER. CHRONIC LEG AND BACK PAIN. CONSTIPATION. GLAUCOMA LT EYE. SOB, ON O2 4L/NC. FREQ FALLS., SEE CARDIOLOGY H & P. Last Myocardial Infarction Date:: 1997 History of Any Multi-Drug Resistant Organisms: MRSA Year Discovered:: 03/25/18 MDRO Source:: SPUTUM Past Surgical History: AICD, Back Surgery, Coronary Bypass/CABG, Heart Catheterization, Heart Catheterization With Stent, Pacemaker, Tonsillectomy Additional Past Surgical History / Comment(s): FEBRUARY 2016 PACER ([facility] PM 3242 , #SS [id number]). CABG 5 vessel 1997. Cath with stents (6 total). Esvin Carotid Endarterectomies. Back surgery x 2. Bilateral fem/pops, esvin stenting in legs (6 total). Cataracts removed,. Back injections for pain. AICD, PTCA and stent and January 2018. Past Anesthesia/Blood Transfusion Reactions: No Reported Reaction Additional Past Anesthesia/Blood Transfusion Reaction / Comm: Never had blood transfusion. Date of Last Stent Placement:: 2013 Type of Cardiac Device: Permanent Pacemaker, AICD Device Placement Date:: 02/2016 Smoking Status: Former smoker Additional Past Alcohol Use History / Comment(s): Patient was a smoker one pack per day for 50 years and quit in 2011. - Past Family History Brother(s) Family Medical History: Cancer Additional Family Medical History / Comment(s): Patient has a brother that at age 75 from stage IV stomach cancer. Sister(s) Family Medical History: Congestive Heart Failure (CHF), Vascular Disorder Additional Family Medical History / Comment(s): Patient has a sister that at age 57 from CABG. PVD Son(s) Family Medical History: No Reported History Additional Family Medical History / Comment(s): Patient has one son with no major medical problems. Daughter(s) Family Medical History: No Reported History Additional Family Medical History / Comment(s): daughter patient has 2 daughters and one works in the OR here in 1 was killed in [place]. Mother Family Medical History: Coronary Artery Disease (CAD) Additional Family Medical History / Comment(s): Mother at age 62 from coronary artery disease and peripheral artery disease status post multiple heart surgeries. Father Family Medical History: Cancer, Coronary Artery Disease (CAD) Additional Family Medical History / Comment(s): Family at age 89 from colon cancer and COPD along with coronary artery disease. Medications and Allergies Home Medications Medication Instructions Recorded Confirmed Type Clopidogrel [Plavix] 75 mg PO DAILY 03/10/14 05/18/18 History traZODone HCL [Desyrel] 50 mg PO HS 03/10/14 05/18/18 History Aspirin 81 mg PO DAILY 05/01/14 05/18/18 History Multivitamin [Men's Multi-Vitamin] 1 tab PO DAILY 05/01/14 05/18/18 History Losartan [Cozaar] 25 mg PO DAILY PRN 12/23/14 05/18/18 History HYDROcodone/APAP 7.5-325MG [[place] 1 tab PO Q6H PRN 12/24/14 05/18/18 History 7.5-325] Acetaminophen/Diphenhydramine 2 tab PO HS PRN 02/02/16 05/18/18 History [Tylenol PM 500-25mg] Nitroglycerin Sl Tabs [Nitrostat] 0.4 mg SUBLINGUAL Q5M PRN 02/02/16 05/18/18 History Oxybutynin Chloride 5 mg PO BID 02/02/16 05/18/18 History Ranitidine HCl 150 mg PO BID 02/02/16 05/18/18 History Tamsulosin [Flomax] 0.4 mg PO HS 02/02/16 05/18/18 History Acetaminophen [Tylenol Extra 500 mg PO BID PRN 07/04/17 05/18/18 History Strength] Finasteride [Proscar] 5 mg PO DAILY 07/04/17 05/18/18 History Bisacodyl [Dulcolax] 5 - 15 mg PO DAILY PRN 11/03/17 05/18/18 History Atorvastatin [Lipitor] 80 mg PO HS #30 tab 11/23/17 05/18/18 Rx ALPRAZolam [Xanax] 0.5 mg PO TID PRN #7 tablet 01/28/18 05/18/18 Rx Carvedilol [Coreg] 6.25 mg PO DAILY tab 02/22/18 05/18/18 Rx Carvedilol [Coreg] 12.5 mg PO HS 04/16/18 05/18/18 History Albuterol Nebulized [Ventolin 2.5 mg INHALATION RT-TID 04/23/18 05/18/18 History Nebulized] Theophylline 24 Hour [Sulaiman-24] 300 mg PO HS 05/18/18 05/18/18 History predniSONE 5 mg PO DAILY 05/18/18 05/18/18 History Allergies Allergy/AdvReac Type Severity Reaction Status Date / Time No Known Allergies Allergy Verified 05/18/18 15:56 Surgical - Exam Vital Signs Temp Pulse Resp BP Pulse Ox 97.8 F 84 18 144/76 98 05/18/18 14:16 05/18/18 14:16 05/18/18 14:16 05/18/18 14:16 05/18/18 14:16 - General well developed, well nourished, no distress - Neck no masses, no lymphadectomy - Respiratory normal respiratory effort - Abdomen Abdomen: soft, non tender, no organomegaly - Genitourinary normal penis with no external lesions, testicles non-tender, other (The catheters in place and is draining clear urine. Exam reveals normal anal sphincter tone. No fecal impaction. Prostate is 1-2+ enlarged and benign.) Results - Labs 05/18/18 15:30 05/18/18 15:30 Abnormal Lab Results - Last 24 Hours (Table) 05/18/18 05/18/18 05/18/18 Range/Units 15:30 15:30 15:30 RBC 3.96 L (4.30-5.90) m/uL Hgb 11.2 L (13.0-17.5) gm/dL Hct 35.8 L (39.0-53.0) % RDW 16.0 H (11.5-15.5) % Lymphocytes # 0.9 L (1.0-4.8) k/uL Carbon Dioxide 33 H (22-30) mmol/L Glucose 220 H (74-99) mg/dL Total Creatine Kinase <20 L (55-170) U/L Total Protein 6.1 L (6.3-8.2) g/dL Microbiology - Last 24 Hours (Table) 05/18/18 18:07 Urine Culture - Preliminary Urine,Catheterized Diabetes panel 05/18/18 Range/Units 15:30 Sodium 137 (137-145) mmol/L Potassium 4.3 (3.5-5.1) mmol/L Chloride 100 (98-107) mmol/L Carbon Dioxide 33 H (22-30) mmol/L BUN 14 (9-20) mg/dL Creatinine 0.78 (0.66-1.25) mg/dL Glucose 220 H (74-99) mg/dL Calcium 9.2 (8.4-10.2) mg/dL AST 18 (17-59) U/L ALT 33 (21-72) U/L Alkaline Phosphatase 80 (38-126) U/L Total Protein 6.1 L (6.3-8.2) g/dL Albumin 3.7 (3.5-5.0) g/dL Calcium panel 05/18/18 Range/Units 15:30 Calcium 9.2 (8.4-10.2) mg/dL Albumin 3.7 (3.5-5.0) g/dL Pituitary panel 05/18/18 Range/Units 15:30 Sodium 137 (137-145) mmol/L Potassium 4.3 (3.5-5.1) mmol/L Chloride 100 (98-107) mmol/L Carbon Dioxide 33 H (22-30) mmol/L BUN 14 (9-20) mg/dL Creatinine 0.78 (0.66-1.25) mg/dL Glucose 220 H (74-99) mg/dL Calcium 9.2 (8.4-10.2) mg/dL Adrenal panel 05/18/18 Range/Units 15:30 Sodium 137 (137-145) mmol/L Potassium 4.3 (3.5-5.1) mmol/L Chloride 100 (98-107) mmol/L Carbon Dioxide 33 H (22-30) mmol/L BUN 14 (9-20) mg/dL Creatinine 0.78 (0.66-1.25) mg/dL Glucose 220 H (74-99) mg/dL Calcium 9.2 (8.4-10.2) mg/dL Total Bilirubin 0.8 (0.2-1.3) mg/dL AST 18 (17-59) U/L ALT 33 (21-72) U/L Alkaline Phosphatase 80 (38-126) U/L Total Protein 6.1 L (6.3-8.2) g/dL Albumin 3.7 (3.5-5.0) g/dL Assessment and Plan (1) Urinary retention Narrative/Plan: The patient has a long history of a slow urinary flow which is felt to be related to a hypotonic bladder. The patient has been treated with alpha blockers as he is at high surgical risk for TURP due to his oxygen-dependent COPD. The recent episode of urinary retention may have been worsened by some difficulty with constipation although on rectal exam the patient has no evidence of fecal impaction. The patient's urinalysis on admission may have been contaminated by blood and inflammation from attempts at catheterization as he had no symptoms of a urinary tract infection prior to yesterday. If his urine culture shows no growth his catheter can be removed in the morning and he should be followed with a bladder scan later in the day to ensure he is voiding adequately. He should be continued on tamsulosin. Current Visit: Yes Status: Acute Code(s): R33.9 - RETENTION OF URINE, UNSPECIFIED SNOMED Code(s): 290229855
[2018-05-19] MEDS: MELATONIN 3 MG TABLET PO SCH (20:32)
[2018-05-19] MEDS: CARVEDILOL 12.5 MG TAB PO SCH (20:32)
[2018-05-19] MEDS: HEPARIN SODIUM,PORCINE 5,000 UNIT/ML 1 ML VIAL SQ SCH (20:32)
[2018-05-19] MEDS: ATORVASTATIN 80 MG TAB PO SCH (20:32)
[2018-05-19] MEDS: TAMSULOSIN 0.4 MG CAP.ER.24H PO SCH (20:33)
[2018-05-19] MEDS: THEOPHYLLINE 24 HOUR 300 MG CAP.ER.24H PO SCH (20:33)
[2018-05-19] MEDS: traZODone HCL 50 MG TAB PO SCH (20:33)
[2018-05-20] MEDS: ALPRAZolam 0.5 MG TAB PO PRN ×2 (04:46→18:09)
[2018-05-20] MEDS: ALBUTEROL NEBULIZED 2.5 MG/3 ML INHALATION SCH ×2 (07:28→11:30)
[2018-05-20] MEDS: cefTRIAXone IN SWFI 1,000 MG/10 ML SYRINGE IVP SCH (07:51)
[2018-05-20] MEDS: HEPARIN SODIUM,PORCINE 5,000 UNIT/ML 1 ML VIAL SQ SCH ×2 (07:53→20:31)
[2018-05-20] MEDS: DOCUSATE 100 MG CAP PO SCH (07:54)
[2018-05-20] MEDS: CLOPIDOGREL 75 MG TAB PO SCH (07:54)
[2018-05-20] MEDS: FINASTERIDE 5 MG TAB PO SCH (07:54)
[2018-05-20] MEDS: CARVEDILOL 6.25 MG TAB PO SCH (07:54)
[2018-05-20] MEDS: predniSONE 5 MG TAB PO SCH (07:54)
[2018-05-20] MEDS: FAMOTIDINE 20 MG TAB PO SCH ×2 (07:54→20:30)
[2018-05-20] MEDS: ASPIRIN 81 MG PO SCH (07:54)
[2018-05-20] MEDS: OXYBUTYNIN CHLORIDE 5 MG TAB PO SCH (07:55)
[2018-05-20] MEDS: HYDROcodone/APAP 7.5-325MG 1 EACH TAB PO PRN ×3 (09:52→22:02)
[2018-05-20] MEDS: MULTIVITAMINS, THERA 1 EACH TAB PO SCH (11:38)
--- NOTE | 2018-05-20 18:42 | P.PN ---
Subjective Progress Note Date: 05/20/18 This is a 72-year-old male patient of Dr. Marcos, Dr. Celena Mason, Dr. Rogers, Dr. Recinos. He has a known history of coronary artery disease with prior bypass surgery in 1997, at which time he underwent a OLIVEIRA to the LAD, saphenous vein graft to the OM1, OM 2, circumflex, and RCA. Subsequent to that patient did undergo angioplasty with stenting of the saphenous vein graft to the OM 1 and 2 in 2008, and saphenous vein graft stenting to the OM1 in 2013, and most recently in October 2017 he underwent PTCA and stenting of the distal left main and proximal left anterior descending coronary arteries with 2 drug- eluting stents, 02/21/2018 he underwent PTCA and stenting of an in-stent restenosis saphenous vein graft to the obtuse marginal 1. He is a recent hospitalization March 23 for acute respiratory failure due to acute COPD exacerbation and right lower lobe pneumonia. He was discharged home in stable condition. He had a subsequent observation admission April 16 for COPD exacerbation and acute tracheobronchitis and was discharged home. In the past 2 weeks, patient has had 4 visits to the emergency center for mental status changes, shortness of breath. Patient states he gets short of breath when he is in his apartment and hot. He apparently is turning off his oxygen and adjusting the thermostat thinking that this is his oxygen. Patient now presents stating that thighs are hurting and he is very weak. He does have a power scooter at home. Patient gives history that he had to do a self cath 5 years ago as advised by Dr. De Paz. He was having difficulty urinating at home and he attempted to self But not successful and caused additional pain and trauma. He came into [facility] emergency center for evaluation. Morejon catheter was placed with return of 500 mL of urine. There was some blood at the urethral meatus. Urinalysis was positive for urinary tract infection. He was afebrile with a normal white count. Blood sugar 220. Troponin was negative. EKG is a paced rhythm. Chest x-ray shows COPD with nodular subsegmental and consolidation at the right lung base as well as nodules seen in the right upper lobe measuring less than a centimeter. CT of the chest recommended. Correlate for chronic interstitial lung disease. 8/24: Patient has dyspnea and exertion with simple conversation when resting in bed, has urinary retention still, Tylenol PM with the Benadryl component has been discontinued secondary to this, also Ditropan is discontinued today secondary to urinary retention patient is currently followed by urology for recurrent urinary retention, urine culture growing coag-negative staph over 100, 000 catheterized specimen. Patient has cough, has chronic shortness of breath for years, however this time he has some yellowish-green sputum. Sputum cultures requested, thyroid requested secondary to weakness Objective - Vital Signs Vital signs: Vital Signs Temp 98.1 F 05/20/18 06:40 Pulse 74 05/20/18 11:53 Resp 20 05/20/18 07:54 BP 124/66 05/20/18 06:40 Pulse Ox 99 05/20/18 06:40 Intake & Output 05/19/18 05/20/18 05/20/18 18:59 06:59 18:59 Intake Total 500 Output Total 400 600 Balance -400 -100 Intake: Oral 500 Output: Urine 400 600 Other: Voiding Method Indwelling Catheter Indwelling Catheter Indwelling Catheter - Constitutional General appearance: Present: cooperative, no acute distress - EENT Eyes: Present: anicteric sclerae, dentition normal, normal appearance ENT: Present: NA/AT, normal oropharynx - Respiratory Respiratory: bilateral: diminished, wheezing, prolonged expiration, negative: CTA, dullness, rales - Cardiovascular Rhythm: regular Abnormal Heart Sounds: Absent: systolic murmur, diastolic murmur, rub, S3 Gallop , S4 Gallop, click, other - Gastrointestinal General gastrointestinal: Present: normal bowel sounds, soft - Integumentary Integumentary: Present: decreased turgor, normal - Neurologic Neurologic: Present: CNII-XII intact - Musculoskeletal Musculoskeletal: Present: generalized weakness, strength equal bilaterally - Psychiatric Psychiatric: Present: A&O x's 3, appropriate affect, intact judgment & insight - Labs CBC & Chem 7: 05/18/18 15:30 05/18/18 15:30 Labs: Microbiology - Last 24 Hours (Table) 05/18/18 18:07 Urine Culture - Preliminary Urine,Catheterized Coagulase Negative Staph 05/18/18 18:00 Blood Culture - Preliminary Blood No Growth after 24 hours Assessment and Plan Plan: . Acute urinary retention requiring Morejon catheter placement. Continue Flomax 0.4 mg at bedtime, Proscar 5 mg daily, consult with urology. Maintain Morejon for this time. Discontinue Ditropan discontinue antihistaminics known to cause aggravation of urinary retention with increased Flomax to twice a day, monitor for urinary retention post Morejon removal 2. Acute urinary tract infection. Coag-negative staph over 100,000 although coag-negative staph is considered non-pathogen, with a catheterized specimen, I' ll proceed with finishing the treatments with antibiotic post discharge. Patient will be continued on ceftriaxone. 3. Metabolic encephalopathy secondary to infection and urinary retention. Continue treatment as above. 2. Chronic hypoxic respiratory failure on home O2 and COPD not in exacerbation. Continue oxygen therapy, Ventolin nebulizer treatments 3 times daily. 3. CAD post CABG and multiple PCI. Continue aspirin 81 mg once every day, Plavix 75 mg oral's every day, Coreg 6.25 mg daily and 12.5 mg at bedtime, Lipitor 80 mg orally once every day. 4. PAD post multiple interventions. Continue aspirin and Plavix and Lipitor. 5. Enlarged prostate. Continue with Proscar 5 mg orally once every day and Flomax 0.4 mg orally once every day. 6. GERD. Protonix. 7. Hyperlipidemia. Continue patient on Lipitor 80 mg orally once every day. 8. COPD. Continue Ventolin nebulizer treatments 3 times daily. 9. Hypertension. Continue patient on Coreg. 10. Memory loss is significant mental status changes at home possibly due to hypoxemia, early dementia. 11. Chronic low back pain continue current pain management with [place]. 12. DVT prophylaxis. Heparin 5000 units subcutaneously every 12 hours. 13. GI prophylaxis. Continue Tenex. 14. Medical debility. Physical therapy evaluation. 15 Discharge plan: PT OT consults for possible subacute rehab. 16 Social work consult regarding safety at home and subacute rehab. 17 Patient will be admitted to the hospital for a minimum of 2 nights stay 18 Insomnia, melatonin 6 mg started along with trazodone, discontinue Tylenol PM. 19. Moderate persistent asthma with COPD, on theophylline, nebulizer albuterol and Atrovent, start on budesonide 0.5 mg twice a day and DuoNeb.
[2018-05-20] MEDS: BUDESONIDE 0.5 MG/2 ML NEBU INHALATION SCH (20:03)
[2018-05-20] MEDS: IPRATROPIUM-ALBUTEROL 3 ML NEB INHALATION PRN (20:03)
[2018-05-20] MEDS: TAMSULOSIN 0.4 MG CAP.ER.24H PO SCH (20:29)
[2018-05-20] MEDS: THEOPHYLLINE 24 HOUR 300 MG CAP.ER.24H PO SCH (20:30)
[2018-05-20] MEDS: MELATONIN 3 MG TABLET PO SCH (20:30)
[2018-05-20] MEDS: CARVEDILOL 12.5 MG TAB PO SCH (20:30)
[2018-05-20] MEDS: ATORVASTATIN 80 MG TAB PO SCH (20:30)
[2018-05-20] MEDS: traZODone HCL 50 MG TAB PO SCH (20:31)
[2018-05-21] MEDS: ALPRAZolam 0.5 MG TAB PO PRN ×4 (00:06→21:45)
[2018-05-21] MEDS: HYDROcodone/APAP 7.5-325MG 1 EACH TAB PO PRN ×3 (04:48→21:45)
[2018-05-21] MEDS: IBUPROFEN 400 MG TAB PO PRN ×2 (06:07→14:09)
[2018-05-21] MEDS: IPRATROPIUM-ALBUTEROL 3 ML NEB INHALATION PRN ×4 (07:08→19:30)
[2018-05-21] MEDS: BUDESONIDE 0.5 MG/2 ML NEBU INHALATION SCH ×2 (07:08→19:30)
[2018-05-21] MEDS: cefTRIAXone IN SWFI 1,000 MG/10 ML SYRINGE IVP SCH (08:30)
[2018-05-21] MEDS: predniSONE 5 MG TAB PO SCH (08:30)
[2018-05-21] MEDS: FAMOTIDINE 20 MG TAB PO SCH ×2 (08:30→20:39)
[2018-05-21] MEDS: TAMSULOSIN 0.4 MG CAP.ER.24H PO SCH ×2 (08:30→20:39)
[2018-05-21] MEDS: FINASTERIDE 5 MG TAB PO SCH (08:30)
[2018-05-21] MEDS: HEPARIN SODIUM,PORCINE 5,000 UNIT/ML 1 ML VIAL SQ SCH ×2 (08:31→20:39)
[2018-05-21] MEDS: CLOPIDOGREL 75 MG TAB PO SCH (08:31)
[2018-05-21] MEDS: DOCUSATE 100 MG CAP PO SCH (08:31)
[2018-05-21] MEDS: ASPIRIN 81 MG PO SCH (08:31)
[2018-05-21] MEDS: CARVEDILOL 6.25 MG TAB PO SCH (08:31)
[2018-05-21 09:36] LABS: Basophils % (A) 0 %; Eosinophils # (A) 0.1 k/uL (0-0.7); Eosinophils % (A) 2 %; HGB 9.8 gm/dL (13.0-17.5); Hypochromasia Slight; Lymphocytes # (A) 0.9 k/uL (1.0-4.8); Lymphocytes % (A) 14 %; MCH 28.8 pg (25.0-35.0); MCHC 31.7 g/dL (31.0-37.0); MCV 90.7 fL (80.0-100.0); Mean Platelet Volume 6.9; Monocytes # (A) 0.5 k/uL (0-1.0); Monocytes % (A) 7 %; Neutrophils # (A) 4.7 k/uL (1.3-7.7); Neutrophils % (A) 75 %; Platelet Count 181 k/uL (150-450); RBC 3.41 m/uL (4.30-5.90); RDW 15.9 % (11.5-15.5); WBC 6.2 k/uL (3.8-10.6)
[2018-05-21 09:52] LABS: Anion Gap 6 mmol/L; Blood Urea Nitrogen 12 mg/dL (9-20); Calcium 8.6 mg/dL (8.4-10.2); Carbon Dioxide 31 mmol/L (22-30); Chloride 100 mmol/L (98-107); Glucose 246 mg/dL (74-99); Potassium 3.8 mmol/L (3.5-5.1); Sodium 137 mmol/L (137-145)
[2018-05-21] MEDS: MULTIVITAMINS, THERA 1 EACH TAB PO SCH (10:34)
[2018-05-21] MEDS ORDERED: VANCOMYCIN IV PER PHARMACY 1 EACH MISC MISCELLANE PRN (13:41)
[2018-05-21] MEDS ORDERED: VANCOMYCIN 1,500 MG in SODIUM CHLORIDE 0.9% 250 ML IVPB ONE (14:00)
--- NOTE | 2018-05-21 15:40 | P.PN ---
Subjective Progress Note Date: 05/21/18 This is a 72-year-old male patient of Dr. Marcos, Dr. Celena Mason, Dr. Rogers, Dr. Recinos. He has a known history of coronary artery disease with prior bypass surgery in 1997, at which time he underwent a OLIVEIRA to the LAD, saphenous vein graft to the OM1, OM 2, circumflex, and RCA. Subsequent to that patient did undergo angioplasty with stenting of the saphenous vein graft to the OM 1 and 2 in 2008, and saphenous vein graft stenting to the OM1 in 2013, and most recently in October 2017 he underwent PTCA and stenting of the distal left main and proximal left anterior descending coronary arteries with 2 drug- eluting stents, 02/21/2018 he underwent PTCA and stenting of an in-stent restenosis saphenous vein graft to the obtuse marginal 1. He is a recent hospitalization March 23 for acute respiratory failure due to acute COPD exacerbation and right lower lobe pneumonia. He was discharged home in stable condition. He had a subsequent observation admission April 16 for COPD exacerbation and acute tracheobronchitis and was discharged home. In the past 2 weeks, patient has had 4 visits to the emergency center for mental status changes, shortness of breath. Patient states he gets short of breath when he is in his apartment and hot. He apparently is turning off his oxygen and adjusting the thermostat thinking that this is his oxygen. Patient now presents stating that thighs are hurting and he is very weak. He does have a power scooter at home. Patient gives history that he had to do a self cath 5 years ago as advised by Dr. De Paz. He was having difficulty urinating at home and he attempted to self But not successful and caused additional pain and trauma. He came into [facility] emergency center for evaluation. Martel catheter was placed with return of 500 mL of urine. There was some blood at the urethral meatus. Urinalysis was positive for urinary tract infection. He was afebrile with a normal white count. Blood sugar 220. Troponin was negative. EKG is a paced rhythm. Chest x-ray shows COPD with nodular subsegmental and consolidation at the right lung base as well as nodules seen in the right upper lobe measuring less than a centimeter. CT of the chest recommended. Correlate for chronic interstitial lung disease. 8/24: Patient has dyspnea and exertion with simple conversation when resting in bed, has urinary retention still, Tylenol PM with the Benadryl component has been discontinued secondary to this, also Ditropan is discontinued today secondary to urinary retention patient is currently followed by urology for recurrent urinary retention, urine culture growing coag-negative staph over 100, 000 catheterized specimen. Patient has cough, has chronic shortness of breath for years, however this time he has some yellowish-green sputum. Sputum cultures requested, thyroid requested secondary to weakness Objective - Vital Signs Vital signs: Vital Signs Temp 99.4 F 05/21/18 07:00 Pulse 74 05/21/18 10:54 Resp 20 05/21/18 08:00 BP 163/72 05/21/18 07:00 Pulse Ox 97 05/21/18 07:00 Intake & Output 05/20/18 05/21/18 05/21/18 18:59 06:59 18:59 Intake Total 900 Output Total 1150 1200 Balance -1150 -300 Intake: Oral 900 Output: Urine 1150 1200 Other: Voiding Method Indwelling Catheter Indwelling Catheter Indwelling Catheter # Voids 1 0 # Bowel Movements 0 0 - Constitutional General appearance: Present: cooperative, no acute distress - EENT Eyes: Present: anicteric sclerae, EOMI, PERRLA, dentition normal, normal appearance ENT: Present: NA/AT, normal oropharynx - Neck Neck: Present: normal ROM. Absent: lymphadenopathy, other, rigidity, stridor, thyromegaly - Respiratory Respiratory: bilateral: CTA, negative: diminished, dullness, rales, rhonchi, wheezing - Cardiovascular Rhythm: regular Heart sounds: normal: S1, S2 Abnormal Heart Sounds: Absent: systolic murmur, diastolic murmur, rub, S3 Gallop , S4 Gallop, click, other - Gastrointestinal General gastrointestinal: Present: normal bowel sounds, soft - Integumentary Integumentary: Present: normal - Musculoskeletal Musculoskeletal: Present: generalized weakness, strength equal bilaterally - Psychiatric Psychiatric: Present: A&O x's 3, appropriate affect, intact judgment & insight - Labs CBC & Chem 7: 05/21/18 09:02 05/21/18 09:02 Labs: Abnormal Lab Results - Last 24 Hours (Table) 05/21/18 05/21/18 Range/Units 09:02 09:02 RBC 3.41 L (4.30-5.90) m/uL Hgb 9.8 L (13.0-17.5) gm/dL Hct 31.0 L (39.0-53.0) % RDW 15.9 H (11.5-15.5) % Lymphocytes # 0.9 L (1.0-4.8) k/uL Carbon Dioxide 31 H (22-30) mmol/L Glucose 246 H (74-99) mg/dL Microbiology - Last 24 Hours (Table) 05/18/18 18:07 Urine Culture - Final Urine,Catheterized Staphylococcus epidermidis 05/18/18 18:00 Blood Culture - Preliminary Blood No Growth after 48 hours Assessment and Plan Plan: . Acute urinary retention requiring Martel catheter placement. Continue Flomax 0.4 mg at bedtime, Proscar 5 mg daily, consult with urology. Maintain Martel for this time. Discontinue Ditropan discontinue antihistaminics known to cause aggravation of urinary retention with increased Flomax to twice a day, monitor for urinary retention post Martel removal. discontinue martel tonight 05/21, post void residual check 2. Acute urinary tract infection not CAUTI. Coag-negative staph over 100,000 although coag-negative staph multidrug resistant, vanco started consult dr Parikh , with a catheterized specimen change ceftriaxone to vanco based on sensitivity 3. Metabolic encephalopathy secondary to infection and urinary retention. Continue treatment as above. 2. Chronic hypoxic respiratory failure on home O2 and COPD not in exacerbation. Continue oxygen therapy, Ventolin nebulizer treatments 3 times daily. 3. CAD post CABG and multiple PCI. Continue aspirin 81 mg once every day, Plavix 75 mg oral's every day, Coreg 6.25 mg daily and 12.5 mg at bedtime, Lipitor 80 mg orally once every day. 4. PAD post multiple interventions. Continue aspirin and Plavix and Lipitor. 5. Enlarged prostate. Continue with Proscar 5 mg orally once every day and Flomax 0.4 mg orally once every day. 6. GERD. Protonix. 7. Hyperlipidemia. Continue patient on Lipitor 80 mg orally once every day. 8. COPD. Continue Ventolin nebulizer treatments 3 times daily. 9. Hypertension. Continue patient on Coreg. 10. Memory loss is significant mental status changes at home possibly due to hypoxemia, early dementia. 11. Chronic low back pain continue current pain management with [facility]. 12. DVT prophylaxis. Heparin 5000 units subcutaneously every 12 hours. 13. GI prophylaxis. Continue Tenex. 14. Medical debility. Physical therapy evaluation. 15 Discharge plan: PT OT consults for possible subacute rehab. 16 Social work consult regarding safety at home and subacute rehab. 17 Patient will be admitted to the hospital for a minimum of 2 nights stay 18 Insomnia, melatonin 6 mg started along with trazodone, discontinue Tylenol PM. 19. Moderate persistent asthma with COPD, on theophylline, nebulizer albuterol and Atrovent, start on budesonide 0.5 mg twice a day and DuoNeb. 20 discharge planning on tuesday
[2018-05-21 16:47] LABS: Appearance,Urine Clear (Clear); Bilirubin,Urine Negative (Negative); Blood,Urine Large (Negative); Color,Urine Light Yellow; Glucose,Urine (UA) 4+ (Negative); Ketones,Urine Negative (Negative); Leukocyte Esterase,Urine Small (Negative); Mucus,Urine Rare /hpf; Nitrite,Urine Negative (Negative); Protein,Urine Negative (Negative); RBC,Urine 41 /hpf (0-5); Specific Gravity,Urine 1.013 (1.001-1.035); Urobilinogen,Urine <2.0 mg/dL (<2.0); WBC,Urine 11 /hpf (0-5)
[2018-05-21] MEDS: traZODone HCL 50 MG TAB PO SCH (20:37)
[2018-05-21] MEDS: CARVEDILOL 12.5 MG TAB PO SCH (20:39)
[2018-05-21] MEDS: ATORVASTATIN 80 MG TAB PO SCH (20:39)
[2018-05-21] MEDS: THEOPHYLLINE 24 HOUR 300 MG CAP.ER.24H PO SCH (20:39)
[2018-05-21] MEDS: MELATONIN 3 MG TABLET PO SCH (21:44)
[2018-05-21] MEDS: VANCOMYCIN 1,250 MG in SODIUM CHLORIDE 0.9% 250 ML IVPB SCH (23:20)
[2018-05-22] MEDS: ALPRAZolam 0.5 MG TAB PO PRN ×4 (03:36→23:21)
[2018-05-22 07:43] LABS: Basophils % (A) 0 %; Eosinophils # (A) 0.1 k/uL (0-0.7); Eosinophils % (A) 2 %; HCT 32.5 % (39.0-53.0); HGB 10.5 gm/dL (13.0-17.5); Hypochromasia Slight; Lymphocytes # (A) 0.8 k/uL (1.0-4.8); Lymphocytes % (A) 13 %; MCH 29.3 pg (25.0-35.0); MCHC 32.5 g/dL (31.0-37.0); MCV 90.2 fL (80.0-100.0); Mean Platelet Volume 6.8; Monocytes # (A) 0.4 k/uL (0-1.0); Monocytes % (A) 6 %; Neutrophils # (A) 4.8 k/uL (1.3-7.7); Neutrophils % (A) 78 %; Platelet Count 193 k/uL (150-450); RDW 15.9 % (11.5-15.5); WBC 6.2 k/uL (3.8-10.6)
[2018-05-22] MEDS: MULTIVITAMINS, THERA 1 EACH TAB PO SCH (08:03)
[2018-05-22] MEDS: HEPARIN SODIUM,PORCINE 5,000 UNIT/ML 1 ML VIAL SQ SCH ×2 (08:04→23:26)
[2018-05-22] MEDS: TAMSULOSIN 0.4 MG CAP.ER.24H PO SCH ×2 (08:04→23:25)
[2018-05-22] MEDS: CARVEDILOL 6.25 MG TAB PO SCH (08:05)
[2018-05-22] MEDS: CLOPIDOGREL 75 MG TAB PO SCH (08:05)
[2018-05-22] MEDS: DOCUSATE 100 MG CAP PO SCH (08:06)
[2018-05-22] MEDS: ASPIRIN 81 MG PO SCH (08:06)
[2018-05-22] MEDS: FAMOTIDINE 20 MG TAB PO SCH ×2 (08:06→23:25)
[2018-05-22] MEDS: FINASTERIDE 5 MG TAB PO SCH (08:06)
[2018-05-22] MEDS: predniSONE 5 MG TAB PO SCH (08:06)
[2018-05-22] MEDS: IPRATROPIUM-ALBUTEROL 3 ML NEB INHALATION PRN ×3 (08:09→20:50)
[2018-05-22] MEDS: HYDROcodone/APAP 7.5-325MG 1 EACH TAB PO PRN ×3 (08:10→23:21)
[2018-05-22 08:12] LABS: Anion Gap 3 mmol/L; Blood Urea Nitrogen 11 mg/dL (9-20); Calcium 8.9 mg/dL (8.4-10.2); Carbon Dioxide 33 mmol/L (22-30); Chloride 102 mmol/L (98-107); Glucose 174 mg/dL (74-99); Potassium 3.9 mmol/L (3.5-5.1); Sodium 138 mmol/L (137-145)
[2018-05-22] MEDS: BUDESONIDE 0.5 MG/2 ML NEBU INHALATION SCH ×2 (08:12→20:50)
--- NOTE | 2018-05-22 11:56 | P.DS ---
Providers Date of admission: 05/18/18 18:19 Expected date of discharge: 05/23/18 Attending physician: Sundar Gaona Consults: 05/19/18 07:39 Consult Physician Routine Consulting Provider: Carl De Paz Consult Reason/Comments: urinary retention Do you want consulting provider notified?: Yes 05/21/18 13:43 Consult Physician Routine Consulting Provider: Shanel Parikh Consult Reason/Comments: UTI drug resistant Do you want consulting provider notified?: Yes Primary care physician: [facility] Course: This is a 72-year-old male patient of Dr. Marcos, Dr. Celena Mason, Dr. Rogers, Dr. Recinos. He has a known history of coronary artery disease with prior bypass surgery in 1997, at which time he underwent a OLIVEIRA to the LAD, saphenous vein graft to the OM1, OM 2, circumflex, and RCA. Subsequent to that patient did undergo angioplasty with stenting of the saphenous vein graft to the OM 1 and 2 in 2008, and saphenous vein graft stenting to the OM1 in 2013, and most recently in October 2017 he underwent PTCA and stenting of the distal left main and proximal left anterior descending coronary arteries with 2 drug- eluting stents, 02/21/2018 he underwent PTCA and stenting of an in-stent restenosis saphenous vein graft to the obtuse marginal 1. He is a recent hospitalization March 23 for acute respiratory failure due to acute COPD exacerbation and right lower lobe pneumonia. He was discharged home in stable condition. He had a subsequent observation admission April 16 for COPD exacerbation and acute tracheobronchitis and was discharged home. In the past 2 weeks, patient has had 4 visits to the emergency center for mental status changes, shortness of breath. Patient states he gets short of breath when he is in his apartment and hot. He apparently is turning off his oxygen and adjusting the thermostat thinking that this is his oxygen. Patient now presents stating that thighs are hurting and he is very weak. He does have a power scooter at home. Patient gives history that he had to do a self cath 5 years ago as advised by Dr. De Paz. He was having difficulty urinating at home and he attempted to self But not successful and caused additional pain and trauma. He came into [facility] emergency center for evaluation. Morejon catheter was placed with return of 500 mL of urine. There was some blood at the urethral meatus. Urinalysis was positive for urinary tract infection. He was afebrile with a normal white count. Blood sugar 220. Troponin was negative. EKG is a paced rhythm. Chest x-ray shows COPD with nodular subsegmental and consolidation at the right lung base as well as nodules seen in the right upper lobe measuring less than a centimeter. CT of the chest recommended. Correlate for chronic interstitial lung disease. 05/20: Patient has dyspnea and exertion with simple conversation when resting in bed, has urinary retention still, Tylenol PM with the Benadryl component has been discontinued secondary to this, also Ditropan is discontinued today secondary to urinary retention patient is currently followed by urology for recurrent urinary retention, urine culture growing coag-negative staph over 100, 000 catheterized specimen. Patient has cough, has chronic shortness of breath for years, however this time he has some yellowish-green sputum. Sputum cultures requested, thyroid requested secondary to weakness 05/22: Patient is been seen by Dr. Hutton for a Staphylococcus epidermidis multidrug resistant urinary tract infection and recommends vancomycin for 7 day course. PICC line has been ordered but is unable to be obtained today. Patient is complaining of shortness of breath. He denies any diarrhea. Patient is quite confused talking about someone taking his nebulizer treatment way from him. Patient is cooperative. Morejon catheter was removed yesterday and in a post void residual was 98 mL's. Anticipate discharge to [facility] tomorrow 05/23: Renal ultrasound reveals suspect some underlying medical renal disease similar to previous exam. Atrophy of the right kidney as compared to the left. For PICC line placement this afternoon.. Patient will then be transferred to [facility] for subacute rehab. Patient denies any new complaints. Breathing status is currently stable. Discharge diagnoses: 1. Acute urinary retention. 2. Acute multidrug resistant Staphylococcus epidermidis urinary tract infection was likely secondary to attempts at self catheterization and urinary retention. 3. Metabolic encephalopathy secondary to infection and urinary retention. 2. Chronic hypoxic respiratory failure on home O2 and COPD not in exacerbation. 3. CAD post CABG and multiple PCI. 4. PAD post multiple interventions. 5. Enlarged prostate. 6. GERD. 7. Hyperlipidemia. 9. Hypertension. 10. Memory loss is significant mental status changes at home possibly due to hypoxemia, early dementia. 11. Chronic low back pain 12. Medical debility. 15. Insomnia 19. Moderate persistent asthma with COPD, on theophylline, nebulizer albuterol and Atrovent, start on budesonide 0.5 mg twice a day and DuoNeb. Discharge plan: [place] under the care of Dr. Marcos Impression and plan of care have been directed as dictated by the signing physician. Esperanza Ramírez nurse practitioner acting as scribe for signing physician. Patient Condition at Discharge: Good Plan - Discharge Summary Discharge Rx Participant: No New Discharge Prescriptions: New Vancomycin 1,250 mg IVPB Q12HR #14 bag Acetaminophen Tab [Tylenol] 650 mg PO Q6HR PRN tab PRN Reason: Mild Pain Or Fever > 100.5 Budesonide [Pulmicort] 0.5 mg INHALATION RT-BID nebu Ibuprofen [Motrin] 400 mg PO Q6HR PRN tab PRN Reason: Mild Pain Or Fever > 100.5 Ipratropium-Albuterol Nebulize [Duoneb 0.5 mg-3 mg/3 ml Soln] 3 ml INHALATION RT-QID PRN ampul.neb PRN Reason: Shortness Of Breath Or Wheezing Melatonin 6 mg PO HS tablet Continue Clopidogrel [Plavix] 75 mg PO DAILY traZODone HCL [Desyrel] 50 mg PO HS Aspirin 81 mg PO DAILY Multivitamin [Men's Multi-Vitamin] 1 tab PO DAILY Losartan [Cozaar] 25 mg PO DAILY PRN PRN Reason: FOR ELEV >130 Nitroglycerin Sl Tabs [Nitrostat] 0.4 mg SUBLINGUAL Q5M PRN PRN Reason: Chest Pain Tamsulosin [Flomax] 0.4 mg PO HS Ranitidine HCl 150 mg PO BID Finasteride [Proscar] 5 mg PO DAILY Bisacodyl [Dulcolax] 5 - 15 mg PO DAILY PRN PRN Reason: Constipation Atorvastatin [Lipitor] 80 mg PO HS #30 tab Carvedilol [Coreg] 6.25 mg PO DAILY tab Carvedilol [Coreg] 12.5 mg PO HS predniSONE 5 mg PO DAILY Theophylline 24 Hour [Sulaiman-24] 300 mg PO HS ALPRAZolam [Xanax] 0.5 mg PO TID PRN #9 tablet PRN Reason: Anxiety HYDROcodone/APAP 7.5-325MG [[employer] 7.5-325] 1 tab PO Q6H PRN #12 tab PRN Reason: Pain Discontinued Acetaminophen/Diphenhydramine [Tylenol PM 500-25mg] 2 tab PO HS PRN PRN Reason: Insomnia Oxybutynin Chloride 5 mg PO BID Acetaminophen [Tylenol Extra Strength] 500 mg PO BID PRN PRN Reason: Pain Albuterol Nebulized [Ventolin Nebulized] 2.5 mg INHALATION RT-TID Discharge Medication List Clopidogrel [Plavix] 75 mg PO DAILY 03/10/14 [History] traZODone HCL [Desyrel] 50 mg PO HS 03/10/14 [History] Aspirin 81 mg PO DAILY 05/01/14 [History] Multivitamin [Men's Multi-Vitamin] 1 tab PO DAILY 05/01/14 [History] Losartan [Cozaar] 25 mg PO DAILY PRN 12/23/14 [History] Nitroglycerin Sl Tabs [Nitrostat] 0.4 mg SUBLINGUAL Q5M PRN 02/02/16 [History] Ranitidine HCl 150 mg PO BID 02/02/16 [History] Tamsulosin [Flomax] 0.4 mg PO HS 02/02/16 [History] Finasteride [Proscar] 5 mg PO DAILY 07/04/17 [History] Bisacodyl [Dulcolax] 5 - 15 mg PO DAILY PRN 11/03/17 [History] Atorvastatin [Lipitor] 80 mg PO HS #30 tab 11/23/17 [Rx] Carvedilol [Coreg] 6.25 mg PO DAILY tab 02/22/18 [Rx] Carvedilol [Coreg] 12.5 mg PO HS 04/16/18 [History] Theophylline 24 Hour [Sulaiman-24] 300 mg PO HS 05/18/18 [History] predniSONE 5 mg PO DAILY 05/18/18 [History] Vancomycin 1,250 mg IVPB Q12HR #14 bag 05/22/18 [Rx] ALPRAZolam [Xanax] 0.5 mg PO TID PRN #9 tablet 05/23/18 [Rx] Acetaminophen Tab [Tylenol] 650 mg PO Q6HR PRN tab 05/23/18 [Rx] Budesonide [Pulmicort] 0.5 mg INHALATION RT-BID nebu 05/23/18 [Rx] HYDROcodone/APAP 7.5-325MG [[employer] 7.5-325] 1 tab PO Q6H PRN #12 tab 05/23/18 [Rx ] Ibuprofen [Motrin] 400 mg PO Q6HR PRN tab 05/23/18 [Rx] Ipratropium-Albuterol Nebulize [Duoneb 0.5 mg-3 mg/3 ml Soln] 3 ml INHALATION RT -QID PRN ampul.neb 05/23/18 [Rx] Melatonin 6 mg PO HS tablet 05/23/18 [Rx] Follow up Appointment(s)/Referral(s): Randolph Marcos MD [Primary Care Provider] - 1 Week (at [facility]) Shanel Parikh MD [STAFF PHYSICIAN] - 2 Weeks Patient Instructions/Handouts: Heart Failure (DC), Urinary Retention in Men ( GEN), Urinary Tract Infection in Men (DC) Discharge Disposition: TRANSFER TO SNF/ECF
--- NOTE | 2018-05-22 12:30 | CONS ---
CONSULTATION DATE OF SERVICE: 05/22/2018 REASON FOR CONSULTATION: A multi-drug resistant urinary tract infection. HISTORY OF PRESENT ILLNESS: The patient is a 72-year-old male with a past medical history significant for a urinary retention for which the patient has previously followed with . About 3 days ago, the patient started having a problem with unable to urinate. The patient said he tried to self-catheterize himself but more likely he did not do it right as he did not have any urine output. He was having pain. Pain described to more sharp in nature, 4 to 5/10 and no radiation. The patient subsequently was brought in to the [facility] ER where the patient did have Morejon catheter placed with return of 500 mL of urine with some blood at the urethral meatus. The patient who has been afebrile during this hospital stay. White count has been normal. The patient drain was positive with moderate leukocyte esterase, 15 WBC. Culture has been finalized with Staph epidermidis resistant to sulfamethoxazole, daptomycin and vancomycin. Patient has been treated with vancomycin. Infectious Disease was considered for further recommendation regarding antibiotic therapy. Patient did mention that he is scheduled to go to rehab for building his strength. Patient's Morejon catheter was discontinued this morning and he is able to urinate afterwards without any difficulty. Patient denies having any chest pain or shortness of breath or cough. No abdominal pain or any diarrhea. REVIEW OF SYSTEMS: CONSTITUTIONAL: Positive for weakness. Denies any high-grade fever. EYES: No complaint. ENT: No complaint. RESPIRATORY: No complaint. CARDIOVASCULAR: No complaint. GENITOURINARY: As per HPI. GASTROINTESTINAL: No complaint. MUSCULOSKELETAL: No complaint. INTEGUMENTARY: No complaint. PSYCHOLOGICAL: No complaint. ENDOCRINE: No complaint. NEUROLOGIC: No complaint. PAST MEDICAL HISTORY: Atrial fibrillation, coronary artery disease, COPD, CVA, TIA, DVT, SVT, flank disease, hypertension, memory impairment, disorder, pneumonia, block right carotid, previous history of MRSA infection. PAST SURGICAL HISTORY: AICD, back surgery, coronary artery bypass grafting, heart catheterization with stent, pacemaker and tonsillectomy. SOCIAL HISTORY: Remote history of smoking. Quit back in 2011. Denies any drinking or drug use. FAMILY HISTORY: Mother with history of stomach cancer. Sister history of vascular disease, congestive heart failure. Mother history of coronary artery disease, father with history of coronary artery disease, ruled out for colon cancer. ALLERGIES: No known drug allergies. MEDICATIONS: The patient is currently on vancomycin 1250 . He is on Desyrel, , Flomax, prednisone, Percocet, Zofran, Nitrostat, Narcan, Theragran, melatonin, Cozaar, Proscar, Pepcid, Colace, Coreg, Pulmicort, aspirin, DuoNeb, Tylenol, and [place]. PHYSICAL EXAMINATION: Blood pressure 124/55 with a pulse of 80, temperature 97.2, he is 97% on 4 L nasal cannula. General description is an elderly male, lying in bed in no distress. No tachypnea or accessory muscle for respiration use. HEENT: Shows pallor, no scleral icterus. Oral mucosa is dry. No . NECK: Trachea central, no thyromegaly. LUNGS: Unlabored breathing, clear to auscultation with crackles. HEART: S1, S2. Regular rate and rhythm. ABDOMEN: Soft, no tenderness. No guarding or rigidity. EXTREMITIES: No edema of the feet. SKIN EXAMINATION: No rash or mass palpable. NEUROLOGICAL: Patient is awake, alert, oriented x3, mood and affect normal. LABS: Hemoglobin 10.5, white count 6.2, BUN of 11, creatinine 0.68. Electrolytes have been normal. Liver enzymes are normal. Urine with large moderate leukocyte esterases, 15 WBC. Culture with Staph epi. Was treated with vancomycin, resistant to Bactrim DS. DIAGNOSTIC IMPRESSION AND PLAN: 1. Patient with a complicated urinary tract infection, patient did have urinary retention requiring Morejon catheter placement with significant positive UA and urine burning frequency, likely representing a urinary tract infection with culture positive for Staph epi, unfortunately resistant to Bactrim. That may have been suggested with one other option could be linezolid; however, in view of the patient going to the intermediate for rehab, will recommend a 7-10 day course of IV vancomycin, pharmacy to dose through a . PLAN: 1. Will place a . 2. Vancomycin, pharmacy to dose target of 15 for at least 7-10 days. 3. Once PICC line is placed and antibiotic arranged with close outpatient followup. MMODL / IJN: [id number] /
[2018-05-22] MEDS: VANCOMYCIN 1,250 MG in SODIUM CHLORIDE 0.9% 250 ML IVPB SCH (12:59)
[2018-05-22 13:51] VITALS: BMI 21.1
--- NOTE | 2018-05-22 15:22 | P.PN ---
Subjective Progress Note Date: 05/22/18 This is a 72-year-old male patient of Dr. Marcos, Dr. Celena Mason, Dr. Rogers, Dr. Recinos. He has a known history of coronary artery disease with prior bypass surgery in 1997, at which time he underwent a OLIVEIRA to the LAD, saphenous vein graft to the OM1, OM 2, circumflex, and RCA. Subsequent to that patient did undergo angioplasty with stenting of the saphenous vein graft to the OM 1 and 2 in 2008, and saphenous vein graft stenting to the OM1 in 2013, and most recently in October 2017 he underwent PTCA and stenting of the distal left main and proximal left anterior descending coronary arteries with 2 drug- eluting stents, 02/21/2018 he underwent PTCA and stenting of an in-stent restenosis saphenous vein graft to the obtuse marginal 1. He is a recent hospitalization March 23 for acute respiratory failure due to acute COPD exacerbation and right lower lobe pneumonia. He was discharged home in stable condition. He had a subsequent observation admission April 16 for COPD exacerbation and acute tracheobronchitis and was discharged home. In the past 2 weeks, patient has had 4 visits to the emergency center for mental status changes, shortness of breath. Patient states he gets short of breath when he is in his apartment and hot. He apparently is turning off his oxygen and adjusting the thermostat thinking that this is his oxygen. Patient now presents stating that thighs are hurting and he is very weak. He does have a power scooter at home. Patient gives history that he had to do a self cath 5 years ago as advised by Dr. De Paz. He was having difficulty urinating at home and he attempted to self But not successful and caused additional pain and trauma. He came into [facility] emergency center for evaluation. Morejon catheter was placed with return of 500 mL of urine. There was some blood at the urethral meatus. Urinalysis was positive for urinary tract infection. He was afebrile with a normal white count. Blood sugar 220. Troponin was negative. EKG is a paced rhythm. Chest x-ray shows COPD with nodular subsegmental and consolidation at the right lung base as well as nodules seen in the right upper lobe measuring less than a centimeter. CT of the chest recommended. Correlate for chronic interstitial lung disease. 8/25: Patient has dyspnea and exertion with simple conversation when resting in bed, has urinary retention still, Tylenol PM with the Benadryl component has been discontinued secondary to this, also Ditropan is discontinued today secondary to urinary retention patient is currently followed by urology for recurrent urinary retention, urine culture growing coag-negative staph over 100, 000 catheterized specimen. Patient has cough, has chronic shortness of breath for years, however this time he has some yellowish-green sputum. Sputum cultures requested, thyroid requested secondary to weakness 05/22: Patient is been seen by Dr. Hutton for a Staphylococcus epidermidis multidrug resistant urinary tract infection and recommends vancomycin for 7 day course. PICC line has been ordered but is unable to be obtained today. Patient is complaining of shortness of breath. He denies any diarrhea. Patient is quite confused talking about someone taking his nebulizer treatment way from him. Patient is cooperative. Morejon catheter was removed yesterday and in a post void residual was 98 mL's. Anticipate discharge to [facility] tomorrow Objective - Vital Signs Vital signs: Vital Signs Temp 97.2 F L 05/22/18 07:00 Pulse 76 05/22/18 08:12 Resp 18 05/22/18 07:00 BP 124/65 05/22/18 07:00 Pulse Ox 97 05/22/18 07:00 Intake & Output 05/21/18 05/22/18 05/22/18 18:59 06:59 18:59 Intake Total 680 Output Total 400 Balance 280 Weight 55.8 kg Intake: Oral 680 Output: Urine 400 Other: Voiding Method Indwelling Catheter Toilet # Voids 4 1 # Bowel Movements 0 - Exam General appearance: Present: cooperative, no acute distress - EENT Eyes: Present: anicteric sclerae, EOMI, PERRLA, dentition normal, normal appearance ENT: Present: NA/AT, normal oropharynx - Neck Neck: Present: normal ROM. Absent: lymphadenopathy, other, rigidity, stridor, thyromegaly - Respiratory Respiratory: bilateral: CTA, negative: diminished, dullness, rales, rhonchi, wheezing - Cardiovascular Rhythm: regular Heart sounds: normal: S1, S2 Abnormal Heart Sounds: Absent: systolic murmur, diastolic murmur, rub, S3 Gallop , S4 Gallop, click, other - Gastrointestinal General gastrointestinal: Present: normal bowel sounds, soft - Integumentary Integumentary: Present: normal - Musculoskeletal Musculoskeletal: Present: generalized weakness, strength equal bilaterally - Psychiatric Psychiatric: Present: A&O x's 3 with episodes of confusion, appropriate affect, no intact judgment & insight - Labs CBC & Chem 7: 05/22/18 07:21 05/22/18 07:21 Labs: Abnormal Lab Results - Last 24 Hours (Table) 05/21/18 05/22/18 05/22/18 Range/Units 15:52 07:21 07:21 RBC 3.60 L (4.30-5.90) m/uL Hgb 10.5 L (13.0-17.5) gm/dL Hct 32.5 L (39.0-53.0) % RDW 15.9 H (11.5-15.5) % Lymphocytes # 0.8 L (1.0-4.8) k/uL Carbon Dioxide 33 H (22-30) mmol/L Glucose 174 H (74-99) mg/dL Urine Glucose (UA) 4+ H (Negative) Urine Blood Large H (Negative) Ur Leukocyte Esterase Small H (Negative) Urine RBC 41 H (0-5) /hpf Urine WBC 11 H (0-5) /hpf Urine Mucus Rare H (None) /hpf Microbiology - Last 24 Hours (Table) 05/21/18 15:52 Urine Culture - Preliminary Urine,Catheterized 05/18/18 18:00 Blood Culture - Preliminary Blood No Growth after 72 hours Assessment and Plan Plan: 1. Acute urinary retention requiring Morejon catheter placement. Continue Flomax 0.4 mg at bedtime, Proscar 5 mg daily, consult with urology. Morejon catheter has been discontinued. 2. Acute multidrug resistant Staphylococcus epidermidis urinary tract infection was likely secondary to attempts at self catheterization and urinary retention. Consult with Dr. Livingston appreciated. Patient to be on vancomycin for 7 days. PICC line has been ordered. 3. Metabolic encephalopathy secondary to infection and urinary retention. Continue treatment as above. 2. Chronic hypoxic respiratory failure on home O2 and COPD not in exacerbation. Continue oxygen therapy, Ventolin nebulizer treatments 3 times daily. 3. CAD post CABG and multiple PCI. Continue aspirin 81 mg once every day, Plavix 75 mg oral's every day, Coreg 6.25 mg daily and 12.5 mg at bedtime, Lipitor 80 mg orally once every day. 4. PAD post multiple interventions. Continue aspirin and Plavix and Lipitor. 5. Enlarged prostate. Continue with Proscar 5 mg orally once every day and Flomax 0.4 mg orally once every day. 6. GERD. Protonix. 7. Hyperlipidemia. Continue patient on Lipitor 80 mg orally once every day. 8. COPD. Continue Ventolin nebulizer treatments 3 times daily. 9. Hypertension. Continue patient on Coreg. 10. Memory loss is significant mental status changes at home possibly due to hypoxemia, early dementia. 11. Chronic low back pain continue current pain management with [place]. 12. DVT prophylaxis. Heparin 5000 units subcutaneously every 12 hours. 13. GI prophylaxis. Continue Tenex. 14. Insomnia, melatonin 6 mg started along with trazodone, discontinue Tylenol PM. 15. Moderate persistent asthma with COPD, on theophylline, nebulizer albuterol and Atrovent, start on budesonide 0.5 mg twice a day and DuoNeb. Discharge plan: [facility] tomorrow Impression and plan of care have been directed as dictated by the signing physician. Esperanza Ramírez nurse practitioner acting as scribe for signing physician.
--- NOTE | 2018-05-22 17:06 | US ---
EXAMINATION TYPE: US kidneys/renal and bladder DATE OF EXAM: 05/22/2018 COMPARISON: Ultrasound right upper quadrant 12/20/2012 CLINICAL HISTORY: UTI. EXAM MEASUREMENTS: Right Kidney: 8.5 x 3.9 x 4.2 cm Left Kidney: 11.4 x 5.7 x 5.3 cm Right Kidney: Multiple cysts largest two measuring 1.1 x 1.2 x 1.1cm, and 2.) 1.5 x 1.5 x 1.4cm, atr ophied Left Kidney: cyst noted measuring 1.2 x 1.0 x 1.2 cm, tiny amount of ff inferior Bladder: wnl Cortical thinning is present greater in the right kidney, cortical echogenicity appears somewhat incr eased. No evident hydronephrosis bilaterally. Cortical medullary differentiation maintained. IMPRESSION: Suspect some underlying medical renal disease similar to previous exam, atrophy of the right kidney a s compared to the left
[2018-05-22] MEDS: THEOPHYLLINE 24 HOUR 300 MG CAP.ER.24H PO SCH (23:25)
[2018-05-22] MEDS: ATORVASTATIN 80 MG TAB PO SCH (23:25)
[2018-05-22] MEDS: traZODone HCL 50 MG TAB PO SCH (23:25)
[2018-05-22] MEDS: MELATONIN 3 MG TABLET PO SCH (23:25)
[2018-05-23] MEDS: CARVEDILOL 12.5 MG TAB PO SCH ×2 (00:14→21:37)
[2018-05-23] MEDS: VANCOMYCIN 1,250 MG in SODIUM CHLORIDE 0.9% 250 ML IVPB SCH ×2 (00:14→13:04)
[2018-05-23] MEDS: ALPRAZolam 0.5 MG TAB PO PRN ×2 (06:25→17:07)
[2018-05-23] MEDS: HYDROcodone/APAP 7.5-325MG 1 EACH TAB PO PRN ×3 (06:25→17:07)
[2018-05-23] MEDS: BUDESONIDE 0.5 MG/2 ML NEBU INHALATION SCH ×2 (08:17→19:18)
[2018-05-23] MEDS: IPRATROPIUM-ALBUTEROL 3 ML NEB INHALATION PRN ×3 (08:17→19:18)
[2018-05-23 08:21] VITALS: RESP 16
[2018-05-23] MEDS: CARVEDILOL 6.25 MG TAB PO SCH (09:27)
[2018-05-23] MEDS: TAMSULOSIN 0.4 MG CAP.ER.24H PO SCH ×2 (09:27→21:38)
[2018-05-23] MEDS: ASPIRIN 81 MG PO SCH (09:27)
[2018-05-23] MEDS: MULTIVITAMINS, THERA 1 EACH TAB PO SCH (09:27)
[2018-05-23] MEDS: FAMOTIDINE 20 MG TAB PO SCH ×2 (09:27→21:37)
[2018-05-23] MEDS: CLOPIDOGREL 75 MG TAB PO SCH (09:27)
[2018-05-23] MEDS: predniSONE 5 MG TAB PO SCH (09:27)
[2018-05-23] MEDS: FINASTERIDE 5 MG TAB PO SCH (09:28)
[2018-05-23] MEDS: HEPARIN SODIUM,PORCINE 5,000 UNIT/ML 1 ML VIAL SQ SCH ×2 (09:28→21:37)
[2018-05-23] MEDS: DOCUSATE 100 MG CAP PO SCH (09:28)
[2018-05-23] MEDS ORDERED: VANCOMYCIN TROUGH DUE 1 EACH MISC MISCELLANE ONE (11:00)
[2018-05-23] MEDS ORDERED: LIDOCAINE 1% INJ 10MG/ML (20 ML MDV) ONE (13:45)
[2018-05-23] MEDS ORDERED: LIDOCAINE 1% INJ 10MG/ML (20 ML MDV) SQ ONE (14:11)
[2018-05-23] MEDS ORDERED: IOPAMIDOL-370 50ML BTL INJ ONE (14:15)
--- NOTE | 2018-05-23 18:22 | PN ---
PROGRESS NOTE DATE OF SERVICE: 05/23/2018 REASON FOR FOLLOWUP: Complicated Staph epi urinary tract infection. INTERVAL HISTORY: The patient is currently afebrile. He is breathing comfortably. Denies having any chest pain or shortness of breath or cough. No abdominal pain. Denies having any urinary symptoms after removal of his Morejon catheter. PHYSICAL EXAMINATION: Blood pressure 165/83, pulse of 93, temperature 97.6. He is 98% on 3 L nasal cannula. General description is an elderly male lying in bed in no distress. RESPIRATORY SYSTEM: Unlabored breathing. Clear to auscultation anteriorly. HEART: S1, S2. Regular rate and rhythm. ABDOMEN: Soft. No tenderness. LABS: No new labs have been obtained today. DIAGNOSTIC IMPRESSION AND PLAN: Patient with a complicated urinary tract infection; urine with Staphylococcus epidermidis. Currently on vancomycin. To continue for a week through a midline to finish course of therapy. Continue with supportive care. MMODL / IJN: [id number] /
[2018-05-23] MEDS: MELATONIN 3 MG TABLET PO SCH (21:37)
[2018-05-23] MEDS: traZODone HCL 50 MG TAB PO SCH (21:37)
[2018-05-23] MEDS: ATORVASTATIN 80 MG TAB PO SCH (21:37)
[2018-05-23] MEDS: THEOPHYLLINE 24 HOUR 300 MG CAP.ER.24H PO SCH (21:38)
[2018-05-24] MEDS: VANCOMYCIN 1,250 MG in SODIUM CHLORIDE 0.9% 250 ML IVPB SCH (00:02)
[2018-05-24] MEDS: HYDROcodone/APAP 7.5-325MG 1 EACH TAB PO PRN ×2 (00:17→09:14)
[2018-05-24] MEDS: ALPRAZolam 0.5 MG TAB PO PRN ×2 (00:17→09:14)
[2018-05-24 07:45] VITALS: BP 122/64; TEMP 97.6
[2018-05-24] MEDS: BUDESONIDE 0.5 MG/2 ML NEBU INHALATION SCH (08:09)
[2018-05-24] MEDS: IPRATROPIUM-ALBUTEROL 3 ML NEB INHALATION PRN (08:09)
[2018-05-24 08:28] VITALS: PULSE 84
[2018-05-24] MEDS: CARVEDILOL 6.25 MG TAB PO SCH (09:09)
[2018-05-24] MEDS: CLOPIDOGREL 75 MG TAB PO SCH (09:09)
[2018-05-24] MEDS: ASPIRIN 81 MG PO SCH (09:09)
[2018-05-24] MEDS: DOCUSATE 100 MG CAP PO SCH (09:10)
[2018-05-24] MEDS: FAMOTIDINE 20 MG TAB PO SCH (09:10)
[2018-05-24] MEDS: predniSONE 5 MG TAB PO SCH (09:11)
[2018-05-24] MEDS: TAMSULOSIN 0.4 MG CAP.ER.24H PO SCH (09:11)
[2018-05-24] MEDS: FINASTERIDE 5 MG TAB PO SCH (09:11)
[2018-05-24] MEDS: HEPARIN SODIUM,PORCINE 5,000 UNIT/ML 1 ML VIAL SQ SCH (09:11)
--- NOTE | 2018-05-24 11:32 | IR ---
Right upper extremity venogram, discontinue PICC line HISTORY: Infection, needs long-term intravenous access for antibiotics Maximal barrier technique is utilized. Ultrasound was used to sterile technique. The skin overlying t he right brachial vein was localized with ultrasound and the overlying skin prepped and draped. Lidoc cassie used for local anesthesia. A skin fly made with a scalpel. Access was gained to the vein under direct ultrasound guidance with a 21-gauge needle. A 0.018 inch wire was advanced but could not be ad vanced centrally to the axillary vein. 3 [place] catheter advanced over the wire and general hand inje ction of 9 cc of contrast performed, images obtained. FINDINGS: Marked collateralization is noted about the right shoulder. Central venous stenosis is note d of the subclavian vein. 0.7 minutes fluoroscopy time, 300 intraoperative C-arm images document the procedure IMPRESSION: Discontinued PICC line. Patient is not a candidate for upper extremity PICC line placemen t. Additional findings above.
--- NOTE | 2018-05-24 12:03 | PN ---
PROGRESS NOTE DATE OF SERVICE: 05/24/2018 REASON FOR FOLLOWUP: Gram-negative urinary tract infection with Staph epi. INTERVAL HISTORY: The patient was seen on rounds this morning. The patient getting his Midline for outpatient IV antibiotic therapy. The patient denies having any chest pain or shortness of breath or cough. He does mention that he is urinating without any difficulty. No burning or frequency and no diarrhea. PHYSICAL EXAMINATION: On examination, blood pressure is 122/64 with a pulse of 75, temperature is 97.6. He is 97% on 4 L nasal cannula. General description is an elderly male lying in bed in no distress. RESPIRATORY SYSTEM: Unlabored breathing, clear to auscultation anteriorly. HEART: S1, S2. Regular rate and rhythm. ABDOMEN: Soft, no tenderness. LABS: Hemoglobin 10.5, white count 6.2, BUN of 11, creatinine 0.68. DIAGNOSTIC IMPRESSION AND PLAN: Patient with complicated urinary tract infection. Urine culture positive Staphylococcus epidermidis. To continue vancomycin pharmacy to dose for another week through a Midline with close outpatient followup. MMODL / IJN: [id number] /
== END 2018-05-24 11:29 | DRG 689 ==
LOC: EC 14:13 → 4MS4W 18:19
PROVIDERS: ADMIT Internal Medicine; ATTEND Internal Medicine
PROC: 05H633Z Insertion of Infusion Device into Left Subclavian Vein, Percutaneous Approach (ICD-10-PCS; principal; 2018-05-24 09:30)
DX: N39.0 Urinary tract infection, site not specified (principal); G93.41 Metabolic encephalopathy; I87.1 Compression of vein; J96.11 Chronic respiratory failure with hypoxia; B95.7 Other staphylococcus as the cause of diseases classified elsewhere; R31.9 Hematuria, unspecified; Z16.24 Resistance to multiple antibiotics; E78.5 Hyperlipidemia, unspecified; G47.00 Insomnia, unspecified; G89.29 Other chronic pain; H40.9 Unspecified glaucoma; H91.90 Unspecified hearing loss, unspecified ear; I11.0 Hypertensive heart disease with heart failure; I25.10 Atherosclerotic heart disease of native coronary artery without angina pectoris; I48.91 Unspecified atrial fibrillation; I25.2 Old myocardial infarction; I50.9 Heart failure, unspecified; I73.9 Peripheral vascular disease, unspecified; J44.9 Chronic obstructive pulmonary disease, unspecified; J45.40 Moderate persistent asthma, uncomplicated; K21.9 Gastro-esophageal reflux disease without esophagitis; K59.09 Other constipation; N26.1 Atrophy of kidney (terminal); N31.2 Flaccid neuropathic bladder, not elsewhere classified; N40.1 Benign prostatic hyperplasia with lower urinary tract symptoms; R33.8 Other retention of urine; R31.29 Other microscopic hematuria; Z79.02 Long term (current) use of antithrombotics/antiplatelets; Z79.82 Long term (current) use of aspirin; Z80.0 Family history of malignant neoplasm of digestive organs; Z82.49 Family history of ischemic heart disease and other diseases of the circulatory system; Z82.5 Family history of asthma and other chronic lower respiratory diseases; Z86.010 Personal history of colon polyps; Z86.14 Personal history of Methicillin resistant Staphylococcus aureus infection; Z86.73 Personal history of transient ischemic attack (TIA), and cerebral infarction without residual deficits; Z87.891 Personal history of nicotine dependence; Z87.11 Personal history of peptic ulcer disease; Z95.1 Presence of aortocoronary bypass graft; Z95.5 Presence of coronary angioplasty implant and graft; Z99.81 Dependence on supplemental oxygen; R91.8 Other nonspecific abnormal finding of lung field; Z91.81 History of falling; M79.606 Pain in leg, unspecified; Z79.899 Other long term (current) drug therapy; Z87.01 Personal history of pneumonia (recurrent); Z95.810 Presence of automatic (implantable) cardiac defibrillator
CPT/HCPCS: 36415; 36569; 51702; 51798; 71046; 76770; 76937; 80048; 80053; 80202; 81001; 82150; 82550; 82553; 83690; 83735; 84443; 84484; 85025; 85610; 85730; 87040; 87070; 87077; 87086; 87186; 87205; 93005; 94640; 96361; 96374; 99285

== ENCOUNTER → 2018-06-01 | Outpatient (CLI) | payer MEDICARE, BC ==
[2018-06-01 12:58] VITALS: RESP 22
--- NOTE | 2018-06-01 13:43 | P.PN ---
Progress Note - Text Progress Note Date: 06/01/18 Progress Note -Mr. cruz this 72-year-old gentleman who presents today for follow-up and was referred here by Dr. Recinos. Patient was seen in our clinic about one year ago. He had bilateral radiofrequency ablations done. Patient presents with similar type pain again. He is in a prison and now receiving rehab therapy. His recent stay in the hospital was complicated for a comp. Urinary tract infection. He is currently on IV vancomycin. He also has significant anterior or for vascular disease COPD. He does use 4 L of oxygen at home. He is currently on Plavix. In terms of his pain he complains of low back pain which radiates into the lower buttocks. He reports the pain makes it difficult for him to sit or stand or get up from a sitting position. He does use wheelchairs and walker. As of this pain improved last time with the lumbar radiofrequency ablation. In addition to above, 13-point review of systems is also negative for chest pain , shortness of breath, changes in vision, changes in hearing, new onset weakness , abdominal pain, diarrhea, extreme fatigue, malaise, fever, skin changes, homicidal or suicidal ideation, or bowel or bladder incontinence. Vital Signs: Reviewed in EMR Gen: WDWN, AAOx3, NAD HEENT: NCAT, EOMI, hearing grossly normal Pulm: resp unlabored Abd: soft, NT, ND Neck: supple, trachea midline TTP lower thoracic spine paravertebral area as well as lumbar area with deep palpation ROM in flexion lumbar spine: reduced ROM in extension lumbar spine: reduced Lumbar paravertebral tenderness: + Facet loading: + bilateral SI joint tenderness: no Straight leg raise: +RLE 20 degrees Neuro: CN II-XII grossly intact, muscle strength lower extremities PRESERVED Imaging: Reviewed in EMR Assessment: 1. lumbar spondylosis Plan: 1. Explanation: Opioid and psychological risk scores were reviewed. Diagnoses , prognoses, and multiple treatment options including but not limited to physical therapy, interventional therapies, adjuvant medical therapies, narcotic medication therapies, and surgery were discussed with the patient and all questions were answered to the patient's satisfaction. 2. Opioid agreement: no opioids 3. Counseling: The patient was counseled extensively on SMOKING CESSATION, BODY MASS INDEX, EXERCISE. Specifically, the patient was instructed regarding the importance of smoking cessation, obesity, and exercise in the context of both chronic pain and overall health. 4. Procedures: We will schedule schedule patient for bilateral lumbar radiofrequency ablation done under sedation. Patient has multiple comorbidities and should be done in a hospital setting. We will use minimal sedation for this procedure and we will attempt to do bilateral radiofrequency ablation at the on the same visit. The reason for doing bilateral reservations on Plavix and we will be holding the Plavix for 5 days. Patient was on chronic vancomycin therapy and his dose has finished yesterday once received clearance for Plavix we'll schedule patient for bilateral lumbar radiofrequency ablation at L3-4, 4-5,5-1 5. Consultations: None 6. Investigations: None 7. Medications: None 8. Disposition: f/u for procedure as scheduled PQRS measures: 1-Patient's medications are documented in the chart. 2-Tobacco use is positive, counseling given 3-Patient has not had a pneumococcal vaccine. 4-Advanced care planning discussed, patient unable to give. 5-Opioid contract signed with the patient. 6-Pain positive, follow-up visit or procedure scheduled 7-Patient's blood pressure measured and documented, and WNL. 8-Patient's weight was measured, and body mass index ABOVE the normal limits, and counseling was done. Patient instructed to follow up with PCP. 9-Patient WAS NOT identified as an unhealthy alcohol user.
== END | disposition home or self-care (01) ==
LOC: PNWHC3 12:24
PROVIDERS: ATTEND Anesthesiology
DX: M47.816 Spondylosis without myelopathy or radiculopathy, lumbar region (principal); N39.0 Urinary tract infection, site not specified; J44.9 Chronic obstructive pulmonary disease, unspecified; F17.200 Nicotine dependence, unspecified, uncomplicated; I99.9 Unspecified disorder of circulatory system; Z99.81 Dependence on supplemental oxygen; Z79.02 Long term (current) use of antithrombotics/antiplatelets; Z71.6 Tobacco abuse counseling; Z79.2 Long term (current) use of antibiotics; Z98.890 Other specified postprocedural states
CPT/HCPCS: 99211

== ENCOUNTER → 2018-07-20 | Outpatient (CLI) | payer MEDICARE, BC ==
--- NOTE | 2018-07-20 10:29 | CT ---
EXAMINATION TYPE: CT abdomen pelvis wo con DATE OF EXAM: 07/20/2018 COMPARISON: 07/04/2017 HISTORY: Hematuria and frequent urination CT DLP: 275.1 mGycm Examination of the solid and hollow viscera is limited given the lack of contrast. FINDINGS: LUNG BASES: Nodular scarring right lower lobe. Mild bronchiectasis noted. LIVER/GB: The gallbladder is unremarkable. No space-occupying hepatic lesion. PANCREAS: No pancreatic mass identified. No inflammatory process seen. SPLEEN: No evidence for splenomegaly. No intrasplenic lesions seen. ADRENALS: No adrenal nodules identified. No evidence for thickening. KIDNEYS: Mild right-sided renal atrophic change. Bilateral renal vascular calcifications as well as n onobstructing nephrolithiasis. There is a calculus noted near the UVJ measuring 6.6 mm without hydron ephrosis. This is felt to reflect recently passed calculus or calculus that is in the process of pass ing into the urinary bladder. No evidence for renal mass. No nephrolithiasis. No hydronephrosis. BOWEL: Appendix has a normal appearance. No evidence of bowel obstruction. No inflammatory process. Lymph nodes: No evidence for adenopathy greater than 1 cm. Abdominal aorta: Severe atheromatous change of the abdominal aorta and branch vessels. Mild aneurysma l dilatation noted measuring 3.2 cm. Genital organs: No significant abnormality. Other: No significant abnormality. IMPRESSION: 1. There is a calculus noted near the UVJ measuring 6.6 mm without hydronephrosis. This is felt to re flect recently passed calculus or calculus that is in the process of passing into the urinary bladder .
== END ==
LOC: RADCTMAIN 09:27
PROVIDERS: ATTEND Nurse Practitioner Family
DX: N20.1 Calculus of ureter (principal)
CPT/HCPCS: 74176

== ENCOUNTER → 2018-09-06 | Day surgery (SDC) | payer MEDICARE, BC ==
[2018-09-05 09:02] VITALS: BMI 23.6
[~2018-09-06] MED LIST changes: -ALPRAZolam 0.25 MG TAB PO PRN; -ALPRAZolam 0.5 MG TAB PO PRN; -ASPIRIN 325 MG TAB PO STA; -ATORVASTATIN 80 MG TAB PO STA; +IV FLUID CONTINUATION 1,000 ML IV ONE; +LACTATED RINGERS 1,000 ML IV ONE; -NITROGLYCERIN SL TABS 0.4 MG TAB SUBLINGUAL PRN; -SODIUM CHLORIDE 0.9% 1,000 ML in EMPTY BAG 1 BAG IV ONE; +SODIUM CHLORIDE 0.9% 500 ML 500 ML IV SCH
[2018-09-06 10:17] VITALS: TEMP 97.7
--- NOTE | 2018-09-06 11:45 | P.PCN ---
Date of Procedure: 09/06/18 Surgeon: Jani Beck Description of Procedure: Procedure(s) Performed: PREOPERATIVE DIAGNOSIS: Lumbar Spondylosis POSTOPERATIVE DIAGNOSIS: Same PROCEDURES: Radiofrequency ablation bilateral L4, bilateral L5, bilateral sacral ala with fluoroscopic guidance SURGEON: Jani Beck MD. ANESTHESIA: Moderate sedation with intravenous 2 mg of midazolam as limb EBL: Minimal PROCEDURE INDICATION: The patient with low back pain secondary to lumbar facet arthropathy who had more than 50% relief of pain with previous diagnostic lumbar medial branch block with bupivacaine. patient had good response to diagnostic lumbar medial branch nerve blocks. He is off his Plavix for 5 days and the guidance of his cafeteria or lunchroom checker. He does have a pacemaker and defibrillator. PROCEDURE DESCRIPTION / TECHNIQUE: The patient was seen and identified in the preoperative area. Risks, benefits, complications, including but not limited to risk of infection ,bleeding , allergic reactions to the medications and incomplete pain relief , and alternatives were discussed with the patient, the patient agreed to proceed with the procedure and signed the consent. IV was started. The operative site was marked. Patient was taken to the OR and time out was completed. The patient was placed in the prone position on the procedure table. a magnet was placed over his pacemaker/defibrillator site in accordance with company guidelines.The lumber area was prepped and draped in the usual sterile fashion. . Vital signs were closely monitored during the procedure .IV sedation was used during the procedure to decrease patients anxiety. Using AP and then oblique fluoroscopy, the ``eye of the Jonatan dog corresponding to the connection between the superior and transverse articular processes of the above-mentioned levels were identified, marked, and localized with 1% lidocaine. Subsequently, a 20 [id number] radiofrequency cannula with a 10-mm active tip was advanced guided by fluoroscopy to each of the ``eyes of the Jonatan dog at each site then underwent sensory testing at 50 Hz and 0 to 1 volt and motor testing at 2.5 Hz and 0 to 3 volt with local stimulation, but no radicular symptoms down the legs. Then the sites underwent radiofrequency thermocoagulation at 80 degrees celsius for 90 seconds after injecting 0.5 ml of PF lidocaine 1%. After the thermocoagulation done , 1 ml of the block solution containing depomedrol 40 mg and 4 ml of marcaine 0.5% was injected in divided doses at each levels after negative aspiration of CSF and blood and with no paresthesias. Sterile dressings were applied. COMPLICATIONS: No acute complications. DISPOSITION / PLANS: The patient was placed in a supine position and transferred to the recovery area in a stable condition for observation and was discharged from the recovery room after meeting discharge criteria. Home discharge instructions given to the patient by the staff. The patient was reexamined prior to discharge. follow-up in the pain clinic on an as-needed basis.
[2018-09-06 12:28] VITALS: RESP 20
[2018-09-06 12:42] VITALS: BP 152/77; PULSE 99
--- NOTE | 2018-09-06 15:41 | FL ---
Fluoroscopy HISTORY: Pain 3 seconds fluoroscopy time supplied to the referring clinician. 2 intraoperative C-arm images docume nt the procedure. See dictated report from anesthesia.
== END ==
LOC: ORPAIN 09:17
PROVIDERS: ATTEND Pain Medicine Pain Medicine
DX: M47.816 Spondylosis without myelopathy or radiculopathy, lumbar region (principal); I25.10 Atherosclerotic heart disease of native coronary artery without angina pectoris; I48.91 Unspecified atrial fibrillation; H91.90 Unspecified hearing loss, unspecified ear; Z95.810 Presence of automatic (implantable) cardiac defibrillator; Z79.02 Long term (current) use of antithrombotics/antiplatelets
CPT/HCPCS: 64635; 64636; J2250; J1030; J2001; 99152; 99153

== ENCOUNTER → 2018-10-18 | Outpatient (CLI) | payer MEDICARE, BC ==
--- NOTE | 2018-10-18 15:21 | P.PN ---
Subjective Progress Note Date: 10/18/18 Progress Note -Mr. cruz this 72-year-old gentleman who presents today for follow-up. He had bilateral radiofrequency ablations done on the medial branch lumbar area done a few weeks ago patient reported that he continued to have severe low back pain after the radiofrequency, he continued to use Starkweather 7.5/25 every 6-8 hours, he denies any side effect of the medication, and he reported that the current medication is not helping him to control his pain. , In addition to above, 13-point review of systems is also negative for chest pain , he had severe COPD and uses oxygen all the time, changes in vision, changes in hearing, new onset weakness, abdominal pain, diarrhea, extreme fatigue, malaise, fever, skin changes, homicidal or suicidal ideation, or bowel or bladder incontinence. Vital Signs: Reviewed in EMR Gen: WDWN, AAOx3, NAD HEENT: NCAT, EOMI, hearing grossly normal Pulm: resp unlabored Abd: soft, NT, ND Neck: supple, trachea midline TTP lower thoracic spine paravertebral area as well as lumbar area with deep palpation ROM in flexion lumbar spine: reduced ROM in extension lumbar spine: reduced Lumbar paravertebral tenderness: + Facet loading: + bilateral SI joint tenderness: no Straight leg raise: +RLE 20 degrees Neuro: CN II-XII grossly intact, muscle strength lower extremities PRESERVED Imaging: Reviewed in EMR Assessment: 1. lumbar spondylosis with lumbar facet arthropathy without myelopathy. 2-lumbar degenerative disc disease. Plan: Patient continued to have severe low back pain after radiofrequency ablation of the medial branch lumbar area, and patient had lumbar epidural steroid injection done by Dr. Rec[facility] , he reported he had no benefit from it, the best option at this point is to continue the current pain medication Starkweather 7.5/325 and patient could benefit from referring for physical therapy evaluation regarding the TENS unit, the patient is not a good surgical candidate because he has severe COPD and he is oxygen dependent PQRS measures: 1-Patient's medications are documented in the chart. 2-Tobacco use is positive, counseling given 3-Patient has not had a pneumococcal vaccine. 4-Advanced care planning discussed, patient unable to give. 5-Opioid contract signed with the patient. 6-Pain positive, patient will follow up when necessary 7-Patient's blood pressure measured and documented, 187/87 and patient will follow up with his primary care regarding his hypertension 8-Patient's weight was measured, and body mass index within the normal limits, and counseling was done. Patient instructed to follow up with PCP. 9-Patient WAS NOT identified as an unhealthy alcohol user.
== END ==
LOC: PNWHC3 14:24
PROVIDERS: ATTEND Specialist
DX: M47.816 Spondylosis without myelopathy or radiculopathy, lumbar region (principal); M46.96 Unspecified inflammatory spondylopathy, lumbar region; M51.36 Other intervertebral disc degeneration, lumbar region; Z79.891 Long term (current) use of opiate analgesic; Z72.0 Tobacco use
CPT/HCPCS: 99211

== ENCOUNTER → 2019-01-05 | Day surgery (SDC) | payer MEDICARE, BC ==
[~2019-01-05] MED LIST changes: +DIAZEPAM 5 MG TAB PO ONE; +HYDROcodone/APAP 7.5-325MG 1 EACH TAB ONE; -IV FLUID CONTINUATION 1,000 ML IV ONE; -LACTATED RINGERS 1,000 ML IV ONE; +LOSARTAN 25 MG TAB PO PRN; +PREMYELOGRAM MEDICATION REVIEW 1 EACH MISC PO NR; +PREMYELOGRAM MEDICATION REVIEW 1 EACH MISC PO PRN; -SODIUM CHLORIDE 0.9% 500 ML 500 ML IV SCH; +cloNIDine HCL 0.1 MG TAB PO STA
[2019-01-05 08:55] VITALS: TEMP 97.8
[2019-01-05 10:37] VITALS: RESP 18
--- NOTE | 2019-01-05 10:40 | CT ---
EXAMINATION TYPE: CT lumbar spine w con DATE OF EXAM: 01/05/2019 COMPARISON: 05/05/2017 CT lumbar spine HISTORY: Follow up myelogram. Low back pain CT DLP: 474.9 mGycm Automated exposure control for dose reduction was used. CONTRAST: CT scan of the lumbar is performed with IV Contrast, patient injected with 10 mL of Isovue M300. TECHNIQUE: Enhanced CT of the lumbar spine was performed after intrathecal injection of contrast. Sravan ne and soft tissue window settings are submitted as well as coronal and sagittal reconstructions. Other findings: Beginning 1.3 cm from the most inferior renal artery (left) there is a densely calcif ied infrarenal abdominal aortic aneurysm measuring up to 3.5 cm in transverse dimension and 3.2 cm in anterior posterior dimension. This extends approximately 8 cm in length to the aortic iliac bifurcat ion. Bilateral common iliac endovascular stent grafts are present. There is also evidence of a chroni c dissection flap as it is partially calcified seen focally in the infrarenal abdominal aorta. Chroni c dissection and size of the aneurysm are relatively unchanged from the exam of 2017. Numerous renal arterial calcifications are seen. Too small to accurately characterize exophytic right renal lesions are slightly hyperdense with additional 2 cm right renal cyst. There is right-sided re nal atrophy in comparison to the left. Left renal cyst measures 1.0 cm. There is thickening of the le ft adrenal gland in its medial limb that may relate to adrenal gland hyperplasia as this is unchanged from 2017. Exophytic right inferior pole lateral renal lesion is unchanged with slight enlargement o f the medial renal lesion. The lung bases demonstrate numerous areas of peribronchial cuffing and antonio e endobronchial mucous plugging with a 3 mm right basilar pulmonary nodule posteriorly on series 4 im age 5 that is solid in nature. Lung bases also demonstrate severe emphysematous change. There is generalized osseous demineralization present. No acute fracture is seen. There is hemisacral ization of the left L5 vertebral segment. There is a slight dextroscoliosis of the lumbar spine. Ther e is very mild vertebral body height loss of L1 that is similar to the prior of 2017. There is straig htening of the usual lumbar lordosis. L1-L2: There is a small broad-based disc bulge with minimal mass effect upon the ventral thecal sac w ithout significant spinal canal stenosis. This results in mild bilateral neural foraminal narrowing, left slightly greater than right as a disc bulge is eccentric. L2-L3: There is a broad-based disc bulge with minimal bilateral neural foraminal narrowing and no spi nal canal stenosis. L3-L4: There is a very small central disc herniation with 2 mm cephalad migration resulting in narrow ing of the spinal canal and moderate bilateral neural foraminal narrowing impressing upon the exiting L3 nerve roots. L4-L5: There is postsurgical change seen. Ligamentum flavum buckling versus minimal epidural fibrosis is seen in right laterally overlying the lamina. There is a small central disc herniation. In combin ation these findings create moderate spinal canal stenosis. Additionally facet arthropathy and the sevilla perimposed broad-based disc bulge as well as small posterior osteophytes create moderate to severe bi lateral neural foraminal narrowing, right greater than left with nerve root impingement. L5-S1: Hemilaminectomy change. No focal disc herniation or spinal canal stenosis. IMPRESSION: 1. Increasing degenerative disc disease in comparison to the prior CT of 07/04/2017. There are new dis c herniations at L3-L4 and L4-L5 creating mild spinal canal stenosis at L3-L4 and moderate spinal can al stenosis at L4-L5. There is also neural foraminal narrowing at these levels creating bilateral ner ve root impingement. 2. Ligamentum flavum buckling versus mild epidural fibrosis at L4-L5 deep to the right lamina. Correl ate with prior surgical intervention to assess for ligamentum flavum removal. 3. Essentially stable infrarenal abdominal aortic aneurysm in comparison to 2017 with chronic dissect ion. 3. Right renal lesions that are too small to accurately characterize although one of these is stable from 2017 and the other is minimally enlarged. Other simple cysts are present of the kidneys as well as renal arterial calcifications. 4. Chronic compression deformity of L1 is unchanged. 5. Straightening of the lumbar lordosis may relate to muscular sprain/spasm and/or patient positionin g. 6. Generalized osseous demineralization and multilevel degenerative change of the remainder the lumba r spine are detailed above. 7. Areas of endobronchial mucous plugging, severe pulmonary emphysema, and small pulmonary nodules ar e seen in the lung bases.
--- NOTE | 2019-01-05 11:15 | FL ---
EXAMINATION TYPE: FL myelogram lumbosacral DATE OF EXAM: 01/05/2019 COMPARISON: NONE HISTORY: Low back pain. TECHNIQUE: 5 fluoroscopic images were saved and 55 seconds of fluoroscopy time was utilized. Informed consent was obtained and all the patient's questions were answered. Preprocedural timeout w as performed. The L4-L5 level was localized under fluoroscopy. Standard sterile technique was utiliz ed as well as appropriate local anesthesia 1% Lidocaine. Spinal needle was introduced into the theca l sac under fluoroscopic guidance and 10 mL's of Omni 300 M was injected. The patient tolerated the procedure well and left the department in stable condition. CT myelography is to follow. IMPRESSION: Successful myelography lumbar spine.
[2019-01-05 15:00] VITALS: BP 208/90; PULSE 82
== END ==
LOC: RADPROMAIN 07:46
PROVIDERS: ATTEND Physical Medicine & Rehabilitation
DX: M54.5 Low back pain (principal); I25.10 Atherosclerotic heart disease of native coronary artery without angina pectoris; I11.0 Hypertensive heart disease with heart failure; I50.9 Heart failure, unspecified; F41.9 Anxiety disorder, unspecified; F32.9 Major depressive disorder, single episode, unspecified; I25.2 Old myocardial infarction; I73.9 Peripheral vascular disease, unspecified; I71.4 Abdominal aortic aneurysm, without rupture; E78.5 Hyperlipidemia, unspecified; J44.9 Chronic obstructive pulmonary disease, unspecified; J98.4 Other disorders of lung; H91.90 Unspecified hearing loss, unspecified ear; K25.9 Gastric ulcer, unspecified as acute or chronic, without hemorrhage or perforation; Z95.810 Presence of automatic (implantable) cardiac defibrillator; Z95.5 Presence of coronary angioplasty implant and graft; Z86.718 Personal history of other venous thrombosis and embolism; Z86.73 Personal history of transient ischemic attack (TIA), and cerebral infarction without residual deficits; Z79.899 Other long term (current) drug therapy; Z79.02 Long term (current) use of antithrombotics/antiplatelets; Z79.891 Long term (current) use of opiate analgesic; Z79.01 Long term (current) use of anticoagulants; Z87.891 Personal history of nicotine dependence; Z99.81 Dependence on supplemental oxygen
CPT/HCPCS: 62304; 72132; Q9967; 62284

== ENCOUNTER 2019-02-10 18:44 | Inpatient (IN) | payer MEDICARE, BC ==
--- NOTE | 2019-02-10 19:50 | ED ---
General Adult HPI - General Chief complaint: Altered Mental Status Stated complaint: Altered Mental Status Time Seen by Provider: 02/10/19 19:10 Source: EMS Mode of arrival: EMS Limitations: altered mental status - History of Present Illness Initial comments: Dictation was produced using [employer] dictation software. please excuse any gra mmatical, word or spelling errors. Chief Complaint: 73-year-old male presents after fall. History of Present Illness: Patient is 73-year-old male came from [facility] where he is a resident there. Patient lives by himself. Patient states that he fell last week. He is here in emergency department because he fell again today. In the Bathroom. Patient States That He Feels As Though His Legs Give out When He Tries to Stand. He Feels Generally Weak. Patient Has No Complaints at This Time. Patient Denies Any Constitutional Symptoms. Denies Any Shortness of Breath. EMS reports that for the reason why he was sent here was because he had some mental status changes. The ROS documented in this emergency department record has been reviewed and confirmed by me. Those systems with pertinent positive or negative responses have been documented in the HPI. All other systems are other negative and/or noncontributory. PHYSICAL EXAM: General Impression: Alert and oriented x3, not in acute distress HEENT: Normocephalic atraumatic, extra-ocular movements intact, pupils equal and reactive to light bilaterally, mucous membranes moist. Cardiovascular: Heart regular rate and rhythm, S1&S2 audible, no murmurs, rubs or gallops Chest: Lungs clear to auscultation bilaterally, no rhonchi, no wheeze, no rales Abdomen: Bowel sounds present, abdomen soft, non-tender, non-distended, no organomegaly Musculoskeletal: Pulses present and equal in all extremities, no peripheral edema Motor: no focal deficits noted Neurological: CN II-XII grossly intact, no focal motor or sensory deficits noted Skin: Intact with no visualized rashes Psych: Normal affect and mood ED course: 73-year-old male presents with bilateral lower extremity weakness and multiple falls. All signs upon arrival are within acceptable limits. Patient is alert and oriented 4. Patient's shows no signs of aphasia. Patient has no neuro deficits. Physical examination does not reveal any signs of trauma. Patient has no complaints at this time.Laboratory evaluation obtained. CBC unremarkable per coag panel is unremarkable. Metabolic panel is negative. Patient is glucose of 288. No Acidosis. Urinalysis is unremarkable. Computed tomography scan of the head and neck shows no acute processes. There is however a lot of chronic findings. Chest x-ray and pelvis x-ray are unremarkable. Patient's mentating appropriately he answers all questions appropriately. Patient is known. Her deficits. Temp was made to ambulate patient he appears a little unstable but able to sign step with minimal assistance. Patient reports that he does haven't have anyone to care for him at home. He is a fall risk. Patient resting comfortable at bedside. Discussed patient case with Dr. Marcos who reports that patient has a lot of lab abnormalities and hypoxia seen on evaluation approximately [address] Marcos is willing to accept the admission. At this point there is no clear source of patient's symptoms. EKG interpretation: Ventricular rate 72, paced rhythm,. Interval 122, care is 134, QTc 505. No WA prolongation, no QTC prolongation, no ST or T-wave changes noted. EKG compared to 2017 showing no changes. Overall, this EKG is unremarkable - Related Data Home Medications Medication Instructions Recorded Confirmed Clopidogrel [Plavix] 75 mg PO DAILY 03/10/14 02/10/19 traZODone HCL [Desyrel] 50 mg PO HS 03/10/14 02/10/19 Losartan [Cozaar] 25 mg PO DAILY PRN 12/23/14 02/10/19 Nitroglycerin Sl Tabs [Nitrostat] 0.4 mg SUBLINGUAL Q5M PRN 02/02/16 02/10/19 Ranitidine HCl 150 mg PO BID 02/02/16 02/10/19 Tamsulosin [Flomax] 0.4 mg PO BID 02/02/16 02/10/19 Finasteride [Proscar] 5 mg PO DAILY 07/04/17 02/10/19 Carvedilol [Coreg] 12.5 mg PO HS 04/16/18 02/10/19 Ipratropium-Albuterol Nebulize 3 ml INHALATION RT-TID 07/11/18 02/10/19 [Duoneb 0.5 mg-3 mg/3 ml Soln] Budesonide-Formot 160-4.5 Mcg 2 puff INHALATION BID 12/28/18 02/10/19 [Symbicort 160-4.5 Mcg Inhaler] Oxybutynin Chloride [Ditropan] 5 mg PO BID 01/05/19 02/10/19 Baclofen [Lioresal] 10 mg PO HS 02/10/19 02/10/19 predniSONE 10 mg PO DAILY 02/10/19 02/10/19 sitaGLIPtin PHOS/metFORMIN HCL 1 tab PO BID 02/10/19 02/10/19 [Janumet 50-500 mg Tablet] Previous Rx's Medication Instructions Recorded Atorvastatin [Lipitor] 80 mg PO HS #30 tab 11/23/17 Carvedilol [Coreg] 6.25 mg PO DAILY tab 02/22/18 ALPRAZolam [Xanax] 0.5 mg PO TID PRN #9 tablet 05/23/18 HYDROcodone/APAP 7.5-325MG [[place] 1 tab PO Q6H PRN #12 tab 05/23/18 7.5-325] Allergies Allergy/AdvReac Type Severity Reaction Status Date / Time No Known Allergies Allergy Verified 02/10/19 19:04 Review of Systems ROS Statement: Those systems with pertinent positive or pertinent negative responses have been documented in the HPI. ROS Other: All systems not noted in ROS Statement are negative. Past Medical History Past Medical History: Atrial Fibrillation, Coronary Artery Disease (CAD), Chest Pain / Angina, Heart Failure, COPD, CVA/TIA, Deep Vein Thrombosis (DVT), Eye Disorder, GERD/Reflux, Hearing Disorder / Deafness, Hyperlipidemia, Hypertension, Memory Impairment, Myocardial Infarction ([place]), Musculoskeletal Disorder, Pneumonia, Prostate Disorder, Respiratory Disorder, Vascular Disorder Additional Past Medical History / Comment(s): Chronic steroids, CVA w/ speech difficulty (since 1999) TIAs, PVD, blocked right carotid, respiratory failure, 4L O2 continuous, BPH, chronic bronchitis, DDD, stomach ulcer, diverticulitis, hemorrhoids, colon polyps, walker/wheelchair, electric scooter, chronic leg/back pain, constipation, esvin. glaucoma, freq. falls, Last Myocardial Infarction Date:: 1997 History of Any Multi-Drug Resistant Organisms: MRSA Date of last positivie culture/infection: 05/24/18 MDRO Source:: Sputum Past Surgical History: AICD, Back Surgery, Coronary Bypass/CABG, Heart Catheterization, Heart Catheterization With Stent, Pacemaker, Tonsillectomy Additional Past Surgical History / Comment(s): February 2016 Pacer ([facility] PM [id number], #SS [id number]). CABG 5 vessel 1997. Cath with stents (8 total). Esvin carotid endarterectomies. Back surgery x 2. Bilateral fem/pops, esvin stenting in legs (6 total) with graphs. Cataracts removed, back injections for pain. AICD, PTCA and stent 11/08/17 and January 2018. Past Anesthesia/Blood Transfusion Reactions: No Reported Reaction Additional Past Anesthesia/Blood Transfusion Reaction / Comment(s): Never had blood transfusion. Date of Last Stent Placement:: 01/2018 Type of Cardiac Device: Permanent Pacemaker, AICD Device Placement Date:: 02/2016 Past Psychological History: Anxiety, Depression Smoking Status: Former smoker Past Alcohol Use History: None Reported Past Drug Use History: None Reported - Past Family History Brother(s) Family Medical History: Cancer Additional Family Medical History / Comment(s): Patient has a brother that at age 75 from stage IV stomach cancer. Sister(s) Family Medical History: Congestive Heart Failure (CHF), Vascular Disorder Additional Family Medical History / Comment(s): Patient has a sister that at age 57 from CABG. PVD Son(s) Family Medical History: No Reported History Additional Family Medical History / Comment(s): crohns. Daughter(s) Family Medical History: No Reported History Additional Family Medical History / Comment(s): Daughter has 2 daughters and one works in the OR here - 1 was killed in [place]. Mother Family Medical History: Coronary Artery Disease (CAD) Additional Family Medical History / Comment(s): Mother at age 62 from coronary artery disease and peripheral artery disease status post multiple heart surgeries. Father Family Medical History: Cancer, Coronary Artery Disease (CAD) Additional Family Medical History / Comment(s): Family at age 89 from colon cancer and COPD along with coronary artery disease. General Exam Limitations: altered mental status Course Vital Signs 02/10/19 02/10/19 18:48 20:00 Temperature 98.3 F Pulse Rate 95 67 Respiratory 18 18 Rate Blood Pressure 173/73 147/92 O2 Sat by Pulse 97 98 Oximetry Medical Decision Making - Lab Data Result diagrams: 02/10/19 19:00 02/10/19 19:00 Lab Results 02/10/19 02/10/19 02/10/19 Range/Units 19:00 19:00 19:00 WBC 7.3 (3.8-10.6) k/uL RBC 4.34 (4.30-5.90) m/uL Hgb 13.2 (13.0-17.5) gm/dL Hct 40.3 (39.0-53.0) % MCV 92.8 (80.0-100.0) fL MCH 30.4 (25.0-35.0) pg MCHC 32.8 (31.0-37.0) g/dL RDW 14.0 (11.5-15.5) % Plt Count 167 (150-450) k/uL Neutrophils % 84 % Lymphocytes % 7 % Monocytes % 6 % Eosinophils % 2 % Basophils % 0 % Neutrophils # 6.1 (1.3-7.7) k/uL Lymphocytes # 0.5 L (1.0-4.8) k/uL Monocytes # 0.4 (0-1.0) k/uL Eosinophils # 0.1 (0-0.7) k/uL Basophils # 0.0 (0-0.2) k/uL PT (9.0-12.0) sec INR (<1.2) Sodium 137 (137-145) mmol/L Potassium 4.4 (3.5-5.1) mmol/L Chloride 99 (98-107) mmol/L Carbon Dioxide 30 (22-30) mmol/L Anion Gap 8 mmol/L BUN 18 (9-20) mg/dL Creatinine 0.74 (0.66-1.25) mg/dL Est GFR (CKD-EPI)AfAm >90 (>60 ml/min/1.73 sqM) Est GFR (CKD-EPI)NonAf >90 (>60 ml/min/1.73 sqM) Glucose 288 H (74-99) mg/dL Calcium 9.3 (8.4-10.2) mg/dL Magnesium 1.7 (1.6-2.3) mg/dL Total Bilirubin 1.3 (0.2-1.3) mg/dL AST 24 (17-59) U/L ALT 34 (21-72) U/L Alkaline Phosphatase 101 (38-126) U/L Creatine Kinase <20 L (55-170) U/L Troponin I <0.012 (0.000-0.034) ng/mL Total Protein 6.4 (6.3-8.2) g/dL Albumin 3.9 (3.5-5.0) g/dL Urine Color Urine Appearance (Clear) Urine pH (5.0-8.0) Ur Specific [place] (1.001-1.035) Urine Protein (Negative) Urine Glucose (UA) (Negative) Urine Ketones (Negative) Urine Blood (Negative) Urine Nitrite (Negative) Urine Bilirubin (Negative) Urine Urobilinogen (<2.0) mg/dL Ur Leukocyte Esterase (Negative) 02/10/19 02/10/19 Range/Units 19:00 19:50 WBC (3.8-10.6) k/uL RBC (4.30-5.90) m/uL Hgb (13.0-17.5) gm/dL Hct (39.0-53.0) % MCV (80.0-100.0) fL MCH (25.0-35.0) pg MCHC (31.0-37.0) g/dL RDW (11.5-15.5) % Plt Count (150-450) k/uL Neutrophils % % Lymphocytes % % Monocytes % % Eosinophils % % Basophils % % Neutrophils # (1.3-7.7) k/uL Lymphocytes # (1.0-4.8) k/uL Monocytes # (0-1.0) k/uL Eosinophils # (0-0.7) k/uL Basophils # (0-0.2) k/uL PT 11.2 (9.0-12.0) sec INR 1.1 (<1.2) Sodium (137-145) mmol/L Potassium (3.5-5.1) mmol/L Chloride (98-107) mmol/L Carbon Dioxide (22-30) mmol/L Anion Gap mmol/L BUN (9-20) mg/dL Creatinine (0.66-1.25) mg/dL Est GFR (CKD-EPI)AfAm (>60 ml/min/1.73 sqM) Est GFR (CKD-EPI)NonAf (>60 ml/min/1.73 sqM) Glucose (74-99) mg/dL Calcium (8.4-10.2) mg/dL Magnesium (1.6-2.3) mg/dL Total Bilirubin (0.2-1.3) mg/dL AST (17-59) U/L ALT (21-72) U/L Alkaline Phosphatase (38-126) U/L Creatine Kinase (55-170) U/L Troponin I (0.000-0.034) ng/mL Total Protein (6.3-8.2) g/dL Albumin (3.5-5.0) g/dL Urine Color Yellow Urine Appearance Clear (Clear) Urine pH 5.5 (5.0-8.0) Ur Specific [place] 1.036 H (1.001-1.035) Urine Protein Negative (Negative) Urine Glucose (UA) 4+ H (Negative) Urine Ketones Negative (Negative) Urine Blood Negative (Negative) Urine Nitrite Negative (Negative) Urine Bilirubin Negative (Negative) Urine Urobilinogen <2.0 (<2.0) mg/dL Ur Leukocyte Esterase Negative (Negative) Disposition Clinical Impression: Weakness Disposition: ADMITTED IP TO THIS [facility] Condition: Fair Referrals: Randolph Marcos MD [Primary Care Provider] - 1-2 days Decision Time: 21:07
--- NOTE | 2019-02-10 20:13 | CT ---
EXAMINATION TYPE: CT brain artis hernandez con DATE OF EXAM: 02/10/2019 COMPARISON: 06/14/2015 HISTORY: MULTIPLE FALL INJURIES CT DLP: 1281 mGycm. Automated Exposure Control for Dose Reduction was Utilized. TECHNIQUE: CT scan of the head and cervical spine are performed without contrast. FINDINGS: There is no acute intracranial hemorrhage or midline shift identified. Encephalomalacia f rom old infarct is seen within the right cerebellar hemisphere and in the left frontal lobe as well a s the right frontoparietal region in the distribution of the middle cerebral artery. There is ex vacu o dilatation multifocally of the lateral ventricles. There is prominence of the peripheral sulci and ventricular system compatible with age-related volume loss. The patient's head is tilted in the gantr y, making assessment of symmetry difficult. Punctate left basal ganglia calcifications are noted. Con fluent nonspecific white matter changes seen in the periventricular white matter. Scant mucosal thick ening is seen within the ethmoid sinuses. The globes are intact and the remaining visualized sinuses are clear. Cervical spine is visualized in its entirety from C1 through upper thoracic levels and demonstrates s atisfactory alignment without evidence of acute fracture or dislocation. Prevertebral soft tissue ap pears within normal limits. The C1-C2 articulation is unremarkable. However there is extensive multi level degenerative disc disease of the cervical spine with near osseous fusion of the C3-C4 vertebral bodies and severe intervertebral disc space narrowing at multiple additional levels. Facet arthropat hy and uncovertebral hypertrophy are present multiple levels creating variable degrees of neural fora alexandre narrowing. Spinal canal is limited on CT. Extensive emphysematous changes are seen of the lung apices. Vascular stent is partially visualized between the common carotid artery and left subclavian. Extensive atherosclerosis of the carotid arteries. IMPRESSION: 1. There is no acute fracture or dislocation evident in the cervical spine. 2. No acute intracranial hemorrhage, mass effect, or midline shift is seen. 3. Multifocal encephalomalacia in the left frontal lobe, right frontoparietal region, and right cereb ellar hemisphere from prior infarct is unchanged from 2014. 4. Age-related volume loss and confluent nonspecific white matter change, likely on the basis of professional athletes coach dav microangiopathy. 5. Extensive atherosclerosis of the carotid arteries. 6. Extensive multilevel degenerative disc disease of the cervical spine.
[2019-02-10 20:21] LABS: Basophils % (A) 0 %; Eosinophils # (A) 0.1 k/uL (0-0.7); Eosinophils % (A) 2 %; HCT 40.3 % (39.0-53.0); HGB 13.2 gm/dL (13.0-17.5); Lymphocytes # (A) 0.5 k/uL (1.0-4.8); Lymphocytes % (A) 7 %; MCH 30.4 pg (25.0-35.0); MCHC 32.8 g/dL (31.0-37.0); MCV 92.8 fL (80.0-100.0); Mean Platelet Volume 6.9; Monocytes # (A) 0.4 k/uL (0-1.0); Monocytes % (A) 6 %; Neutrophils # (A) 6.1 k/uL (1.3-7.7); Neutrophils % (A) 84 %; Platelet Count 167 k/uL (150-450); RBC 4.34 m/uL (4.30-5.90); WBC 7.3 k/uL (3.8-10.6)
[2019-02-10 20:25] LABS: Appearance,Urine Clear (Clear); Bilirubin,Urine Negative (Negative); Blood,Urine Negative (Negative); Color,Urine Yellow; Glucose,Urine (UA) 4+ (Negative); Ketones,Urine Negative (Negative); Leukocyte Esterase,Urine Negative (Negative); Nitrite,Urine Negative (Negative); PH, Urine 5.5 (5.0-8.0); Protein,Urine Negative (Negative); Specific Gravity,Urine 1.036 (1.001-1.035); Urobilinogen,Urine <2.0 mg/dL (<2.0)
[2019-02-10 20:25] LABS: INR 1.1 (<1.2); Prothrombin Time 11.2 sec (9.0-12.0)
[2019-02-10 20:31] LABS: ALT 34 U/L (21-72); AST 24 U/L (17-59); Albumin 3.9 g/dL (3.5-5.0); Alkaline Phosphatase 101 U/L (38-126); Anion Gap 8 mmol/L; Blood Urea Nitrogen 18 mg/dL (9-20); Calcium 9.3 mg/dL (8.4-10.2); Carbon Dioxide 30 mmol/L (22-30); Chloride 99 mmol/L (98-107); Creatine Kinase <20 U/L (55-170); Glucose 288 mg/dL (74-99); Magnesium 1.7 mg/dL (1.6-2.3); Sodium 137 mmol/L (137-145); Total Bilirubin 1.3 mg/dL (0.2-1.3); Total Protein 6.4 g/dL (6.3-8.2)
--- NOTE | 2019-02-10 20:35 | XR ---
EXAMINATION TYPE: XR chest 2V DATE OF EXAM: 02/10/2019 COMPARISON: 05/04/2018 HISTORY: Chest pain TECHNIQUE: Frontal and lateral views of the chest are obtained. FINDINGS: COPD is seen as there is pulmonary hyperinflation. Scattered strand-like opacities are unc hanged from the exam of 2018 and likely represent multifocal pleural parenchymal scarring. No new foc al consolidation, pleural effusion or pneumothorax. Generalized osseous demineralization. Post CABG c hanges the chest and multilead left-sided cardiac device with nonenlarged Cardia mediastinal silhouet te are seen. IMPRESSION: Chronic findings with no acute cardiopulmonary process.
[2019-02-10 20:37] LABS: Potassium 4.4 mmol/L (3.5-5.1)
--- NOTE | 2019-02-10 20:37 | XR ---
EXAMINATION TYPE: XR pelvis AP view DATE OF EXAM: 02/10/2019 CLINICAL HISTORY: Pelvic pain after fall TECHNIQUE: A single AP view of the pelvis is obtained. COMPARISON: None. FINDINGS: Generalized osseous demineralization slightly limits evaluation. There is no acute fractur e/dislocation evident in the pelvis. The hip and sacroiliac joints appear symmetric and display mode rate degenerative change. The overlying soft tissue appears unremarkable. Vascular stents and athero sclerosis are seen with surgical clips throughout the pelvis. IMPRESSION: There is no acute fracture or dislocation in the pelvis.
[2019-02-10] MEDS ORDERED: ONDANSETRON 4 MG/2 ML VIAL IVP PRN (21:08)
[2019-02-10] MEDS ORDERED: ACETAMINOPHEN TAB 325 MG TAB PO PRN (21:08)
[2019-02-10] MEDS ORDERED: NALOXONE 0.4 MG/ML 1 ML VIAL IV PRN (21:08)
[2019-02-10] MEDS ORDERED: NITROGLYCERIN SL TABS 0.4 MG TAB SUBLINGUAL PRN (21:09)
[2019-02-10] MEDS ORDERED: LOSARTAN 25 MG TAB PO PRN (21:09)
[2019-02-10] MEDS: SODIUM CHLORIDE 0.9% 1,000 ML IV SCH (22:02)
[2019-02-11] MEDS: HYDROcodone/APAP 7.5-325MG 1 EACH TAB PO PRN ×4 (00:39→21:24)
[2019-02-11] MEDS: FAMOTIDINE 20 MG TAB PO SCH ×2 (07:23→21:23)
[2019-02-11] MEDS: TAMSULOSIN 0.4 MG CAP.ER.24H PO SCH ×2 (07:23→18:30)
[2019-02-11] MEDS: FINASTERIDE 5 MG TAB PO SCH (07:23)
[2019-02-11] MEDS: CARVEDILOL 6.25 MG TAB PO SCH (07:23)
[2019-02-11] MEDS: PANTOPRAZOLE 40 MG/10 ML VIAL IV SCH (07:23)
[2019-02-11] MEDS: CLOPIDOGREL 75 MG TAB PO SCH (07:23)
[2019-02-11] MEDS: predniSONE 10 MG TAB PO SCH (07:23)
[2019-02-11 07:28] LABS: Glucose,Whole Blood 236 mg/dL (75-99)
[2019-02-11] MEDS ORDERED: NON-FORMULARY DRUG (Sitagliptin Phos/Metformin Hcl [Janumet 50-500 Mg Tablet] 1 TAB) PO SCH (07:30)
[2019-02-11] MEDS: SYMBICORT 160-4.5 MCG INHALER INHALATION SCH ×2 (08:47→20:10)
[2019-02-11] MEDS: IPRATROPIUM-ALBUTEROL 3 ML NEB INHALATION SCH ×3 (08:47→20:10)
[2019-02-11 09:07] LABS: Basophils % (A) 0 %; Eosinophils # (A) 0.1 k/uL (0-0.7); Eosinophils % (A) 1 %; HCT 39.4 % (39.0-53.0); Lymphocytes # (A) 0.8 k/uL (1.0-4.8); Lymphocytes % (A) 12 %; MCH 30.9 pg (25.0-35.0); MCHC 32.9 g/dL (31.0-37.0); MCV 93.7 fL (80.0-100.0); Monocytes # (A) 0.4 k/uL (0-1.0); Monocytes % (A) 6 %; Neutrophils # (A) 5.1 k/uL (1.3-7.7); Neutrophils % (A) 79 %; Platelet Count 186 k/uL (150-450); WBC 6.4 k/uL (3.8-10.6)
[2019-02-11 09:18] LABS: ALT 31 U/L (21-72); AST 24 U/L (17-59); Albumin 3.9 g/dL (3.5-5.0); Alkaline Phosphatase 104 U/L (38-126); Anion Gap 5 mmol/L; Blood Urea Nitrogen 15 mg/dL (9-20); Calcium 9.4 mg/dL (8.4-10.2); Carbon Dioxide 34 mmol/L (22-30); Chloride 101 mmol/L (98-107); Glucose 236 mg/dL (74-99); Potassium 4.2 mmol/L (3.5-5.1); Sodium 140 mmol/L (137-145); Total Bilirubin 1.3 mg/dL (0.2-1.3); Total Protein 6.4 g/dL (6.3-8.2)
--- NOTE | 2019-02-11 10:20 | P.HPIM ---
History of Present Illness H&P Date: 02/10/19 Chief Complaint: Altered mental status, possible TIA, severe hypoxia, COPD with mild exacerb 73-year-old male one of my office patient with past medical history of advanced COPD, CAD, A. fib, multiple history of CVA and TIA along with history of deep venous thrombosis who was in the office this past week was diagnosed with new onset of type 2 diabetes with a blood sugar running over 300, patient become quite bit confused at home had sustained a 3 falls with no major injury except he traumatize his buttocks and tailbone area and believe has fracture and it also developed low lightheadedness dizziness with significant mobility balance problem, worsening dyspnea and shortness of breath with cough and inspiratory expiratory wheezes with tightness. Severely abnormal balance and gait with generalized weakness more in the lower extremities and upper extremity . Patient was supposed to start on insulin along with Janumet apparently had no help did not get any proper training for insulin his blood sugar remained running in the 300 and patient is symptomatic with polyuria and frequency. He presented to the emergency department at [facility] after his fall brought by EMS his workup with CAT scan of the brain pelvis and hip not show any fracture multiple small vessel disease area and significant problem with COPD and fluid overload. Patient blood sugar was mildly elevated continue to be significantly confused not been able to ambulate and walk continue to complain of pelvic pain was hospitalized with above problem. Review of Systems CONSTITUTIONAL: Well-developed no acute respiratory distress. Significant confusion with worsening dyspnea and hypoxia. EYES: No icterus sclerae, no conjunctivitis. EARS, NOSE, MOUTH, THROAT, and FACE: No sore throat, lymphadenopathy, carotid bruits or deformity. RESPIRATORY: Positive shortness of breath cough wheezes. CARDIOVASCULAR: Positive PND orthopnea palpitation no angina. GASTROINTESTINAL: Positive abdominal pain with nausea no vomiting no constipation. GENITOURINARY: Negative for Hematuria or UTI, no kidney stones. INTEGUMENT/BREAST: Positive pelvic pain and tailbone pain along with significant discomfort in the right hip area. HEMATOLOGIC/LYMPHATIC: Negative for bleed or purpura. MUSCULOSKELTAL: Negative for Myalgia or arthralgia. NEURLOGICAL: Confusion and altered mental status with weakness of the lower extremity not been able to ambulate and walk continue to have severe abnormal balance and gait. BEHAVIORAL/PSYCH: Negative. ENDOCRINE: Negative. Past Medical History Past Medical History: Atrial Fibrillation, Coronary Artery Disease (CAD), Chest Pain / Angina, Heart Failure, COPD, CVA/TIA, Deep Vein Thrombosis (DVT), Eye Disorder, GERD/Reflux, Hearing Disorder / Deafness, Hyperlipidemia, Hypertension, Memory Impairment, Myocardial Infarction ([place]), Musculoskeletal Disorder, Pneumonia, Prostate Disorder, Respiratory Disorder, Vascular Disorder Additional Past Medical History / Comment(s): Chronic steroids, CVA w/ speech difficulty (since 1999) TIAs, PVD, blocked right carotid, respiratory failure, 4L O2 continuous, BPH, chronic bronchitis, DDD, stomach ulcer, diverticulitis, hemorrhoids, colon polyps, walker/wheelchair, electric scooter, chronic leg/back pain, constipation, esvin. glaucoma, freq. falls, Last Myocardial Infarction Date:: 1997 History of Any Multi-Drug Resistant Organisms: MRSA Date of last positivie culture/infection: 05/24/18 MDRO Source:: Sputum Past Surgical History: AICD, Back Surgery, Coronary Bypass/CABG, Heart Catheterization, Heart Catheterization With Stent, Pacemaker, Tonsillectomy Additional Past Surgical History / Comment(s): February 2016 Pacer ([facility] PM [id number], #SS [id number]). CABG 5 vessel 1997. Cath with stents (8 total). Esvin carotid endarterectomies. Back surgery x 2. Bilateral fem/pops, esvin stenting in legs (6 total) with graphs. Cataracts removed, back injections for pain. AICD, PTCA and stent 11/08/17 and January 2018. Past Anesthesia/Blood Transfusion Reactions: No Reported Reaction Additional Past Anesthesia/Blood Transfusion Reaction / Comment(s): Never had blood transfusion. Date of Last Stent Placement:: 01/2018 Type of Cardiac Device: Permanent Pacemaker, AICD Device Placement Date:: 02/2016 Past Psychological History: Anxiety, Depression Smoking Status: Former smoker Past Alcohol Use History: None Reported Past Drug Use History: None Reported - Past Family History Brother(s) Family Medical History: Cancer Additional Family Medical History / Comment(s): Patient has a brother that at age 75 from stage IV stomach cancer. Sister(s) Family Medical History: Congestive Heart Failure (CHF), Vascular Disorder Additional Family Medical History / Comment(s): Patient has a sister that at age 57 from CABG. PVD Son(s) Family Medical History: No Reported History Additional Family Medical History / Comment(s): crohns. Daughter(s) Family Medical History: No Reported History Additional Family Medical History / Comment(s): Daughter has 2 daughters and one works in the [place] here - 1 was killed in [place]. Mother Family Medical History: Coronary Artery Disease (CAD) Additional Family Medical History / Comment(s): Mother at age 62 from coronary artery disease and peripheral artery disease status post multiple heart surgeries. Father Family Medical History: Cancer, Coronary Artery Disease (CAD) Additional Family Medical History / Comment(s): Family at age 89 from colon cancer and COPD along with coronary artery disease. Medications and Allergies Home Medications Medication Instructions Recorded Confirmed Type Clopidogrel [Plavix] 75 mg PO DAILY 03/10/14 02/10/19 History traZODone HCL [Desyrel] 50 mg PO HS 03/10/14 02/10/19 History Losartan [Cozaar] 25 mg PO DAILY PRN 12/23/14 02/10/19 History Nitroglycerin Sl Tabs [Nitrostat] 0.4 mg SUBLINGUAL Q5M PRN 02/02/16 02/10/19 History Ranitidine HCl 150 mg PO BID 02/02/16 02/10/19 History Tamsulosin [Flomax] 0.4 mg PO BID 02/02/16 02/10/19 History Finasteride [Proscar] 5 mg PO DAILY 07/04/17 02/10/19 History Atorvastatin [Lipitor] 80 mg PO HS #30 tab 11/23/17 02/10/19 Rx Carvedilol [Coreg] 6.25 mg PO DAILY tab 02/22/18 02/10/19 Rx Carvedilol [Coreg] 12.5 mg PO HS 04/16/18 02/10/19 History ALPRAZolam [Xanax] 0.5 mg PO TID PRN #9 tablet 05/23/18 02/10/19 Rx HYDROcodone/APAP 7.5-325MG [[place] 1 tab PO Q6H PRN #12 tab 05/23/18 02/10/19 Rx 7.5-325] Ipratropium-Albuterol Nebulize 3 ml INHALATION RT-TID 07/11/18 02/10/19 History [Duoneb 0.5 mg-3 mg/3 ml Soln] Budesonide-Formot 160-4.5 Mcg 2 puff INHALATION BID 12/28/18 02/10/19 History [Symbicort 160-4.5 Mcg Inhaler] Oxybutynin Chloride [Ditropan] 5 mg PO BID 01/05/19 02/10/19 History Baclofen [Lioresal] 10 mg PO HS 02/10/19 02/10/19 History predniSONE 10 mg PO DAILY 02/10/19 02/10/19 History sitaGLIPtin PHOS/metFORMIN HCL 1 tab PO BID 02/10/19 02/10/19 History [Janumet 50-500 mg Tablet] Allergies Allergy/AdvReac Type Severity Reaction Status Date / Time No Known Allergies Allergy Verified 02/10/19 19:04 Physical Exam Vitals: Vital Signs Temp Pulse Resp BP Pulse Ox 02/10/19 20:00 67 18 147/92 98 02/10/19 18:48 98.3 F 95 18 173/73 97 Intake and Output 02/10/19 02/10/19 02/10/19 06:59 14:59 22:59 Other: Weight 58.967 kg General Appearance: Alert, cooperative, very anxious in mild respiratory distress. Neck HEENT: Supple, no lymphadenopathy, no thyroid enlargement, no carotid bruits. Lungs: Decreased breath sound bilaterally with fine rhonchi positive crackles positive mild expiratory wheezes. Chest Wall: Decreased expansion bilaterally left upper side had an ICD device with slight tenderness in the chest wall area with sign of bruise no sign of fracture. Heart: Irregular rhythm and rate S1-S2 positive S, with 5 cm JVD. Back: Symmetric, multiple bruises specially on the right side positive mild curvature with scoliosis. Abdomen: Soft, non-tender, bowel sounds active all four quadrants, no masses, no organomegaly. Extremities: Multiple bruises on both knees worse on the right than the left side with slight trace edema slight discoloration from the knee down.. Pulses: 2+ and symmetric. Skin: Skin color, texture, tugor normal, no rashes or lesions. Neurologic: Alert significantly confuse [place] nerve II-12 intact is moving his 4 extremity still have weakness in the lower extremity severe abnormal balance and gait. Results CBC & Chem 7: 02/11/19 08:04 02/11/19 08:04 Labs: Abnormal Lab Results - Last 24 Hours (Table) 02/10/19 02/10/19 02/10/19 Range/Units 19:00 19:00 19:50 Lymphocytes # 0.5 L (1.0-4.8) k/uL Glucose 288 H (74-99) mg/dL Creatine Kinase <20 L (55-170) U/L Ur Specific [place] 1.036 H (1.001-1.035) Urine Glucose (UA) 4+ H (Negative) Thrombosis Risk Factor Assmnt - DVT/VTE Prophylaxis DVT/VTE Prophylaxis: Pharmacologic Prophylaxis ordered, Mechanical Prophylaxis ordered Assessment and Plan Plan: 1 altered mental status: TIA versus metabolic versus hypoxia patient will be admitted neuro exam will be done neuro consult and if any further testing including carotid ultrasound need to be done review his CAT scan of the brain look for any other abnormality with small vessel disease. 2 multiple falls severe abnormal balancing gait with more injury to the soft tissue including his tailbone and pelvic area continue conservative management. 3 COPD with worsening excessive patient: Patient will be on Solu-Medrol 60 mg every 6 hours resume his steroid nebulizer along with DuoNeb consult pulmonary a Chin seen Dr. Rogers on regular basis. 4 severe nonketotic hyperglycemia, with new onset of diabetes will start patient on Levemir 10 units titrated up to 25 units over the next 48 hours continue Janumet continue Accu-Chek with sliding scales coverage patient can benefit from GLP 2 product if needed and if the blood sugar remain not control. 5 severe cardiomyopathy: Post AICD still seen cardiology regular basis. 6 severe CAD: Post multiple bypass surgery and angioplasty no angina symptom at this point. 7 chronic respiratory failure: Mostly end-stage lung disease on O2 and updraft still not doing well despite all the management his hypoxic with blood oxygen level dropped down significantly when he is on less than for liter. 8 debility: With multiple fall abnormal balancing gait was start PTOT patient might benefit from rehab for at least 1-2 weeks. 9 severe anxiety and panic attack with depression: Remain on alprazolam trazodone Will add site had a pram when he milligrams daily. 10 severe BPH: Has been on tamsulosin and finasteride continue both medication. 11 Severe GERD/GI prophylaxis: Patient remain on Pepcid or ranitidine. 12 chronic pain syndrome: Patient remain on hydrocodone and baclofen. Still using Tylenol on an as-needed basis along with topical product. CODE STATUS: Full code. DVT prophylaxis: Patient will be on heparin subcutaneous. CODE STATUS: Full code. Admit patient to inpatient status for more than 2 nights.
--- NOTE | 2019-02-11 10:23 | P.PN ---
Subjective Progress Note Date: 02/11/19 Principal diagnosis: Altered mental status, possible TIA, severe hypoxia, COPD with mild exacerb 73-year-old male one of my office patient with past medical history of advanced COPD, CAD, A. fib, multiple history of CVA and TIA along with history of deep venous thrombosis who was in the office this past week was diagnosed with new onset of type 2 diabetes with a blood sugar running over 300, patient become quite bit confused at home had sustained a 3 falls with no major injury except he traumatize his buttocks and tailbone area and believe has fracture and it also developed low lightheadedness dizziness with significant mobility balance problem, worsening dyspnea and shortness of breath with cough and inspiratory expiratory wheezes with tightness. Severely abnormal balance and gait with generalized weakness more in the lower extremities and upper extremi ty. Patient was supposed to start on insulin along with Janumet apparently had no help did not get any proper training for insulin his blood sugar remained running in the 300 and patient is symptomatic with polyuria and frequency. He presented to the emergency department at [facility] after his fall brought by EMS his workup with CAT scan of the brain pelvis and hip not show any fracture multiple small vessel disease area and significant problem with COPD and fluid overload. Patient blood sugar was mildly elevated continue to be significantly confused not been able to ambulate and walk continue to complain of pelvic pain was hospitalized with above problem. 02/11 patient is very anxious his blood sugars running slightly but better was started on Levemir will do some training Will start patient on PTOT patient might benefit from going to rehab he is very confused in between his mobility is not safe to ambulate on his own. Objective - Vital Signs Vital signs: Vital Signs Temp 98.2 F 02/11/19 01:47 Pulse 64 02/11/19 09:06 Resp 20 02/11/19 07:05 BP 103/52 02/11/19 01:47 Pulse Ox 99 02/11/19 01:47 Intake & Output 02/10/19 02/11/19 02/11/19 18:59 06:59 18:59 Intake Total 590 Balance 590 Weight 58.967 kg Intake: Intake, IV Titration 140 Amount Sodium Chloride 0.9% 1, 140 000 ml @ 20 mls/hr IV . Q24H SINDHU Rx#:[id number] Oral 450 Other: Voiding Method Toilet # Voids 2 - Exam Review of Systems CONSTITUTIONAL: Well-developed no acute respiratory distress. Significant confusion with worsening dyspnea and hypoxia. EYES: No icterus sclerae, no conjunctivitis. EARS, NOSE, MOUTH, THROAT, and FACE: No sore throat, lymphadenopathy, carotid bruits or deformity. RESPIRATORY: Positive shortness of breath cough wheezes. CARDIOVASCULAR: Positive PND orthopnea palpitation no angina. GASTROINTESTINAL: Positive abdominal pain with nausea no vomiting no cons tipation. GENITOURINARY: Negative for Hematuria or UTI, no kidney stones. INTEGUMENT/BREAST: Positive pelvic pain and tailbone pain along with significant discomfort in the right hip area. HEMATOLOGIC/LYMPHATIC: Negative for bleed or purpura. MUSCULOSKELTAL: Negative for Myalgia or arthralgia. NEURLOGICAL: Confusion and altered mental status with weakness of the lower extremity not been able to ambulate and walk continue to have severe abnormal balance and gait. BEHAVIORAL/PSYCH: Negative. ENDOCRINE: Negative. Physical Exam General Appearance: Alert, cooperative, very anxious in mild respiratory distress. Neck HEENT: Supple, no lymphadenopathy, no thyroid enlargement, no carotid bruits. Lungs: Decreased breath sound bilaterally with fine rhonchi positive crackles positive mild expiratory wheezes. Chest Wall: Decreased expansion bilaterally left upper side had an ICD device with slight tenderness in the chest wall area with sign of bruise no sign of fracture. Heart: Irregular rhythm and rate S1-S2 positive S, with 5 cm JVD. Back: Symmetric, multiple bruises specially on the right side positive mild curvature with scoliosis. Abdomen: Soft, non-tender, bowel sounds active all four quadrants, no masses, no organomegaly. Extremities: Multiple bruises on both knees worse on the right than the left side with slight trace edema slight discoloration from the knee down.. Pulses: 2+ and symmetric. Skin: Skin color, texture, tugor normal, no rashes or lesions. Neurologic: Alert significantly confuse [place] nerve II-12 intact is moving his 4 extremity still have weakness in the lower extremity severe abnormal balance and gait. - Labs CBC & Chem 7: 02/11/19 08:04 02/11/19 08:04 Labs: Abnormal Lab Results - Last 24 Hours (Table) 02/10/19 02/10/19 02/10/19 Range/Units 19:00 19:00 19:50 RBC (4.30-5.90) m/uL Lymphocytes # 0.5 L (1.0-4.8) k/uL Carbon Dioxide (22-30) mmol/L Glucose 288 H (74-99) mg/dL POC Glucose (mg/dL) (75-99) mg/dL Creatine Kinase <20 L (55-170) U/L Ur Specific [place] 1.036 H (1.001-1.035) Urine Glucose (UA) 4+ H (Negative) 02/11/19 02/11/19 02/11/19 Range/Units 07:27 08:04 08:04 RBC 4.20 L (4.30-5.90) m/uL Lymphocytes # 0.8 L (1.0-4.8) k/uL Carbon Dioxide 34 H (22-30) mmol/L Glucose 236 H (74-99) mg/dL POC Glucose (mg/dL) 236 H (75-99) mg/dL Creatine Kinase (55-170) U/L Ur Specific [place] (1.001-1.035) Urine Glucose (UA) (Negative) Assessment and Plan Plan: 1 altered mental status: TIA versus metabolic versus hypoxia patient will be admitted neuro exam will be done neuro consult and if any further testing including carotid ultrasound need to be done review his CAT scan of the brain look for any other abnormality with small vessel disease. 2 multiple falls severe abnormal balancing gait with more injury to the soft tissue including his tailbone and pelvic area continue conservative management. 3 COPD with worsening excessive patient: Patient will be on Solu-Medrol 60 mg every 6 hours resume his steroid nebulizer along with DuoNeb consult pulmonary a Chin seen Dr. Rogers on regular basis. 4 severe nonketotic hyperglycemia, with new onset of diabetes will start patient on Levemir 10 units titrated up to 25 units over the next 48 hours continue Janumet continue Accu-Chek with sliding scales coverage patient can benefit from GLP 2 product if needed and if the blood sugar remain not control. 5 severe cardiomyopathy: Post AICD still seen cardiology regular basis. 6 severe CAD: Post multiple bypass surgery and angioplasty no angina symptom at this point. 7 chronic respiratory failure: Mostly end-stage lung disease on O2 and updraft still not doing well despite all the management his hypoxic with blood oxygen level dropped down significantly when he is on less than for liter. 8 debility: With multiple fall abnormal balancing gait was start PTOT patient might benefit from rehab for at least 1-2 weeks. 9 severe anxiety and panic attack with depression: Remain on alprazolam trazodone Will add site had a pram when he milligrams daily. 10 severe BPH: Has been on tamsulosin and finasteride continue both medication. 11 Severe GERD/GI prophylaxis: Patient remain on Pepcid or ranitidine. Patient will be started on PTOT more training on diabetes, will involve social service possibly need either placement or rehab.
[2019-02-11] MEDS: ALPRAZolam 0.5 MG TAB PO PRN ×2 (11:45→21:23)
[2019-02-11] MEDS: HEPARIN SODIUM,PORCINE 5,000 UNIT/ML 1 ML VIAL SQ SCH ×2 (11:46→21:23)
[2019-02-11] MEDS: CITALOPRAM HYDROBROMIDE 20 MG TAB PO SCH (11:46)
[2019-02-11] MEDS: INSULIN DETEMIR (LEVEMIR) 100 UNIT/ML SYR SQ SCH (11:48)
--- NOTE | 2019-02-11 13:50 | CONS ---
CONSULTATION REASON FOR CONSULTATION: This is a pulmonary/critical care consultation for COPD. DATE OF SERVICE: 02/11/2019 HISTORY OF PRESENT ILLNESS: This is a 73-year-old male, well known to me. The patient sees Dr. Marcos as a primary. I see him for COPD. He has quite severe COPD stage IV. FEV1 is less than 30% of predicted. The patient apparently presented to the emergency room via EMS for falling multiple times. He apparently resides at the [facility]. He is a resident there. He apparently fell 3 times. He states he feels very weak and feels like his legs give out. He denies having any chest pain or chest discomfort. Denies any difficulty breathing, coughing, wheezing or phlegm production. He states his COPD, which I take care of, is at his baseline. Anyway, the patient was apparently admitted and may end up at the residential. Again, he denies any shortness of breath, difficulty breathing, coughing, wheezing, phlegm production, chest pain, chest discomfort, or any other complaints for that matter. He does have chronic hypoxemic respiratory failure. He does wear oxygen 24/. That has not changed. In addition, the patient appears to be very agitated at the current time. Talking about how the ER is not believing him. HOME MEDICATIONS: Home medications include Plavix, Desyrel, Cozaar. Nitrostat, ranitidine, Flomax, Proscar, Coreg, DuoNeb, Symbicort, Ditropan, baclofen, prednisone, and Janumet, which is a combination of sitagliptin and metformin. Other medications include [place], Xanax, Coreg, and Lipitor. ALLERGIES: Denied. PAST MEDICAL HISTORY: Reviewed. He has a history of chronic atrial fibrillation, CAD, angina pectoris, heart failure, COPD, stage IV severe CVA, DVT, GERD, deafness, hyperlipidemia, hypertension, memory impairment, myocardial infarction, pneumonia, BPH and a multitude of other medical problems. SURGICAL HISTORY: Reviewed. He has had an AICD placed back surgery, bypass grafting, heart catheterization with stents, pacemaker insertion, tonsillectomy, lower extremity stents and a number of other surgical procedures as noted in the documentation by the ER physician. SOCIAL HISTORY: Positive for previous heavy tobacco use. He does not smoke currently. He denies any alcohol use or illicit drug use. OCCUPATION HISTORY: Noncontributory. FAMILY HISTORY: Positive for advanced stomach cancer, CHF, peripheral vascular disease, Crohn's disease, and CAD. REVIEW OF SYSTEMS: CONSTITUTIONAL: Weakness, confusion. NEUROLOGIC: Confusion, agitation. HEENT negative. CARDIOVASCULAR: Negative. PULMONARY: Chronic shortness of breath on exertion, pretty much at baseline. The patient denies any wheezing, coughing, phlegm production. GI: Negative. : Negative. RHEUMATOLOGIC: Negative. IMMUNOLOGIC: Negative. ENDOCRINOLOGICAL: Negative. DERMATOLOGIC: Negative. PHYSICAL EXAMINATION: VITAL SIGNS: Current vital signs are reviewed. Temperature 98.2, heart rate 62, respiratory rate 20, blood pressure 103/52, mean 69, saturations are 99% on 4 L. Appears in no acute distress. He does appear agitated. He is very animated. HEENT examination is grossly unremarkable. Nasal O2 in place. NECK: Supple. Full range of motion. No adenopathy or thyromegaly. Neck veins are flat. CARDIOVASCULAR examination reveals regular rhythm and rate. S1, S2 normal. No S3, S4, or murmur. Heart sounds are distant. LUNGS: Reveal severely diminished breath sounds. Slight prolongation on forced maneuver. No adventitious lung sounds noted. ABDOMEN: Soft. Bowel sounds are heard. EXTREMITIES are intact. No cyanosis, clubbing, or edema. SKIN without rash. NEUROLOGIC examination is brief but nonfocal. LABS: Reviewed. White count 6.4, hemoglobin 13, hematocrit 39.4, platelet count 186,000. Sodium 140, potassium 4.2, chloride 101, CO2 34, anion gap is 5, BUN and creatinine were 15 and 0.78. The rest of the labs including the urine appeared to be relatively normal. The patient had x-rays of the head and cervical spine, chest x-ray, pelvic x-ray, etc. and everything appeared to be relatively normal. Medications are reviewed. From the pulmonary standpoint, he is on his Symbicort and his updrafts. He is also taking Solu-Medrol which can be discontinued in favor of his normal prednisone dose 10 mg a day. The rest of his medications are reviewed. ASSESSMENT: 1. Mental status changes of unclear etiology. This may relate to hypoxemic respiratory failure/hypoxia present from a severe stage IV chronic obstructive pulmonary disease. 2. Chronic obstructive pulmonary disease, seems to be relatively stable at this time, although he does have chronic dyspnea on exertion, which is at baseline. 3. Recent multiple falls with negative x-rays. 4. History of atrial fibrillation. 5. History of coronary artery disease. 6. History of congestive heart failure. 7. History of cerebrovascular accident. 8. Deep venous thrombosis. 9. Deafness. 10.Hyperlipidemia. 11.Hypertension. 12.Dementia. 13.Myocardial infarction. 14.Benign prostatic hypertrophy. 15.Status post bypass grafting. 16.Status post AICD placement. 17.Multiple other medical problems and procedures. PLAN: The patient's medications are reviewed. Unnecessary medications are discontinued. His COPD is pretty much at baseline. I do not believe he needs steroids. He can take his prednisone 10 mg a day, which is usual daily dose. He should continue on the Symbicort in the [facility] q.i.d. and p.r.n. Additional recommendations and suggestions are forthcoming. ROBBIE / TRINA: [id number] /
[2019-02-11] MEDS ORDERED: methylPREDNISolone SOD SUCCI 125 MG/2 ML VIAL IV SCH (16:00)
[2019-02-11 16:53] LABS: Glucose,Whole Blood 225 mg/dL (75-99)
[2019-02-11] MEDS: LINAGLIPTIN 5 MG TABLET PO SCH (18:30)
[2019-02-11] MEDS: metFORMIN 500 MG TAB PO SCH (18:31)
[2019-02-11] MEDS: INSULIN ASPART (NovoLOG) 100 UNIT/ML VIAL SQ SCH ×2 (18:32→21:09)
[2019-02-11] MEDS ORDERED: ATORVASTATIN 80 MG TAB PO SCH (21:00)
[2019-02-11 21:03] LABS: Glucose,Whole Blood 105 mg/dL (75-99)
[2019-02-11] MEDS: traZODone HCL 50 MG TAB PO SCH (21:23)
[2019-02-11] MEDS: CARVEDILOL 12.5 MG TAB PO SCH (21:23)
[2019-02-11] MEDS: BACLOFEN 10 MG TAB PO SCH (21:23)
[2019-02-11] MEDS: SODIUM CHLORIDE 0.9% 1,000 ML IV SCH (21:42)
[2019-02-11] MEDS: ATORVASTATIN 40 MG TAB PO SCH (21:57)
[2019-02-12 07:01] LABS: Glucose,Whole Blood 131 mg/dL (75-99)
[2019-02-12] MEDS: PANTOPRAZOLE 40 MG/10 ML VIAL IV SCH (07:45)
[2019-02-12] MEDS: LINAGLIPTIN 5 MG TABLET PO SCH ×2 (07:45→17:54)
[2019-02-12] MEDS: CLOPIDOGREL 75 MG TAB PO SCH (07:45)
[2019-02-12] MEDS: CITALOPRAM HYDROBROMIDE 20 MG TAB PO SCH (07:45)
[2019-02-12] MEDS: metFORMIN 500 MG TAB PO SCH ×2 (07:46→17:54)
[2019-02-12] MEDS: HYDROcodone/APAP 7.5-325MG 1 EACH TAB PO PRN ×3 (07:46→19:48)
[2019-02-12] MEDS: TAMSULOSIN 0.4 MG CAP.ER.24H PO SCH ×2 (07:46→17:54)
[2019-02-12] MEDS: FINASTERIDE 5 MG TAB PO SCH (07:47)
[2019-02-12] MEDS: ALPRAZolam 0.5 MG TAB PO PRN ×2 (07:48→17:54)
[2019-02-12] MEDS: FAMOTIDINE 20 MG TAB PO SCH ×2 (07:48→19:48)
[2019-02-12] MEDS: INSULIN DETEMIR (LEVEMIR) 100 UNIT/ML SYR SQ SCH (07:48)
[2019-02-12] MEDS: CARVEDILOL 6.25 MG TAB PO SCH (07:48)
[2019-02-12] MEDS: predniSONE 10 MG TAB PO SCH (07:48)
[2019-02-12] MEDS: HEPARIN SODIUM,PORCINE 5,000 UNIT/ML 1 ML VIAL SQ SCH ×2 (07:49→19:48)
[2019-02-12] MEDS: INSULIN ASPART (NovoLOG) 100 UNIT/ML VIAL SQ SCH ×4 (07:49→20:57)
[2019-02-12] MEDS: SYMBICORT 160-4.5 MCG INHALER INHALATION SCH ×2 (08:26→20:51)
[2019-02-12] MEDS: IPRATROPIUM-ALBUTEROL 3 ML NEB INHALATION SCH ×3 (08:26→20:51)
[2019-02-12 08:34] LABS: Basophils % (A) 0 %; Eosinophils # (A) 0.2 k/uL (0-0.7); Eosinophils % (A) 2 %; HCT 40.7 % (39.0-53.0); HGB 12.8 gm/dL (13.0-17.5); Lymphocytes % (A) 14 %; MCH 29.3 pg (25.0-35.0); MCHC 31.5 g/dL (31.0-37.0); MCV 93.1 fL (80.0-100.0); Mean Platelet Volume 6.9; Monocytes # (A) 0.5 k/uL (0-1.0); Monocytes % (A) 7 %; Neutrophils # (A) 5.2 k/uL (1.3-7.7); Neutrophils % (A) 76 %; Platelet Count 179 k/uL (150-450); RBC 4.37 m/uL (4.30-5.90); RDW 14.1 % (11.5-15.5); WBC 6.9 k/uL (3.8-10.6)
[2019-02-12 08:45] LABS: ALT 27 U/L (21-72); AST 24 U/L (17-59); Albumin 3.7 g/dL (3.5-5.0); Alkaline Phosphatase 100 U/L (38-126); Anion Gap 4 mmol/L; Blood Urea Nitrogen 21 mg/dL (9-20); Calcium 9.4 mg/dL (8.4-10.2); Carbon Dioxide 33 mmol/L (22-30); Chloride 102 mmol/L (98-107); Glucose 120 mg/dL (74-99); Potassium 3.8 mmol/L (3.5-5.1); Sodium 139 mmol/L (137-145); Total Protein 6.1 g/dL (6.3-8.2)
[2019-02-12 11:46] LABS: Glucose,Whole Blood 163 mg/dL (75-99)
--- NOTE | 2019-02-12 13:31 | P.PN ---
Subjective Progress Note Date: 02/12/19 Principal diagnosis: Altered mental status, possible TIA, severe hypoxia, COPD with mild exacerbation, decreased mobility, multiple falls, worsening confusion and chronic pain syndrome. 73-year-old male one of my office patient with past medical history of advanced COPD, CAD, A. fib, multiple history of CVA and TIA along with history of deep venous thrombosis who was in the office this past week was diagnosed with new onset of type 2 diabetes with a blood sugar running over 300, patient become quite bit confused at home had sustained a 3 falls with no major injury except he traumatize his buttocks and tailbone area and believe has fracture and it also developed low lightheadedness dizziness with significant mobility balance problem, worsening dyspnea and shortness of breath with cough and inspiratory expiratory wheezes with tightness. Severely abnormal balance and gait with generalized weakness more in the lower extremities and upper extremity. Patient was supposed to start on insulin along with Janumet apparently had no help did not get any proper training for insulin his blood sugar remained running in the 300 and patient is symptomatic with polyuria and frequency. He presented to the emergency department at [facility] after his fall brought by [facility] his workup with CAT scan of the brain pelvis and hip not show any fracture multiple small vessel disease area and significant problem with COPD and fluid overload. Patient blood sugar was mildly elevated continue to be significantly confused not been able to ambulate and walk continue to complain of pelvic pain was hospitalized with above problem. 02/11 patient is very anxious his blood sugars running slightly but better was started on Levemir will do some training Will start patient on PTOT patient might benefit from going to rehab he is very confused in between his mobility is not safe to ambulate on his own. 02/12 patient is still quite bit anxious blood sugar mildly elevated but has improved some continue to have significant problem with his mobility. Patient still need to do PTOT not a lot of help at home patient most likely require rehab. Objective - Vital Signs Vital signs: Vital Signs Temp 97.6 F 02/12/19 07:54 Pulse 88 02/12/19 13:08 Resp 18 02/12/19 00:51 BP 164/70 02/12/19 07:54 Pulse Ox 98 02/12/19 08:28 Intake & Output 02/11/19 02/12/19 02/12/19 18:59 06:59 18:59 Other: Voiding Method Toilet Toilet # Voids 2 2 - Exam Review of Systems CONSTITUTIONAL: Well-developed no acute respiratory distress. Significant confusion with worsening dyspnea and hypoxia. EYES: No icterus sclerae, no conjunctivitis. EARS, NOSE, MOUTH, THROAT, and FACE: No sore throat, lymphadenopathy, carotid bruits or deformity. RESPIRATORY: Positive shortness of breath cough wheezes. CARDIOVASCULAR: Positive PND orthopnea palpitation no angina. GASTROINTESTINAL: Positive abdominal pain with nausea no vomiting no constipation. GENITOURINARY: Negative for Hematuria or UTI, no kidney stones. INTEGUMENT/BREAST: Positive pelvic pain and tailbone pain along with significant discomfort in the right hip area. HEMATOLOGIC/LYMPHATIC: Negative for bleed or purpura. MUSCULOSKELTAL: Negative for Myalgia or arthralgia. NEURLOGICAL: Confusion and altered mental status with weakness of the lower extremity not been able to ambulate and walk continue to have severe abnormal balance and gait. BEHAVIORAL/PSYCH: Negative. ENDOCRINE: Negative. Physical Exam General Appearance: Alert, cooperative, very anxious in mild respiratory distress. Neck HEENT: Supple, no lymphadenopathy, no thyroid enlargement, no carotid bruits. Lungs: Decreased breath sound bilaterally with fine rhonchi positive crackles positive mild expiratory wheezes. Chest Wall: Decreased expansion bilaterally left upper side had an ICD device with slight tenderness in the chest wall area with sign of bruise no sign of fracture. Heart: Irregular rhythm and rate S1-S2 positive S, with 5 cm JVD. Back: Symmetric, multiple bruises specially on the right side positive mild curvature with scoliosis. Abdomen: Soft, non-tender, bowel sounds active all four quadrants, no masses, no organomegaly. Extremities: Multiple bruises on both knees worse on the right than the left side with slight trace edema slight discoloration from the knee down.. Pulses: 2+ and symmetric. Skin: Skin color, texture, tugor normal, no rashes or lesions. Neurologic: Alert significantly confuse [place] nerve II-12 intact is moving his 4 extremity still have weakness in the lower extremity severe abnormal balance and gait. - Labs CBC & Chem 7: 02/12/19 08:07 02/12/19 08:07 Labs: Abnormal Lab Results - Last 24 Hours (Table) 05/19/19 05/19/19 05/20/19 Range/Units 16:49 21:01 07:00 Hgb (13.0-17.5) gm/dL Carbon Dioxide (22-30) mmol/L BUN (9-20) mg/dL Glucose (74-99) mg/dL POC Glucose (mg/dL) 225 H 105 H 131 H (75-99) mg/dL Total Protein (6.3-8.2) g/dL 02/12/19 02/12/19 02/12/19 Range/Units 08:07 08:07 11:42 Hgb 12.8 L (13.0-17.5) gm/dL Carbon Dioxide 33 H (22-30) mmol/L BUN 21 H (9-20) mg/dL Glucose 120 H (74-99) mg/dL POC Glucose (mg/dL) 163 H (75-99) mg/dL Total Protein 6.1 L (6.3-8.2) g/dL Assessment and Plan Plan: 1 altered mental status: TIA versus metabolic versus hypoxia: Quite but better compared to before with explanation still on a clear whether it's TIA or metabolic encephalopathy. 2 multiple falls severe abnormal balancing gait with more injury to the soft tissue including his tailbone and pelvic area continue conservative management. 3 COPD with worsening excessive patient: Patient will be on Solu-Medrol 60 mg every 6 hours resume his steroid nebulizer along with DuoNeb consult pulmonaryand seen Dr. Rogers on regular basis. 4 severe nonketotic hyperglycemia, with new onset of diabetes will start patient on Levemir 10 units titrated up to 25 units over the next 48 hours continue Janumet continue Accu-Chek with sliding scales coverage patient can benefit from GLP 2 product if needed and if the blood sugar remain not control. More diabetic education this point and titrate insulin. 5 severe cardiomyopathy: Post AICD still seen cardiology regular basis. 6 severe CAD: Post multiple bypass surgery and angioplasty no angina symptom at this point. 7 chronic respiratory failure: Mostly end-stage lung disease on O2 and updraft still not doing well despite all the management his hypoxic with blood oxygen level dropped down significantly when he is on less than for liter. 8 debility: With multiple fall abnormal balancing gait was start PTOT patient might benefit from rehab for at least 1-2 weeks. 9 severe anxiety and panic attack with depression: Remain on alprazolam trazodone Will add site had a pram when he milligrams daily. 10 severe BPH: Has been on tamsulosin and finasteride continue both medication. 11 Severe GERD/GI prophylaxis: Patient remain on Pepcid or ranitidine. Patient will be started on PTOT more training on diabetes, will involve social service possibly need either placement or rehab.
--- NOTE | 2019-02-12 14:25 | P.PN ---
Subjective Progress Note Date: 02/12/19 Principal diagnosis: Altered mentation likely related to acute on chronic hypoxemic respiratory failure, and exacerbation of COPD On 02/12/2019 patient seen in follow-up on medical surgical floor. He is resting comfortably in bed, in no acute distress, no worsening shortness of breath, lung sounds are diminished, with improved aeration at the bases. No rhonchi, or wheezes, vital signs are stable. he seems to be less agitated and anxious on today's exam. No falls, patient is on fall precautions. He is on 4 L of oxygen with a pulse ox of 90%, afebrile, hemodynamically stable, patient is on prednisone, nebulized treatments, and Symbicort. financial services consultant and dischar ge planning working on placement or rehab. Objective - Vital Signs Vital signs: Vital Signs Temp 97.6 F 02/12/19 07:54 Pulse 88 02/12/19 13:08 Resp 18 02/12/19 00:51 BP 164/70 02/12/19 07:54 Pulse Ox 98 02/12/19 08:28 Intake & Output 02/11/19 02/12/19 02/12/19 18:59 06:59 18:59 Other: Voiding Method Toilet Toilet # Voids 2 2 - Exam GENERAL EXAM: Alert, pleasant, 73-year-old white male, on 2 L comfortable in no apparent distress. HEAD: Normocephalic/atraumatic. EYES: Normal reaction of pupils, equal size. Conjunctiva pink, sclera white. NOSE: Clear with pink turbinates. THROAT: No erythema or exudates. NECK: No masses, no JVD, no thyroid enlargement, no adenopathy. CHEST: No chest wall deformity. Symmetrical expansion. LUNGS: Equal air entry with diminished breath sounds, slightly improved aeration at the bases on today's exam. CVS: Regular rate and rhythm, normal S1 and S2, no gallops, no murmurs, no rubs ABDOMEN: Soft, nontender. No hepatosplenomegaly, normal bowel sounds, no guarding or rigidity. EXTREMITIES: No clubbing, no edema, no cyanosis, 2+ pulses and upper and lower extremities. MUSCULOSKELETAL: Muscle strength and tone normal. SPINE: No scoliosis or deformity SKIN: No rashes CENTRAL NERVOUS SYSTEM: Alert and oriented -2. No focal deficits, tone is normal in all 4 extremities. PSYCHIATRIC: Alert and oriented -2. Appropriate affect. Intact judgment and insight. - Labs CBC & Chem 7: 02/12/19 08:07 02/12/19 08:07 Labs: Abnormal Lab Results - Last 24 Hours (Table) 02/11/19 02/11/19 02/12/19 Range/Units 16:49 21:01 07:00 Hgb (13.0-17.5) gm/dL Carbon Dioxide (22-30) mmol/L BUN (9-20) mg/dL Glucose (74-99) mg/dL POC Glucose (mg/dL) 225 H 105 H 131 H (75-99) mg/dL Total Protein (6.3-8.2) g/dL 02/12/19 02/12/19 02/12/19 Range/Units 08:07 08:07 11:42 Hgb 12.8 L (13.0-17.5) gm/dL Carbon Dioxide 33 H (22-30) mmol/L BUN 21 H (9-20) mg/dL Glucose 120 H (74-99) mg/dL POC Glucose (mg/dL) 163 H (75-99) mg/dL Total Protein 6.1 L (6.3-8.2) g/dL Assessment and Plan Plan: Assessment: #1. Altered mental status of unclear etiology, likely related to metabolic encephalopathy, acute on chronic hypoxemic respiratory failure and exacerbation of COPD #2. COPD, stage IV, ER, with chronic hypoxemic respiratory failure #3. Recent multiple falls with negative x-rays #4. History of atrial fibrillation #5. History of coronary artery disease with previous bypass grafting #6. History of congestive heart failure #7. History of CVA #8. History of deep venous thrombosis #9. Hypertension, hyperlipidemia #10. History of dementia #11. Benign prostatic hypertrophy #12. Ischemic cardiomyopathy, status post AICD placement, EF of 30-35% Plan: We will continue with current medical treatment, oral steroids, nebulized bronchodilators, patient sounds a better on today's exam, slightly improved aeration at the bases, no wheezing, no rhonchi, vital signs are stable, maintain safety precautions, fall precautions, no fever or chills. From pulmonary perspective patient is improving, no acute events overnight, and discharge planning is working on either placement or rehab. I performed a history & physical examination of the patient and discussed their management with my nurse practitioner, Daniella Bejarano. I reviewed the nurse practitioner's note and agree with the documented findings and plan of care. Lung sounds are positive for diminished breath sounds. The findings and the impression was discussed with the patient. I attest to the documentation by the nurse practitioner. Time with Patient: Less than 30
[2019-02-12 16:47] LABS: Glucose,Whole Blood 194 mg/dL (75-99)
[2019-02-12 19:00] LABS: Hemoglobin A1C 10.7 % (4.0-6.0)
[2019-02-12] MEDS: ATORVASTATIN 40 MG TAB PO SCH (19:49)
[2019-02-12] MEDS: BACLOFEN 10 MG TAB PO SCH (19:49)
[2019-02-12] MEDS: CARVEDILOL 12.5 MG TAB PO SCH (19:50)
[2019-02-12] MEDS: traZODone HCL 50 MG TAB PO SCH (19:50)
[2019-02-12] MEDS: SODIUM CHLORIDE 0.9% 1,000 ML IV SCH (19:53)
[2019-02-12 20:40] LABS: Glucose,Whole Blood 242 mg/dL (75-99)
[2019-02-13 01:56] VITALS: RESP 18
[2019-02-13] MEDS: ALPRAZolam 0.5 MG TAB PO PRN ×2 (03:11→12:46)
[2019-02-13 07:32] LABS: Glucose,Whole Blood 101 mg/dL (75-99)
[2019-02-13 07:38] LABS: Basophils % (A) 0 %; Eosinophils # (A) 0.2 k/uL (0-0.7); Eosinophils % (A) 2 %; HCT 36.6 % (39.0-53.0); HGB 11.8 gm/dL (13.0-17.5); Lymphocytes % (A) 14 %; MCHC 32.3 g/dL (31.0-37.0); MCV 92.7 fL (80.0-100.0); Mean Platelet Volume 7.1; Monocytes # (A) 0.5 k/uL (0-1.0); Monocytes % (A) 6 %; Neutrophils # (A) 5.5 k/uL (1.3-7.7); Neutrophils % (A) 76 %; Platelet Count 159 k/uL (150-450); RBC 3.94 m/uL (4.30-5.90); RDW 14.2 % (11.5-15.5); WBC 7.3 k/uL (3.8-10.6)
[2019-02-13 08:22] VITALS: BP 158/82; TEMP 97.7
[2019-02-13 08:42] LABS: ALT 27 U/L (21-72); AST 23 U/L (17-59); Albumin 3.4 g/dL (3.5-5.0); Alkaline Phosphatase 91 U/L (38-126); Anion Gap 3 mmol/L; Blood Urea Nitrogen 23 mg/dL (9-20); Calcium 9.3 mg/dL (8.4-10.2); Carbon Dioxide 35 mmol/L (22-30); Chloride 103 mmol/L (98-107); Glucose 89 mg/dL (74-99); Potassium 4.2 mmol/L (3.5-5.1); Sodium 141 mmol/L (137-145); Total Bilirubin 0.8 mg/dL (0.2-1.3); Total Protein 5.8 g/dL (6.3-8.2)
[2019-02-13] MEDS: SYMBICORT 160-4.5 MCG INHALER INHALATION SCH (08:47)
[2019-02-13] MEDS: IPRATROPIUM-ALBUTEROL 3 ML NEB INHALATION SCH ×2 (08:47→12:42)
[2019-02-13 08:51] VITALS: PULSE 90
[2019-02-13] MEDS: INSULIN ASPART (NovoLOG) 100 UNIT/ML VIAL SQ SCH ×2 (10:02→12:46)
[2019-02-13] MEDS: TAMSULOSIN 0.4 MG CAP.ER.24H PO SCH (10:03)
[2019-02-13] MEDS: CARVEDILOL 6.25 MG TAB PO SCH (10:03)
[2019-02-13] MEDS: LINAGLIPTIN 5 MG TABLET PO SCH (10:03)
[2019-02-13] MEDS: FINASTERIDE 5 MG TAB PO SCH (10:03)
[2019-02-13] MEDS: CLOPIDOGREL 75 MG TAB PO SCH (10:03)
[2019-02-13] MEDS: FAMOTIDINE 20 MG TAB PO SCH (10:03)
[2019-02-13] MEDS: predniSONE 10 MG TAB PO SCH (10:03)
[2019-02-13] MEDS: CITALOPRAM HYDROBROMIDE 20 MG TAB PO SCH (10:03)
[2019-02-13] MEDS: metFORMIN 500 MG TAB PO SCH (10:04)
[2019-02-13] MEDS: HYDROcodone/APAP 7.5-325MG 1 EACH TAB PO PRN (10:04)
[2019-02-13] MEDS: INSULIN DETEMIR (LEVEMIR) 100 UNIT/ML SYR SQ SCH (10:07)
[2019-02-13] MEDS: HEPARIN SODIUM,PORCINE 5,000 UNIT/ML 1 ML VIAL SQ SCH (10:08)
[2019-02-13] MEDS: PANTOPRAZOLE 40 MG/10 ML VIAL IV SCH (10:11)
[2019-02-13 11:30] LABS: Glucose,Whole Blood 160 mg/dL (75-99)
--- NOTE | 2019-02-13 11:54 | P.PN ---
Subjective Progress Note Date: 02/13/19 Principal diagnosis: Altered mentation likely related to acute on chronic hypoxemic respiratory failure, and exacerbation of COPD On 02/12/2019 patient seen in follow-up on medical surgical floor. He is resting comfortably in bed, in no acute distress, no worsening shortness of breath, lung sounds are diminished, with improved aeration at the bases. No rhonchi, or wheezes, vital signs are stable. he seems to be less agitated and anxious on today's exam. No falls, patient is on fall precautions. He is on 4 L of oxygen with a pulse ox of 90%, afebrile, hemodynamically stable, patient is on prednisone, nebulized treatments, and Symbicort. registered nurse surgical services and dischar ge planning working on placement or rehab. On 02/13/2019 patient is seen in follow-up on medical surgical floor. Appears resting comfortably in bed, he states his breathing is improving, he is tole rating ambulation, he has been ambulating with his walker to the bathroom, and doing very well, no recurrent falls,no altered mentation, vital signs are stable, he is on 4 L of oxygen the pulse ox of 98%, no fever or chills. Patient is being discharged home today. Lung sounds are diminished, with the improved aeration at the bases. No rhonchi, no wheezing. Objective - Vital Signs Vital signs: Vital Signs Temp 97.7 F 02/13/19 07:20 Pulse 90 02/13/19 09:00 Resp 18 02/13/19 07:20 BP 158/82 02/13/19 07:20 Pulse Ox 98 02/13/19 07:20 Intake & Output 02/12/19 02/13/19 02/13/19 18:59 06:59 18:59 Intake Total 240 1560 240 Output Total 320 Balance 240 1240 240 Intake: Oral 240 1560 240 Output: Urine 320 Other: Voiding Method Toilet Urinal # Voids 2 1 1 - Exam GENERAL EXAM: Alert, pleasant, 73-year-old white male, on 4 L comfortable in no apparent distress. HEAD: Normocephalic/atraumatic. EYES: Normal reaction of pupils, equal size. Conjunctiva pink, sclera white. NOSE: Clear with pink turbinates. THROAT: No erythema or exudates. NECK: No masses, no JVD, no thyroid enlargement, no adenopathy. CHEST: No chest wall deformity. Symmetrical expansion. LUNGS: Equal air entry with diminished breath sounds, slightly improved aeration at the bases on today's exam. CVS: Regular rate and rhythm, normal S1 and S2, no gallops, no murmurs, no rubs ABDOMEN: Soft, nontender. No hepatosplenomegaly, normal bowel sounds, no guarding or rigidity. EXTREMITIES: No clubbing, no edema, no cyanosis, 2+ pulses and upper and lower extremities. MUSCULOSKELETAL: Muscle strength and tone normal. SPINE: No scoliosis or deformity SKIN: No rashes CENTRAL NERVOUS SYSTEM: Alert and oriented -2. No focal deficits, tone is normal in all 4 extremities. PSYCHIATRIC: Alert and oriented -2. Appropriate affect. Intact judgment and insight. - Labs CBC & Chem 7: 02/13/19 07:23 02/13/19 07:23 Labs: Abnormal Lab Results - Last 24 Hours (Table) 02/12/19 02/12/19 02/12/19 Range/Units 08:07 16:46 20:39 RBC (4.30-5.90) m/uL Hgb (13.0-17.5) gm/dL Hct (39.0-53.0) % Carbon Dioxide (22-30) mmol/L BUN (9-20) mg/dL POC Glucose (mg/dL) 194 H 242 H (75-99) mg/dL Hemoglobin A1c 10.7 H (4.0-6.0) % Total Protein (6.3-8.2) g/dL Albumin (3.5-5.0) g/dL 02/13/19 02/13/19 02/13/19 Range/Units 07:23 07:23 07:23 RBC 3.94 L (4.30-5.90) m/uL Hgb 11.8 L (13.0-17.5) gm/dL Hct 36.6 L (39.0-53.0) % Carbon Dioxide 35 H (22-30) mmol/L BUN 23 H (9-20) mg/dL POC Glucose (mg/dL) 101 H (75-99) mg/dL Hemoglobin A1c (4.0-6.0) % Total Protein 5.8 L (6.3-8.2) g/dL Albumin 3.4 L (3.5-5.0) g/dL 02/13/19 Range/Units 11:27 RBC (4.30-5.90) m/uL Hgb (13.0-17.5) gm/dL Hct (39.0-53.0) % Carbon Dioxide (22-30) mmol/L BUN (9-20) mg/dL POC Glucose (mg/dL) 160 H (75-99) mg/dL Hemoglobin A1c (4.0-6.0) % Total Protein (6.3-8.2) g/dL Albumin (3.5-5.0) g/dL Assessment and Plan Plan: Assessment: #1. Altered mental status of unclear etiology, likely related to metabolic encephalopathy, acute on chronic hypoxemic respiratory failure and exacerbation of COPD #2. COPD, stage IV, ER, with chronic hypoxemic respiratory failure #3. Recent multiple falls with negative x-rays #4. History of atrial fibrillation #5. History of coronary artery disease with previous bypass grafting #6. History of congestive heart failure #7. History of CVA #8. History of deep venous thrombosis #9. Hypertension, hyperlipidemia #10. History of dementia #11. Benign prostatic hypertrophy #12. Ischemic cardiomyopathy, status post AICD placement, EF of 30-35% Plan: Patient is doing well, continues to improve, tolerating ambulation with a walke r, apparently patient did not qualify for inpatient rehab, and he is being discharged home today. Clinically stable, probably back to baseline. Follow-up with Dr. Mercedes in the office in 7-10 days. I performed a history & physical examination of the patient and discussed their management with my nurse practitioner, Daniella Bejarano. I reviewed the nurse practitioner's note and agree with the documented findings and plan of care. Lung sounds are positive for diminished breath sounds. The findings and the impression was discussed with the patient. I attest to the documentation by the nurse practitioner. Time with Patient: Less than 30
--- NOTE | 2019-02-13 14:18 | P.DS ---
Providers Date of admission: 02/12/19 11:03 Attending physician: Randolph Marcos Consults: 02/10/19 21:26 Consult Physician Routine Consulting Provider: Walter Rogers Consult Reason/Comments: COPD Do you want consulting provider notified?: Yes, Notify in am Primary care physician: Randolph Marcos [facility] Course: Principal diagnosis: Altered mental status, possible TIA, severe hypoxia, COPD with mild exacerbation, decreased mobility, multiple falls, worsening confusion and chronic pain syndrome. 73-year-old male one of my office patient with past medical history of advanced COPD, CAD, A. fib, multiple history of CVA and TIA along with history of deep venous thrombosis who was in the office this past week was diagnosed with new onset of type 2 diabetes with a blood sugar running over 300, patient become quite bit confused at home had sustained a 3 falls with no major injury except he traumatize his buttocks and tailbone area and believe has fracture and it also developed low lightheadedness dizziness with significant mobility balance problem, worsening dyspnea and shortness of breath with cough and inspiratory expiratory wheezes with tightness. Severely abnormal balance and gait with generalized weakness more in the lower extremities and upper extremity. Patient was supposed to start on insulin along with Janumet apparently had no help did not get any proper training for insulin his blood sugar remained running in the 300 and patient is symptomatic with polyuria and frequency. He presented to the emergency department at [facility] after his fall brought by EMS his workup with CAT scan of the brain pelvis and hip not show any fracture multiple small vessel disease area and significant problem with COPD and fluid overload. Patient blood sugar was mildly elevated continue to be significantly confused not been able to ambulate and walk continue to complain of pelvic pain was hospitalized with above problem. 02/11 patient is very anxious his blood sugars running slightly but better was started on Levemir will do some training Will start patient on PTOT patient might benefit from going to rehab he is very confused in between his mobility is not safe to ambulate on his own. 02/12 patient is still quite bit anxious blood sugar mildly elevated but has improved some continue to have significant problem with his mobility. Patient still need to do PTOT not a lot of help at home patient most likely require rehab. 02/13: Mobility has currently patient is walking with walker he will do some diabetic education today and still willing to go home with home therapy. Review of Systems CONSTITUTIONAL: Well-developed no acute respiratory distress. Significant confusion with worsening dyspnea and hypoxia. EYES: No icterus sclerae, no conjunctivitis. EARS, NOSE, MOUTH, THROAT, and FACE: No sore throat, lymphadenopathy, carotid bruits or deformity. RESPIRATORY: Positive shortness of breath cough wheezes. CARDIOVASCULAR: Positive PND orthopnea palpitation no angina. GASTROINTESTINAL: Positive abdominal pain with nausea no vomiting no constipation. GENITOURINARY: Negative for Hematuria or UTI, no kidney stones. INTEGUMENT/BREAST: Positive pelvic pain and tailbone pain along with significant discomfort in the right hip area. HEMATOLOGIC/LYMPHATIC: Negative for bleed or purpura. MUSCULOSKELTAL: Negative for Myalgia or arthralgia. NEURLOGICAL: Confusion and altered mental status with weakness of the lower extremity not been able to ambulate and walk continue to have severe abnormal balance and gait. BEHAVIORAL/PSYCH: Negative. ENDOCRINE: Negative. Physical Exam General Appearance: Alert, cooperative, very anxious in mild respiratory distress. Neck HEENT: Supple, no lymphadenopathy, no thyroid enlargement, no carotid bruits. Lungs: Decreased breath sound bilaterally with fine rhonchi positive crackles positive mild expiratory wheezes. Chest Wall: Decreased expansion bilaterally left upper side had an ICD device with slight tenderness in the chest wall area with sign of bruise no sign of fracture. Heart: Irregular rhythm and rate S1-S2 positive S, with 5 cm JVD. Back: Symmetric, multiple bruises specially on the right side positive mild curvature with scoliosis. Abdomen: Soft, non-tender, bowel sounds active all four quadrants, no masses, no organomegaly. Extremities: Multiple bruises on both knees worse on the right than the left side with slight trace edema slight discoloration from the knee down.. Pulses: 2+ and symmetric. Skin: Skin color, texture, tugor normal, no rashes or lesions. Neurologic: Alert significantly confuse [place] nerve II-12 intact is moving his 4 extremity still have weakness in the lower extremity severe abnormal balance and gait. Assessment and Plan Plan: 1 altered mental status: TIA versus metabolic versus hypoxia: Quite but better compared to before with explanation still on a clear whether it's TIA or metabolic encephalopathy. 2 multiple falls severe abnormal balancing gait with more injury to the soft tissue including his tailbone and pelvic area continue conservative management. 3 COPD with worsening excessive patient: Patient will be on Solu-Medrol 60 mg every 6 hours resume his steroid nebulizer along with DuoNeb consult pulmonaryand seen Dr. Rogers on regular basis. 4 severe nonketotic hyperglycemia, with new onset of diabetes will start patient on Levemir 10 units titrated up to 25 units over the next 48 hours continue Janumet continue Accu-Chek with sliding scales coverage patient can benefit from GLP 2 product if needed and if the blood sugar remain not control. More diabetic education this point and titrate insulin. 5 severe cardiomyopathy: Post AICD still seen cardiology regular basis. 6 severe CAD: Post multiple bypass surgery and angioplasty no angina symptom at this point. 7 chronic respiratory failure: Mostly end-stage lung disease on O2 and updraft still not doing well despite all the management his hypoxic with blood oxygen level dropped down significantly when he is on less than for liter. 8 debility: With multiple fall abnormal balancing gait was start PTOT patient might benefit from rehab for at least 1-2 weeks. 9 severe anxiety and panic attack with depression: Remain on alprazolam trazodone Will add site had a pram when he milligrams daily. 10 severe BPH: Has been on tamsulosin and finasteride continue both medication. Patient is doing slightly but better still refuses to go to senior care rehab and is doing well with physical therapy will be discharged home on home care and quick follow-up in the office. Patient Condition at Discharge: Fair Plan - Discharge Summary Discharge Rx Participant: No New Discharge Prescriptions: New Citalopram Hydrobromide [CeleXA] 20 mg PO DAILY #30 tab Insulin Detemir (Levemir) [Levemir] 10 unit SQ DAILY #1 syr INSULIN ASPART (NovoLOG) [NovoLOG (formulary)] 0 unit SQ ACHS #1 vial Acetaminophen Tab [Tylenol] 650 mg PO Q6HR PRN tab PRN Reason: Mild Pain Or Fever > 100.5 Continue Clopidogrel [Plavix] 75 mg PO DAILY traZODone HCL [Desyrel] 50 mg PO HS Losartan [Cozaar] 25 mg PO DAILY PRN PRN Reason: FOR ELEV >130 Nitroglycerin Sl Tabs [Nitrostat] 0.4 mg SUBLINGUAL Q5M PRN PRN Reason: Chest Pain Tamsulosin [Flomax] 0.4 mg PO BID Ranitidine HCl 150 mg PO BID Finasteride [Proscar] 5 mg PO DAILY Atorvastatin [Lipitor] 80 mg PO HS #30 tab Carvedilol [Coreg] 6.25 mg PO DAILY tab Carvedilol [Coreg] 12.5 mg PO HS ALPRAZolam [Xanax] 0.5 mg PO TID PRN #9 tablet PRN Reason: Anxiety HYDROcodone/APAP 7.5-325MG [[place] 7.5-325] 1 tab PO Q6H PRN #12 tab PRN Reason: Pain Ipratropium-Albuterol Nebulize [Duoneb 0.5 mg-3 mg/3 ml Soln] 3 ml INHALATION RT-TID Budesonide-Formot 160-4.5 Mcg [Symbicort 160-4.5 Mcg Inhaler] 2 puff INHALATION BID Oxybutynin Chloride [Ditropan] 5 mg PO BID Baclofen [Lioresal] 10 mg PO HS predniSONE 10 mg PO DAILY sitaGLIPtin PHOS/metFORMIN HCL [Janumet 50-500 mg Tablet] 1 tab PO BID Discharge Medication List Clopidogrel [Plavix] 75 mg PO DAILY 03/10/14 [History] traZODone HCL [Desyrel] 50 mg PO HS 03/10/14 [History] Losartan [Cozaar] 25 mg PO DAILY PRN 12/23/14 [History] Nitroglycerin Sl Tabs [Nitrostat] 0.4 mg SUBLINGUAL Q5M PRN 02/02/16 [History] Ranitidine HCl 150 mg PO BID 02/02/16 [History] Tamsulosin [Flomax] 0.4 mg PO BID 02/02/16 [History] Finasteride [Proscar] 5 mg PO DAILY 07/04/17 [History] Atorvastatin [Lipitor] 80 mg PO HS #30 tab 11/23/17 [Rx] Carvedilol [Coreg] 6.25 mg PO DAILY tab 02/22/18 [Rx] Carvedilol [Coreg] 12.5 mg PO HS 04/16/18 [History] ALPRAZolam [Xanax] 0.5 mg PO TID PRN #9 tablet 05/23/18 [Rx] HYDROcodone/APAP 7.5-325MG [[place] 7.5-325] 1 tab PO Q6H PRN #12 tab 05/23/18 [Rx] Ipratropium-Albuterol Nebulize [Duoneb 0.5 mg-3 mg/3 ml Soln] 3 ml INHALATION RT-TID 07/11/18 [History] Budesonide-Formot 160-4.5 Mcg [Symbicort 160-4.5 Mcg Inhaler] 2 puff INHALATION BID 12/28/18 [History] Oxybutynin Chloride [Ditropan] 5 mg PO BID 01/05/19 [History] Baclofen [Lioresal] 10 mg PO HS 02/10/19 [History] predniSONE 10 mg PO DAILY 02/10/19 [History] sitaGLIPtin PHOS/metFORMIN HCL [Janumet 50-500 mg Tablet] 1 tab PO BID 02/10/19 [History] Acetaminophen Tab [Tylenol] 650 mg PO Q6HR PRN tab 02/13/19 [Rx] Citalopram Hydrobromide [CeleXA] 20 mg PO DAILY #30 tab 02/13/19 [Rx] INSULIN ASPART (NovoLOG) [NovoLOG (formulary)] 0 unit SQ ACHS #1 vial 02/13/19 [Rx] Insulin Detemir (Levemir) [Levemir] 10 unit SQ DAILY #1 syr 02/13/19 [Rx] Follow up Appointment(s)/Referral(s): [facility],Equipment [NON-STAFF] - As Needed Randolph Marcos MD [Primary Care Provider] - 02/15/19 1:15 pm (Appointment set with Dr. Powell) Walter Rogers DO [Doctor of Osteopathic Medicine] - 02/23/19 1:45 pm [facility], [NON-STAFF] - Patient Instructions/Handouts: Weakness (DC) Discharge Disposition: HOME WITH HOME HEALTH SERVICES
== END 2019-02-13 13:20 | disposition home health service (06) | DRG 190 ==
LOC: EC 18:44 → 4SSUR 21:09 → OBSVTOIN 02-12 11:03
PROVIDERS: ADMIT Internal Medicine Geriatric Medicine; ATTEND Internal Medicine Geriatric Medicine
DX: J44.1 Chronic obstructive pulmonary disease with (acute) exacerbation (principal); J96.21 Acute and chronic respiratory failure with hypoxia; G93.41 Metabolic encephalopathy; G45.9 Transient cerebral ischemic attack, unspecified; E11.51 Type 2 diabetes mellitus with diabetic peripheral angiopathy without gangrene; E11.65 Type 2 diabetes mellitus with hyperglycemia; E78.5 Hyperlipidemia, unspecified; F03.90 Unspecified dementia, unspecified severity, without behavioral disturbance, psychotic disturbance, mood disturbance, and anxiety; F32.9 Major depressive disorder, single episode, unspecified; F41.0 Panic disorder [episodic paroxysmal anxiety]; G89.4 Chronic pain syndrome; H40.9 Unspecified glaucoma; H91.90 Unspecified hearing loss, unspecified ear; I11.0 Hypertensive heart disease with heart failure; I25.2 Old myocardial infarction; I25.10 Atherosclerotic heart disease of native coronary artery without angina pectoris; I25.5 Ischemic cardiomyopathy; I48.2 Chronic atrial fibrillation; I50.9 Heart failure, unspecified; K21.9 Gastro-esophageal reflux disease without esophagitis; N40.0 Benign prostatic hyperplasia without lower urinary tract symptoms; R29.6 Repeated falls; Z79.02 Long term (current) use of antithrombotics/antiplatelets; Z79.51 Long term (current) use of inhaled steroids; Z79.52 Long term (current) use of systemic steroids; Z79.899 Other long term (current) drug therapy; Z80.0 Family history of malignant neoplasm of digestive organs; Z82.49 Family history of ischemic heart disease and other diseases of the circulatory system; Z82.5 Family history of asthma and other chronic lower respiratory diseases; Z86.010 Personal history of colon polyps; Z86.718 Personal history of other venous thrombosis and embolism; Z86.73 Personal history of transient ischemic attack (TIA), and cerebral infarction without residual deficits; Z87.11 Personal history of peptic ulcer disease; Z87.891 Personal history of nicotine dependence; Z91.81 History of falling; Z95.810 Presence of automatic (implantable) cardiac defibrillator; Z95.1 Presence of aortocoronary bypass graft; Z95.5 Presence of coronary angioplasty implant and graft; Z79.84 Long term (current) use of oral hypoglycemic drugs; Z87.01 Personal history of pneumonia (recurrent); Z99.81 Dependence on supplemental oxygen
CPT/HCPCS: 36415; 70450; 71046; 72125; 72170; 80053; 81003; 82550; 83036; 83735; 84484; 85025; 85610; 93005; 94640; 94760; 99285

== ENCOUNTER 2019-02-16 14:55 | Inpatient (IN) | payer MEDICARE, BC ==
[2019-02-16] MEDS ORDERED: ALBUTEROL NEBULIZED 2.5 MG/3 ML INHALATION STA (15:05)
[2019-02-16] MEDS ORDERED: IPRATROPIUM 0.5 MG/2.5 ML NEBU INHALATION STA (15:05)
--- NOTE | 2019-02-16 15:10 | ED ---
SOB HPI - General Chief Complaint: Shortness of Breath Stated Complaint: MEET Time Seen by Provider: 02/16/19 15:04 Source: patient, RN notes reviewed, old records reviewed Mode of arrival: wheelchair Limitations: no limitations - History of Present Illness Initial Comments: This is a 73-year-old male the ER for evaluation. Patient resents today for benjamin luation regards to altered mental status. Patient is incoherent unable to conversation or give story. He is belligerent and combative. A states he is on. Further home. He was just recently on inpatient hospitalization and discharged today significantly went downhill since. Patient is not able to converse 8. Patient also difficulty with hearing currently. Patient also states patient is more short of breath than normal he does wear oxygen at home. Patient himself is unable to answer questions this history is obtained just from patient's prior charting, prior admission and family at bedside MD Complaint: shortness of breath -: days(s) Consistency: constant Improves With: oxygen, rest Worsens With: exertion, movement Known History Of: COPD, congestive heart failure, recurrent pneumonia Context: recent URI, medication noncompliance, anxiety Treatments Prior to Arrival: none - Related Data Home Medications Medication Instructions Recorded Confirmed Clopidogrel [Plavix] 75 mg PO DAILY 03/10/14 02/16/19 traZODone HCL [Desyrel] 50 mg PO HS 03/10/14 02/16/19 Losartan [Cozaar] 25 mg PO DAILY PRN 12/23/14 02/16/19 Nitroglycerin Sl Tabs [Nitrostat] 0.4 mg SUBLINGUAL Q5M PRN 02/02/16 02/16/19 Ranitidine HCl 150 mg PO BID 02/02/16 02/16/19 Tamsulosin [Flomax] 0.4 mg PO BID 02/02/16 02/16/19 Finasteride [Proscar] 5 mg PO DAILY 07/04/17 02/16/19 Carvedilol [Coreg] 12.5 mg PO HS 04/16/18 02/16/19 Ipratropium-Albuterol Nebulize 3 ml INHALATION RT-TID 07/11/18 02/16/19 [Duoneb 0.5 mg-3 mg/3 ml Soln] Budesonide-Formot 160-4.5 Mcg 2 puff INHALATION RT-BID 12/28/18 02/16/19 [Symbicort 160-4.5 Mcg Inhaler] Oxybutynin Chloride [Ditropan] 5 mg PO BID 01/05/19 02/16/19 Baclofen [Lioresal] 10 mg PO HS 02/10/19 02/16/19 predniSONE 10 mg PO DAILY 02/10/19 02/16/19 sitaGLIPtin PHOS/metFORMIN HCL 1 tab PO BID 02/10/19 02/16/19 [Janumet 50-500 mg Tablet] INSULIN ASPART (NovoLOG) [NovoLOG See Protocol SQ ACHS 02/16/19 02/16/19 (formulary)] Previous Rx's Medication Instructions Recorded Atorvastatin [Lipitor] 80 mg PO HS #30 tab 11/23/17 Carvedilol [Coreg] 6.25 mg PO DAILY tab 02/22/18 ALPRAZolam [Xanax] 0.5 mg PO TID PRN #9 tablet 05/23/18 HYDROcodone/APAP 7.5-325MG [[place] 1 tab PO Q6H PRN #12 tab 05/23/18 7.5-325] Acetaminophen Tab [Tylenol] 650 mg PO Q6HR PRN tab 02/13/19 Citalopram Hydrobromide [CeleXA] 20 mg PO DAILY #30 tab 02/13/19 Insulin Detemir (Levemir) [Levemir] 10 unit SQ DAILY #1 syr 02/13/19 Allergies Allergy/AdvReac Type Severity Reaction Status Date / Time No Known Allergies Allergy Verified 02/16/19 15:52 Review of Systems ROS Statement: Those systems with pertinent positive or pertinent negative responses have been documented in the HPI. ROS Other: All systems not noted in ROS Statement are negative. Past Medical History Past Medical History: Atrial Fibrillation, Coronary Artery Disease (CAD), Chest Pain / Angina, Heart Failure, COPD, CVA/TIA, Deep Vein Thrombosis (DVT), Eye Disorder, GERD/Reflux, Hearing Disorder / Deafness, Hyperlipidemia, Hypertension, Memory Impairment, Myocardial Infarction ([place]), Musculoskeletal Disorder, Pneumonia, Prostate Disorder, Respiratory Disorder, Vascular Disorder Additional Past Medical History / Comment(s): Chronic steroids, CVA w/ speech difficulty (since 1999) TIAs, PVD, blocked right carotid, respiratory failure, 4L O2 continuous, BPH, chronic bronchitis, DDD, stomach ulcer, diverticulitis, hemorrhoids, colon polyps, walker/wheelchair, electric scooter, chronic leg/back pain, constipation, richard. glaucoma, freq. falls, Last Myocardial Infarction Date:: 1997 History of Any Multi-Drug Resistant Organisms: MRSA Date of last positivie culture/infection: 05/24/18 MDRO Source:: Sputum Past Surgical History: AICD, Back Surgery, Coronary Bypass/CABG, Heart Catheterization, Heart Catheterization With Stent, Pacemaker, Tonsillectomy Additional Past Surgical History / Comment(s): February 2016 Pacer ([facility] PM [id number], #SS [id number]). CABG 5 vessel 1997. Cath with stents (8 total). Richard carotid endarterectomies. Back surgery x 2. Bilateral fem/pops, richard stenting in legs (6 total) with graphs. Cataracts removed, back injections for pain. AICD, PTCA and stent 11/08/17 and January 2018. Past Anesthesia/Blood Transfusion Reactions: No Reported Reaction Additional Past Anesthesia/Blood Transfusion Reaction / Comment(s): Never had blood transfusion. Date of Last Stent Placement:: 01/2018 Type of Cardiac Device: Permanent Pacemaker, AICD Device Placement Date:: 02/2016 Past Psychological History: Anxiety, Depression Smoking Status: Former smoker Past Alcohol Use History: None Reported Past Drug Use History: None Reported - Past Family History Brother(s) Family Medical History: Cancer Additional Family Medical History / Comment(s): Patient has a brother that at age 75 from stage IV stomach cancer. Sister(s) Family Medical History: Congestive Heart Failure (CHF), Vascular Disorder Additional Family Medical History / Comment(s): Patient has a sister that at age 57 from CABG. PVD Son(s) Family Medical History: No Reported History Additional Family Medical History / Comment(s): crohns. Daughter(s) Family Medical History: No Reported History Additional Family Medical History / Comment(s): Daughter has 2 daughters and one works in the OR here - 1 was killed in [place]. Mother Family Medical History: Coronary Artery Disease (CAD) Additional Family Medical History / Comment(s): Mother at age 62 from coron melinda artery disease and peripheral artery disease status post multiple heart surgeries. Father Family Medical History: Cancer, Coronary Artery Disease (CAD) Additional Family Medical History / Comment(s): Family at age 89 from colon cancer and COPD along with coronary artery disease. General Exam Limitations: no limitations General appearance: alert, in no apparent distress Head exam: Present: atraumatic, normocephalic, normal inspection Eye exam: Present: normal appearance, PERRL, EOMI. Absent: scleral icterus, conjunctival injection, periorbital swelling ENT exam: Present: normal exam, mucous membranes moist Neck exam: Present: normal inspection. Absent: tenderness, meningismus, lymphadenopathy Respiratory exam: Present: accessory muscle use, decreased breath sounds, prolonged expiratory. Absent: respiratory distress, rales, rhonchi, stridor Cardiovascular Exam: Present: normal rhythm, tachycardia, normal heart sounds. Absent: systolic murmur, diastolic murmur, rubs, gallop, clicks GI/Abdominal exam: Present: soft, normal bowel sounds. Absent: distended, tenderness, guarding, rebound, rigid Extremities exam: Present: normal inspection, full ROM, normal capillary refill. Absent: tenderness, pedal edema, joint swelling, calf tenderness Back exam: Present: normal inspection Neurological exam: Present: alert, oriented X3, CN II-XII intact Psychiatric exam: Present: normal affect, normal mood Skin exam: Present: warm, dry, intact, normal color. Absent: rash Course Vital Signs 02/16/19 02/16/19 02/16/19 15:00 15:50 16:05 Temperature 98.8 F Pulse Rate 101 H 98 90 Respiratory 20 18 Rate Blood Pressure 136/69 O2 Sat by Pulse 93 L Oximetry 02/16/19 02/16/19 16:23 16:26 Temperature Pulse Rate 111 H 110 H Respiratory 24 24 Rate Blood Pressure 123/79 O2 Sat by Pulse 95 Oximetry - Reevaluation(s) Reevaluation #1: 02/16/19 16:47 Medical records reviewed 02/16/19 16:48 Patient hospitalization is reviewed Reevaluation #2: 02/16/19 16:47 Patient is without significant complaint, poor historian Medical Decision Making - Medical Decision Making 73 male the ER for evaluation. Patient resents today for evaluation regards to altered mental status, physical shortness of breath, patient has no complaints, will admit for breathing treatments, monitoring and evaluation of altered mental status. - Lab Data Result diagrams: 02/16/19 15:27 02/16/19 15:27 Lab Results 02/16/19 02/16/19 02/16/19 Range/Units 15:27 15:27 15:27 WBC 7.6 (3.8-10.6) k/uL RBC 4.21 L (4.30-5.90) m/uL Hgb 12.5 L (13.0-17.5) gm/dL Hct 38.3 L (39.0-53.0) % MCV 91.2 (80.0-100.0) fL MCH 29.8 (25.0-35.0) pg MCHC 32.7 (31.0-37.0) g/dL RDW 14.0 (11.5-15.5) % Plt Count 160 (150-450) k/uL Neutrophils % 89 % Lymphocytes % 6 % Monocytes % 4 % Eosinophils % 1 % Basophils % 0 % Neutrophils # 6.8 (1.3-7.7) k/uL Lymphocytes # 0.5 L (1.0-4.8) k/uL Monocytes # 0.3 (0-1.0) k/uL Eosinophils # 0.1 (0-0.7) k/uL Basophils # 0.0 (0-0.2) k/uL PT (9.0-12.0) sec INR (<1.2) APTT (22.0-30.0) sec Sodium 140 (137-145) mmol/L Potassium 4.6 (3.5-5.1) mmol/L Chloride 100 (98-107) mmol/L Carbon Dioxide 32 H (22-30) mmol/L Anion Gap 8 mmol/L BUN 24 H (9-20) mg/dL Creatinine 0.97 (0.66-1.25) mg/dL Est GFR (CKD-EPI)AfAm 89 (>60 ml/min/1.73 sqM) Est GFR (CKD-EPI)NonAf 77 (>60 ml/min/1.73 sqM) Glucose 246 H (74-99) mg/dL Calcium 10.1 (8.4-10.2) mg/dL Magnesium 1.5 L (1.6-2.3) mg/dL Total Bilirubin 1.5 H (0.2-1.3) mg/dL AST 25 (17-59) U/L ALT 28 (21-72) U/L Alkaline Phosphatase 108 (38-126) U/L Troponin I (0.000-0.034) ng/mL NT-Pro-B Natriuret Pep 2230 pg/mL Total Protein 6.7 (6.3-8.2) g/dL Albumin 4.2 (3.5-5.0) g/dL 02/16/19 02/16/19 Range/Units 15:27 15:27 WBC (3.8-10.6) k/uL RBC (4.30-5.90) m/uL Hgb (13.0-17.5) gm/dL Hct (39.0-53.0) % MCV (80.0-100.0) fL MCH (25.0-35.0) pg MCHC (31.0-37.0) g/dL RDW (11.5-15.5) % Plt Count (150-450) k/uL Neutrophils % % Lymphocytes % % Monocytes % % Eosinophils % % Basophils % % Neutrophils # (1.3-7.7) k/uL Lymphocytes # (1.0-4.8) k/uL Monocytes # (0-1.0) k/uL Eosinophils # (0-0.7) k/uL Basophils # (0-0.2) k/uL PT 11.2 (9.0-12.0) sec INR 1.1 (<1.2) APTT 22.8 (22.0-30.0) sec Sodium (137-145) mmol/L Potassium (3.5-5.1) mmol/L Chloride (98-107) mmol/L Carbon Dioxide (22-30) mmol/L Anion Gap mmol/L BUN (9-20) mg/dL Creatinine (0.66-1.25) mg/dL Est GFR (CKD-EPI)AfAm (>60 ml/min/1.73 sqM) Est GFR (CKD-EPI)NonAf (>60 ml/min/1.73 sqM) Glucose (74-99) mg/dL Calcium (8.4-10.2) mg/dL Magnesium (1.6-2.3) mg/dL Total Bilirubin (0.2-1.3) mg/dL AST (17-59) U/L ALT (21-72) U/L Alkaline Phosphatase (38-126) U/L Troponin I 0.038 H* (0.000-0.034) ng/mL NT-Pro-B Natriuret Pep pg/mL Total Protein (6.3-8.2) g/dL Albumin (3.5-5.0) g/dL - EKG Data -: EKG Interpreted by Me (EKG shows paced rhythm rate of 8087, KS 118, QRS 1:30, QTc 519) - Radiology Data Radiology results: report reviewed (Chest x-ray CT brain negative for acute disease), image reviewed Disposition Clinical Impression: Dehydration, Weakness, Confusion, Altered mental state Disposition: [facility] Condition: Poor Is patient prescribed a controlled substance at d/c from ED?: No Referrals: Randolph Marcos MD [Primary Care Provider] - 1-2 days
[2019-02-16 15:44] LABS: Basophils % (A) 0 %; Eosinophils # (A) 0.1 k/uL (0-0.7); Eosinophils % (A) 1 %; HCT 38.3 % (39.0-53.0); HGB 12.5 gm/dL (13.0-17.5); Lymphocytes # (A) 0.5 k/uL (1.0-4.8); Lymphocytes % (A) 6 %; MCH 29.8 pg (25.0-35.0); MCHC 32.7 g/dL (31.0-37.0); MCV 91.2 fL (80.0-100.0); Mean Platelet Volume 6.7; Monocytes # (A) 0.3 k/uL (0-1.0); Monocytes % (A) 4 %; Neutrophils # (A) 6.8 k/uL (1.3-7.7); Neutrophils % (A) 89 %; Platelet Count 160 k/uL (150-450); RBC 4.21 m/uL (4.30-5.90); WBC 7.6 k/uL (3.8-10.6)
--- NOTE | 2019-02-16 15:50 | XR ---
EXAMINATION TYPE: XR chest 2V DATE OF EXAM: 02/16/2019 COMPARISON: 02/10/2019 HISTORY: Shortness of breath TECHNIQUE: Frontal and lateral views of the chest are obtained. FINDINGS: Scattered senescent parenchymal changes noted. Hyperinflation compatible with COPD. No evidence for infiltrate. No evidence for atelectasis. Heart size is stable. Mediastinal structures are stable and grossly unremarkable. No evidence for hilar prominence. Degenerative changes dorsal spine. IMPRESSION: 1. No evidence for acute pulmonary disease.
[2019-02-16 15:54] LABS: Albumin 4.2 g/dL (3.5-5.0); Calcium 10.1 mg/dL (8.4-10.2); Magnesium 1.5 mg/dL (1.6-2.3); Potassium 4.6 mmol/L (3.5-5.1); Total Bilirubin 1.5 mg/dL (0.2-1.3); Total Protein 6.7 g/dL (6.3-8.2)
[2019-02-16 16:01] LABS: INR 1.1 (<1.2); Partial Thromboplastin Time 22.8 sec (22.0-30.0); Prothrombin Time 11.2 sec (9.0-12.0)
--- NOTE | 2019-02-16 17:01 | CT ---
EXAMINATION TYPE: CT brain artis lawrence DATE OF EXAM: 02/16/2019 COMPARISON: 02/10/2019 HISTORY: Confusion. CT DLP: 1328 mGycm Automated exposure control for dose reduction was used. TECHNIQUE: CT scan of the head and cervical spine are performed without contrast. FINDINGS: There is some cerebral cortical atrophy. There is old encephalomalacia left posterior fro ntal lobe and right posterior temporal lobe. This is consistent with old infarct. There is no mass ef fect nor midline shift. There is no sign of intracranial hemorrhage. The calvarium is intact. There is old 2 cm cortical infarct right cerebellar hemisphere. The cervical vertebra show some straightening. There is moderate disc space narrowing from C3 to C6 w ith spurring of the endplates. Facet joints are intact. The skull base appears intact. IMPRESSION: Multilevel spondylotic changes in the cervical spine. No fracture. No change. Bilateral old cortical infarcts. No acute intracranial abnormality. No change.
[2019-02-16] MEDS ORDERED: HYDROcodone/APAP 7.5-325MG 1 EACH TAB PO STA (18:12)
[2019-02-16] MEDS ORDERED: NITROGLYCERIN SL TABS 0.4 MG TAB SUBLINGUAL PRN (19:59)
[2019-02-16] MEDS ORDERED: ACETAMINOPHEN TAB 325 MG TAB PO PRN (19:59)
[2019-02-16] MEDS: SODIUM CHLORIDE 0.9% 1,000 ML IV SCH (20:39)
[2019-02-16 20:57] LABS: Glucose,Whole Blood 222 mg/dL (75-99)
[2019-02-16] MEDS: IPRATROPIUM-ALBUTEROL 3 ML NEB INHALATION SCH (21:06)
[2019-02-16] MEDS: SYMBICORT 160-4.5 MCG INHALER INHALATION SCH (21:06)
[2019-02-16] MEDS: BACLOFEN 10 MG TAB PO SCH (21:15)
[2019-02-16] MEDS: OXYBUTYNIN CHLORIDE 5 MG TAB PO SCH (21:15)
[2019-02-16] MEDS: INSULIN ASPART (NovoLOG) 100 UNIT/ML VIAL SQ SCH (21:15)
[2019-02-16] MEDS: traZODone HCL 50 MG TAB PO SCH (21:15)
[2019-02-16] MEDS: ATORVASTATIN 80 MG TAB PO SCH (21:15)
[2019-02-16] MEDS: TAMSULOSIN 0.4 MG CAP.ER.24H PO SCH (21:16)
[2019-02-16] MEDS: CARVEDILOL 12.5 MG TAB PO SCH (21:17)
[2019-02-16] MEDS: FAMOTIDINE 20 MG TAB PO SCH (21:17)
[2019-02-16] MEDS: MAGNESIUM SULFATE-D5W PMX 1 GM in DEXTROSE/WATER 1 100ML.BAG IVPB SCH ×2 (21:18→22:04)
[2019-02-17] MEDS: ALPRAZolam 0.5 MG TAB PO PRN ×3 (01:22→16:45)
[2019-02-17 01:45] LABS: Appearance,Urine Clear (Clear); Bilirubin,Urine Negative (Negative); Blood,Urine Negative (Negative); Color,Urine Yellow; Glucose,Urine (UA) 3+ (Negative); Ketones,Urine 1+ (Negative); Leukocyte Esterase,Urine Negative (Negative); Nitrite,Urine Negative (Negative); PH, Urine 5.5 (5.0-8.0); Protein,Urine Trace (Negative); Specific Gravity,Urine 1.021 (1.001-1.035); Urobilinogen,Urine <2.0 mg/dL (<2.0)
[2019-02-17] MEDS: SODIUM CHLORIDE 0.9% 1,000 ML IV SCH ×2 (03:54→11:19)
[2019-02-17 05:24] LABS: Glucose,Whole Blood 145 mg/dL (75-99)
[2019-02-17 06:26] LABS: HCT 38.8 % (39.0-53.0); MCH 29.1 pg (25.0-35.0); MCHC 30.8 g/dL (31.0-37.0); MCV 94.5 fL (80.0-100.0); Mean Platelet Volume 7.3; Platelet Count 167 k/uL (150-450); RDW 14.5 % (11.5-15.5); WBC 6.4 k/uL (3.8-10.6)
[2019-02-17] MEDS: INSULIN ASPART (NovoLOG) 100 UNIT/ML VIAL SQ SCH ×4 (06:37→20:59)
[2019-02-17] MEDS: metFORMIN 500 MG TAB PO SCH ×2 (06:37→16:46)
[2019-02-17] MEDS: CARVEDILOL 6.25 MG TAB PO SCH (06:37)
[2019-02-17] MEDS: LINAGLIPTIN 5 MG TABLET PO SCH (06:37)
[2019-02-17 06:39] LABS: ALT 30 U/L (21-72); AST 23 U/L (17-59); Alkaline Phosphatase 90 U/L (38-126); Anion Gap 2 mmol/L; Blood Urea Nitrogen 23 mg/dL (9-20); Calcium 9.6 mg/dL (8.4-10.2); Carbon Dioxide 37 mmol/L (22-30); Chloride 102 mmol/L (98-107); Cholesterol 141 mg/dL (<200); Glucose 139 mg/dL (74-99); HDL Cholesterol 63 mg/dL (40-60); LDL Cholesterol,Calculated 56 mg/dL (0-99); Magnesium 2.2 mg/dL (1.6-2.3); Potassium 4.3 mmol/L (3.5-5.1); Sodium 141 mmol/L (137-145); Total Bilirubin 1.4 mg/dL (0.2-1.3); Total Protein 6.4 g/dL (6.3-8.2); Triglycerides 109 mg/dL (<150)
[2019-02-17] MEDS ORDERED: metFORMIN 500 MG TAB PO SCH (07:30)
[2019-02-17] MEDS: HYDROcodone/APAP 7.5-325MG 1 EACH TAB PO PRN ×2 (08:13→16:45)
[2019-02-17] MEDS: FAMOTIDINE 20 MG TAB PO SCH ×2 (08:13→20:58)
[2019-02-17] MEDS: LOSARTAN 25 MG TAB PO SCH (08:13)
[2019-02-17] MEDS: OXYBUTYNIN CHLORIDE 5 MG TAB PO SCH (08:14)
[2019-02-17] MEDS: FINASTERIDE 5 MG TAB PO SCH (08:14)
[2019-02-17] MEDS: predniSONE 10 MG TAB PO SCH (08:14)
[2019-02-17] MEDS: CLOPIDOGREL 75 MG TAB PO SCH (08:14)
[2019-02-17] MEDS: TAMSULOSIN 0.4 MG CAP.ER.24H PO SCH ×2 (08:14→20:58)
[2019-02-17] MEDS ORDERED: CITALOPRAM HYDROBROMIDE 20 MG TAB PO SCH (09:00)
[2019-02-17] MEDS: IPRATROPIUM-ALBUTEROL 3 ML NEB INHALATION SCH ×3 (09:39→20:07)
[2019-02-17] MEDS: SYMBICORT 160-4.5 MCG INHALER INHALATION SCH ×2 (09:39→20:06)
[2019-02-17] MEDS: INSULIN DETEMIR (LEVEMIR) 100 UNIT/ML SYR SQ SCH (09:55)
[2019-02-17 12:02] LABS: Glucose,Whole Blood 265 mg/dL (75-99)
--- NOTE | 2019-02-17 12:45 | P.HPIM ---
History of Present Illness H&P Date: 02/17/19 Chief Complaint: Mental status change This is a 73-year-old male one of our office patient with past medical history of advanced COPD, CAD, A. fib, multiple history of CVA and TIA along with history of deep venous thrombosis who was in the office this past week was diagnosed with new onset of type 2 diabetes with a blood sugar running over 300, patient become quite bit confused at home had sustained a 3 falls with no major injury except he traumatize his buttocks and tailbone area and believe has fracture and it also developed low lightheadedness dizziness with significant mobility balance problem, worsening dyspnea and shortness of breath with cough and inspiratory expiratory wheezes with tightness. Severely abnormal balance and gait with generalized weakness more in the lower extremities and upper extremity. Patient was supposed to start on insulin along with Janumet apparently had no help did not get any proper training for insulin his blood sugar remained running in the 300 and patient is symptomatic with polyuria and frequency. He presented to the emergency department at [facility] after his fall brought by EMS his workup with CAT scan of the brain pelvis and hip not show any fracture multiple small vessel disease area and significant problem with COPD and fluid overload. Patient blood sugar was mildly elevated continue to be significantly confused not been able to ambulate and walk continue to complain of pelvic pain was hospitalized with above problem, and subsequently was discharged home on February 13 and went home apparently yesterday home health care nurse came to visit the patient and he was quite confused agitated and combative was not making sense and the patient was directed to the emergency department at [facility] where he was seen and evaluated by computed tomography scan of the brain and EKG and laboratory evaluation the patient was quite combative and he was admitted to the hospital for mental status change and the patient at this point is stating that he is not able to go back home at this point in time and he wants to go to [facility] [place] and rehabilitation. Review of Systems Constitutional: Reports weakness, Denies anorexia, Denies chronic headaches, Denies lethargy, Denies malaise, Denies weight gain Eyes: denies blurred vision, denies bulging eye, denies decreased vision Ears: bilateral: decreased hearing Ears, nose, mouth and throat: Denies dysphagia, Denies neck lump, Denies swelling in throat, Denies sore throat Cardiovascular: Reports decreased exercise tolerance, Reports dyspnea on exertion, Reports shortness of breath, Denies chest pain, Denies lightheadedness, Denies rapid heart beat, Denies syncope Respiratory: Reports dyspnea, Reports home oxygen, Denies congestion, Denies cough with sputum, Denies sleep apnea, Denies snoring, Denies wheezing Gastrointestinal: Denies abdominal pain, Denies bloating, Denies BRBPR, Denies heartburn, Denies hematemesis, Denies melena, Denies nausea, Denies vomiting Genitourinary: Reports nocturia, Reports urinary frequency, Reports urinary retention, Denies dysuria Musculoskeletal: Reports atrophy, Reports frequent falls, Reports gait dysfunction, Reports low back pain Musculoskeletal: absent: ankle pain, ankle stiffness, ankle swelling, elbow pa in, elbow stiffness, elbow swelling, foot pain, foot stiffness, foot swelling, hand pain, hand stiffness, hand swelling, hip pain, hip stiffness, hip swelling, knee pain, knee stiffness, knee swelling, shoulder pain, shoulder stiffness, shoulder swelling, wrist pain, wrist stiffness Integumentary: Denies pruritus, Denies rash Neurological: Reports confusion, Reports gait dysfunction, Reports weakness, Denies numbness Psychiatric: Reports anxiety, Reports confusion, Reports disorientation, Reports hallucinations, Reports memory loss, Denies depression, Denies paranoia, Denies sadness/tearfulness, Denies sleep disturbances, Denies suicidal ideation Past Medical History Past Medical History: Atrial Fibrillation, Coronary Artery Disease (CAD), Chest Pain / Angina, Heart Failure, COPD, CVA/TIA, Deep Vein Thrombosis (DVT), Eye Disorder, GERD/Reflux, Hearing Disorder / Deafness, Hyperlipidemia, Hypertension, Memory Impairment, Myocardial Infarction (NE), Musculoskeletal Disorder, Pneumonia, Prostate Disorder, Respiratory Disorder, Vascular Disorder Additional Past Medical History / Comment(s): Chronic steroids, CVA w/ speech difficulty (since 1999) TIAs, PVD, blocked right carotid, respiratory failure, 4L O2 continuous, BPH, chronic bronchitis, DDD, stomach ulcer, diverticulitis, hemorrhoids, colon polyps, walker/wheelchair, electric scooter, chronic leg/back pain, constipation, esvin. glaucoma, freq. falls, Last Myocardial Infarction Date:: 1997 History of Any Multi-Drug Resistant Organisms: MRSA Date of last positivie culture/infection: 8/29/18 MDRO Source:: Sputum Past Surgical History: AICD, Back Surgery, Coronary Bypass/CABG, Heart Catheterization, Heart Catheterization With Stent, Pacemaker, Tonsillectomy Additional Past Surgical History / Comment(s): February 2016 Pacer ([facility] PM 32 [id number], #SS [id number]). CABG 5 vessel 1998. Cath with stents (8 total). Esvin carotid endarterectomies. Back surgery x 2. Bilateral fem/pops, esvin stenting in legs (6 total) with graphs. Cataracts removed, back injections for pain. AICD, PTCA and stent 11/08/17 and January 2018. Past Anesthesia/Blood Transfusion Reactions: No Reported Reaction Additional Past Anesthesia/Blood Transfusion Reaction / Comment(s): Never had blood transfusion. Date of Last Stent Placement:: 01/2018 Type of Cardiac Device: Permanent Pacemaker, AICD Device Placement Date:: 02/2016 Past Psychological History: Anxiety, Depression Additional Psychological History / Comment(s): Lives at [facility]. Smoking Status: Former smoker Past Alcohol Use History: None Reported Additional Past Alcohol Use History / Comment(s): Patient was a smoker one pack per day for 50 years and quit in 2011. Past Drug Use History: None Reported - Past Family History Brother(s) Family Medical History: Cancer Additional Family Medical History / Comment(s): Patient has a brother that at age 75 from stage IV stomach cancer. Sister(s) Family Medical History: Congestive Heart Failure (CHF), Vascular Disorder Additional Family Medical History / Comment(s): Patient has a sister that at age 57 from CABG. PVD Son(s) Family Medical History: No Reported History Additional Family Medical History / Comment(s): crohns. Daughter(s) Family Medical History: No Reported History Additional Family Medical History / Comment(s): Daughter has 2 daughters and one works in the [place] here - 1 was killed in [place]. Mother Family Medical History: Coronary Artery Disease (CAD) Additional Family Medical History / Comment(s): Mother at age 62 from coronary artery disease and peripheral artery disease status post multiple heart surgeries. Father Family Medical History: Cancer, Coronary Artery Disease (CAD) Additional Family Medical History / Comment(s): Family at age 89 from colon cancer and COPD along with coronary artery disease. Medications and Allergies Home Medications Medication Instructions Recorded Confirmed Type Clopidogrel [Plavix] 75 mg PO DAILY 03/10/14 02/16/19 History traZODone HCL [Desyrel] 50 mg PO HS 03/10/14 02/16/19 History Losartan [Cozaar] 25 mg PO DAILY PRN 12/23/14 02/16/19 History Nitroglycerin Sl Tabs [Nitrostat] 0.4 mg SUBLINGUAL Q5M PRN 02/02/16 02/16/19 History Ranitidine HCl 150 mg PO BID 02/02/16 02/16/19 History Tamsulosin [Flomax] 0.4 mg PO BID 02/02/16 02/16/19 History Finasteride [Proscar] 5 mg PO DAILY 07/04/17 02/16/19 History Atorvastatin [Lipitor] 80 mg PO HS #30 tab 11/23/17 02/16/19 Rx Carvedilol [Coreg] 6.25 mg PO DAILY tab 02/22/18 02/16/19 Rx Carvedilol [Coreg] 12.5 mg PO HS 04/16/18 02/16/19 History ALPRAZolam [Xanax] 0.5 mg PO TID PRN #9 tablet 05/23/18 02/16/19 Rx HYDROcodone/APAP 7.5-325MG [[place] 1 tab PO Q6H PRN #12 tab 05/23/18 02/16/19 Rx 7.5-325] Ipratropium-Albuterol Nebulize 3 ml INHALATION RT-TID 07/11/18 02/16/19 History [Duoneb 0.5 mg-3 mg/3 ml Soln] Budesonide-Formot 160-4.5 Mcg 2 puff INHALATION RT-BID 12/28/18 02/16/19 History [Symbicort 160-4.5 Mcg Inhaler] Oxybutynin Chloride [Ditropan] 5 mg PO BID 01/05/19 02/16/19 History Baclofen [Lioresal] 10 mg PO HS 02/10/19 02/16/19 History predniSONE 10 mg PO DAILY 02/10/19 02/16/19 History sitaGLIPtin PHOS/metFORMIN HCL 1 tab PO BID 02/10/19 02/16/19 History [Janumet 50-500 mg Tablet] Acetaminophen Tab [Tylenol] 650 mg PO Q6HR PRN tab 02/13/19 02/16/19 Rx Citalopram Hydrobromide [CeleXA] 20 mg PO DAILY #30 tab 02/13/19 02/16/19 Rx Insulin Detemir (Levemir) [Levemir] 10 unit SQ DAILY #1 syr 02/13/19 02/16/19 Rx INSULIN ASPART (NovoLOG) [NovoLOG See Protocol SQ ACHS 02/16/19 02/16/19 History (formulary)] Allergies Allergy/AdvReac Type Severity Reaction Status Date / Time No Known Allergies Allergy Verified 02/16/19 15:52 Physical Exam Vitals: Vital Signs Temp Pulse Pulse Resp BP BP Pulse Ox 02/17/19 08:00 97.5 F L 68 18 145/63 97 02/17/19 03:50 97.8 F 67 18 152/60 94 L 02/16/19 23:15 97.9 F 70 18 115/67 97 02/16/19 20:05 97.4 F L 102 H 20 170/50 92 L 02/16/19 18:30 97 20 157/90 95 02/16/19 17:30 96 20 139/46 95 02/16/19 16:26 110 H 24 123/79 95 02/16/19 16:23 111 H 24 02/16/19 16:05 90 02/16/19 15:50 98 18 02/16/19 15:00 98.8 F 101 H 20 136/69 93 L Intake and Output 02/16/19 02/17/19 02/17/19 22:59 06:59 14:59 Output Total 300 Balance -300 Output: Urine 300 Uretheral ([place]) 300 Other: Voiding Method Toilet Toilet Toilet Weight 58.967 kg 54.2 kg - Constitutional General appearance: average body habitus, no acute distress - EENT Eyes: anicteric sclerae, EOMI, PERRLA, no ptosis, no scleral icterus, normal appearance ENT: hard of hearing, NA/AT, normal oropharynx, no thrush Ears: bilateral: normal - Neck Neck: no lymphadenopathy, normal ROM, no rigidity, no stridor, no thyromegaly Carotids: bilateral: upstroke delayed Thyroid: bilateral: normal size - Respiratory Respiratory: bilateral: diminished, prolonged expiration, negative: dullness, rales, wheezing - Cardiovascular Rhythm: regular Heart sounds: normal: S1, S2 Abnormal Heart Sounds: systolic murmur, no S3 Gallop, no S4 Gallop, no click - Gastrointestinal General gastrointestinal: normal bowel sounds, soft, no tenderness, no umbilical hernia, no ventral hernia - Integumentary Integumentary: normal, normal turgor - Neurologic Neurologic: CNII-XII intact - Musculoskeletal Musculoskeletal: generalized weakness - Psychiatric Psychiatric: no A&O x's 3, no appropriate affect, no intact judgment & insight Results CBC & Chem 7: 02/17/19 05:44 02/17/19 05:44 Labs: Abnormal Lab Results - Last 24 Hours (Table) 02/16/19 02/16/19 02/16/19 Range/Units 15:27 15:27 15:27 RBC 4.21 L (4.30-5.90) m/uL Hgb 12.5 L (13.0-17.5) gm/dL Hct 38.3 L (39.0-53.0) % MCHC (31.0-37.0) g/dL Lymphocytes # 0.5 L (1.0-4.8) k/uL Carbon Dioxide 32 H (22-30) mmol/L BUN 24 H (9-20) mg/dL Glucose 246 H (74-99) mg/dL POC Glucose (mg/dL) (75-99) mg/dL Magnesium 1.5 L (1.6-2.3) mg/dL Total Bilirubin 1.5 H (0.2-1.3) mg/dL Troponin I 0.038 H* (0.000-0.034) ng/mL HDL Cholesterol (40-60) mg/dL Urine Protein (Negative) Urine Glucose (UA) (Negative) Urine Ketones (Negative) 02/16/19 02/17/19 02/17/19 Range/Units 20:53 01:30 05:22 RBC (4.30-5.90) m/uL Hgb (13.0-17.5) gm/dL Hct (39.0-53.0) % MCHC (31.0-37.0) g/dL Lymphocytes # (1.0-4.8) k/uL Carbon Dioxide (22-30) mmol/L BUN (9-20) mg/dL Glucose (74-99) mg/dL POC Glucose (mg/dL) 222 H 145 H (75-99) mg/dL Magnesium (1.6-2.3) mg/dL Total Bilirubin (0.2-1.3) mg/dL Troponin I (0.000-0.034) ng/mL HDL Cholesterol (40-60) mg/dL Urine Protein Trace H (Negative) Urine Glucose (UA) 3+ H (Negative) Urine Ketones 1+ H (Negative) 02/17/19 02/17/19 Range/Units 05:44 05:44 RBC 4.10 L (4.30-5.90) m/uL Hgb 12.0 L (13.0-17.5) gm/dL Hct 38.8 L (39.0-53.0) % MCHC 30.8 L (31.0-37.0) g/dL Lymphocytes # (1.0-4.8) k/uL Carbon Dioxide 37 H (22-30) mmol/L BUN 23 H (9-20) mg/dL Glucose 139 H (74-99) mg/dL POC Glucose (mg/dL) (75-99) mg/dL Magnesium (1.6-2.3) mg/dL Total Bilirubin 1.4 H (0.2-1.3) mg/dL Troponin I (0.000-0.034) ng/mL HDL Cholesterol 63 H (40-60) mg/dL Urine Protein (Negative) Urine Glucose (UA) (Negative) Urine Ketones (Negative) Thrombosis Risk Factor Assmnt - DVT/VTE Prophylaxis DVT/VTE Prophylaxis: Pharmacologic Prophylaxis ordered, Mechanical Prophylaxis ordered - Choose All That Apply Any of the Below Risk Factors Present?: Yes Each Factor Represents 1 point: Abnormal pulmonary function (COPD), Serious lung disease incl. pneumonia (< 1month) Other Risk Factors: Yes Each Risk Factor Represents 3 Points: Age 75 years or older, History of DVT/PE Other congenital or acquired thrombophilia - If yes, enter type in comment: No Thrombosis Risk Factor Assessment Total Risk Factor Score: 8 Thrombosis Risk Factor Assessment Level: High Risk Assessment and Plan Assessment: Assessment and plan: 1. Metabolic encephalopathy thought to be due to medication changes including citalopram that was just started on the last admission plus other factors with the possibilities of TIA's could not entirely be excluded. We'll discontinue citalopram for now, we will continue to monitor the patient very closely, we will obtain neurology consultation. 2. Multiple falls with gait dysfunction. Physical therapy and occupational therapy evaluation patient likely will require extended care facility placement he is requesting [facility] [place]. 3. Moderate COPD. Continue patient on nebulized treatment 4 times every day continue oxygen support as well. 4. Diabetes mellitus type 2. Continue patient on Levemir 10 units subcu venously once every day as well as metformin 500 mg orally twice every day and Linagliptin 5 mg orally once every day. 5 . Cardiomyopathy post-AICD implant patient. Continue Coreg 12.5 minute gram in the morning is 25 mg at bedtime. 6. CAD Post multiple bypass surgery and angioplasty. Continue Coreg 12.5 minute gram in the morning is 6.25 mg at night, continue Lipitor 80 mg once every day as well as Plavix 75 mg orally once every day. 7. chronic respiratory failure: Mostly end-stage lung disease on O2 and updraft, we will continue Symbicort twice every day. 8. debility with multiple falls. Consult PT and OT likely will require ECF placement. 9. Severe anxiety and panic attacks. Discontinue citalopram as it may be the cause of his encephalopathy at this time, continue with Xanax as needed. 10. Benign prostatic hyperplasia with the urinary retention. Continue Flomax 0.4 mg orally twice every day as well as Proscar 5 minute gram once every day, Dr. De Paz consultation. Please use straight cath for residual volume greater than 350 mL. 11. Severe GERD/GI prophylaxis: Patient remain on Pepcid . 12 chronic pain syndrome: Patient remain on hydrocodone and baclofen. Still using Tylenol on an as-needed basis along with topical product. 13. DVT prophylaxis. Continue patient on heparin 5000 units subcutaneously every 12 hours. 14. GI prophylaxis. Continue patient on Pepcid. 15. Patient is full code. 16. Admit to inpatient. Estimate a length of stay 2 midnights.
[2019-02-17 17:04] LABS: Glucose,Whole Blood 51 mg/dL (75-99)
[2019-02-17 17:04] LABS: Glucose,Whole Blood 51 mg/dL (75-99)
[2019-02-17 17:38] LABS: Glucose,Whole Blood 98 mg/dL (75-99)
--- NOTE | 2019-02-17 19:25 | P.CNNES ---
History of Present Illness Consult date: 02/17/19 Reason for Consult: Encephalopathy History of Present Illness: Patient is a 73-year-old male, who was brought to the hospital for shortness of breath and altered mental status. Patient was noted to be incoherent, and not able to conversate or provide history. He was belligerent and combative. Patient states that last or Tuesday he was going to the bathroom and fell. He did not hit his head or hurt himself. He got up and fell again. He states he crawled to the bathroom. Patient does have some flight of ideas and speaks from one topic to another. He states he had history of stroke in the past. He has diabetes. Patient does not offer any other complaints otherwise. Denies headache. Patient underwent computed tomography scan of the head, which revealed evidence of old cortical-based infarct in the left frontal, right parietal region as well as in bilateral cerebellar region. CT of the cervical spine showed multilevel spondylotic changes in the cervical spine. No fracture. EKG showed atrial sensed ventricle or paced rhythm. Biventricular pacemaker detected. Chest x-ray showed no acute pulmonary process. Blood tests shows normal CBC, Chem-7, liver functions, total cholesterol 141, LDL 56,. UA negative. Patient's hemoglobin A1c 10.7 on 02/12/2019. No focal symptoms have been reported. Patient is on dual antiplatelet medications. Patient's previous carotid Doppler from 02/19/2015 showed persistent occlusion of the right common and internal carotid artery. Retrograde flow through the right external carotid artery. High-grade stenosis also suspected in the left ICA. Nonvisualization of the right vertebral artery. Suspect right vertebral artery occluded. Review of Systems As per history of present illness. Denies any headache problem with the vision. Denies dysphagia dysarthria, shortness of breath, chest pain. Past Medical History Past Medical History: Atrial Fibrillation, Coronary Artery Disease (CAD), Chest Pain / Angina, Heart Failure, COPD, CVA/TIA, Deep Vein Thrombosis (DVT), Eye Disorder, GERD/Reflux, Hearing Disorder / Deafness, Hyperlipidemia, Hypertension, Memory Impairment, Myocardial Infarction ([place]), Musculoskeletal Disorder, Pneumonia, Prostate Disorder, Respiratory Disorder, Vascular Disorder Additional Past Medical History / Comment(s): Chronic steroids, CVA w/ speech di fficulty (since 1999) TIAs, PVD, blocked right carotid, respiratory failure, 4L O2 continuous, BPH, chronic bronchitis, DDD, stomach ulcer, diverticulitis, hemorrhoids, colon polyps, walker/wheelchair, electric scooter, chronic leg/back pain, constipation, esvin. glaucoma, freq. falls, Last Myocardial Infarction Date:: 1997 History of Any Multi-Drug Resistant Organisms: MRSA Date of last positivie culture/infection: 05/24/18 MDRO Source:: Sputum Past Surgical History: AICD, Back Surgery, Coronary Bypass/CABG, Heart Catheterization, Heart Catheterization With Stent, Pacemaker, Tonsillectomy Additional Past Surgical History / Comment(s): February 2016 Pacer ([facility] PM [id number], #SS [id number]). CABG 5 vessel 1997. Cath with stents (8 total). Esvin carotid endarterectomies. Back surgery x 2. Bilateral fem/pops, esvin stenting in legs (6 total) with graphs. Cataracts removed, back injections for pain. AICD, PTCA and stent 11/08/17 and January 2018. Past Anesthesia/Blood Transfusion Reactions: No Reported Reaction Additional Past Anesthesia/Blood Transfusion Reaction / Comment(s): Never had blood transfusion. Date of Last Stent Placement:: 01/2018 Type of Cardiac Device: Permanent Pacemaker, AICD Device Placement Date:: 02/2016 Past Psychological History: Anxiety, Depression Additional Psychological History / Comment(s): Lives at [facility]. Smoking Status: Former smoker Past Alcohol Use History: None Reported Additional Past Alcohol Use History / Comment(s): Patient was a smoker one pack per day for 50 years and quit in 2011. Past Drug Use History: None Reported - Past Family History Brother(s) Family Medical History: Cancer Additional Family Medical History / Comment(s): Patient has a brother that at age 75 from stage IV stomach cancer. Sister(s) Family Medical History: Congestive Heart Failure (CHF), Vascular Disorder Additional Family Medical History / Comment(s): Patient has a sister that at age 57 from CABG. PVD Son(s) Family Medical History: No Reported History Additional Family Medical History / Comment(s): crohns. Daughter(s) Family Medical History: No Reported History Additional Family Medical History / Comment(s): Daughter has 2 daughters and one works in the OR here - 1 was killed in [place]. Mother Family Medical History: Coronary Artery Disease (CAD) Additional Family Medical History / Comment(s): Mother at age 62 from c oronary artery disease and peripheral artery disease status post multiple heart surgeries. Father Family Medical History: Cancer, Coronary Artery Disease (CAD) Additional Family Medical History / Comment(s): Family at age 89 from colon cancer and COPD along with coronary artery disease. Medications and Allergies Home Medications Medication Instructions Recorded Confirmed Type Clopidogrel [Plavix] 75 mg PO DAILY 03/10/14 02/16/19 History traZODone HCL [Desyrel] 50 mg PO HS 03/10/14 02/16/19 History Losartan [Cozaar] 25 mg PO DAILY PRN 12/23/14 02/16/19 History Nitroglycerin Sl Tabs [Nitrostat] 0.4 mg SUBLINGUAL Q5M PRN 02/02/16 02/16/19 History Ranitidine HCl 150 mg PO BID 02/02/16 02/16/19 History Tamsulosin [Flomax] 0.4 mg PO BID 02/02/16 02/16/19 History Finasteride [Proscar] 5 mg PO DAILY 07/04/17 02/16/19 History Atorvastatin [Lipitor] 80 mg PO HS #30 tab 11/23/17 02/16/19 Rx Carvedilol [Coreg] 6.25 mg PO DAILY tab 02/22/18 02/16/19 Rx Carvedilol [Coreg] 12.5 mg PO HS 04/16/18 02/16/19 History ALPRAZolam [Xanax] 0.5 mg PO TID PRN #9 tablet 05/23/18 02/16/19 Rx HYDROcodone/APAP 7.5-325MG [[place] 1 tab PO Q6H PRN #12 tab 05/23/18 02/16/19 Rx 7.5-325] Ipratropium-Albuterol Nebulize 3 ml INHALATION RT-TID 07/11/18 02/16/19 History [Duoneb 0.5 mg-3 mg/3 ml Soln] Budesonide-Formot 160-4.5 Mcg 2 puff INHALATION RT-BID 12/28/18 02/16/19 History [Symbicort 160-4.5 Mcg Inhaler] Oxybutynin Chloride [Ditropan] 5 mg PO BID 01/05/19 02/16/19 History Baclofen [Lioresal] 10 mg PO HS 02/10/19 02/16/19 History predniSONE 10 mg PO DAILY 02/10/19 02/16/19 History sitaGLIPtin PHOS/metFORMIN HCL 1 tab PO BID 02/10/19 02/16/19 History [Janumet 50-500 mg Tablet] Acetaminophen Tab [Tylenol] 650 mg PO Q6HR PRN tab 02/13/19 02/16/19 Rx Citalopram Hydrobromide [CeleXA] 20 mg PO DAILY #30 tab 02/13/19 02/16/19 Rx Insulin Detemir (Levemir) [Levemir] 10 unit SQ DAILY #1 syr 02/13/19 02/16/19 Rx INSULIN ASPART (NovoLOG) [NovoLOG See Protocol SQ ACHS 02/16/19 02/16/19 History (formulary)] Allergies Allergy/AdvReac Type Severity Reaction Status Date / Time No Known Allergies Allergy Verified 02/16/19 15:52 Physical Examination - Vital Signs Vital Signs: Vital Signs Temp Pulse Resp BP Pulse Ox 02/17/19 16:00 97.9 F 73 18 144/68 97 02/17/19 12:00 97.2 F L 72 18 134/66 95 02/17/19 08:00 97.5 F L 68 18 145/63 97 02/17/19 03:50 97.8 F 67 18 152/60 94 L 02/16/19 23:15 97.9 F 70 18 115/67 97 02/16/19 20:05 97.4 F L 102 H 20 170/50 92 L Intake and Output 02/17/19 02/17/19 02/17/19 06:59 14:59 22:59 Intake Total 200 Output Total 300 500 Balance -300 -500 200 Intake: Oral 200 Output: Urine 300 500 Uretheral (Morejon) 300 500 Other: Voiding Method Toilet Toilet Toilet Weight 54.2 kg On examination patient is an elderly male, in no distress. Patient is alert and awake. He knows that he is in [facility], and that it is February 17 and the year is . Knows his date of and that he lives in [facility]. He knows the month the current president. Speech and language functions are normal. He is slightly pressured speech. No aphasia or dysarthria. Sometimes he has word hesitancy, and thought block. On cranial nerve examination pupils are round and reactive visual mcintyre appears full. Face is symmetric and tongue protrudes the midline. Muscle strength is normal in the arms and legs. Reflexes symmetric and plantars are downgoing sensory touch is equal. No ataxia, tone and bulk of muscles normal. Results - Laboratory Findings CBC and BMP: 02/17/19 05:44 02/17/19 05:44 Abnormal Lab Findings: Abnormal Labs 02/16/19 02/16/19 02/16/19 15:27 15:27 15:27 RBC 4.21 L Hgb 12.5 L Hct 38.3 L MCHC Lymphocytes # 0.5 L Carbon Dioxide 32 H BUN 24 H Glucose 246 H POC Glucose (mg/dL) Magnesium 1.5 L Total Bilirubin 1.5 H Troponin I 0.038 H* HDL Cholesterol Urine Protein Urine Glucose (UA) Urine Ketones 02/16/19 02/17/19 02/17/19 20:53 01:30 05:22 RBC Hgb Hct MCHC Lymphocytes # Carbon Dioxide BUN Glucose POC Glucose (mg/dL) 222 H 145 H Magnesium Total Bilirubin Troponin I HDL Cholesterol Urine Protein Trace H Urine Glucose (UA) 3+ H Urine Ketones 1+ H 02/17/19 02/17/19 02/17/19 05:44 05:44 11:57 RBC 4.10 L Hgb 12.0 L Hct 38.8 L MCHC 30.8 L Lymphocytes # Carbon Dioxide 37 H BUN 23 H Glucose 139 H POC Glucose (mg/dL) 265 H Magnesium Total Bilirubin 1.4 H Troponin I HDL Cholesterol 63 H Urine Protein Urine Glucose (UA) Urine Ketones 02/17/19 02/17/19 16:46 17:02 RBC Hgb Hct MCHC Lymphocytes # Carbon Dioxide BUN Glucose POC Glucose (mg/dL) 51 L 51 L Magnesium Total Bilirubin Troponin I HDL Cholesterol Urine Protein Urine Glucose (UA) Urine Ketones Assessment and Plan Assessment: * Altered mental status, possible mild delirium. Exact cause uncertain, possible medication side effect. May have underlying mild cognitive impairment although he performed fairly well on cognitive function testing as above. * History of previous strokes, currently on dual antiplatelet medications. * Pacemaker. * History of chronic right ICA occlusion, right vertebral artery occlusion. Plan: Repeat carotid Doppler, as previously patient had significant abnormalities. Continue dual antiplatelet medications. Patient may need to follow up in the neurology office to rule out underlying cognitive impairment. Will check B12, folate, TSH. Optimize control of diabetes. A1c is 10.7. Target A1c <7.0.
[2019-02-17 20:31] LABS: Glucose,Whole Blood 113 mg/dL (75-99)
[2019-02-17] MEDS: BACLOFEN 10 MG TAB PO SCH (20:58)
[2019-02-17] MEDS: CARVEDILOL 12.5 MG TAB PO SCH (20:58)
[2019-02-17] MEDS: ATORVASTATIN 80 MG TAB PO SCH (20:58)
[2019-02-17] MEDS: traZODone HCL 50 MG TAB PO SCH (20:59)
[2019-02-17] MEDS: HEPARIN SODIUM,PORCINE 5,000 UNIT/ML 1 ML VIAL SQ SCH (23:21)
[2019-02-18 05:56] LABS: Basophils % (A) 0 %; Eosinophils # (A) 0.1 k/uL (0-0.7); Eosinophils % (A) 2 %; HCT 34.4 % (39.0-53.0); Lymphocytes # (A) 0.7 k/uL (1.0-4.8); Lymphocytes % (A) 12 %; MCH 29.8 pg (25.0-35.0); MCV 93.3 fL (80.0-100.0); Mean Platelet Volume 7.5; Monocytes # (A) 0.5 k/uL (0-1.0); Monocytes % (A) 7 %; Neutrophils % (A) 78 %; Platelet Count 144 k/uL (150-450); RBC 3.68 m/uL (4.30-5.90); RDW 14.2 % (11.5-15.5); WBC 6.4 k/uL (3.8-10.6)
[2019-02-18 06:06] LABS: Glucose,Whole Blood 111 mg/dL (75-99)
[2019-02-18 06:08] LABS: ALT 27 U/L (21-72); AST 20 U/L (17-59); Albumin 3.2 g/dL (3.5-5.0); Alkaline Phosphatase 78 U/L (38-126); Anion Gap 1 mmol/L; Blood Urea Nitrogen 21 mg/dL (9-20); Calcium 8.8 mg/dL (8.4-10.2); Carbon Dioxide 34 mmol/L (22-30); Chloride 105 mmol/L (98-107); Glucose 92 mg/dL (74-99); Potassium 3.9 mmol/L (3.5-5.1); Sodium 140 mmol/L (137-145); Total Bilirubin 0.9 mg/dL (0.2-1.3); Total Protein 5.4 g/dL (6.3-8.2)
[2019-02-18] MEDS: INSULIN ASPART (NovoLOG) 100 UNIT/ML VIAL SQ SCH ×4 (06:39→21:04)
[2019-02-18] MEDS: metFORMIN 500 MG TAB PO SCH ×2 (06:52→15:49)
[2019-02-18] MEDS: SODIUM CHLORIDE 0.9% 1,000 ML IV SCH ×2 (06:52→08:33)
[2019-02-18] MEDS: LINAGLIPTIN 5 MG TABLET PO SCH (06:52)
[2019-02-18] MEDS: CARVEDILOL 6.25 MG TAB PO SCH (06:52)
[2019-02-18] MEDS: CLOPIDOGREL 75 MG TAB PO SCH (08:36)
[2019-02-18] MEDS: FAMOTIDINE 20 MG TAB PO SCH ×2 (08:36→20:00)
[2019-02-18] MEDS: FINASTERIDE 5 MG TAB PO SCH (08:36)
[2019-02-18] MEDS: INSULIN DETEMIR (LEVEMIR) 100 UNIT/ML SYR SQ SCH (08:36)
[2019-02-18] MEDS: LOSARTAN 25 MG TAB PO SCH (08:36)
[2019-02-18] MEDS: predniSONE 10 MG TAB PO SCH (08:36)
[2019-02-18] MEDS: TAMSULOSIN 0.4 MG CAP.ER.24H PO SCH ×2 (08:36→20:00)
[2019-02-18] MEDS: HEPARIN SODIUM,PORCINE 5,000 UNIT/ML 1 ML VIAL SQ SCH ×3 (08:38→23:59)
[2019-02-18] MEDS: HYDROcodone/APAP 7.5-325MG 1 EACH TAB PO PRN ×2 (08:43→15:49)
[2019-02-18] MEDS: IPRATROPIUM-ALBUTEROL 3 ML NEB INHALATION SCH ×3 (08:45→20:14)
[2019-02-18] MEDS: SYMBICORT 160-4.5 MCG INHALER INHALATION SCH ×2 (08:45→20:14)
--- NOTE | 2019-02-18 11:16 | P.PN ---
Subjective Progress Note Date: 02/18/19 This is a 73-year-old male one of our office patient with past medical history of advanced COPD, CAD, A. fib, multiple history of CVA and TIA along with history of deep venous thrombosis who was in the office this past week was diagnosed with new onset of type 2 diabetes with a blood sugar running over 300, patient become quite bit confused at home had sustained a 3 falls with no major injury except he traumatize his buttocks and tailbone area and believe has fracture and it also developed low lightheadedness dizziness with significant mobility balance problem, worsening dyspnea and shortness of breath with cough and inspiratory expiratory wheezes with tightness. Severely abnormal balance and gait with generalized weakness more in the lower extremities and upper extremity. Patient was supposed to start on insulin along with Janumet apparently had no help did not get any proper training for insulin his blood sugar remained running in the 300 and patient is symptomatic with polyuria and frequency. He presented to the emergency department at [facility] after his fall brought by EMS his workup with CAT scan of the brain pelvis and hip not show any fracture multiple small vessel disease area and significant problem with COPD and fluid overload. Patient blood sugar was mildly elevated continue to be significantly confused not been able to ambulate and walk continue to complain of pelvic pain was hospitalized with above problem, and subsequently was discharged home on February 13 and went home apparently yesterday home health care nurse came to visit the patient and he was quite confused agitated and combative was not making sense and the patient was directed to the emergency department at [facility] where he was seen and evaluated by computed tomography scan of the brain and EKG and laboratory evaluation the patient was quite combative and he was admitted to the hospital for mental status change and the patient at this point is stating that he is not able to go back home at this point in time and he wants to go to [facility] [place] for physical therapy and rehabilitation. 02/18: Patient is sitting up in chair in no apparent distress he is less confused and less delirious today he denies any chest pain or shortness breath, appears better today he is complaining of dryness in his nose we will start nasal saline gel, continue humidified oxygen, Objective - Vital Signs Vital signs: Vital Signs Temp 97.1 F L 02/18/19 08:00 Pulse 77 02/18/19 08:00 Resp 18 02/18/19 08:00 BP 114/57 02/18/19 08:00 Pulse Ox 95 02/18/19 08:00 Intake & Output 02/17/19 02/18/19 02/18/19 18:59 06:59 18:59 Intake Total 200 Output Total 500 700 350 Balance -300 -700 -350 Weight 55.7 kg Intake: Oral 200 Output: Urine 500 700 350 Uretheral ([place]jon) 500 Other: Voiding Method Toilet Toilet Toilet # Voids 1 - Exam - Constitutional General appearance: average body habitus, no acute distress - EENT Eyes: anicteric sclerae, EOMI, PERRLA, no ptosis, no scleral icterus, normal appearance ENT: hard of hearing, NA/AT, normal oropharynx, no thrush Ears: bilateral: normal - Neck Neck: no lymphadenopathy, normal ROM, no rigidity, no stridor, no thyromegaly Carotids: bilateral: upstroke delayed Thyroid: bilateral: normal size - Respiratory Respiratory: bilateral: diminished, prolonged expiration, negative: dullness, rales, wheezing - Cardiovascular Rhythm: regular Heart sounds: normal: S1, S2 Abnormal Heart Sounds: systolic murmur, no S3 Gallop, no S4 Gallop, no click - Gastrointestinal General gastrointestinal: normal bowel sounds, soft, no tenderness, no umbilical hernia, no ventral hernia - Integumentary Integumentary: normal, normal turgor - Neurologic Neurologic: CNII-XII intact - Musculoskeletal Musculoskeletal: generalized weakness - Psychiatric Psychiatric: no A&O x's 3, no appropriate affect, no intact judgment & insight - Labs CBC & Chem 7: 02/18/19 05:35 02/18/19 05:35 Labs: Abnormal Lab Results - Last 24 Hours (Table) 02/17/19 02/17/19 02/17/19 Range/Units 11:57 16:46 17:02 RBC (4.30-5.90) m/uL Hgb (13.0-17.5) gm/dL Hct (39.0-53.0) % Plt Count (150-450) k/uL Lymphocytes # (1.0-4.8) k/uL Carbon Dioxide (22-30) mmol/L BUN (9-20) mg/dL POC Glucose (mg/dL) 265 H 51 L 51 L (75-99) mg/dL Total Protein (6.3-8.2) g/dL Albumin (3.5-5.0) g/dL 02/17/19 02/18/19 02/18/19 Range/Units 20:27 05:35 05:35 RBC 3.68 L (4.30-5.90) m/uL Hgb 11.0 L (13.0-17.5) gm/dL Hct 34.4 L (39.0-53.0) % Plt Count 144 L (150-450) k/uL Lymphocytes # 0.7 L (1.0-4.8) k/uL Carbon Dioxide 34 H (22-30) mmol/L BUN 21 H (9-20) mg/dL POC Glucose (mg/dL) 113 H (75-99) mg/dL Total Protein 5.4 L (6.3-8.2) g/dL Albumin 3.2 L (3.5-5.0) g/dL 02/18/19 Range/Units 06:04 RBC (4.30-5.90) m/uL Hgb (13.0-17.5) gm/dL Hct (39.0-53.0) % Plt Count (150-450) k/uL Lymphocytes # (1.0-4.8) k/uL Carbon Dioxide (22-30) mmol/L BUN (9-20) mg/dL POC Glucose (mg/dL) 111 H (75-99) mg/dL Total Protein (6.3-8.2) g/dL Albumin (3.5-5.0) g/dL Assessment and Plan Assessment: Assessment and plan: 1. Metabolic encephalopathy /delirium thought to be due to medication changes including citalopram that was just started on the last admission plus other fac tors with the possibilities of TIA's could not entirely be excluded. We'll discontinue citalopram for now, we will continue to monitor the patient very closely, we will obtain neurology consultation. 2. Multiple falls with gait dysfunction. Physical therapy and occupational therapy evaluation patient likely will require extended care facility placement he is requesting [facility] the [place]. 3. Moderate COPD. Continue patient on nebulized treatment 4 times every day continue oxygen support as well. 4. Diabetes mellitus type 2. Continue patient on Levemir 10 units subcu venously once every day as well as metformin 500 mg orally twice every day and Linagliptin 5 mg orally once every day. 5 . Cardiomyopathy post-AICD implant patient. Continue Coreg 12.5 minute gram in the morning is 25 mg at bedtime. 6. CAD Post multiple bypass surgery and angioplasty. Continue Coreg 12.5 min irais gram in the morning is 6.25 mg at night, continue Lipitor 80 mg once every day as well as Plavix 75 mg orally once every day. 7. chronic respiratory failure: Mostly end-stage lung disease on O2 and updraft, we will continue Symbicort twice every day. 8. debility with multiple falls. Consult PT and OT likely will require ECF placement. 9. Severe anxiety and panic attacks. Discontinue citalopram as it may be the cause of his encephalopathy at this time, continue with Xanax as needed. 10. Benign prostatic hyperplasia with the urinary retention. Continue Flomax 0.4 mg orally twice every day as well as Proscar 5 minute gram once every day, Dr. De Paz consultation. Please use straight cath for residual volume greater than 350 mL. 11. Severe GERD/GI prophylaxis: Patient remain on Pepcid . 12 chronic pain syndrome: Patient remain on hydrocodone and baclofen. Still using Tylenol on an as-needed basis along with topical product. 13. DVT prophylaxis. Continue patient on heparin 5000 units subcutaneously every 12 hours. 14. GI prophylaxis. Continue patient on Pepcid.
[2019-02-18 11:53] LABS: Glucose,Whole Blood 76 mg/dL (75-99)
--- NOTE | 2019-02-18 12:03 | US ---
EXAMINATION TYPE: US carotid duplex BILAT DATE OF EXAM: 02/18/2019 COMPARISON: Previous exam dated 05/21/2015 CLINICAL HISTORY: Altered mental status, previous right ICA occlusion. Speech difficulties, known rig ht total occlusion.n Patient has left neck scar that may represent past endarterectomy. EXAM MEASUREMENTS: RIGHT: Peak Systolic Velocity (PSV) cm/sec ----- Right CCA: not detected ----- Right ICA: not detected ----- Right ECA: 88.6 ICA/CCA ratio: N/A RIGHT: End Diastole cm/sec ----- Right CCA: not detected ----- Right ICA: not detected ----- Right ECA: 13.8 LEFT: Peak Systolic Velocity (PSV) cm/sec ----- Left CCA: 151.2 ----- Left ICA: 159.4 ----- Left ECA: 170.1 ICA/CCA ratio: 1.1 LEFT: End Diastole cm/sec ----- Left CCA: 20.4 ----- Left ICA: 27.4 ----- Left ECA: 18.3 VERTEBRALS (direction of flow): Right Vertebral: not detected Left Vertebral: Antegrade Rhythm: Normal Extensive plaque seen throughout left CCA, BULB, ICA . Elevated velocities on the left have been note d at previous exams. Waveform analysis shows no flow within the right common and internal carotid arteries. IMPRESSION: Right carotid artery occlusion persists. Extensive plaque noted within the left common carotid and internal carotid artery.
--- NOTE | 2019-02-18 14:00 | P.GSCN ---
History of Present Illness Consult date: 02/18/19 Reason for Consult: Incomplete bladder emptying Requesting physician: Sundar Gaona History of present illness: The patient is a 73-year-old male well known to Dr. De Paz. His medical history is significant for advanced COPD, CAD, atrial fibrillation, history of CVA and TIA, and deep venous thrombosis. He was seen by Dr. De Paz in the office last month and was noted to have glucosuria; he was subsequently nga gnosed with new onset of type 2 diabetes mellitus. [facility] and he has sustained several recent falls. This has been a chronic problem. He is currently taking tamsulosin 0.4 mg twice a day, along with finasteride 5 mg daily, and was found yesterday to empty his bladder incompletely. He was straight catheterized with returns of 300 cc and 500 cc yesterday. I am consulted for this reason. Review of Systems - Constitutional Denies chills, Denies fever - Respiratory Reports cough, Reports dyspnea - Neurological Reports balance difficulties, Reports confusion Past Medical History Past Medical History: Atrial Fibrillation, Coronary Artery Disease (CAD), Chest Pain / Angina, Heart Failure, COPD, CVA/TIA, Deep Vein Thrombosis (DVT), Eye Disorder, GERD/Reflux, Hearing Disorder / Deafness, Hyperlipidemia, Hypertension, Memory Impairment, Myocardial Infarction (NV), Musculoskeletal Disorder, Pneumonia, Prostate Disorder, Respiratory Disorder, Vascular Disorder Additional Past Medical History / Comment(s): Chronic steroids, CVA w/ speech difficulty (since 1999) TIAs, PVD, blocked right carotid, respiratory failure, 4L O2 continuous, BPH, chronic bronchitis, DDD, stomach ulcer, diverticulitis, hemorrhoids, colon polyps, walker/wheelchair, electric scooter, chronic leg/back pain, constipation, richard. glaucoma, freq. falls, Last Myocardial Infarction Date:: 1997 History of Any Multi-Drug Resistant Organisms: MRSA Year Discovered:: 05/24/18 MDRO Source:: Sputum Past Surgical History: AICD, Back Surgery, Coronary Bypass/CABG, Heart Catheterization, Heart Catheterization With Stent, Pacemaker, Tonsillectomy Additional Past Surgical History / Comment(s): February 2016 Pacer ([facility] PM [id number], #SS [id number]). CABG 5 vessel 1997. Cath with stents (8 total). Richard carotid endarterectomies. Back surgery x 2. Bilateral fem/pops, richard stenting in legs (6 total) with graphs. Cataracts removed, back injections for pain. AICD, PTCA and stent 11/08/17 and January 2018. Past Anesthesia/Blood Transfusion Reactions: No Reported Reaction Additional Past Anesthesia/Blood Transfusion Reaction / Comm: Never had blood transfusion. Date of Last Stent Placement:: 01/2018 Type of Cardiac Device: Permanent Pacemaker, AICD Device Placement Date:: 02/2016 Past Psychological History: Anxiety, Depression Additional Psychological History / Comment(s): Lives at [facility]. Smoking Status: Former smoker Past Alcohol Use History: None Reported Additional Past Alcohol Use History / Comment(s): Patient was a smoker one pack per day for 50 years and quit in 2011. Past Drug Use History: None Reported - Past Family History Brother(s) Family Medical History: Cancer Additional Family Medical History / Comment(s): Patient has a brother that at age 75 from stage IV stomach cancer. Sister(s) Family Medical History: Congestive Heart Failure (CHF), Vascular Disorder Additional Family Medical History / Comment(s): Patient has a sister that at age 57 from CABG. PVD Son(s) Family Medical History: No Reported History Additional Family Medical History / Comment(s): crohns. Daughter(s) Family Medical History: No Reported History Additional Family Medical History / Comment(s): Daughter has 2 daughters and one works in the OR here - 1 was killed in [place]. Mother Family Medical History: Coronary Artery Disease (CAD) Additional Family Medical History / Comment(s): Mother at age 62 from coronary artery disease and peripheral artery disease status post multiple heart surgeries. Father Family Medical History: Cancer, Coronary Artery Disease (CAD) Additional Family Medical History / Comment(s): Family at age 89 from colon cancer and COPD along with coronary artery disease. Medications and Allergies Home Medications Medication Instructions Recorded Confirmed Type Clopidogrel [Plavix] 75 mg PO DAILY 03/10/14 02/16/19 History traZODone HCL [Desyrel] 50 mg PO HS 03/10/14 02/16/19 History Losartan [Cozaar] 25 mg PO DAILY PRN 12/23/14 02/16/19 History Nitroglycerin Sl Tabs [Nitrostat] 0.4 mg SUBLINGUAL Q5M PRN 02/02/16 02/16/19 History Ranitidine HCl 150 mg PO BID 02/02/16 02/16/19 History Tamsulosin [Flomax] 0.4 mg PO BID 02/02/16 02/16/19 History Finasteride [Proscar] 5 mg PO DAILY 07/04/17 02/16/19 History Atorvastatin [Lipitor] 80 mg PO HS #30 tab 11/23/17 02/16/19 Rx Carvedilol [Coreg] 6.25 mg PO DAILY tab 02/22/18 02/16/19 Rx Carvedilol [Coreg] 12.5 mg PO HS 04/16/18 02/16/19 History ALPRAZolam [Xanax] 0.5 mg PO TID PRN #9 tablet 05/23/18 02/16/19 Rx HYDROcodone/APAP 7.5-325MG [[employer] 1 tab PO Q6H PRN #12 tab 05/23/18 02/16/19 Rx 7.5-325] Ipratropium-Albuterol Nebulize 3 ml INHALATION RT-TID 07/11/18 02/16/19 History [Duoneb 0.5 mg-3 mg/3 ml Soln] Budesonide-Formot 160-4.5 Mcg 2 puff INHALATION RT-BID 12/28/18 02/16/19 History [Symbicort 160-4.5 Mcg Inhaler] Oxybutynin Chloride [Ditropan] 5 mg PO BID 01/05/19 02/16/19 History Baclofen [Lioresal] 10 mg PO HS 02/10/19 02/16/19 History predniSONE 10 mg PO DAILY 02/10/19 02/16/19 History sitaGLIPtin PHOS/metFORMIN HCL 1 tab PO BID 02/10/19 02/16/19 History [Janumet 50-500 mg Tablet] Acetaminophen Tab [Tylenol] 650 mg PO Q6HR PRN tab 02/13/19 02/16/19 Rx Citalopram Hydrobromide [CeleXA] 20 mg PO DAILY #30 tab 02/13/19 02/16/19 Rx Insulin Detemir (Levemir) [Levemir] 10 unit SQ DAILY #1 syr 05/21/19 05/24/19 Rx INSULIN ASPART (NovoLOG) [NovoLOG See Protocol SQ ACHS 02/16/19 02/16/19 History (formulary)] Allergies Allergy/AdvReac Type Severity Reaction Status Date / Time No Known Allergies Allergy Verified 02/16/19 15:52 Surgical - Exam Vital Signs Temp Pulse Resp BP Pulse Ox 98.8 F 101 H 20 136/69 93 L 02/16/19 15:00 02/16/19 15:00 02/16/19 15:00 02/16/19 15:00 02/16/19 15:00 - General well developed, well nourished, no distress - Respiratory normal respiratory effort - Abdomen Abdomen: soft, non tender, no guarding, no rigid, no rebound - Genitourinary normal penis with no external lesions, other (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 The right testicle is atrophic.) - Rectum Rectum: normal sphincter tone, no masses, other (Prostate is normal in size and consistency) - Psychiatric oriented to time, oriented to person, oriented to place, speech is normal, memory intact Results - Labs 02/18/19 05:35 02/18/19 05:35 Abnormal Lab Results - Last 24 Hours (Table) 02/17/19 02/17/19 02/17/19 Range/Units 16:46 17:02 20:27 RBC (4.30-5.90) m/uL Hgb (13.0-17.5) gm/dL Hct (39.0-53.0) % Plt Count (150-450) k/uL Lymphocytes # (1.0-4.8) k/uL Carbon Dioxide (22-30) mmol/L BUN (9-20) mg/dL POC Glucose (mg/dL) 51 L 51 L 113 H (75-99) mg/dL Total Protein (6.3-8.2) g/dL Albumin (3.5-5.0) g/dL 02/18/19 02/18/19 02/18/19 Range/Units 05:35 05:35 06:04 RBC 3.68 L (4.30-5.90) m/uL Hgb 11.0 L (13.0-17.5) gm/dL Hct 34.4 L (39.0-53.0) % Plt Count 144 L (150-450) k/uL Lymphocytes # 0.7 L (1.0-4.8) k/uL Carbon Dioxide 34 H (22-30) mmol/L BUN 21 H (9-20) mg/dL POC Glucose (mg/dL) 111 H (75-99) mg/dL Total Protein 5.4 L (6.3-8.2) g/dL Albumin 3.2 L (3.5-5.0) g/dL Diabetes panel 02/18/19 Range/Units 05:35 Sodium 140 (137-145) mmol/L Potassium 3.9 (3.5-5.1) mmol/L Chloride 105 (98-107) mmol/L Carbon Dioxide 34 H (22-30) mmol/L BUN 21 H (9-20) mg/dL Creatinine 0.77 (0.66-1.25) mg/dL Glucose 92 (74-99) mg/dL Calcium 8.8 (8.4-10.2) mg/dL AST 20 (17-59) U/L ALT 27 (21-72) U/L Alkaline Phosphatase 78 (38-126) U/L Total Protein 5.4 L (6.3-8.2) g/dL Albumin 3.2 L (3.5-5.0) g/dL Thyroid panel 02/18/19 Range/Units 05:35 TSH 0.803 (0.465-4.680) mIU/L Calcium panel 02/18/19 Range/Units 05:35 Calcium 8.8 (8.4-10.2) mg/dL Albumin 3.2 L (3.5-5.0) g/dL Pituitary panel 02/18/19 Range/Units 05:35 Sodium 140 (137-145) mmol/L Potassium 3.9 (3.5-5.1) mmol/L Chloride 105 (98-107) mmol/L Carbon Dioxide 34 H (22-30) mmol/L BUN 21 H (9-20) mg/dL Creatinine 0.77 (0.66-1.25) mg/dL Glucose 92 (74-99) mg/dL Calcium 8.8 (8.4-10.2) mg/dL TSH 0.803 (0.465-4.680) mIU/L Adrenal panel 02/18/19 Range/Units 05:35 Sodium 140 (137-145) mmol/L Potassium 3.9 (3.5-5.1) mmol/L Chloride 105 (98-107) mmol/L Carbon Dioxide 34 H (22-30) mmol/L BUN 21 H (9-20) mg/dL Creatinine 0.77 (0.66-1.25) mg/dL Glucose 92 (74-99) mg/dL Calcium 8.8 (8.4-10.2) mg/dL Total Bilirubin 0.9 (0.2-1.3) mg/dL AST 20 (17-59) U/L ALT 27 (21-72) U/L Alkaline Phosphatase 78 (38-126) U/L Total Protein 5.4 L (6.3-8.2) g/dL Albumin 3.2 L (3.5-5.0) g/dL Assessment and Plan (1) Enlarged prostate with lower urinary tract symptoms (LUTS) Current Visit: Yes Status: Acute Code(s): N40.1 - BENIGN PROSTATIC HYPERPLASIA WITH LOWER URINARY TRACT SYMP SNOMED Code(s): 166427560 (2) Feeling of incomplete bladder emptying Current Visit: Yes Status: Acute Code(s): R39.14 - FEELING OF INCOMPLETE BLADDER EMPTYING SNOMED Code(s): 491581841 Plan: The patient has a long history of BPH. When seen in the office in June 2018, he was unable to void and bladder scan at that time showed a bladder volume of 140 mL. His bladder emptying is now further impaired. Though he is supposed to take tamsulosin twice daily, many days he only takes it at bedtime (0.4 mg). He is currently receiving 0.4 mg twice a day, along with finasteride. There may be a neurologic component to his incomplete bladder emptying. Post void residuals will continue to be monitored, and he will continue to be straight catheterized as needed. If the postvoid residuals consistently exceed 400 mL, I will suggest that a Morejon catheter be placed. Time with Patient: Greater than 30
--- NOTE | 2019-02-18 16:26 | P.PN ---
Subjective Progress Note Date: 02/18/19 Patient denies any new changes in his condition. Patient just underwent straight catheterization by the nurse. Objective - Vital Signs Vital signs: Vital Signs Temp 97.2 F L 02/18/19 11:29 Pulse 87 02/18/19 12:14 Resp 18 02/18/19 15:50 BP 162/77 02/18/19 15:50 Pulse Ox 98 02/18/19 15:50 Intake & Output 02/17/19 02/18/19 02/18/19 18:59 06:59 18:59 Intake Total 200 180 Output Total 500 700 950 Balance -300 -700 -770 Weight 55.7 kg Intake: Oral 200 180 Output: Urine 500 700 950 Uretheral (Morejon) 500 600 Other: Voiding Method Toilet Toilet Toilet # Voids 1 - Exam Clinically unchanged. - Labs CBC & Chem 7: 02/18/19 05:35 02/18/19 05:35 Labs: Abnormal Lab Results - Last 24 Hours (Table) 02/17/19 02/17/19 02/17/19 Range/Units 16:46 17:02 20:27 RBC (4.30-5.90) m/uL Hgb (13.0-17.5) gm/dL Hct (39.0-53.0) % Plt Count (150-450) k/uL Lymphocytes # (1.0-4.8) k/uL Carbon Dioxide (22-30) mmol/L BUN (9-20) mg/dL POC Glucose (mg/dL) 51 L 51 L 113 H (75-99) mg/dL Total Protein (6.3-8.2) g/dL Albumin (3.5-5.0) g/dL 02/18/19 02/18/19 02/18/19 Range/Units 05:35 05:35 06:04 RBC 3.68 L (4.30-5.90) m/uL Hgb 11.0 L (13.0-17.5) gm/dL Hct 34.4 L (39.0-53.0) % Plt Count 144 L (150-450) k/uL Lymphocytes # 0.7 L (1.0-4.8) k/uL Carbon Dioxide 34 H (22-30) mmol/L BUN 21 H (9-20) mg/dL POC Glucose (mg/dL) 111 H (75-99) mg/dL Total Protein 5.4 L (6.3-8.2) g/dL Albumin 3.2 L (3.5-5.0) g/dL Assessment and Plan Assessment: * Altered mental status, possible mild delirium. Exact cause uncertain, possible medication side effect. May have underlying mild cognitive impairment although he performed fairly well on cognitive function testing as above. * History of previous strokes, currently on dual antiplatelet medications. * Pacemaker. * History of chronic right ICA occlusion, right vertebral artery occlusion. Plan: Repeat carotid Doppler, revealed persistently occluded right ICA. Extensive plaque left ICA. Continue dual antiplatelet medications. Patient may need to follow up in the neurology office to rule out underlying cognitive impairment. B12, folate levels pending, TSH normal. Optimize control of diabetes. A1c is 10.7. Target A1c <7.0.
[2019-02-18 17:21] LABS: Glucose,Whole Blood 92 mg/dL (75-99)
[2019-02-18] MEDS: ALPRAZolam 0.5 MG TAB PO PRN (19:58)
[2019-02-18] MEDS: traZODone HCL 50 MG TAB PO SCH (20:00)
[2019-02-18] MEDS: CARVEDILOL 12.5 MG TAB PO SCH (20:00)
[2019-02-18] MEDS: ATORVASTATIN 80 MG TAB PO SCH (20:00)
[2019-02-18] MEDS: BACLOFEN 10 MG TAB PO SCH (20:00)
[2019-02-18 20:35] LABS: Glucose,Whole Blood 86 mg/dL (75-99)
[2019-02-18] MEDS: SODIUM CHLORIDE 0.65% NASAL SPRAY 44 ML BTL NASAL PRN (21:07)
[2019-02-19] MEDS: HYDROcodone/APAP 7.5-325MG 1 EACH TAB PO PRN ×3 (03:46→21:10)
[2019-02-19] MEDS: ALPRAZolam 0.5 MG TAB PO PRN (04:52)
[2019-02-19 06:05] LABS: Glucose,Whole Blood 131 mg/dL (75-99)
[2019-02-19] MEDS: INSULIN ASPART (NovoLOG) 100 UNIT/ML VIAL SQ SCH ×4 (06:37→21:09)
[2019-02-19] MEDS: LINAGLIPTIN 5 MG TABLET PO SCH (06:37)
[2019-02-19] MEDS: CARVEDILOL 6.25 MG TAB PO SCH (06:37)
[2019-02-19] MEDS: metFORMIN 500 MG TAB PO SCH ×2 (06:37→17:30)
[2019-02-19] MEDS: CLOPIDOGREL 75 MG TAB PO SCH (08:50)
[2019-02-19] MEDS: FINASTERIDE 5 MG TAB PO SCH (08:50)
[2019-02-19] MEDS: predniSONE 10 MG TAB PO SCH (08:51)
[2019-02-19] MEDS: FAMOTIDINE 20 MG TAB PO SCH ×2 (08:51→21:09)
[2019-02-19] MEDS: LOSARTAN 25 MG TAB PO SCH (08:51)
[2019-02-19] MEDS: INSULIN DETEMIR (LEVEMIR) 100 UNIT/ML SYR SQ SCH (08:51)
[2019-02-19] MEDS: TAMSULOSIN 0.4 MG CAP.ER.24H PO SCH ×2 (08:51→21:10)
[2019-02-19] MEDS: HEPARIN SODIUM,PORCINE 5,000 UNIT/ML 1 ML VIAL SQ SCH ×3 (08:52→22:54)
[2019-02-19] MEDS: SODIUM CHLORIDE 0.65% NASAL SPRAY 44 ML BTL NASAL PRN (09:01)
[2019-02-19] MEDS: IPRATROPIUM-ALBUTEROL 3 ML NEB INHALATION SCH ×3 (09:17→20:16)
[2019-02-19] MEDS: SYMBICORT 160-4.5 MCG INHALER INHALATION SCH ×2 (09:17→20:16)
--- NOTE | 2019-02-19 10:59 | P.PN ---
Subjective Progress Note Date: 02/19/19 This is a 73-year-old male one of our office patient with past medical history of advanced COPD, CAD, A. fib, multiple history of CVA and TIA along with history of deep venous thrombosis who was in the office this past week was diagnosed with new onset of type 2 diabetes with a blood sugar running over 300, patient become quite bit confused at home had sustained a 3 falls with no major injury except he traumatize his buttocks and tailbone area and believe has fracture and it also developed low lightheadedness dizziness with significant mobility balance problem, worsening dyspnea and shortness of breath with cough and inspiratory expiratory wheezes with tightness. Severely abnormal balance and gait with generalized weakness more in the lower extremities and upper extremity. Patient was supposed to start on insulin along with Janumet apparently had no help did not get any proper training for insulin his blood sugar remained running in the 300 and patient is symptomatic with polyuria and frequency. He presented to the emergency department at [facility] after his fall brought by EMS his workup with CAT scan of the brain pelvis and hip not show any fracture multiple small vessel disease area and significant problem with COPD and fluid overload. Patient blood sugar was mildly elevated continue to be significantly confused not been able to ambulate and walk continue to complain of pelvic pain was hospitalized with above problem, and subsequently was discharged home on February 13 and went home apparently yesterday home health care nurse came to visit the patient and he was quite confused agitated and combative was not making sense and the patient was directed to the emergency department at [facility] where he was seen and evaluated by computed tomography scan of the brain and EKG and laboratory evaluation the patient was quite combative and he was admitted to the hospital for mental status change and the patient at this point is stating that he is not able to go back home at this point in time and he wants to go to [facility] on the [place] for physical therapy and rehabilitation. 02/18: Patient is sitting up in chair in no apparent distress he is less confused and less delirious today he denies any chest pain or shortness breath, appears better today he is complaining of dryness in his nose we will start nasal saline gel, continue humidified oxygen, 02/19: Patient is feeling a lot better he denies any chest pain, or shortness breath, his walking use a walker with a physical therapist, he denies any abdominal pain, he is able to void, he appears to be back to baseline. Objective - Vital Signs Vital signs: Vital Signs Temp 98 F 02/19/19 08:00 Pulse 72 02/19/19 08:00 Resp 18 02/19/19 08:00 BP 169/72 02/19/19 08:00 Pulse Ox 96 02/19/19 08:00 Intake & Output 02/18/19 02/19/19 02/19/19 18:59 06:59 18:59 Intake Total 410 240 Output Total 1150 1000 400 Balance -740 -1000 -160 Weight 55.5 kg Intake: Oral 410 240 Output: Urine 1150 1000 400 Uretheral (Morejon) 600 Other: Voiding Method Toilet Toilet # Voids 1 1 - Exam - Constitutional General appearance: average body habitus, no acute distress - EENT Eyes: anicteric sclerae, EOMI, PERRLA, no ptosis, no scleral icterus, normal appearance ENT: hard of hearing, NA/AT, normal oropharynx, no thrush Ears: bilateral: normal - Neck Neck: no lymphadenopathy, normal ROM, no rigidity, no stridor, no thyromegaly Carotids: bilateral: upstroke delayed Thyroid: bilateral: normal size - Respiratory Respiratory: bilateral: diminished, prolonged expiration, negative: dullness, rales, wheezing - Cardiovascular Rhythm: regular Heart sounds: normal: S1, S2 Abnormal Heart Sounds: systolic murmur, no S3 Gallop, no S4 Gallop, no click - Gastrointestinal General gastrointestinal: normal bowel sounds, soft, no tenderness, no umbilical hernia, no ventral hernia - Integumentary Integumentary: normal, normal turgor - Neurologic Neurologic: CNII-XII intact - Musculoskeletal Musculoskeletal: generalized weakness - Psychiatric Psychiatric: no A&O x's 3, no appropriate affect, no intact judgment & insight - Labs CBC & Chem 7: 02/18/19 05:35 02/18/19 05:35 Labs: Abnormal Lab Results - Last 24 Hours (Table) 02/19/19 Range/Units 06:03 POC Glucose (mg/dL) 131 H (75-99) mg/dL Assessment and Plan Assessment: Assessment and plan: 1. Metabolic encephalopathy /delirium thought to be due to medication side effects. Resolved. 2. Multiple falls with gait dysfunction. Physical therapy and occupational therapy evaluation patient likely will require extended care facility placement he is requesting [facility] on the [place]. 3. Moderate COPD. Continue patient on nebulized treatment 4 times every day continue oxygen support as well. 4. Diabetes mellitus type 2. Continue patient on Levemir 10 units subcu venously once every day as well as metformin 500 mg orally twice every day and Linagliptin 5 mg orally once every day. 5 . Cardiomyopathy post-AICD implant patient. Continue Coreg 12.5 minute gram in the morning is 25 mg at bedtime. 6. CAD Post multiple bypass surgery and angioplasty. Continue Coreg 12.5 minute gram in the morning is 6.25 mg at night, continue Lipitor 80 mg once every day as well as Plavix 75 mg orally once every day. 7. chronic respiratory failure: Mostly end-stage lung disease on O2 and updraft, we will continue Symbicort twice every day. 8. debility with multiple falls. Consult PT and OT likely will require ECF placement. 9. Severe anxiety and panic attacks. Discontinue citalopram as it may be the cause of his encephalopathy at this time, continue with Xanax as needed. 10. Benign prostatic hyperplasia with the urinary retention. Continue Flomax 0.4 mg orally twice every day as well as Proscar 5 minute gram once every day, Dr. De Paz consultation. Please use straight cath for residual volume greater than 350 mL. 11. Severe GERD/GI prophylaxis: Patient remain on Pepcid . 12 chronic pain syndrome: Patient remain on hydrocodone and baclofen. Still using Tylenol on an as-needed basis along with topical product. 13. DVT prophylaxis. Continue patient on heparin 5000 units subcutaneously every 12 hours. 14. GI prophylaxis. Continue patient on Pepcid. 15. [facility] on the [place] tomorrow morning.
[2019-02-19 11:02] LABS: Basophils % (A) 0 %; Eosinophils # (A) 0.1 k/uL (0-0.7); Eosinophils % (A) 2 %; HCT 34.3 % (39.0-53.0); HGB 10.9 gm/dL (13.0-17.5); Lymphocytes # (A) 0.6 k/uL (1.0-4.8); Lymphocytes % (A) 9 %; MCH 29.3 pg (25.0-35.0); MCHC 31.7 g/dL (31.0-37.0); MCV 92.5 fL (80.0-100.0); Mean Platelet Volume 7.1; Monocytes # (A) 0.6 k/uL (0-1.0); Monocytes % (A) 8 %; Neutrophils # (A) 5.8 k/uL (1.3-7.7); Neutrophils % (A) 80 %; Platelet Count 132 k/uL (150-450); RDW 14.2 % (11.5-15.5); WBC 7.2 k/uL (3.8-10.6)
[2019-02-19 11:15] LABS: ALT 22 U/L (21-72); AST 19 U/L (17-59); Albumin 3.2 g/dL (3.5-5.0); Alkaline Phosphatase 65 U/L (38-126); Anion Gap 3 mmol/L; Blood Urea Nitrogen 18 mg/dL (9-20); Calcium 9.1 mg/dL (8.4-10.2); Carbon Dioxide 37 mmol/L (22-30); Chloride 100 mmol/L (98-107); Glucose 78 mg/dL (74-99); Potassium 3.9 mmol/L (3.5-5.1); Sodium 140 mmol/L (137-145); Total Bilirubin 0.9 mg/dL (0.2-1.3); Total Protein 5.3 g/dL (6.3-8.2)
[2019-02-19 11:46] LABS: Glucose,Whole Blood 74 mg/dL (75-99)
[2019-02-19] MEDS ORDERED: LABETALOL SYRINGE 5 MG/ML IVP STA (12:37)
--- NOTE | 2019-02-19 13:32 | P.PN ---
Progress Note - Text Progress Note Date: 02/19/19 Mr. Burton has had for postvoid residuals checked since he was seen yesterday by me, all less than 150 mL. He recently had an episode of hypotension with confusion and is undergoing a computed tomography scan of the brain. Regarding his incomplete bladder emptying, I would suggest that he continue to receive tamsulosin and finasteride. He will not require catheter insertion unless his postvoid residuals increase significantly.
--- NOTE | 2019-02-19 13:57 | CT ---
EXAMINATION TYPE: CT brain wo con DATE OF EXAM: 02/19/2019 COMPARISON: CT brain 02/16/2019 HISTORY: Altered mental status, lethargy CT DLP: 1083.4 mGycm Automated exposure control for dose reduction was used. FINDINGS: No significant interval change. Multifocal encephalomalacia again seen. No hemorrhage or hydrocephalu s. Cerebral vascular calcifications are present. Cortical atrophy is stable. There is inflammatory ch joo present within the sphenoid sinus which is developed in the interval. Inflammatory changes are a gain noted in the ethmoid air cells. IMPRESSION: MULTIFOCAL ENCEPHALOMALACIA IS LIKELY DUE TO CHRONIC SMALL VESSEL ISCHEMIA. BRAIN MRI MAY BE OF BENEF IT. INTERVAL SPHENOID SINUS DISEASE.
--- NOTE | 2019-02-19 15:42 | P.PN ---
Subjective Progress Note Date: 02/19/19 Patient apparently had a syncopal spell today. He was sitting at the bedside commode for 5 minutes, when he started feeling tired, and the nurse helped him get up to the bed. Once he was in the bed, he slumped over. He checked the blood pressure, which was 200 systolic, but shortly after it dropped down to 90/40. He was totally respond, but there was no focal findings noted. Patient denies any new changes in his condition. Objective - Vital Signs Vital signs: Vital Signs Temp 97.7 F 02/19/19 11:46 Pulse 70 02/19/19 11:46 Resp 18 02/19/19 11:47 BP 128/58 02/19/19 13:11 Pulse Ox 98 02/19/19 11:46 Intake & Output 02/18/19 02/19/19 02/19/19 18:59 06:59 18:59 Intake Total 410 240 Output Total 1150 1000 700 Balance -740 -1000 -460 Weight 55.5 kg Intake: Oral 410 240 Output: Urine 1150 1000 700 Uretheral (Morejon) 600 Other: Voiding Method Toilet Toilet Toilet # Voids 1 1 - Exam Patient is laying comfortably in the bed. He appears somewhat lethargic. Patient face is symmetric. Pupils are round and reacting. Patient moves all 4 activities equally. He did wiggle his feet bilaterally. The strength in the fisheries technical officer was about 4 bilaterally. Patient did not cooperate well. - Labs CBC & Chem 7: 02/19/19 10:30 02/19/19 10:30 Labs: Abnormal Lab Results - Last 24 Hours (Table) 02/19/19 02/19/19 02/19/19 Range/Units 06:03 10:30 10:30 RBC 3.70 L (4.30-5.90) m/uL Hgb 10.9 L (13.0-17.5) gm/dL Hct 34.3 L (39.0-53.0) % Plt Count 132 L (150-450) k/uL Lymphocytes # 0.6 L (1.0-4.8) k/uL Carbon Dioxide 37 H (22-30) mmol/L POC Glucose (mg/dL) 131 H (75-99) mg/dL Total Protein 5.3 L (6.3-8.2) g/dL Albumin 3.2 L (3.5-5.0) g/dL 02/19/19 Range/Units 11:28 RBC (4.30-5.90) m/uL Hgb (13.0-17.5) gm/dL Hct (39.0-53.0) % Plt Count (150-450) k/uL Lymphocytes # (1.0-4.8) k/uL Carbon Dioxide (22-30) mmol/L POC Glucose (mg/dL) 74 L (75-99) mg/dL Total Protein (6.3-8.2) g/dL Albumin (3.5-5.0) g/dL Assessment and Plan Assessment: * Status post vasovagal syncope * Altered mental status, possible mild delirium. Exact cause uncertain, possible medication side effect. May have underlying mild cognitive impairment. * History of previous strokes, currently on dual antiplatelet medications. * Pacemaker. * History of chronic right ICA occlusion, right vertebral artery occlusion. Plan: Repeat carotid Doppler, revealed persistently occluded right ICA. Extensive plaque left ICA. Continue dual antiplatelet medications. Patient may need to follow up in the neurology office to rule out underlying cognitive impairment. B12, folate levels pending, TSH normal. Optimize control of diabetes. A1c is 10.7. Target A1c <7.0.
[2019-02-19 17:17] LABS: Glucose,Whole Blood 65 mg/dL (75-99)
[2019-02-19 17:17] LABS: Glucose,Whole Blood 48 mg/dL (75-99)
[2019-02-19 17:17] LABS: Glucose,Whole Blood 49 mg/dL (75-99)
[2019-02-19 17:37] LABS: Glucose,Whole Blood 82 mg/dL (75-99)
[2019-02-19 20:56] LABS: Glucose,Whole Blood 164 mg/dL (75-99)
[2019-02-19] MEDS: CARVEDILOL 12.5 MG TAB PO SCH (21:09)
[2019-02-19] MEDS: BACLOFEN 10 MG TAB PO SCH (21:09)
[2019-02-19] MEDS: ATORVASTATIN 80 MG TAB PO SCH (21:09)
[2019-02-19] MEDS: traZODone HCL 50 MG TAB PO SCH (21:10)
[2019-02-20] MEDS: ALPRAZolam 0.5 MG TAB PO PRN ×2 (00:16→08:49)
[2019-02-20 06:13] LABS: Glucose,Whole Blood 175 mg/dL (75-99)
[2019-02-20] MEDS: INSULIN ASPART (NovoLOG) 100 UNIT/ML VIAL SQ SCH ×2 (06:29→12:22)
[2019-02-20] MEDS: CARVEDILOL 6.25 MG TAB PO SCH (06:35)
[2019-02-20 07:17] LABS: Basophils % (A) 0 %; Eosinophils # (A) 0.1 k/uL (0-0.7); Eosinophils % (A) 1 %; HCT 34.6 % (39.0-53.0); HGB 10.9 gm/dL (13.0-17.5); Lymphocytes # (A) 0.4 k/uL (1.0-4.8); Lymphocytes % (A) 5 %; MCH 29.2 pg (25.0-35.0); MCHC 31.6 g/dL (31.0-37.0); MCV 92.4 fL (80.0-100.0); Mean Platelet Volume 7.1; Monocytes # (A) 0.5 k/uL (0-1.0); Monocytes % (A) 6 %; Neutrophils # (A) 7.3 k/uL (1.3-7.7); Neutrophils % (A) 88 %; Platelet Count 141 k/uL (150-450); RBC 3.75 m/uL (4.30-5.90); RDW 14.4 % (11.5-15.5); WBC 8.3 k/uL (3.8-10.6)
[2019-02-20 07:45] LABS: ALT 25 U/L (21-72); AST 16 U/L (17-59); Albumin 3.1 g/dL (3.5-5.0); Alkaline Phosphatase 71 U/L (38-126); Anion Gap 1 mmol/L; Blood Urea Nitrogen 17 mg/dL (9-20); Calcium 8.7 mg/dL (8.4-10.2); Carbon Dioxide 35 mmol/L (22-30); Chloride 101 mmol/L (98-107); Glucose 170 mg/dL (74-99); Potassium 4.3 mmol/L (3.5-5.1); Sodium 137 mmol/L (137-145); Total Bilirubin 0.9 mg/dL (0.2-1.3); Total Protein 5.2 g/dL (6.3-8.2)
[2019-02-20] MEDS: SYMBICORT 160-4.5 MCG INHALER INHALATION SCH (07:51)
[2019-02-20] MEDS: IPRATROPIUM-ALBUTEROL 3 ML NEB INHALATION SCH ×2 (08:19→13:02)
[2019-02-20] MEDS: HEPARIN SODIUM,PORCINE 5,000 UNIT/ML 1 ML VIAL SQ SCH (08:44)
[2019-02-20] MEDS: metFORMIN 500 MG TAB PO SCH (08:44)
[2019-02-20] MEDS: LINAGLIPTIN 5 MG TABLET PO SCH (08:45)
[2019-02-20] MEDS: TAMSULOSIN 0.4 MG CAP.ER.24H PO SCH (08:45)
[2019-02-20] MEDS: predniSONE 10 MG TAB PO SCH (08:45)
[2019-02-20] MEDS: LOSARTAN 25 MG TAB PO SCH (08:45)
[2019-02-20] MEDS: CLOPIDOGREL 75 MG TAB PO SCH (08:45)
[2019-02-20] MEDS: FAMOTIDINE 20 MG TAB PO SCH (08:45)
[2019-02-20] MEDS: FINASTERIDE 5 MG TAB PO SCH (08:46)
[2019-02-20] MEDS: HYDROcodone/APAP 7.5-325MG 1 EACH TAB PO PRN (08:48)
[2019-02-20] MEDS: INSULIN DETEMIR (LEVEMIR) 100 UNIT/ML SYR SQ SCH (08:53)
--- NOTE | 2019-02-20 10:07 | P.DS ---
Providers Date of admission: 02/17/19 15:04 Expected date of discharge: 02/20/19 Attending physician: Sundar Gaona Consults: 02/17/19 10:09 Consult Physician Routine Consulting Provider: Carl De Paz Consult Reason/Comments: urinary retention Do you want consulting provider notified?: Yes 02/17/19 12:46 Consult Physician Routine Consulting Provider: Osmar Hall Consult Reason/Comments: Encephalopathy Do you want consulting provider notified?: Yes Primary care physician: [facility] Course: This is a 73-year-old male one of our office patient with past medical history of advanced COPD, CAD, A. fib, multiple history of CVA and TIA along with history of deep venous thrombosis who was in the office this past week was diagnosed with new onset of type 2 diabetes with a blood sugar running over 300, patient become quite bit confused at home had sustained a 3 falls with no major injury except he traumatize his buttocks and tailbone area and believe has fracture and it also developed low lightheadedness dizziness with significant mobility balance problem, worsening dyspnea and shortness of breath with cough and inspiratory expiratory wheezes with tightness. Severely abnormal balance and gait with generalized weakness more in the lower extremities and upper extremity. Patient was supposed to start on insulin along with Janumet apparently had no help did not get any proper training for insulin his blood sugar remained running in the 300 and patient is symptomatic with polyuria and frequency. He presented to the emergency department at [facility] after his fall brought by EMS his workup with CAT scan of the brain pelvis and hip not show any fracture multiple small vessel disease area and significant problem with COPD and fluid overload. Patient blood sugar was mildly elevated continue to be significantly confused not been able to ambulate and walk continue to complain of pelvic pain was hospitalized with above problem, and subsequently was discharged home on February 13 and went home apparently yesterday home health care nurse came to visit the patient and he was quite confused agitated and combative was not making sense and the patient was directed to the emergency department at [facility] where he was seen and evaluated by computed tomography scan of the brain and EKG and laboratory evaluation the patient was quite combative and he was admitted to the hospital for mental status change and the patient at this point is stating that he is not able to go back home at this point in time and he wants to go to [facility] [place] and rehabilitation. 02/18: Patient is sitting up in chair in no apparent distress he is less confused and less delirious today he denies any chest pain or shortness breath, appears better today he is complaining of dryness in his nose we will start nasal saline gel, continue humidified oxygen, 02/19: Patient is feeling a lot better he denies any chest pain, or shortness breath, his walking use a walker with a physical therapist, he denies any abdominal pain, he is able to void, he appears to be back to baseline. 02/20: Yesterday afternoon, patient was helps the commode and when standing started feeling lethargic and funny feeling his blood pressure initially was elevated with a systolic of 200 and manual repeated was 86/40. He subsequently underwent CAT scan of the brain that revealed multifocal encephalomalacia likely due to chronic small vessel ischemia. Brain MRI may be beneficial. Interval sphenoid sinus disease. Repeat carotid Doppler revealed persistently occluded right ICA. Extensive plaque in the left ICA. Patient has also been followed by Dr. Hall with recommendations to continue dual antiplatelet medications and recommend follow-up in neurology office to rule out underlying cognitive impairment. TSH is normal. Folate and B12 levels pending. Patient has been seen by physical therapy with recommendations for subacute rehab. Patient was followed by Dr. Gutierres and his postvoid residuals have been low and patient does not require [place] catheter placement. Dr. Gutierres recommends continuing tamsulosin and finasteride. Blood sugars are currently running between 82 and 175. Patient is denying any new complaints but is concerned that he feels he is very forgetful and cannot remember anything. Patient is stating this morning that he would like to go to [facility] versus [facility]. Case management and social contact worker developing discharge plan. Patient will be discharged once all arrangements are completed. Discharge diagnoses: 1. Metabolic encephalopathy /delirium thought to be due to medication side effects. Resolved. 2. Multiple falls with gait dysfunction. 3. Moderate COPD. 4. Diabetes mellitus type 2 uncontrolled with hypoglycemia and hyperglycemia, hemoglobin A1c of 10.7. 5 . Cardiomyopathy post-AICD implant patient. 6. CAD Post multiple bypass surgery and angioplasty. 7. Chronic hypoxic respiratory failure: Mostly end-stage lung disease on O2. 8. Debility with multiple falls. 9. Severe generalized anxiety disorder and panic attacks. 10. Benign prostatic hyperplasia with the urinary retention. 11. Severe GERD. 12 Chronic pain syndrome. [place] Impression and plan of care have been directed as dictated by the signing physician. Esperanza Ramírez nurse practitioner acting as scribe for signing physician. Patient Condition at Discharge: Good Plan - Discharge Summary Discharge Rx Participant: Yes New Discharge Prescriptions: New Sodium Chloride 0.65% Nasal [Deep Sea (Saline)] 2 spray NASAL QID PRN spray PRN Reason: Nasal Congestion Continue Clopidogrel [Plavix] 75 mg PO DAILY traZODone HCL [Desyrel] 50 mg PO HS Losartan [Cozaar] 25 mg PO DAILY PRN PRN Reason: FOR ELEV >130 Nitroglycerin Sl Tabs [Nitrostat] 0.4 mg SUBLINGUAL Q5M PRN PRN Reason: Chest Pain Ranitidine HCl 150 mg PO BID Finasteride [Proscar] 5 mg PO DAILY Atorvastatin [Lipitor] 80 mg PO HS #30 tab Carvedilol [Coreg] 6.25 mg PO DAILY tab Carvedilol [Coreg] 12.5 mg PO HS Ipratropium-Albuterol Nebulize [Duoneb 0.5 mg-3 mg/3 ml Soln] 3 ml INHALATION RT-TID Budesonide-Formot 160-4.5 Mcg [Symbicort 160-4.5 Mcg Inhaler] 2 puff INHALATION RT-BID Baclofen [Lioresal] 10 mg PO HS predniSONE 10 mg PO DAILY sitaGLIPtin PHOS/metFORMIN HCL [Janumet 50-500 mg Tablet] 1 tab PO BID Acetaminophen Tab [Tylenol] 650 mg PO Q6HR PRN tab PRN Reason: Mild Pain Or Fever > 100.5 INSULIN ASPART (NovoLOG) [NovoLOG (formulary)] See Protocol SQ ACHS HYDROcodone/APAP 7.5-325MG [[place] 7.5-325] 1 tab PO Q6H PRN #12 tab PRN Reason: Pain ALPRAZolam [Xanax] 0.5 mg PO TID PRN #9 tablet PRN Reason: Anxiety Changed Tamsulosin [Flomax] 0.4 mg PO HS #0 Insulin Detemir (Levemir) [Levemir] 8 unit SQ DAILY #1 syr Discontinued Oxybutynin Chloride [Ditropan] 5 mg PO BID Citalopram Hydrobromide [CeleXA] 20 mg PO DAILY #30 tab Discharge Medication List Clopidogrel [Plavix] 75 mg PO DAILY 03/10/14 [History] traZODone HCL [Desyrel] 50 mg PO HS 03/10/14 [History] Losartan [Cozaar] 25 mg PO DAILY PRN 12/23/14 [History] Nitroglycerin Sl Tabs [Nitrostat] 0.4 mg SUBLINGUAL Q5M PRN 02/02/16 [History] Ranitidine HCl 150 mg PO BID 02/02/16 [History] Finasteride [Proscar] 5 mg PO DAILY 07/04/17 [History] Atorvastatin [Lipitor] 80 mg PO HS #30 tab 11/23/17 [Rx] Carvedilol [Coreg] 6.25 mg PO DAILY tab 02/22/18 [Rx] Carvedilol [Coreg] 12.5 mg PO HS 04/16/18 [History] Ipratropium-Albuterol Nebulize [Duoneb 0.5 mg-3 mg/3 ml Soln] 3 ml INHALATION RT-TID 07/11/18 [History] Budesonide-Formot 160-4.5 Mcg [Symbicort 160-4.5 Mcg Inhaler] 2 puff INHALATION RT-BID 12/28/18 [History] Baclofen [Lioresal] 10 mg PO HS 02/10/19 [History] predniSONE 10 mg PO DAILY 02/10/19 [History] sitaGLIPtin PHOS/metFORMIN HCL [Janumet 50-500 mg Tablet] 1 tab PO BID 02/10/19 [History] Acetaminophen Tab [Tylenol] 650 mg PO Q6HR PRN tab 02/13/19 [Rx] INSULIN ASPART (NovoLOG) [NovoLOG (formulary)] See Protocol SQ ACHS 02/16/19 [History] ALPRAZolam [Xanax] 0.5 mg PO TID PRN #9 tablet 02/20/19 [Rx] HYDROcodone/APAP 7.5-325MG [[place] 7.5-325] 1 tab PO Q6H PRN #12 tab 02/20/19 [Rx] Insulin Detemir (Levemir) [Levemir] 8 unit SQ DAILY #1 syr 02/20/19 [Rx] Sodium Chloride 0.65% Nasal [Deep Sea (Saline)] 2 spray NASAL QID PRN spray 02/20/19 [Rx] Tamsulosin [Flomax] 0.4 mg PO HS #0 02/20/19 [Rx] Follow up Appointment(s)/Referral(s): Randolph Marcos MD [Primary Care Provider] - 1 Week (after discharge from [facility]) Activity/Diet/Wound Care/Special Instructions: [facility] Discharge Disposition: TRANSFER TO SNF/F
[2019-02-20 10:28] VITALS: BP 176/69; PULSE 95; RESP 26; TEMP 98.4
[2019-02-20 11:31] LABS: Glucose,Whole Blood 185 mg/dL (75-99)
== END 2019-02-20 16:28 | DRG 92 ==
LOC: EC 14:55 → 3SCARD 16:44 → OBSVTOIN 02-17 15:04
PROVIDERS: ADMIT Internal Medicine; ATTEND Internal Medicine
DX: G92 Toxic encephalopathy (principal); I42.9 Cardiomyopathy, unspecified; J96.11 Chronic respiratory failure with hypoxia; E11.51 Type 2 diabetes mellitus with diabetic peripheral angiopathy without gangrene; E11.649 Type 2 diabetes mellitus with hypoglycemia without coma; E11.65 Type 2 diabetes mellitus with hyperglycemia; E86.0 Dehydration; G93.89 Other specified disorders of brain; I11.0 Hypertensive heart disease with heart failure; I48.91 Unspecified atrial fibrillation; I50.9 Heart failure, unspecified; J44.9 Chronic obstructive pulmonary disease, unspecified; I69.928 Other speech and language deficits following unspecified cerebrovascular disease; T43.225A Adverse effect of selective serotonin reuptake inhibitors, initial encounter; R41.0 Disorientation, unspecified; E78.5 Hyperlipidemia, unspecified; F32.9 Major depressive disorder, single episode, unspecified; F41.0 Panic disorder [episodic paroxysmal anxiety]; F41.1 Generalized anxiety disorder; G89.4 Chronic pain syndrome; H40.9 Unspecified glaucoma; H91.90 Unspecified hearing loss, unspecified ear; I25.10 Atherosclerotic heart disease of native coronary artery without angina pectoris; I25.2 Old myocardial infarction; K21.9 Gastro-esophageal reflux disease without esophagitis; N40.1 Benign prostatic hyperplasia with lower urinary tract symptoms; R29.6 Repeated falls; I65.01 Occlusion and stenosis of right vertebral artery; K64.9 Unspecified hemorrhoids; M54.9 Dorsalgia, unspecified; R26.9 Unspecified abnormalities of gait and mobility; R33.9 Retention of urine, unspecified; R39.14 Feeling of incomplete bladder emptying; I65.23 Occlusion and stenosis of bilateral carotid arteries; K57.90 Diverticulosis of intestine, part unspecified, without perforation or abscess without bleeding; M79.606 Pain in leg, unspecified; Z86.010 Personal history of colon polyps; Z79.02 Long term (current) use of antithrombotics/antiplatelets; Z79.4 Long term (current) use of insulin; Z79.51 Long term (current) use of inhaled steroids; Z79.52 Long term (current) use of systemic steroids; Z79.899 Other long term (current) drug therapy; Z86.718 Personal history of other venous thrombosis and embolism; Z87.01 Personal history of pneumonia (recurrent); Z87.11 Personal history of peptic ulcer disease; Z87.891 Personal history of nicotine dependence; Z95.1 Presence of aortocoronary bypass graft; Z95.5 Presence of coronary angioplasty implant and graft; Z99.81 Dependence on supplemental oxygen; Z86.14 Personal history of Methicillin resistant Staphylococcus aureus infection; Z98.42 Cataract extraction status, left eye; Z98.41 Cataract extraction status, right eye; Z96.1 Presence of intraocular lens; Z95.810 Presence of automatic (implantable) cardiac defibrillator; Z80.0 Family history of malignant neoplasm of digestive organs; Z82.49 Family history of ischemic heart disease and other diseases of the circulatory system; Z82.5 Family history of asthma and other chronic lower respiratory diseases
CPT/HCPCS: 36415; 70450; 71046; 72125; 80053; 80061; 81003; 82607; 82746; 83735; 83880; 84443; 84484; 85025; 85027; 85610; 85730; 93005; 93880; 94640; 94644; 94760; 99285

== ENCOUNTER 2019-04-02 10:46 | Inpatient (IN) | payer MEDICARE, BC ==
[2019-04-02] MEDS ORDERED: SODIUM CHLORIDE 0.9% 1,000 ML IV STA (10:49)
[2019-04-02] MEDS ORDERED: methylPREDNISolone SOD SUCCI 125 MG/2 ML VIAL IV STA (10:49)
[2019-04-02] MEDS ORDERED: IPRATROPIUM-ALBUTEROL 3 ML NEB INHALATION STA (10:49)
--- NOTE | 2019-04-02 10:56 | ED ---
SOB HPI - General Stated Complaint: MEET Time Seen by Provider: 04/02/19 10:46 Source: patient, EMS, RN notes reviewed, old records reviewed Mode of arrival: EMS - History of Present Illness Initial Comments: This is a 73-year-old male history of COPD who is brought in by EMS because of shortness of breath whenever the past 2 or 3 days initially the call was made because he took his night medication by accident. He presents with shortness of breath he did not respond very well after 2 updraft treatments given by paramedics. He was placed on BiPAP though he did improve somewhat he is not tolerating the BiPAP very well he states. No fevers chills nausea vomiting sweats or other symptoms reported MD Complaint: shortness of breath - Related Data Home Medications Medication Instructions Recorded Confirmed Clopidogrel [Plavix] 75 mg PO DAILY 03/10/14 04/02/19 traZODone HCL [Desyrel] 50 mg PO HS 03/10/14 04/02/19 Losartan [Cozaar] 25 mg PO DAILY PRN 12/23/14 04/02/19 Nitroglycerin Sl Tabs [Nitrostat] 0.4 mg SUBLINGUAL Q5M PRN 02/02/16 04/02/19 Ranitidine HCl 150 mg PO BID 02/02/16 04/02/19 Finasteride [Proscar] 5 mg PO DAILY 07/04/17 04/02/19 Carvedilol [Coreg] 12.5 mg PO HS 04/16/18 04/02/19 Ipratropium-Albuterol Nebulize 3 ml INHALATION RT-TID 07/11/18 04/02/19 [Duoneb 0.5 mg-3 mg/3 ml Soln] Budesonide-Formot 160-4.5 Mcg 2 puff INHALATION RT-BID 12/28/18 04/02/19 [Symbicort 160-4.5 Mcg Inhaler] Baclofen [Lioresal] 10 mg PO HS 02/10/19 04/02/19 predniSONE 10 mg PO DAILY 02/10/19 04/02/19 sitaGLIPtin PHOS/metFORMIN HCL 1 tab PO BID 02/10/19 04/02/19 [Janumet 50-500 mg Tablet] INSULIN ASPART (NovoLOG) [NovoLOG 3 unit SQ ACHS 02/16/19 04/02/19 (formulary)] Carvedilol [Coreg] 6.25 mg PO QAM 04/02/19 04/02/19 Citalopram Hydrobromide [CeleXA] 20 mg PO DAILY 04/02/19 04/02/19 Insulin Detemir (Levemir) [Levemir] 10 unit SQ HS 04/02/19 04/02/19 Oxybutynin Chloride [Ditropan] 5 mg PO BID 04/02/19 04/02/19 Previous Rx's Medication Instructions Recorded Atorvastatin [Lipitor] 80 mg PO HS #30 tab 11/23/17 Acetaminophen Tab [Tylenol] 650 mg PO Q6HR PRN tab 02/13/19 ALPRAZolam [Xanax] 0.5 mg PO TID PRN #9 tablet 02/20/19 HYDROcodone/APAP 7.5-325MG [[place] 1 tab PO Q6H PRN #12 tab 02/20/19 7.5-325] Tamsulosin [Flomax] 0.4 mg PO HS #0 02/20/19 Allergies Allergy/AdvReac Type Severity Reaction Status Date / Time No Known Allergies Allergy Verified 04/02/19 12:01 Review of Systems ROS Statement: Those systems with pertinent positive or pertinent negative responses have been documented in the HPI. ROS Other: All systems not noted in ROS Statement are negative. Past Medical History Past Medical History: Atrial Fibrillation, Coronary Artery Disease (CAD), Chest Pain / Angina, Heart Failure, COPD, CVA/TIA, Deep Vein Thrombosis (DVT), Eye Disorder, GERD/Reflux, Hearing Disorder / Deafness, Hyperlipidemia, Hypertension, Memory Impairment, Myocardial Infarction (ND), Musculoskeletal Disorder, Pneumonia, Prostate Disorder, Respiratory Disorder, Vascular Disorder Additional Past Medical History / Comment(s): Chronic steroids, CVA w/ speech difficulty (since 1999) TIAs, PVD, blocked right carotid, respiratory failure, 4L O2 continuous, BPH, chronic bronchitis, DDD, stomach ulcer, diverticulitis, hemorrhoids, colon polyps, walker/wheelchair, electric scooter, chronic leg/back pain, constipation, richard. glaucoma, freq. falls, Last Myocardial Infarction Date:: 1997 History of Any Multi-Drug Resistant Organisms: MRSA Date of last positivie culture/infection: 05/24/18 MDRO Source:: Sputum Past Surgical History: AICD, Back Surgery, Coronary Bypass/CABG, Heart Catheterization, Heart Catheterization With Stent, Pacemaker, Tonsillectomy Additional Past Surgical History / Comment(s): February 2016 Pacer ([facility] PM [id number], #SS [id number]). CABG 5 vessel 1998. Cath with stents (8 total). Richard carotid endarterectomies. Back surgery x 2. Bilateral fem/pops, richard stenting in legs (6 total) with graphs. Cataracts removed, back injections for pain. AICD, PTCA and stent 11/08/17 and January 2018. Past Anesthesia/Blood Transfusion Reactions: No Reported Reaction Additional Past Anesthesia/Blood Transfusion Reaction / Comment(s): Never had blood transfusion. Date of Last Stent Placement:: 01/2018 Type of Cardiac Device: Permanent Pacemaker, AICD Device Placement Date:: 02/2016 Past Psychological History: Anxiety, Depression Additional Psychological History / Comment(s): Lives at [facility]. Smoking Status: Former smoker Past Alcohol Use History: None Reported Additional Past Alcohol Use History / Comment(s): Patient was a smoker one pack per day for 50 years and quit in 2011. Past Drug Use History: None Reported - Past Family History Brother(s) Family Medical History: Cancer Additional Family Medical History / Comment(s): Patient has a brother that at age 75 from stage IV stomach cancer. Sister(s) Family Medical History: Congestive Heart Failure (CHF), Vascular Disorder Additional Family Medical History / Comment(s): Patient has a sister that at age 57 from CABG. PVD Son(s) Family Medical History: No Reported History Additional Family Medical History / Comment(s): crohns. Daughter(s) Family Medical History: No Reported History Additional Family Medical History / Comment(s): Daughter has 2 daughters and one works in the OR here - 1 was killed in [place]. Mother Family Medical History: Coronary Artery Disease (CAD) Additional Family Medical History / Comment(s): Mother at age 62 from coronary artery disease and peripheral artery disease status post multiple heart surgeries. Father Family Medical History: Cancer, Coronary Artery Disease (CAD) Additional Family Medical History / Comment(s): Family at age 89 from colon cancer and COPD along with coronary artery disease. General Exam - General Exam Comments Initial Comments: This is a well-developed well-nourished awake alert oriented 3 male who is in respiratory distress Limitations: physical limitation General appearance: alert, anxious Head exam: Present: atraumatic, normocephalic, normal inspection Eye exam: Present: normal appearance, PERRL, EOMI. Absent: scleral icterus, conjunctival injection, periorbital swelling ENT exam: Present: mucous membranes dry Neck exam: Present: normal inspection, full ROM, other (No stridor JVD or bruits). Absent: tenderness, meningismus, lymphadenopathy Respiratory exam: Present: wheezes, accessory muscle use, decreased breath sounds. Absent: respiratory distress, rales, rhonchi, stridor Cardiovascular Exam: Present: normal rhythm, tachycardia, normal heart sounds. Absent: systolic murmur, diastolic murmur, rubs, gallop, clicks GI/Abdominal exam: Present: soft, normal bowel sounds. Absent: distended, tenderness, guarding, rebound, rigid Extremities exam: Present: normal inspection, full ROM, normal capillary refill. Absent: tenderness, pedal edema, joint swelling, calf tenderness Back exam: Present: normal inspection Neurological exam: Present: alert, oriented X3, CN II-XII intact Psychiatric exam: Present: normal affect, normal mood Skin exam: Present: warm, dry, intact, normal color. Absent: rash Course Vital Signs 04/02/19 04/02/19 04/02/19 10:48 11:00 11:30 Temperature 98.4 F Pulse Rate 101 H 95 Respiratory 20 24 16 Rate Blood Pressure 184/97 171/89 O2 Sat by Pulse 99 100 Oximetry 04/02/19 04/02/19 04/02/19 12:00 12:30 13:00 Temperature Pulse Rate 95 93 92 Respiratory 16 16 14 Rate Blood Pressure 145/81 143/54 122/93 O2 Sat by Pulse 100 79 L Oximetry 04/02/19 04/02/19 04/02/19 13:30 14:00 14:30 Temperature Pulse Rate 95 86 95 Respiratory 15 16 16 Rate Blood Pressure 127/86 118/85 113/64 O2 Sat by Pulse 100 100 100 Oximetry - Reevaluation(s) Reevaluation #1: 04/02/19 15:37 Reevaluation the patient initially reveal he was not tolerating the BiPAP removed. Reevaluation #2: 04/02/19 15:37 Patient did tolerate after period time mask for oxygen as opposed to BiPAP. He still dyspneic however. He does demonstrate hypomagnesemia. He will be admitted. Reevaluation #3: 04/02/19 15:37 Patient states he's Dr. Hackett. Medical Decision Making - Medical Decision Making Patient did respond to the initial treatment he was given IV magnesium. I did discuss the case with him as well as with Dr. Wright. Patient will be admitted with consultation by Dr. Hackett who is covering for Dr. Rogers - Lab Data Result diagrams: 04/02/19 11:00 04/02/19 11:00 Lab Results 04/02/19 04/02/19 04/02/19 Range/Units 11:00 11:00 11:00 WBC 10.2 (3.8-10.6) k/uL RBC 4.14 L (4.30-5.90) m/uL Hgb 12.4 L (13.0-17.5) gm/dL Hct 37.9 L (39.0-53.0) % MCV 91.5 (80.0-100.0) fL MCH 30.0 (25.0-35.0) pg MCHC 32.8 (31.0-37.0) g/dL RDW 14.5 (11.5-15.5) % Plt Count 146 L (150-450) k/uL Neutrophils % 85 % Lymphocytes % 5 % Monocytes % 6 % Eosinophils % 3 % Basophils % 0 % Neutrophils # 8.7 H (1.3-7.7) k/uL Lymphocytes # 0.5 L (1.0-4.8) k/uL Monocytes # 0.6 (0-1.0) k/uL Eosinophils # 0.3 (0-0.7) k/uL Basophils # 0.0 (0-0.2) k/uL PT (9.0-12.0) sec INR (<1.2) APTT (22.0-30.0) sec Sodium 139 (137-145) mmol/L Potassium 4.5 (3.5-5.1) mmol/L Chloride 95 L (98-107) mmol/L Carbon Dioxide 39 H (22-30) mmol/L Anion Gap 5 mmol/L BUN 14 (9-20) mg/dL Creatinine 0.55 L (0.66-1.25) mg/dL Est GFR (CKD-EPI)AfAm >90 (>60 ml/min/1.73 sqM) Est GFR (CKD-EPI)NonAf >90 (>60 ml/min/1.73 sqM) Glucose 171 H (74-99) mg/dL Calcium 8.9 (8.4-10.2) mg/dL Magnesium 1.4 L (1.6-2.3) mg/dL Total Bilirubin 1.0 (0.2-1.3) mg/dL AST 31 (17-59) U/L ALT 33 (21-72) U/L Alkaline Phosphatase 82 (38-126) U/L Creatine Kinase <20 L (55-170) U/L Troponin I (0.000-0.034) ng/mL NT-Pro-B Natriuret Pep 3600 pg/mL Total Protein 6.5 (6.3-8.2) g/dL Albumin 3.9 (3.5-5.0) g/dL 04/02/19 04/02/19 Range/Units 11:00 11:00 WBC (3.8-10.6) k/uL RBC (4.30-5.90) m/uL Hgb (13.0-17.5) gm/dL Hct (39.0-53.0) % MCV (80.0-100.0) fL MCH (25.0-35.0) pg MCHC (31.0-37.0) g/dL RDW (11.5-15.5) % Plt Count (150-450) k/uL Neutrophils % % Lymphocytes % % Monocytes % % Eosinophils % % Basophils % % Neutrophils # (1.3-7.7) k/uL Lymphocytes # (1.0-4.8) k/uL Monocytes # (0-1.0) k/uL Eosinophils # (0-0.7) k/uL Basophils # (0-0.2) k/uL PT 10.6 (9.0-12.0) sec INR 1.0 (<1.2) APTT 23.6 (22.0-30.0) sec Sodium (137-145) mmol/L Potassium (3.5-5.1) mmol/L Chloride (98-107) mmol/L Carbon Dioxide (22-30) mmol/L Anion Gap mmol/L BUN (9-20) mg/dL Creatinine (0.66-1.25) mg/dL Est GFR (CKD-EPI)AfAm (>60 ml/min/1.73 sqM) Est GFR (CKD-EPI)NonAf (>60 ml/min/1.73 sqM) Glucose (74-99) mg/dL Calcium (8.4-10.2) mg/dL Magnesium (1.6-2.3) mg/dL Total Bilirubin (0.2-1.3) mg/dL AST (17-59) U/L ALT (21-72) U/L Alkaline Phosphatase (38-126) U/L Creatine Kinase (55-170) U/L Troponin I <0.012 (0.000-0.034) ng/mL NT-Pro-B Natriuret Pep pg/mL Total Protein (6.3-8.2) g/dL Albumin (3.5-5.0) g/dL - EKG Data -: EKG Interpreted by Me (Atrial sensed ventricular paced rhythm with occasional PVCs ventricular rat) - Radiology Data Radiology results: report reviewed (Did review the imaging and report evidence of COPD no definite evidence of infiltrate.), image reviewed Critical Care Time Critical Care Time: Yes Critical Care Time: 31 minutes of critical care time which includes his presentation with history physical labs x-rays review of old charting. Multiple reevaluation patient responsive therapy discussion with the main physician admission orders and documentation of the above. Disposition Clinical Impression: Adult respiratory distress syndrome, COPD exacerbation Disposition: ADMITTED IP TO THIS HOSP Condition: Fair Referrals: Randolph Marcos MD [Primary Care Provider] - 1-2 days
[2019-04-02 11:41] LABS: Partial Thromboplastin Time 23.6 sec (22.0-30.0); Prothrombin Time 10.6 sec (9.0-12.0)
[2019-04-02 11:42] LABS: African American GFR (CKD) >90 (>60 ml/min/1.73 sqM); Albumin 3.9 g/dL (3.5-5.0); Anion Gap 5 mmol/L; Blood Urea Nitrogen 14 mg/dL (9-20); Calcium 8.9 mg/dL (8.4-10.2); Carbon Dioxide 39 mmol/L (22-30); Chloride 95 mmol/L (98-107); Creatine Kinase <20 U/L (55-170); Glucose 171 mg/dL (74-99); Sodium 139 mmol/L (137-145); Total Protein 6.5 g/dL (6.3-8.2)
[2019-04-02 11:51] LABS: Basophils % (A) 0 %; Eosinophils # (A) 0.3 k/uL (0-0.7); Eosinophils % (A) 3 %; HCT 37.9 % (39.0-53.0); HGB 12.4 gm/dL (13.0-17.5); Lymphocytes # (A) 0.5 k/uL (1.0-4.8); Lymphocytes % (A) 5 %; MCHC 32.8 g/dL (31.0-37.0); MCV 91.5 fL (80.0-100.0); Mean Platelet Volume 7.6; Monocytes # (A) 0.6 k/uL (0-1.0); Monocytes % (A) 6 %; Neutrophils # (A) 8.7 k/uL (1.3-7.7); Neutrophils % (A) 85 %; Platelet Count 146 k/uL (150-450); RBC 4.14 m/uL (4.30-5.90); RDW 14.5 % (11.5-15.5); WBC 10.2 k/uL (3.8-10.6)
[2019-04-02 11:57] LABS: ALT 33 U/L (21-72); AST 31 U/L (17-59); Alkaline Phosphatase 82 U/L (38-126); Magnesium 1.4 mg/dL (1.6-2.3); Potassium 4.5 mmol/L (3.5-5.1)
--- NOTE | 2019-04-02 12:06 | XR ---
EXAMINATION TYPE: XR chest 2V DATE OF EXAM: 04/02/2019 COMPARISON: 02/16/2019 HISTORY: 73 year-old male chest pain and difficulty breathing TECHNIQUE: AP and lateral views FINDINGS: Left anterior chest wall pacemaker generator with right atrial, right ventricular, and coronary sinus leads. Median sternotomy wires are present with post-CABG clips. Coronary artery stents are also dem onstrated. Heart upper limits of normal in size. At this chronic calcifications throughout the aorta. Hyperinflation with flattening of the hemidiaphragms. No consolidation or pleural effusion seen. IMPRESSION: COPD and chronic changes. No definite acute process.
[2019-04-02] MEDS ORDERED: MAGNESIUM SULFATE-D5W PMX 1 GM in DEXTROSE/WATER 1 100ML.BAG IVPB ONE (15:36)
[2019-04-02] MEDS ORDERED: ACETAMINOPHEN TAB 325 MG TAB PO PRN (15:57)
[2019-04-02] MEDS ORDERED: NITROGLYCERIN SL TABS 0.4 MG TAB SUBLINGUAL PRN (15:57)
[2019-04-02] MEDS ORDERED: LOSARTAN 25 MG TAB PO PRN (15:57)
--- NOTE | 2019-04-02 15:59 | ED ---
Medical Decision Making - Lab Data Result diagrams: 04/02/19 11:00 04/02/19 11:00 Lab Results 04/02/19 04/02/19 04/02/19 Range/Units 11:00 11:00 11:00 WBC 10.2 (3.8-10.6) k/uL RBC 4.14 L (4.30-5.90) m/uL Hgb 12.4 L (13.0-17.5) gm/dL Hct 37.9 L (39.0-53.0) % MCV 91.5 (80.0-100.0) fL MCH 30.0 (25.0-35.0) pg MCHC 32.8 (31.0-37.0) g/dL RDW 14.5 (11.5-15.5) % Plt Count 146 L (150-450) k/uL Neutrophils % 85 % Lymphocytes % 5 % Monocytes % 6 % Eosinophils % 3 % Basophils % 0 % Neutrophils # 8.7 H (1.3-7.7) k/uL Lymphocytes # 0.5 L (1.0-4.8) k/uL Monocytes # 0.6 (0-1.0) k/uL Eosinophils # 0.3 (0-0.7) k/uL Basophils # 0.0 (0-0.2) k/uL PT (9.0-12.0) sec INR (<1.2) APTT (22.0-30.0) sec Sodium 139 (137-145) mmol/L Potassium 4.5 (3.5-5.1) mmol/L Chloride 95 L (98-107) mmol/L Carbon Dioxide 39 H (22-30) mmol/L Anion Gap 5 mmol/L BUN 14 (9-20) mg/dL Creatinine 0.55 L (0.66-1.25) mg/dL Est GFR (CKD-EPI)AfAm >90 (>60 ml/min/1.73 sqM) Est GFR (CKD-EPI)NonAf >90 (>60 ml/min/1.73 sqM) Glucose 171 H (74-99) mg/dL Calcium 8.9 (8.4-10.2) mg/dL Magnesium 1.4 L (1.6-2.3) mg/dL Total Bilirubin 1.0 (0.2-1.3) mg/dL AST 31 (17-59) U/L ALT 33 (21-72) U/L Alkaline Phosphatase 82 (38-126) U/L Creatine Kinase <20 L (55-170) U/L Troponin I (0.000-0.034) ng/mL NT-Pro-B Natriuret Pep 3600 pg/mL Total Protein 6.5 (6.3-8.2) g/dL Albumin 3.9 (3.5-5.0) g/dL 04/02/19 04/02/19 Range/Units 11:00 11:00 WBC (3.8-10.6) k/uL RBC (4.30-5.90) m/uL Hgb (13.0-17.5) gm/dL Hct (39.0-53.0) % MCV (80.0-100.0) fL MCH (25.0-35.0) pg MCHC (31.0-37.0) g/dL RDW (11.5-15.5) % Plt Count (150-450) k/uL Neutrophils % % Lymphocytes % % Monocytes % % Eosinophils % % Basophils % % Neutrophils # (1.3-7.7) k/uL Lymphocytes # (1.0-4.8) k/uL Monocytes # (0-1.0) k/uL Eosinophils # (0-0.7) k/uL Basophils # (0-0.2) k/uL PT 10.6 (9.0-12.0) sec INR 1.0 (<1.2) APTT 23.6 (22.0-30.0) sec Sodium (137-145) mmol/L Potassium (3.5-5.1) mmol/L Chloride (98-107) mmol/L Carbon Dioxide (22-30) mmol/L Anion Gap mmol/L BUN (9-20) mg/dL Creatinine (0.66-1.25) mg/dL Est GFR (CKD-EPI)AfAm (>60 ml/min/1.73 sqM) Est GFR (CKD-EPI)NonAf (>60 ml/min/1.73 sqM) Glucose (74-99) mg/dL Calcium (8.4-10.2) mg/dL Magnesium (1.6-2.3) mg/dL Total Bilirubin (0.2-1.3) mg/dL AST (17-59) U/L ALT (21-72) U/L Alkaline Phosphatase (38-126) U/L Creatine Kinase (55-170) U/L Troponin I <0.012 (0.000-0.034) ng/mL NT-Pro-B Natriuret Pep pg/mL Total Protein (6.3-8.2) g/dL Albumin (3.5-5.0) g/dL Disposition Clinical Impression: Adult respiratory distress syndrome, COPD exacerbation, Hypomagnesemia syndrome Disposition: ADMITTED IP TO THIS HOSP Condition: Fair Referrals: Randolph Marcos MD [Primary Care Provider] - 1-2 days
[2019-04-02] MEDS ORDERED: SODIUM CHLORIDE 0.9% 1,000 ML IV SCH (16:00)
[2019-04-02] MEDS: IPRATROPIUM-ALBUTEROL 3 ML NEB INHALATION STA ×2 (16:43)
[2019-04-02] MEDS: IPRATROPIUM-ALBUTEROL 3 ML NEB INHALATION SCH ×3 (19:15→23:23)
[2019-04-02 20:20] LABS: Glucose,Whole Blood 266 mg/dL (75-99)
[2019-04-02] MEDS: methylPREDNISolone SOD SUCCI 125 MG/2 ML VIAL IV SCH ×2 (20:26→23:52)
[2019-04-02] MEDS: metFORMIN 500 MG TAB PO SCH (20:26)
[2019-04-02] MEDS: INSULIN ASPART (NovoLOG) 100 UNIT/ML VIAL SQ SCH ×2 (20:46→23:46)
[2019-04-02] MEDS: INSULIN DETEMIR (LEVEMIR) 100 UNIT/ML SYR SQ SCH (20:47)
[2019-04-02] MEDS: HYDROcodone/APAP 7.5-325MG 1 EACH TAB PO PRN (20:47)
[2019-04-02] MEDS: ALPRAZolam 0.5 MG TAB PO PRN (20:47)
[2019-04-02] MEDS: OXYBUTYNIN CHLORIDE 5 MG TAB PO SCH (23:51)
[2019-04-02] MEDS: BACLOFEN 10 MG TAB PO SCH (23:52)
[2019-04-02] MEDS: TAMSULOSIN 0.4 MG CAP.ER.24H PO SCH (23:52)
[2019-04-02] MEDS: CARVEDILOL 12.5 MG TAB PO SCH (23:52)
[2019-04-02] MEDS: FAMOTIDINE 20 MG TAB PO SCH (23:52)
[2019-04-02] MEDS: traZODone HCL 50 MG TAB PO SCH (23:52)
[2019-04-02] MEDS: ATORVASTATIN 80 MG TAB PO SCH (23:54)
[2019-04-03] MEDS: IPRATROPIUM-ALBUTEROL 3 ML NEB INHALATION SCH ×6 (02:57→22:15)
[2019-04-03] MEDS: methylPREDNISolone SOD SUCCI 125 MG/2 ML VIAL IV SCH ×4 (05:55→23:46)
[2019-04-03 06:57] LABS: Glucose,Whole Blood 193 mg/dL (75-99)
[2019-04-03] MEDS: CLOPIDOGREL 75 MG TAB PO SCH ×2 (08:16→08:27)
[2019-04-03] MEDS: CITALOPRAM HYDROBROMIDE 20 MG TAB PO SCH (08:16)
[2019-04-03] MEDS: FINASTERIDE 5 MG TAB PO SCH (08:16)
[2019-04-03] MEDS: CARVEDILOL 6.25 MG TAB PO SCH (08:16)
[2019-04-03] MEDS: metFORMIN 500 MG TAB PO SCH ×2 (08:16→18:06)
[2019-04-03] MEDS: INSULIN ASPART (NovoLOG) 100 UNIT/ML VIAL SQ SCH ×5 (08:16→22:37)
[2019-04-03] MEDS: ALPRAZolam 0.5 MG TAB PO PRN ×2 (08:16→19:55)
[2019-04-03] MEDS: FAMOTIDINE 20 MG TAB PO SCH ×2 (08:16→19:55)
[2019-04-03] MEDS: OXYBUTYNIN CHLORIDE 5 MG TAB PO SCH ×2 (08:17→22:37)
[2019-04-03] MEDS: HYDROcodone/APAP 7.5-325MG 1 EACH TAB PO PRN ×3 (08:17→19:53)
[2019-04-03] MEDS: LINAGLIPTIN 5 MG TABLET PO SCH (08:17)
--- NOTE | 2019-04-03 10:52 | P.CNPUL ---
History of Present Illness Consult date: 04/03/19 Requesting physician: Susan Powell Reason for consult: dyspnea Chief complaint: Shortness of breath History of present illness: This is a very pleasant 73-year-old gentleman follows with Dr. Marcos as his primary care physician. He is a history of coronary artery disease status post replacement and coronary artery bypass surgery, ischemic cardiopathy status post AICD placement ejection fraction 30-35%, bilateral carotid stenosis status post endarterectomies, bilateral fem-pop's with stenting, CVA/TIA, DVT, hearing disorder, hypertension, hyperlipidemia, anxiety/depression. The patient also has a 50 year pack per day smoking history but quit in 2011. He has significant end-stage oxygen-dependent chronic obstructive pulmonary disease and follows with Dr. Rogers in our office for the same. He presented here to the emergency room yesterday via EMS after developing worsening shortness of breath dry nonproductive cough. Increasing anxiety. He did not respond well after 2 updraft treatments and was placed on BiPAP and he did not tolerate that well. He is seen today in consultation on the regular medical floor. He is currently awake and alert in no acute distress. He is breathing easier today as compared to yesterday. He is maintaining good O2 saturations in the 90s on 3 L/m per nasal cannula. He's been afebrile. Hemodynamically stable. White count 10.2. Hemoglobin 12.4. Creatinine 0.55. Bicarb 39. Troponin negative. ProBNP 3600. Chest x-ray shows evidence of COPD and chronic changes but no acute cardiopulmonary process. He does have a significant amount of anxiety related to the cost of his medications and lack of help at home. Review of Systems REVIEW OF SYSTEMS: CONSTITUTIONAL: Denies any recent significant weight loss or weight gain. EYES: Denies change in vision. EARS, NOSE, MOUTH, THROAT: Denies headaches, denies sore throat. CARDIOVASCULAR: Denies chest pain, palpitations or syncopal episodes. RESPIRATORY: Positive for shortness of breath, cough, congestion no hemoptysis. GASTROINTESTINAL: Denies change in appetite, denies abdominal pain GENITOURINARY: Denies hematuria, denies infections. MUSKULOSKELETAL: Denies pain, denies swelling. INTEGUMENTARY: Denies rash, denies eczema. NEUROLOGICAL: Denies recent memory loss, no recent seizure activity. PSYCHIATRIC: Positive for anxiety and depression. HEMATOLOGIC/LYMPHATIC: Denies anemia, denies enlarged lymph nodes. Past Medical History Past Medical History: Atrial Fibrillation, Coronary Artery Disease (CAD), Chest Pain / Angina, Heart Failure, COPD, CVA/TIA, Diabetes Mellitus, Deep Vein Thrombosis (DVT), Eye Disorder, GERD/Reflux, Hearing Disorder / Deafness, Hyperlipidemia, Hypertension, Memory Impairment, Myocardial Infarction (LA), Musculoskeletal Disorder, Pneumonia, Prostate Disorder, Respiratory Disorder, V ascular Disorder Additional Past Medical History / Comment(s): Chronic steroids, CVA w/ speech difficulty (since 1999) TIAs, PVD, blocked right carotid, respiratory failure, 4 L O2 continuous, BPH, chronic bronchitis, DDD, stomach ulcer, diverticulitis, hemorrhoids, colon polyps, walker/wheelchair, electric scooter, chronic leg/back pain, constipation, irchard. glaucoma, freq. falls, recent UTI was just put on antibiotic by dr biggs Last Myocardial Infarction Date:: 1997 History of Any Multi-Drug Resistant Organisms: MRSA Date of last positivie culture/infection: 05/24/18 MDRO Source:: Sputum Past Surgical History: AICD, Back Surgery, Coronary Bypass/CABG, Heart Catheterization, Heart Catheterization With Stent, Pacemaker, Tonsillectomy Additional Past Surgical History / Comment(s): February 2016 Pacer ([facility] PM [id number], #SS [id number]). CABG 5 vessel 1997. Cath with stents (8 total). Richard carotid endarterectomies. Back surgery x 2. Bilateral fem/pops, richard stenting in legs (6 total) with graphs. Cataracts removed, back injections for pain. AICD, PTCA and stent 11/08/17 and January 2018. Past Anesthesia/Blood Transfusion Reactions: No Reported Reaction Additional Past Anesthesia/Blood Transfusion Reaction / Comment(s): Never had blood transfusion. Date of Last Stent Placement:: 01/2018 Type of Cardiac Device: Permanent Pacemaker, AICD Device Placement Date:: 02/2016 Past Psychological History: Anxiety, Depression Additional Psychological History / Comment(s): Lives at [facility]. Walker with wheels, has scooter, uses 4liters oxygen at all times. Smoking Status: Former smoker Past Alcohol Use History: None Reported Additional Past Alcohol Use History / Comment(s): Patient was a smoker one pack per day for 50 years and quit in 2011. Past Drug Use History: None Reported - Past Family History Brother(s) Family Medical History: Cancer Additional Family Medical History / Comment(s): Patient has a brother that at age 75 from stage IV stomach cancer. Sister(s) Family Medical History: Congestive Heart Failure (CHF), Vascular Disorder Additional Family Medical History / Comment(s): Patient has a sister that at age 57 from CABG. PVD Son(s) Family Medical History: No Reported History Additional Family Medical History / Comment(s): crohns. Daughter(s) Family Medical History: No Reported History Additional Family Medical History / Comment(s): Daughter has 2 daughters and one works in the [place] here - 1 was killed in [place]. Mother Family Medical History: Coronary Artery Disease (CAD) Additional Family Medical History / Comment(s): Mother at age 62 from coronary artery disease and peripheral artery disease status post multiple heart surgeries. Father Family Medical History: Cancer, Coronary Artery Disease (CAD) Additional Family Medical History / Comment(s): Family at age 89 from colon cancer and COPD along with coronary artery disease. Medications and Allergies Home Medications Medication Instructions Recorded Confirmed Type Clopidogrel [Plavix] 75 mg PO DAILY 03/10/14 04/02/19 History traZODone HCL [Desyrel] 50 mg PO HS 03/10/14 04/02/19 History Losartan [Cozaar] 25 mg PO DAILY PRN 12/23/14 04/02/19 History Nitroglycerin Sl Tabs [Nitrostat] 0.4 mg SUBLINGUAL Q5M PRN 02/02/16 04/02/19 History Ranitidine HCl 150 mg PO BID 02/02/16 04/02/19 History Finasteride [Proscar] 5 mg PO DAILY 07/04/17 04/02/19 History Atorvastatin [Lipitor] 80 mg PO HS #30 tab 11/23/17 04/02/19 Rx Carvedilol [Coreg] 12.5 mg PO HS 04/16/18 04/02/19 History Ipratropium-Albuterol Nebulize 3 ml INHALATION RT-TID 07/11/18 04/02/19 History [Duoneb 0.5 mg-3 mg/3 ml Soln] Budesonide-Formot 160-4.5 Mcg 2 puff INHALATION RT-BID 12/28/18 04/02/19 History [Symbicort 160-4.5 Mcg Inhaler] Baclofen [Lioresal] 10 mg PO HS 02/10/19 04/02/19 History predniSONE 10 mg PO DAILY 02/10/19 04/02/19 History sitaGLIPtin PHOS/metFORMIN HCL 1 tab PO BID 02/10/19 04/02/19 History [Janumet 50-500 mg Tablet] Acetaminophen Tab [Tylenol] 650 mg PO Q6HR PRN tab 02/13/19 04/02/19 Rx INSULIN ASPART (NovoLOG) [NovoLOG 3 unit SQ ACHS 02/16/19 04/02/19 History (formulary)] ALPRAZolam [Xanax] 0.5 mg PO TID PRN #9 tablet 02/20/19 04/02/19 Rx HYDROcodone/APAP 7.5-325MG [[place] 1 tab PO Q6H PRN #12 tab 02/20/19 04/02/19 Rx 7.5-325] Tamsulosin [Flomax] 0.4 mg PO HS #0 02/20/19 04/02/19 Rx Carvedilol [Coreg] 6.25 mg PO QAM 04/02/19 04/02/19 History Citalopram Hydrobromide [CeleXA] 20 mg PO DAILY 04/02/19 04/02/19 History Insulin Detemir (Levemir) [Levemir] 10 unit SQ HS 04/02/19 04/02/19 History Oxybutynin Chloride [Ditropan] 5 mg PO BID 04/02/19 04/02/19 History Allergies Allergy/AdvReac Type Severity Reaction Status Date / Time No Known Allergies Allergy Verified 04/02/19 22:38 Physical Exam Vitals: Vital Signs Temp Pulse Pulse Resp BP BP Pulse Ox 04/03/19 08:07 80 04/03/19 07:56 80 04/03/19 05:37 96.6 F L 87 18 140/65 98 04/03/19 03:07 84 04/03/19 02:59 84 04/02/19 23:35 87 04/02/19 23:25 87 04/02/19 22:29 96.6 F L 87 20 142/65 96 04/02/19 20:30 98.3 F 91 22 163/59 100 04/02/19 19:30 96 24 141/70 95 04/02/19 19:27 96 04/02/19 19:16 95 04/02/19 18:30 99 22 113/67 96 04/02/19 17:30 91 22 140/66 99 04/02/19 16:54 96 04/02/19 16:45 95 04/02/19 16:30 85 20 145/60 96 04/02/19 15:30 99 22 141/66 97 04/02/19 14:30 95 16 113/64 100 04/02/19 14:00 86 16 118/85 100 04/02/19 13:30 95 15 127/86 100 04/02/19 13:00 92 14 122/93 79 L 04/02/19 12:30 93 16 143/54 04/02/19 12:00 95 16 145/81 100 04/02/19 11:30 95 16 171/89 100 04/02/19 11:00 24 04/02/19 10:48 98.4 F 101 H 20 184/97 99 Intake and Output 04/02/19 04/03/19 04/03/19 22:59 06:59 14:59 Intake Total 220 Balance 220 Intake: Intake, IV Titration 20 Amount Sodium Chloride 0.9% 1, 20 000 ml @ 20 mls/hr IV . Q24H [facility] Rx#:[id number] Oral 200 Other: Voiding Method Toilet # Voids 1 Weight 54 kg GENERAL EXAM: Alert, fairly comfortable in no apparent distress. On 3 L nasal cannula. HEAD: Normocephalic. EYES: Normal reaction of pupils, equal size. NOSE: Clear with pink turbinates. THROAT: No erythema or exudates. NECK: No masses, no JVD. CHEST: No chest wall deformity. LUNGS: Equal air entry with end expiratory wheeze, diminished. CVS: S1 and S2 normal with audible murmur, regular rhythm. ABDOMEN: No hepatosplenomegaly, normal bowel sounds, no guarding or rigidity. SPINE: No scoliosis or deformity SKIN: No rashes CENTRAL NERVOUS SYSTEM: No focal deficits, tone is normal in all 4 extremities. EXTREMITIES: There is no peripheral edema. No clubbing, no cyanosis. Peripheral pulses are intact. Results - Laboratory Findings CBC and BMP: 04/02/19 11:00 04/02/19 11:00 PT/INR, D-dimer PT 10.6 sec (9.0-12.0) 04/02/19 11:00 INR 1.0 (<1.2) 04/02/19 11:00 Abnormal lab findings: Abnormal Labs 04/02/19 04/02/19 04/02/19 11:00 11:00 20:17 RBC 4.14 L Hgb 12.4 L Hct 37.9 L Plt Count 146 L Neutrophils # 8.7 H Lymphocytes # 0.5 L Chloride 95 L Carbon Dioxide 39 H Creatinine 0.55 L Glucose 171 H POC Glucose (mg/dL) 266 H Magnesium 1.4 L Creatine Kinase <20 L 04/03/19 06:56 RBC Hgb Hct Plt Count Neutrophils # Lymphocytes # Chloride Carbon Dioxide Creatinine Glucose POC Glucose (mg/dL) 193 H Magnesium Creatine Kinase - Diagnostic Findings Chest x-ray: image reviewed Assessment and Plan Assessment: Impression: #1 Acute on chronic hypoxemic/hypercapnic respiratory failure secondary to an acute exacerbation of chronic obstructive pulmonary disease. #2 Severe oxygen dependent chronic obstructive pulmonary disease. #3 50 year pack per day smoking history however quit in 2011. #4 Coronary artery disease with previous coronary artery bypass grafting and stent placements. #5 Ischemic cardiomyopathy with ejection fraction 30-35%, status post AICD placement. #6 Severe peripheral vascular disease with previous femoral-popliteal bypasses and stent placements #7 Carotid stenosis status post bilateral carotid endarterectomies. #8 Previous CVA/TIA. #9 History of DVT. #10 Hearing disorder. #11 Hyperlipidemia. #12 Hypertension. #13 Diabetes mellitus, type II. #14 Benign prostatic hypertrophy. #15 Anxiety/depression. #16 Poor overall functional performance based on the above-mentioned multiple comorbidities. Plan: The patient was seen and evaluated by Dr. Hackett. Chest x-ray and labs reviewed. Continue DuoNeb inhalations and IV Solu-Medrol. Add Pulmicort and Perforomist inhalations. Social work consultation based on his concerns for fi nancial and home living needs. We will continue to follow make further recommendations based on his clinical status. I, the cosigning physician, performed a history & physical examination of the patient. Lungs sounds with bilateral end expiratory wheeze, diminished. Maintaining good O2 saturations in the 90s on 3 L/m per nasal cannula. I discussed the assessment and plan of care with my nurse practitioner, Coty Kraus. I attest to the above note as dictated by her. Time with Patient: Greater than 30
[2019-04-03 11:47] LABS: Glucose,Whole Blood 161 mg/dL (75-99)
--- NOTE | 2019-04-03 13:56 | P.HPIM ---
History of Present Illness H&P Date: 04/03/19 This is a 73-year-old male one of our office patient with past medical history of advanced COPD on 4 L of oxygen, CAD, A. fib, multiple history of CVA and TIA along with history of deep venous thrombosis, type 2 diabetes, history of coronary artery disease status post coronary artery bypass grafting and multiple stenting, ischemic cardiomyopathy status post AICD last ejection fraction 30-35% bilateral therapy for vascular disease with multiple stenting with underlying cognitive impairment likely vascular dementia who was previously admitted on January 2019 with multiple falls, altered mental status likely secondary to medication side effect. Patient had an extensive workup for stroke had CAT scan that suggested multifocal encephalomalacia, carotid Doppler suggesting persistently occluded right ICA with extensive plaque in the left ICA recommendations were made to continue dual antiplatelet therapy. Patient was seen by physical therapy in the previous admission and it was recommended that patient needs subacute rehab. Also patient was seen by Dr. Gutierres for BPH. Patient was noted to be confused during that admission. Patient presented to the ER by EMS due to worsening shortness of breath cough and weakness. He was placed on BiPAP and did recover when patient presented to the ER. On evaluation in the ER patient had a temp of 98.2 tachycardic to 101 blood pressure 180/97 respiratory rate of 20 saturations are 99-100% on 2 L. evaluate his SSA hemoglobin of 12.4 platelet 146 INR 1 chloride 95 bicarb 39, creatinine 0.55 troponin on admission 0.01 to repeat troponin 0.047. EKG suggests paced rhythm with no ST or T-wave changes. BNP elevated at 3600 Magnesium was low 1.4. Patient is admitted for COPD exacerbation . It was also brought to our notice that patient is unable to take care of himself at the assisted living facility and often forgets to take his medication. Patient presents this time with increased shortness of breath associated with cough and generalized weakness that started a few days ago. Review of Systems Constitutional: Denies chills, Denies fever, Denies lethargy, Denies malaise, Denies poor appetite, Denies weakness, Denies weight loss Eyes: denies decreased vision, denies diplopia, denies discharge, denies pain Ears: deny: decreased hearing Ears, nose, mouth and throat: Denies dental pain, Denies headache, Denies nasal discharge, Denies nose pain Cardiovascular: Denies chest pain, Denies decreased exercise tolerance, Denies edema, Denies high blood pressure, Denies irregular heart beat, Denies palpitations, Denies paroxysmal nocturnal dyspnea, Denies rapid heart beat, Denies shortness of breath Respiratory: Denies congestion, Denies cough, Denies cough with sputum, endorses dyspnea, endorses home oxygen, endorses wheezing Gastrointestinal: Denies abdominal pain, Denies change in bowel habits, Denies coffee ground emesis, Denies early satiety, Denies excessive gas, Denies heartburn, Denies hematemesis, Denies hematochezia, Denies loss of appetite, Denies nausea, Denies vomiting endorses constipation Genitourinary: Denies dysuria, Denies flank pain, Denies kidney stones, Denies menorrhagia, Denies urgency, Denies urinary frequency Musculoskeletal: Denies gait dysfunction, Denies limitation of motion, Denies morning stiffness, Denies muscle cramps Integumentary: Denies rash, Denies wounds, Denies brittle nails, Denies change in hair/nails, Denies darkening of skin Neurological: Denies balance difficulties, Denies change in speech, Denies double vision, Denies gait dysfunction, Denies loss of vision, Denies motor disturbance, Denies numbness, Denies paralysis, Denies paresthesias, Denies seizures Psychiatric: Endorses anxiety, Denies depression Endocrine: Denies excessive sweating, Denies excessive thirst, Denies high blood sugars, Denies palpitations Hematologic/Lymphatic: Denies easy bruising, Denies lymphadenopathy Past Medical History Past Medical History: Atrial Fibrillation, Coronary Artery Disease (CAD), Chest Pain / Angina, Heart Failure, COPD, CVA/TIA, Diabetes Mellitus, Deep Vein Thrombosis (DVT), Eye Disorder, GERD/Reflux, Hearing Disorder / Deafness, Hyperlipidemia, Hypertension, Memory Impairment, Myocardial Infarction (MS), Musculoskeletal Disorder, Pneumonia, Prostate Disorder, Respiratory Disorder, Vascular Disorder Additional Past Medical History / Comment(s): Chronic steroids, CVA w/ speech difficulty (since 1999) TIAs, PVD, blocked right carotid, respiratory failure, 4L O2 continuous, BPH, chronic bronchitis, DDD, stomach ulcer, diverticulitis, hemorrhoids, colon polyps, walker/wheelchair, electric scooter, chronic leg/back pain, constipation, esvin. glaucoma, freq. falls, recent UTI was just put on antibiotic by dr biggs Last Myocardial Infarction Date:: 1997 History of Any Multi-Drug Resistant Organisms: MRSA Date of last positivie culture/infection: 05/24/18 MDRO Source:: Sputum Past Surgical History: AICD, Back Surgery, Coronary Bypass/CABG, Heart Catheterization, Heart Catheterization With Stent, Pacemaker, Tonsillectomy Additional Past Surgical History / Comment(s): February 2016 Pacer ([facility] PM [id number], #SS [id number]). CABG 5 vessel 1997. Cath with stents (8 total). Esvin carotid endarterectomies. Back surgery x 2. Bilateral fem/pops, esvin stenting in legs (6 total) with graphs. Cataracts removed, back injections for pain. AICD, PTCA and stent 11/08/17 and January 2018. Past Anesthesia/Blood Transfusion Reactions: No Reported Reaction Additional Past Anesthesia/Blood Transfusion Reaction / Comment(s): Never had blood transfusion. Date of Last Stent Placement:: 01/2018 Type of Cardiac Device: Permanent Pacemaker, AICD Device Placement Date:: 02/2016 Past Psychological History: Anxiety, Depression Additional Psychological History / Comment(s): Lives at [facility]. [facility]. Walker with wheels, has scooter, uses 4liters oxygen at all times. Smoking Status: Former smoker Past Alcohol Use History: None Reported Additional Past Alcohol Use History / Comment(s): Patient was a smoker one pack per day for 50 years and quit in 2011. Past Drug Use History: None Reported - Past Family History Brother(s) Family Medical History: Cancer Additional Family Medical History / Comment(s): Patient has a brother that at age 75 from stage IV stomach cancer. Sister(s) Family Medical History: Congestive Heart Failure (CHF), Vascular Disorder Additional Family Medical History / Comment(s): Patient has a sister that at age 57 from CABG. PVD Son(s) Family Medical History: No Reported History Additional Family Medical History / Comment(s): crohns. Daughter(s) Family Medical History: No Reported History Additional Family Medical History / Comment(s): Daughter has 2 daughters and one works in the OR here - 1 was killed in [place]. Mother Family Medical History: Coronary Artery Disease (CAD) Additional Family Medical History / Comment(s): Mother at age 62 from coronary artery disease and peripheral artery disease status post multiple heart surgeries. Father Family Medical History: Cancer, Coronary Artery Disease (CAD) Additional Family Medical History / Comment(s): Family at age 89 from colon cancer and COPD along with coronary artery disease. Medications and Allergies Home Medications Medication Instructions Recorded Confirmed Type Clopidogrel [Plavix] 75 mg PO DAILY 03/10/14 04/02/19 History traZODone HCL [Desyrel] 50 mg PO HS 03/10/14 04/02/19 History Losartan [Cozaar] 25 mg PO DAILY PRN 12/23/14 04/02/19 History Nitroglycerin Sl Tabs [Nitrostat] 0.4 mg SUBLINGUAL Q5M PRN 02/02/16 04/02/19 History Ranitidine HCl 150 mg PO BID 02/02/16 04/02/19 History Finasteride [Proscar] 5 mg PO DAILY 07/04/17 04/02/19 History Atorvastatin [Lipitor] 80 mg PO HS #30 tab 11/23/17 04/02/19 Rx Carvedilol [Coreg] 12.5 mg PO HS 04/16/18 04/02/19 History Ipratropium-Albuterol Nebulize 3 ml INHALATION RT-TID 07/11/18 04/02/19 History [Duoneb 0.5 mg-3 mg/3 ml Soln] Budesonide-Formot 160-4.5 Mcg 2 puff INHALATION RT-BID 12/28/18 04/02/19 History [Symbicort 160-4.5 Mcg Inhaler] Baclofen [Lioresal] 10 mg PO HS 02/10/19 04/02/19 History predniSONE 10 mg PO DAILY 02/10/19 04/02/19 History sitaGLIPtin PHOS/metFORMIN HCL 1 tab PO BID 02/10/19 04/02/19 History [Janumet 50-500 mg Tablet] Acetaminophen Tab [Tylenol] 650 mg PO Q6HR PRN tab 02/13/19 04/02/19 Rx INSULIN ASPART (NovoLOG) [NovoLOG 3 unit SQ ACHS 02/16/19 04/02/19 History (formulary)] ALPRAZolam [Xanax] 0.5 mg PO TID PRN #9 tablet 02/20/19 04/02/19 Rx HYDROcodone/APAP 7.5-325MG [[place] 1 tab PO Q6H PRN #12 tab 02/20/19 04/02/19 Rx 7.5-325] Tamsulosin [Flomax] 0.4 mg PO HS #0 02/20/19 04/02/19 Rx Carvedilol [Coreg] 6.25 mg PO QAM 04/02/19 04/02/19 History Citalopram Hydrobromide [CeleXA] 20 mg PO DAILY 04/02/19 04/02/19 History Insulin Detemir (Levemir) [Levemir] 10 unit SQ HS 04/02/19 04/02/19 History Oxybutynin Chloride [Ditropan] 5 mg PO BID 04/02/19 04/02/19 History Allergies Allergy/AdvReac Type Severity Reaction Status Date / Time No Known Allergies Allergy Verified 04/02/19 22:38 Physical Exam Vitals: Vital Signs Temp Pulse Pulse Resp BP BP Pulse Ox 04/03/19 12:01 97.9 F 84 61 17 133/70 98 04/03/19 11:49 84 04/03/19 08:07 80 04/03/19 07:56 80 04/03/19 05:37 96.6 F L 87 18 140/65 98 04/03/19 03:07 84 04/03/19 02:59 84 04/02/19 23:35 87 04/02/19 23:25 87 04/02/19 22:29 96.6 F L 87 20 142/65 96 04/02/19 20:30 98.3 F 91 22 163/59 100 04/02/19 19:30 96 24 141/70 95 04/02/19 19:27 96 04/02/19 19:16 95 04/02/19 18:30 99 22 113/67 96 04/02/19 17:30 91 22 140/66 99 04/02/19 16:54 96 04/02/19 16:45 95 04/02/19 16:30 85 20 145/60 96 04/02/19 15:30 99 22 141/66 97 04/02/19 14:30 95 16 113/64 100 04/02/19 14:00 86 16 118/85 100 04/02/19 13:30 95 15 127/86 100 Intake and Output 04/02/19 04/03/19 04/03/19 22:59 06:59 14:59 Intake Total 220 Balance 220 Intake: Intake, IV Titration 20 Amount Sodium Chloride 0.9% 1, 20 000 ml @ 20 mls/hr IV . Q24H SINDHU Rx#:[id number] Oral 200 Other: Voiding Method Toilet Toilet # Voids 1 Weight 54 kg 54 kg - Constitutional General appearance: cooperative, no acute distress, obese on 4 L of oxygen confused - EENT Eyes: anicteric sclerae, PERRLA, normal appearance ENT: hearing grossly normal - Neck Neck: no lymphadenopathy, normal ROM, no other, no rigidity, no stridor, no thyromegaly - Respiratory Respiratory: bilateral: CTA, no wheezes no rhonchi - Cardiovascular Rhythm: regular Heart sounds: normal: S1, S2 Abnormal Heart Sounds: no systolic murmur, no diastolic murmur, no rub, no S3 Gallop, no S4 Gallop, no click, no other - Gastrointestinal General gastrointestinal: normal bowel sounds, soft - Integumentary Integumentary: no rash - Neurologic Neurologic: CNII-XII intact - Musculoskeletal Musculoskeletal: gait not assessed strength equal bilaterally - Psychiatric Psychiatric: A&O x's 3, appropriate affect Results CBC & Chem 7: 04/02/19 11:00 04/02/19 11:00 Labs: Abnormal Lab Results - Last 24 Hours (Table) 04/02/19 04/03/19 04/03/19 Range/Units 20:17 06:56 07:13 POC Glucose (mg/dL) 266 H 193 H (75-99) mg/dL Troponin I 0.047 H* (0.000-0.034) ng/mL 04/03/19 Range/Units 11:46 POC Glucose (mg/dL) 161 H (75-99) mg/dL Troponin I (0.000-0.034) ng/mL Thrombosis Risk Factor Assmnt - DVT/VTE Prophylaxis DVT/VTE Prophylaxis: Pharmacologic Prophylaxis ordered - Choose All That Apply Any of the Below Risk Factors Present?: Yes Each Factor Represents 1 point: Abnormal pulmonary function (COPD), Medical pt on bed rest Other Risk Factors: Yes Each Risk Factor Represents 3 Points: Age 75 years or older, History of DVT/PE Other congenital or acquired thrombophilia - If yes, enter type in comment: No Thrombosis Risk Factor Assessment Total Risk Factor Score: 8 Thrombosis Risk Factor Assessment Level: High Risk Assessment and Plan Plan: 1. Acute on chronic respiratory failure secondary to COPD exacerbation. Continue Solu-Medrol 60 every 6. Pulmicort twice a day DuoNeb as needed for shortness of breath. 2. Multiple falls with gait dysfunction. Physical therapy and occupational therapy evaluation. Patient was on [facility] 3 weeks ago but currently at assisted family living facility. Is having multiple falls and is not able to help himself over weekend in the absence of homecare. Assess for subacute rehab placement 3. Mild cognitive impairment with computed tomography scan showing multifocal encephalomalacia concerning for vascular dementia. Patient is confused but is able to direct conversation. Hold citalopram as well as oxybutynin 4. Diabetes mellitus type 2. Continue patient on Levemir 10 units subcu venously once every day as well as metformin 500 mg orally twice every day and Linagliptin 5 mg orally once every day. 5 . Cardiomyopathy post-AICD implant patient. Continue Coreg 6.25 mg in the a.m. and 12.5 mg daily at bedtime 6. CAD Post multiple bypass surgery and angioplasty. Continue Coreg , continue Lipitor 80 mg once every day and in losartan 25 mg by mouth daily 7. chronic respiratory failure: Mostly end-stage lung disease on 4 L of oxygen at baseline 8. debility with multiple falls. Consult PT and OT likely will require ECF placement. 9. Severe anxiety and panic attacks. continue with Xanax as needed. Citalopram was discontinued and the previous admission but patient is currently on citalopram and will discontinue again and with clear instructions not to restart the medication. 10. Benign prostatic hyperplasia with the urinary retention. Continue Flomax 0.4 mg orally twice every day as well as Proscar 5 mgram once every day Please use straight cath for residual volume greater than 350 mL. 11. Severe GERD/GI prophylaxis: Patient remain on Pepcid . 12 chronic pain syndrome: Patient remain on hydrocodone and baclofen. Still u sing Tylenol on an as-needed basis along with topical product. 13. DVT prophylaxis. Continue patient on heparin 5000 units subcutaneously every 12 hours. 14. Patient is full code.
[2019-04-03 17:14] LABS: Glucose,Whole Blood 253 mg/dL (75-99)
[2019-04-03 17:49] LABS: Appearance,Urine Clear (Clear); Bilirubin,Urine Negative (Negative); Blood,Urine Negative (Negative); Color,Urine Yellow; Glucose,Urine (UA) 3+ (Negative); Ketones,Urine Trace (Negative); Leukocyte Esterase,Urine Negative (Negative); Nitrite,Urine Negative (Negative); Protein,Urine Trace (Negative); Specific Gravity,Urine 1.028 (1.001-1.035); Urobilinogen,Urine <2.0 mg/dL (<2.0)
[2019-04-03] MEDS: FORMOTEROL FUMARATE 20 MCG/2 ML NEBU INHALATION SCH (19:13)
[2019-04-03] MEDS: BUDESONIDE 1 MG/2 ML NEBU INHALATION SCH (19:13)
[2019-04-03] MEDS: ATORVASTATIN 80 MG TAB PO SCH (19:55)
[2019-04-03] MEDS: TAMSULOSIN 0.4 MG CAP.ER.24H PO SCH (19:55)
[2019-04-03] MEDS: CARVEDILOL 12.5 MG TAB PO SCH (19:55)
[2019-04-03 19:59] LABS: Glucose,Whole Blood 236 mg/dL (75-99)
[2019-04-03 20:32] LABS: Hemoglobin A1C 7.4 % (4.0-6.0)
[2019-04-03] MEDS: INSULIN DETEMIR (LEVEMIR) 100 UNIT/ML SYR SQ SCH (22:37)
[2019-04-03] MEDS: traZODone HCL 50 MG TAB PO SCH (22:38)
[2019-04-03] MEDS: BACLOFEN 10 MG TAB PO SCH (22:40)
[2019-04-04] MEDS: IPRATROPIUM-ALBUTEROL 3 ML NEB INHALATION SCH ×6 (03:16→23:55)
[2019-04-04] MEDS: methylPREDNISolone SOD SUCCI 125 MG/2 ML VIAL IV SCH ×3 (06:28→18:11)
[2019-04-04] MEDS: HYDROcodone/APAP 7.5-325MG 1 EACH TAB PO PRN ×3 (06:33→20:55)
[2019-04-04] MEDS: BUDESONIDE 1 MG/2 ML NEBU INHALATION SCH ×2 (07:30→20:22)
[2019-04-04] MEDS: FORMOTEROL FUMARATE 20 MCG/2 ML NEBU INHALATION SCH ×3 (07:30→20:22)
[2019-04-04] MEDS ORDERED: INSULIN ASPART (NovoLOG) 100 UNIT/ML VIAL SQ SCH (07:30)
[2019-04-04 07:31] LABS: Glucose,Whole Blood 187 mg/dL (75-99)
[2019-04-04] MEDS: ALPRAZolam 0.5 MG TAB PO PRN ×2 (08:02→18:10)
[2019-04-04] MEDS: metFORMIN 500 MG TAB PO SCH ×2 (08:02→18:11)
[2019-04-04] MEDS: INSULIN ASPART (NovoLOG) 100 UNIT/ML VIAL SQ SCH ×8 (08:02→21:08)
[2019-04-04] MEDS: OXYBUTYNIN CHLORIDE 5 MG TAB PO SCH ×2 (08:03→23:50)
[2019-04-04] MEDS: FINASTERIDE 5 MG TAB PO SCH (08:03)
[2019-04-04] MEDS: CITALOPRAM HYDROBROMIDE 20 MG TAB PO SCH (08:03)
[2019-04-04] MEDS: CARVEDILOL 6.25 MG TAB PO SCH (08:03)
[2019-04-04] MEDS: LINAGLIPTIN 5 MG TABLET PO SCH (08:03)
[2019-04-04] MEDS: FAMOTIDINE 20 MG TAB PO SCH ×2 (08:03→20:55)
[2019-04-04 08:48] LABS: Basophils % (A) 0 %; Eosinophils % (A) 0 %; HCT 37.6 % (39.0-53.0); HGB 11.9 gm/dL (13.0-17.5); Lymphocytes # (A) 0.3 k/uL (1.0-4.8); Lymphocytes % (A) 3 %; MCH 29.3 pg (25.0-35.0); MCHC 31.6 g/dL (31.0-37.0); MCV 92.9 fL (80.0-100.0); Mean Platelet Volume 6.6; Monocytes # (A) 0.4 k/uL (0-1.0); Monocytes % (A) 3 %; Neutrophils % (A) 94 %; Platelet Count 234 k/uL (150-450); RBC 4.04 m/uL (4.30-5.90); RDW 13.9 % (11.5-15.5); WBC 10.7 k/uL (3.8-10.6)
[2019-04-04 09:10] LABS: ALT 24 U/L (21-72); AST 16 U/L (17-59); African American GFR (CKD) >90 (>60 ml/min/1.73 sqM); Albumin 3.8 g/dL (3.5-5.0); Alkaline Phosphatase 82 U/L (38-126); Anion Gap 7 mmol/L; Blood Urea Nitrogen 29 mg/dL (9-20); Calcium 9.5 mg/dL (8.4-10.2); Carbon Dioxide 37 mmol/L (22-30); Chloride 97 mmol/L (98-107); Glucose 196 mg/dL (74-99); Potassium 4.4 mmol/L (3.5-5.1); Sodium 141 mmol/L (137-145); Total Bilirubin 0.7 mg/dL (0.2-1.3); Total Protein 6.2 g/dL (6.3-8.2)
[2019-04-04 11:43] LABS: Glucose,Whole Blood 151 mg/dL (75-99)
--- NOTE | 2019-04-04 12:09 | P.PN ---
Subjective Progress Note Date: 04/04/19 Principal diagnosis: Acute on chronic hypoxemic/hypercapnic respiratory failure secondary to an acute exacerbation of chronic obstructive pulmonary disease. This is a very pleasant 73-year-old gentleman follows with Dr. Marcos as his primary care physician. He is a history of coronary artery disease status post replacement and coronary artery bypass surgery, ischemic cardiopathy status post AICD placement ejection fraction 30-35%, bilateral carotid stenosis status post endarterectomies, bilateral fem-pop's with stenting, CVA/TIA, DVT, hearing disorder, hypertension, hyperlipidemia, anxiety/depression. The patient also has a 50 year pack per day smoking history but quit in 2011. He has significant end-stage oxygen-dependent chronic obstructive pulmonary disease and follows with Dr. Rogers in our office for the same. He presented here to the emergency room yesterday via EMS after developing worsening shortness of breath dry nonproductive cough. Increasing anxiety. He did not respond well after 2 updraft treatments and was placed on BiPAP and he did not tolerate that well. He is seen today in consultation on the regular medical floor. He is currently awake and alert in no acute distress. He is breathing easier today as compared to yesterday. He is maintaining good O2 saturations in the 90s on 3 L/m per nasal cannula. He's been afebrile. Hemodynamically stable. White count 10.2. Hemoglobin 12.4. Creatinine 0.55. Bicarb 39. Troponin negative. ProBNP 3600. Chest x-ray shows evidence of COPD and chronic changes but no acute cardiopulmonary process. He does have a significant amount of anxiety related to the cost of his medications and lack of help at home. The patient is seen today 04/04/2019 in follow-up on the regular medical floor. He is currently sitting up in a chair at the bedside. Awake and alert in no acute distress. Breathing easier today as compared to yesterday. Maintaining O2 saturations up to 100% on 3 L/m per nasal cannula. He is afebrile. Hemodynamically stable. White count 10.7. Hemoglobin 11.9. Creatinine 0.72. He remains on DuoNeb inhalations, Pulmicort and Perforomist inhalations, IV Solu-Medrol. Objective - Vital Signs Vital signs: Vital Signs Temp 97.7 F 04/04/19 05:00 Pulse 76 04/04/19 07:43 Resp 16 04/04/19 05:00 BP 144/64 04/04/19 05:00 Pulse Ox 100 04/04/19 05:00 Intake & Output 04/03/19 04/04/19 04/04/19 18:59 06:59 18:59 Weight 54 kg 64 kg Other: Voiding Method Toilet Toilet # Voids 5 1 - Exam GENERAL EXAM: Pleasant 73-year-old gentleman. Alert, fairly comfortable in no apparent distress. On 3 L nasal cannula. HEAD: Normocephalic. EYES: Normal reaction of pupils, equal size. NOSE: Clear with pink turbinates. THROAT: No erythema or exudates. NECK: No masses, no JVD. CHEST: No chest wall deformity. LUNGS: Equal air entry with end expiratory wheeze, diminished. CVS: S1 and S2 normal with audible murmur, regular rhythm. ABDOMEN: No hepatosplenomegaly, normal bowel sounds, no guarding or rigidity. SPINE: No scoliosis or deformity SKIN: No rashes CENTRAL NERVOUS SYSTEM: No focal deficits, tone is normal in all 4 extremities. EXTREMITIES: There is no peripheral edema. No clubbing, no cyanosis. Peripheral pulses are intact. - Labs CBC & Chem 7: 04/04/19 08:22 04/04/19 08:22 Labs: Abnormal Lab Results - Last 24 Hours (Table) 04/03/19 04/03/19 04/03/19 Range/Units 07:13 07:13 17:13 WBC (3.8-10.6) k/uL RBC (4.30-5.90) m/uL Hgb (13.0-17.5) gm/dL Hct (39.0-53.0) % Neutrophils # (1.3-7.7) k/uL Lymphocytes # (1.0-4.8) k/uL Chloride (98-107) mmol/L Carbon Dioxide (22-30) mmol/L BUN (9-20) mg/dL Glucose (74-99) mg/dL POC Glucose (mg/dL) 253 H (75-99) mg/dL Hemoglobin A1c 7.4 H (4.0-6.0) % AST (17-59) U/L Troponin I 0.047 H* (0.000-0.034) ng/mL Total Protein (6.3-8.2) g/dL Urine Protein (Negative) Urine Glucose (UA) (Negative) Urine Ketones (Negative) 04/03/19 04/03/19 04/04/19 Range/Units 17:25 19:58 07:29 WBC (3.8-10.6) k/uL RBC (4.30-5.90) m/uL Hgb (13.0-17.5) gm/dL Hct (39.0-53.0) % Neutrophils # (1.3-7.7) k/uL Lymphocytes # (1.0-4.8) k/uL Chloride (98-107) mmol/L Carbon Dioxide (22-30) mmol/L BUN (9-20) mg/dL Glucose (74-99) mg/dL POC Glucose (mg/dL) 236 H 187 H (75-99) mg/dL Hemoglobin A1c (4.0-6.0) % AST (17-59) U/L Troponin I (0.000-0.034) ng/mL Total Protein (6.3-8.2) g/dL Urine Protein Trace H (Negative) Urine Glucose (UA) 3+ H (Negative) Urine Ketones Trace H (Negative) 04/04/19 04/04/19 04/04/19 Range/Units 08:22 08:22 11:36 WBC 10.7 H (3.8-10.6) k/uL RBC 4.04 L (4.30-5.90) m/uL Hgb 11.9 L (13.0-17.5) gm/dL Hct 37.6 L (39.0-53.0) % Neutrophils # 10.0 H (1.3-7.7) k/uL Lymphocytes # 0.3 L (1.0-4.8) k/uL Chloride 97 L (98-107) mmol/L Carbon Dioxide 37 H (22-30) mmol/L BUN 29 H (9-20) mg/dL Glucose 196 H (74-99) mg/dL POC Glucose (mg/dL) 151 H (75-99) mg/dL Hemoglobin A1c (4.0-6.0) % AST 16 L (17-59) U/L Troponin I (0.000-0.034) ng/mL Total Protein 6.2 L (6.3-8.2) g/dL Urine Protein (Negative) Urine Glucose (UA) (Negative) Urine Ketones (Negative) Assessment and Plan Assessment: Impression: #1 Acute on chronic hypoxemic/hypercapnic respiratory failure secondary to an acute exacerbation of chronic obstructive pulmonary disease. #2 Severe oxygen dependent chronic obstructive pulmonary disease. #3 50 year pack per day smoking history however quit in 2011. #4 Coronary artery disease with previous coronary artery bypass grafting and stent placements. #5 Ischemic cardiomyopathy with ejection fraction 30-35%, status post AICD placement. #6 Severe peripheral vascular disease with previous femoral-popliteal bypasses and stent placements #7 Carotid stenosis status post bilateral carotid endarterectomies. #8 Previous CVA/TIA. #9 History of DVT. #10 Hearing disorder. #11 Hyperlipidemia. #12 Hypertension. #13 Diabetes mellitus, type II. #14 Benign prostatic hypertrophy. #15 Anxiety/depression. #16 Poor overall functional performance based on the above-mentioned multiple comorbidities. Plan: The patient was seen and evaluated by Dr. Hackett. He is improved today compared to yesterday. Continue DuoNeb inhalations and IV Solu-Medrol, Pulmicort and Perforomist inhalations. Titrate down the FiO2 as tolerated. Discharge planning is in place. We will continue to follow and make further recommendations based on his clinical status. I, the cosigning physician, performed a history & physical examination of the patient. Lungs sounds with bilateral end expiratory wheeze, diminished. Maintaining good O2 saturations in the 90s on 3 L/m per nasal cannula. I discussed the assessment and plan of care with my nurse practitioner, Coty Kraus. I attest to the above note as dictated by her.
--- NOTE | 2019-04-04 13:33 | P.PN ---
Subjective Progress Note Date: 04/04/19 This is a 73-year-old male one of our office patient with past medical history of advanced COPD on 4 L of oxygen, CAD, A. fib, multiple history of CVA and TIA along with history of deep venous thrombosis, type 2 diabetes, history of coronary artery disease status post coronary artery bypass grafting and multiple stenting, ischemic cardiomyopathy status post AICD last ejection fraction 30-35% bilateral therapy for vascular disease with multiple stenting with underlying cognitive impairment likely vascular dementia who was previously admitted on January 2019 with multiple falls, altered mental status likely secondary to medication side effect. Patient had an extensive workup for stroke had CAT scan that suggested multifocal encephalomalacia, carotid Doppler suggesting persistently occluded right ICA with extensive plaque in the left ICA recommendations were made to continue dual antiplatelet therapy. Patient was seen by physical therapy in the previous admission and it was recommended that patient needs subacute rehab. Also patient was seen by Dr. Gutierres for BPH. Patient was noted to be confused during that admission. Patient presented to the ER by EMS due to worsening shortness of breath cough and weakness. He was placed on BiPAP and did recover when patient presented to the ER. On evaluation in the ER patient had a temp of 98.2 tachycardic to 101 blood pressure 180/97 respiratory rate of 20 saturations are 99-100% on 2 L. evaluate his SSA hemoglobin of 12.4 platelet 146 INR 1 chloride 95 bicarb 39, creatinine 0.55 troponin on admission 0.01 to repeat troponin 0.047. EKG suggests paced rhythm with no ST or T-wave changes. BNP elevated at 3600 Magnesium was low 1.4. Patient is admitted for COPD exacerbation . It was also brought to our notice that patient is unable to take care of himself at the assisted living facility and often forgets to take his medication. Patient presents this time with increased shortness of breath associated with cough and generalized weakness that started a few days ago. 04/04 patient examined at bedside doing better than yesterday. Breathing comfortable the not too short of breath on exertion. Denies any chest pain or palpitation. Evaluated by pulmonary will switch to prednisone 40 mg orally today. Speech consulted as patient was noticed to have a gurgling sound while speaking and some stuttering. Patient will be started on senna and Colace as he has had no bowel movement. Vitals are stable with a temp of 97.7 pulse 76 blood pressure 144/64 on 3 L ROS Constitutional: Denies chills, Denies fever, Denies lethargy, Denies malaise, Denies poor appetite, Denies weakness, Denies weight loss Eyes: denies decreased vision, denies diplopia, denies discharge, denies pain Ears: deny: decreased hearing Ears, nose, mouth and throat: Denies dental pain, Denies headache, Denies nasal discharge, Denies nose pain Cardiovascular: Denies chest pain, Denies decreased exercise tolerance, Denies edema, Denies high blood pressure, Denies irregular heart beat, Denies palpitations, Denies paroxysmal nocturnal dyspnea, Denies rapid heart beat, Denies shortness of breath Respiratory: Denies congestion, Denies cough, Denies cough with sputum, endorses dyspnea, endorses home oxygen, Denies wheezing Gastrointestinal: Denies abdominal pain, Denies change in bowel habits, Denies coffee ground emesis, Denies early satiety, Denies excessive gas, Denies heartburn, Denies hematemesis, Denies hematochezia, Denies loss of appetite, Denies nausea, Denies vomiting, endorses constiption Genitourinary: Denies dysuria, Denies flank pain, Denies kidney stones, Denies menorrhagia, Denies urgency, Denies urinary frequency Musculoskeletal: Denies gait dysfunction, Denies limitation of motion, Denies morning stiffness, Denies muscle cramps Integumentary: Denies rash, Denies wounds, Denies brittle nails, Denies change in hair/nails, Denies darkening of skin Neurological: Denies balance difficulties, Denies change in speech, Denies double vision, Denies gait dysfunction, Denies loss of vision, Denies motor disturbance, Denies numbness, Denies paralysis, Denies paresthesias, Denies seizures Psychiatric: Denies anxiety, Denies depression Endocrine: Denies excessive sweating, Denies excessive thirst, Denies high blood sugars, Denies palpitations Hematologic/Lymphatic: Denies easy bruising, Denies lymphadenopathy Objective - Vital Signs Vital signs: Vital Signs Temp 97.6 F 04/04/19 12:45 Pulse 83 04/04/19 12:45 Resp 18 04/04/19 12:45 BP 188/81 04/04/19 12:45 Pulse Ox 98 04/04/19 12:45 Intake & Output 04/03/19 04/04/19 04/04/19 18:59 06:59 18:59 Weight 54 kg 64 kg Other: Voiding Method Toilet Toilet # Voids 5 1 - Exam - Constitutional General appearance: cooperative, no acute distress, obese on 4 L of oxygen confused - EENT Eyes: anicteric sclerae, PERRLA, normal appearance ENT: hearing grossly normal - Neck Neck: no lymphadenopathy, normal ROM, no other, no rigidity, no stridor, no thyromegaly - Respiratory Respiratory: bilateral: Decreased air entry no wheezing heard - Cardiovascular Rhythm: regular Heart sounds: normal: S1, S2 Abnormal Heart Sounds: no systolic murmur, no diastolic murmur, no rub, no S3 Gallop, no S4 Gallop, no click, no other - Gastrointestinal General gastrointestinal: normal bowel sounds, soft - Integumentary Integumentary: no rash - Neurologic Neurologic: CNII-XII intact - Musculoskeletal Musculoskeletal: gait not assessed strength equal bilaterally - Psychiatric Psychiatric: A&O x's 3, appropriate affect - Labs CBC & Chem 7: 04/04/19 08:22 04/04/19 08:22 Labs: Abnormal Lab Results - Last 24 Hours (Table) 04/03/19 04/03/19 04/03/19 Range/Units 07:13 17:13 17:25 WBC (3.8-10.6) k/uL RBC (4.30-5.90) m/uL Hgb (13.0-17.5) gm/dL Hct (39.0-53.0) % Neutrophils # (1.3-7.7) k/uL Lymphocytes # (1.0-4.8) k/uL Chloride (98-107) mmol/L Carbon Dioxide (22-30) mmol/L BUN (9-20) mg/dL Glucose (74-99) mg/dL POC Glucose (mg/dL) 253 H (75-99) mg/dL Hemoglobin A1c 7.4 H (4.0-6.0) % AST (17-59) U/L Total Protein (6.3-8.2) g/dL Urine Protein Trace H (Negative) Urine Glucose (UA) 3+ H (Negative) Urine Ketones Trace H (Negative) 04/03/19 04/04/19 04/04/19 Range/Units 19:58 07:29 08:22 WBC 10.7 H (3.8-10.6) k/uL RBC 4.04 L (4.30-5.90) m/uL Hgb 11.9 L (13.0-17.5) gm/dL Hct 37.6 L (39.0-53.0) % Neutrophils # 10.0 H (1.3-7.7) k/uL Lymphocytes # 0.3 L (1.0-4.8) k/uL Chloride (98-107) mmol/L Carbon Dioxide (22-30) mmol/L BUN (9-20) mg/dL Glucose (74-99) mg/dL POC Glucose (mg/dL) 236 H 187 H (75-99) mg/dL Hemoglobin A1c (4.0-6.0) % AST (17-59) U/L Total Protein (6.3-8.2) g/dL Urine Protein (Negative) Urine Glucose (UA) (Negative) Urine Ketones (Negative) 04/04/19 04/04/19 Range/Units 08:22 11:36 WBC (3.8-10.6) k/uL RBC (4.30-5.90) m/uL Hgb (13.0-17.5) gm/dL Hct (39.0-53.0) % Neutrophils # (1.3-7.7) k/uL Lymphocytes # (1.0-4.8) k/uL Chloride 97 L (98-107) mmol/L Carbon Dioxide 37 H (22-30) mmol/L BUN 29 H (9-20) mg/dL Glucose 196 H (74-99) mg/dL POC Glucose (mg/dL) 151 H (75-99) mg/dL Hemoglobin A1c (4.0-6.0) % AST 16 L (17-59) U/L Total Protein 6.2 L (6.3-8.2) g/dL Urine Protein (Negative) Urine Glucose (UA) (Negative) Urine Ketones (Negative) Assessment and Plan Plan: 1. Acute on chronic respiratory failure secondary to COPD exacerbation. Continue Solu-Medrol 60 every 6. Pulmicort twice a day DuoNeb as needed for s hortness of breath. 2. Multiple falls with gait dysfunction. Physical therapy and occupational the rapy evaluation. Patient was on [place] 3 weeks ago but currently at assisted family living facility. Is having multiple falls and is not able to help himself over weekend in the absence of homecare. Assess for subacute rehab placement 3. Mild cognitive impairment with computed tomography scan showing multifocal encephalomalacia concerning for vascular dementia. Patient is confused but is able to direct conversation. Hold citalopram as well as oxybutynin 4. Diabetes mellitus type 2. Continue patient on Levemir 10 units subcu venously once every day as well as metformin 500 mg orally twice every day and Linagliptin 5 mg orally once every day. 5 . Cardiomyopathy post-AICD implant patient. Continue Coreg 6.25 mg in the a.m. and 12.5 mg daily at bedtime 6. CAD Post multiple bypass surgery and angioplasty. Continue Coreg , continue Lipitor 80 mg once every day and in losartan 25 mg by mouth daily 7. chronic respiratory failure: Mostly end-stage lung disease on 4 L of oxygen at baseline 8. debility with multiple falls. Consult PT and OT likely will require ECF placement. 9. Severe anxiety and panic attacks. continue with Xanax as needed. Citalopram was discontinued and the previous admission but patient is currently on citalopram and will discontinue again and with clear instructions not to restart the medication. 10. Benign prostatic hyperplasia with the urinary retention. Continue Flomax 0.4 mg orally twice every day as well as Proscar 5 mgram once every day Please use straight cath for residual volume greater than 350 mL. 11. Severe GERD/GI prophylaxis: Patient remain on Pepcid . 12 chronic pain syndrome: Patient remain on hydrocodone and baclofen. Still using Tylenol on an as-needed basis along with topical product. 13. DVT prophylaxis. Continue patient on heparin 5000 units subcutaneously every 12 hours. 14. Patient is full code.
[2019-04-04] MEDS: DOCUSATE 100 MG CAP PO SCH ×2 (13:45→20:55)
[2019-04-04 17:32] LABS: Glucose,Whole Blood 82 mg/dL (75-99)
[2019-04-04] MEDS: INSULIN DETEMIR (LEVEMIR) 100 UNIT/ML SYR SQ SCH (20:54)
[2019-04-04] MEDS: ATORVASTATIN 80 MG TAB PO SCH (20:55)
[2019-04-04] MEDS: CARVEDILOL 12.5 MG TAB PO SCH (20:55)
[2019-04-04] MEDS: BACLOFEN 10 MG TAB PO SCH (20:55)
[2019-04-04] MEDS: TAMSULOSIN 0.4 MG CAP.ER.24H PO SCH (20:55)
[2019-04-04 20:59] LABS: Glucose,Whole Blood 184 mg/dL (75-99)
[2019-04-04] MEDS: traZODone HCL 50 MG TAB PO SCH (23:50)
[2019-04-05] MEDS: methylPREDNISolone SOD SUCCI 125 MG/2 ML VIAL IV SCH ×2 (00:10→06:24)
[2019-04-05] MEDS: HYDROcodone/APAP 7.5-325MG 1 EACH TAB PO PRN ×3 (04:13→17:43)
[2019-04-05] MEDS: IPRATROPIUM-ALBUTEROL 3 ML NEB INHALATION SCH ×4 (04:57→15:53)
[2019-04-05] MEDS: ALPRAZolam 0.5 MG TAB PO PRN ×2 (06:24→13:25)
[2019-04-05 07:17] LABS: Glucose,Whole Blood 203 mg/dL (75-99)
[2019-04-05] MEDS: BUDESONIDE 1 MG/2 ML NEBU INHALATION SCH (07:37)
[2019-04-05] MEDS: FORMOTEROL FUMARATE 20 MCG/2 ML NEBU INHALATION SCH (07:37)
[2019-04-05] MEDS ORDERED: POLYETHYLENE GLYCOL 3350 17 GM POWD.PACK PO SCH (09:00)
[2019-04-05] MEDS: INSULIN ASPART (NovoLOG) 100 UNIT/ML VIAL SQ SCH ×6 (09:30→17:44)
[2019-04-05] MEDS: FAMOTIDINE 20 MG TAB PO SCH (09:33)
[2019-04-05] MEDS: CARVEDILOL 6.25 MG TAB PO SCH (09:33)
[2019-04-05] MEDS: metFORMIN 500 MG TAB PO SCH ×2 (09:33→17:43)
[2019-04-05] MEDS: FINASTERIDE 5 MG TAB PO SCH (09:33)
[2019-04-05] MEDS: DOCUSATE 100 MG CAP PO SCH (09:33)
[2019-04-05] MEDS: LINAGLIPTIN 5 MG TABLET PO SCH (09:34)
[2019-04-05] MEDS: OXYBUTYNIN CHLORIDE 5 MG TAB PO SCH (09:34)
[2019-04-05] MEDS: CITALOPRAM HYDROBROMIDE 20 MG TAB PO SCH (09:34)
--- NOTE | 2019-04-05 11:36 | P.PN ---
Subjective Progress Note Date: 04/05/19 Principal diagnosis: Acute on chronic hypoxemic/hypercapnic respiratory failure secondary to an acute exacerbation of chronic obstructive pulmonary disease. This is a very pleasant 73-year-old gentleman follows with Dr. Marcos as his primary care physician. He is a history of coronary artery disease status post replacement and coronary artery bypass surgery, ischemic cardiopathy status post AICD placement ejection fraction 30-35%, bilateral carotid stenosis status post endarterectomies, bilateral fem-pop's with stenting, CVA/TIA, DVT, hearing disorder, hypertension, hyperlipidemia, anxiety/depression. The patient also has a 50 year pack per day smoking history but quit in 2011. He has significant end-stage oxygen-dependent chronic obstructive pulmonary disease and follows with Dr. Rogers in our office for the same. He presented here to the emergency room yesterday via EMS after developing worsening shortness of breath dry nonproductive cough. Increasing anxiety. He did not respond well after 2 updraft treatments and was placed on BiPAP and he did not tolerate that well. He is seen today in consultation on the regular medical floor. He is currently awake and alert in no acute distress. He is breathing easier today as compared to yesterday. He is maintaining good O2 saturations in the 90s on 3 L/m per nasal cannula. He's been afebrile. Hemodynamically stable. White count 10.2. Hemoglobin 12.4. Creatinine 0.55. Bicarb 39. Troponin negative. ProBNP 3600. Chest x-ray shows evidence of COPD and chronic changes but no acute cardiopulmonary process. He does have a significant amount of anxiety related to the cost of his medications and lack of help at home. The patient is seen today 04/04/2019 in follow-up on the regular medical floor. He is currently sitting up in a chair at the bedside. Awake and alert in no acute distress. Breathing easier today as compared to yesterday. Maintaining O2 saturations up to 100% on 3 L/m per nasal cannula. He is afebrile. Hemodynamically stable. White count 10.7. Hemoglobin 11.9. Creatinine 0.72. He remains on DuoNeb inhalations, Pulmicort and Perforomist inhalations, IV Solu-Medrol. The patient is seen today 04/05/2019 in follow-up on the regular medical floor. Awake and alert in no acute distress. Nearly back to his baseline as far as his breathing is concerned. Maintaining O2 saturations in the 90s on 3 L/m per nasal cannula. He's been afebrile. Hemodynamic stable. He remains on DuoNeb inhalations, Pulmicort and Perforomist inhalations, IV Solu-Medrol. Objective - Vital Signs Vital signs: Vital Signs Temp 97.9 F 04/05/19 05:18 Pulse 76 04/05/19 08:19 Resp 18 04/05/19 05:18 BP 124/58 04/05/19 05:18 Pulse Ox 93 L 04/05/19 05:18 Intake & Output 04/04/19 04/05/19 04/05/19 18:59 06:59 18:59 Intake Total 920 350 Balance 920 350 Intake: Oral 920 350 Other: Voiding Method Toilet Toilet # Voids 3 2 - Exam GENERAL EXAM: Pleasant 73-year-old gentleman. Alert, comfortable in no apparent distress. On 3 L nasal cannula. HEAD: Normocephalic. EYES: Normal reaction of pupils, equal size. NOSE: Clear with pink turbinates. THROAT: No erythema or exudates. NECK: No masses, no JVD. CHEST: No chest wall deformity. LUNGS: Equal air entry lungs clear, diminished. CVS: S1 and S2 normal with audible murmur, regular rhythm. ABDOMEN: No hepatosplenomegaly, normal bowel sounds, no guarding or rigidity. SPINE: No scoliosis or deformity SKIN: No rashes CENTRAL NERVOUS SYSTEM: No focal deficits, tone is normal in all 4 extremities. EXTREMITIES: There is no peripheral edema. No clubbing, no cyanosis. Peripheral pulses are intact. - Labs CBC & Chem 7: 04/04/19 08:22 04/04/19 08:22 Labs: Abnormal Lab Results - Last 24 Hours (Table) 04/04/19 04/04/19 04/05/19 Range/Units 11:36 20:57 07:15 POC Glucose (mg/dL) 151 H 184 H 203 H (75-99) mg/dL Assessment and Plan Assessment: Impression: #1 Acute on chronic hypoxemic/hypercapnic respiratory failure secondary to an acute exacerbation of chronic obstructive pulmonary disease. #2 Severe oxygen dependent chronic obstructive pulmonary disease. #3 50 year pack per day smoking history however quit in 2011. #4 Coronary artery disease with previous coronary artery bypass grafting and stent placements. #5 Ischemic cardiomyopathy with ejection fraction 30-35%, status post AICD placement. #6 Severe peripheral vascular disease with previous femoral-popliteal bypasses and stent placements #7 Carotid stenosis status post bilateral carotid endarterectomies. #8 Previous CVA/TIA. #9 History of DVT. #10 Hearing disorder. #11 Hyperlipidemia. #12 Hypertension. #13 Diabetes mellitus, type II. #14 Benign prostatic hypertrophy. #15 Anxiety/depression. #16 Poor overall functional performance based on the above-mentioned multiple comorbidities. Plan: The patient was seen and evaluated by Dr. Hackett. He is nearly back to his baseline. Convert to oral prednisone. Continue bronchodilators. Discharge planning is in place. We will continue to follow and make further recommendations based on his clinical status. I, the cosigning physician, performed a history & physical examination of the patient. Lungs sounds with bilateral end expiratory wheeze, diminished. Maintaining good O2 saturations in the 90s on 3 L/m per nasal cannula. I discussed the assessment and plan of care with my nurse practitioner, Coty Kraus. I attest to the above note as dictated by her.
[2019-04-05 11:38] LABS: Glucose,Whole Blood 283 mg/dL (75-99)
[2019-04-05 12:52] VITALS: BP 168/84; PULSE 90; RESP 17; TEMP 97.6
[2019-04-05 13:25] VITALS: BMI 24.2
[2019-04-05] MEDS ORDERED: NA PHOS,M-B/NA PHOS,DI-BA 133 ML ENEMA RECTAL STA (14:01)
--- NOTE | 2019-04-05 14:16 | P.DS ---
Providers Date of admission: 04/02/19 15:54 Expected date of discharge: 04/05/19 Attending physician: Susan Powell MD Consults: 04/02/19 15:54 Consult Physician Routine Consulting Provider: Mirela Hackett Consult Reason/Comments: COPD exacerbation Do you want consulting provider notified?: Yes Primary care physician: [facility] Course: This is a 73-year-old male one of our office patient with past medical history of advanced COPD on 4 L of oxygen, CAD, A. fib, multiple history of CVA and TIA along with history of deep venous thrombosis, type 2 diabetes, history of coronary artery disease status post coronary artery bypass grafting and multiple stenting, ischemic cardiomyopathy status post AICD last ejection fraction 30-35% bilateral therapy for vascular disease with multiple stenting with underlying cognitive impairment likely vascular dementia who was previously admitted on January 2019 with multiple falls, altered mental status likely secondary to medication side effect. Patient had an extensive workup for stroke had CAT scan that suggested multifocal encephalomalacia, carotid Doppler suggesting persistently occluded right ICA with extensive plaque in the left ICA recommendations were made to continue dual antiplatelet therapy. Patient was seen by physical therapy in the previous admission and it was recommended that patient needs subacute rehab. Also patient was seen by Dr. Gutierres for BPH. Patient was noted to be confused during that admission. Patient presented to the ER by EMS due to worsening shortness of breath cough and weakness. He was placed on BiPAP and did recover when patient presented to the ER. On evaluation in the ER patient had a temp of 98.2 tachycardic to 101 blood pressure 180/97 respiratory rate of 20 saturations are 99-100% on 2 L. evaluate his SSA hemoglobin of 12.4 platelet 146 INR 1 chloride 95 bicarb 39, creatinine 0.55 troponin on admission 0.01 to repeat troponin 0.047. EKG suggests paced rhythm with no ST or T-wave changes. BNP elevated at 3600 Magnesium was low 1.4. Patient is admitted for COPD exacerbation . It was also brought to our notice that patient is unable to take care of himself at the assisted living facility and often forgets to take his medication. Patient presents this time with increased shortness of breath associated with cough and generalized weakness that started a few days ago. 04/04 patient examined at bedside doing better than yesterday. Breathing comfortable the not too short of breath on exertion. Denies any chest pain or palpitation. Evaluated by pulmonary will switch to prednisone 40 mg orally today. Speech consulted as patient was noticed to have a gurgling sound while speaking and some stuttering. Patient will be started on senna and Colace as he has had no bowel movement. Vitals are stable with a temp of 97.7 pulse 76 blood pressure 144/64 on 3 L 04/05: Patient's breathing status is stable. He denies any shortness of breath. He is currently pulse oxing 96% on 3 L nasal cannula, heart rate 90, blood pressure 160/84, patient is been afebrile. Patient is complaining of constipation and that he was going to have a bowel movement this morning has had a stomachache that resolved. He has medication started yesterday for bowel regime that did not seem to help. He is very anxious to have a bowel movement before he goes to [facility]. Fleets enema will be ordered. Solu-Medrol has been transitioned to oral prednisone. Patient will be discharged [facility] after fleets enema and bowel movement has occurred. Patient is stable for discharge. Discharge diagnoses: 1. Acute on chronic hypoxic respiratory failure secondary to COPD exacerbation. 2. Multiple falls with gait dysfunction. 3. Mild cognitive impairment with computed tomography scan showing multifocal encephalomalacia concerning for vascular dementia. 4. Diabetes mellitus type 2 with hyperglycemia secondary to steroids. 5. Cardiomyopathy post-AICD implant patient. 6. CAD Post multiple bypass surgery and angioplasty. 7. Chronic hypoxic respiratory failure: Mostly end-stage lung disease on 4 L of oxygen at baseline 8. Debility with multiple falls. 9. Severe generalized anxiety disorder and panic attacks. 10. Benign prostatic hyperplasia with urinary retention. 11. Severe GERD 12. Chronic pain syndrome 13. Constipation Discharge plan: [facility] Impression and plan of care have been directed as dictated by the signing physician. Esperanza Ramírez nurse practitioner acting as scribe for signing physician. Patient Condition at Discharge: Good Plan - Discharge Summary Discharge Rx Participant: Yes New Discharge Prescriptions: New Lactulose [Cephulac] 10 gm PO BID PRN #60 dose PRN Reason: Constipation Docusate [Colace] 100 mg PO BID PRN cap PRN Reason: Constipation Polyethylene Glycol 3350 [Miralax] 17 gm PO DAILY powd.pack predniSONE 0 mg PO DIRECTED #30 tab Continue traZODone HCL [Desyrel] 50 mg PO HS Losartan [Cozaar] 25 mg PO DAILY PRN PRN Reason: BP >130 Nitroglycerin Sl Tabs [Nitrostat] 0.4 mg SUBLINGUAL Q5M PRN PRN Reason: Chest Pain Ranitidine HCl 150 mg PO BID Finasteride [Proscar] 5 mg PO DAILY Atorvastatin [Lipitor] 80 mg PO HS #30 tab Carvedilol [Coreg] 12.5 mg PO HS Ipratropium-Albuterol Nebulize [Duoneb 0.5 mg-3 mg/3 ml Soln] 3 ml INHALATION RT-TID Budesonide-Formot 160-4.5 Mcg [Symbicort 160-4.5 Mcg Inhaler] 2 puff INHALATION RT-BID Baclofen [Lioresal] 10 mg PO HS predniSONE 10 mg PO DAILY sitaGLIPtin PHOS/metFORMIN HCL [Janumet 50-500 mg Tablet] 1 tab PO BID Acetaminophen Tab [Tylenol] 650 mg PO Q6HR PRN tab PRN Reason: Mild Pain Or Fever > 100.5 INSULIN ASPART (NovoLOG) [NovoLOG (formulary)] 3 unit SQ ACHS Tamsulosin [Flomax] 0.4 mg PO HS #0 Carvedilol [Coreg] 6.25 mg PO QAM Oxybutynin Chloride [Ditropan] 5 mg PO BID Insulin Detemir (Levemir) [Levemir] 10 unit SQ HS HYDROcodone/APAP 7.5-325MG [Pingree 7.5-325] 1 tab PO Q6H PRN #12 tab PRN Reason: Pain ALPRAZolam [Xanax] 0.5 mg PO TID PRN #9 tablet PRN Reason: Anxiety Discontinued Clopidogrel [Plavix] 75 mg PO DAILY Citalopram Hydrobromide [CeleXA] 20 mg PO DAILY Discharge Medication List traZODone HCL [Desyrel] 50 mg PO HS 03/10/14 [History] Losartan [Cozaar] 25 mg PO DAILY PRN 12/23/14 [History] Nitroglycerin Sl Tabs [Nitrostat] 0.4 mg SUBLINGUAL Q5M PRN 02/02/16 [History] Ranitidine HCl 150 mg PO BID 02/02/16 [History] Finasteride [Proscar] 5 mg PO DAILY 07/04/17 [History] Atorvastatin [Lipitor] 80 mg PO HS #30 tab 11/23/17 [Rx] Carvedilol [Coreg] 12.5 mg PO HS 04/16/18 [History] Ipratropium-Albuterol Nebulize [Duoneb 0.5 mg-3 mg/3 ml Soln] 3 ml INHALATION RT-TID 07/11/18 [History] Budesonide-Formot 160-4.5 Mcg [Symbicort 160-4.5 Mcg Inhaler] 2 puff INHALATION RT-BID 12/28/18 [History] Baclofen [Lioresal] 10 mg PO HS 02/10/19 [History] predniSONE 10 mg PO DAILY 02/10/19 [History] sitaGLIPtin PHOS/metFORMIN HCL [Janumet 50-500 mg Tablet] 1 tab PO BID 02/10/19 [History] Acetaminophen Tab [Tylenol] 650 mg PO Q6HR PRN tab 02/13/19 [Rx] INSULIN ASPART (NovoLOG) [NovoLOG (formulary)] 3 unit SQ ACHS 02/16/19 [History] Tamsulosin [Flomax] 0.4 mg PO HS #0 02/20/19 [Rx] Carvedilol [Coreg] 6.25 mg PO QAM 04/02/19 [History] Insulin Detemir (Levemir) [Levemir] 10 unit SQ HS 04/02/19 [History] Oxybutynin Chloride [Ditropan] 5 mg PO BID 04/02/19 [History] ALPRAZolam [Xanax] 0.5 mg PO TID PRN #9 tablet 04/05/19 [Rx] Docusate [Colace] 100 mg PO BID PRN cap 04/05/19 [Rx] HYDROcodone/APAP 7.5-325MG [Pingree 7.5-325] 1 tab PO Q6H PRN #12 tab 04/05/19 [Rx] Lactulose [Cephulac] 10 gm PO BID PRN #60 dose 04/05/19 [Rx] Polyethylene Glycol 3350 [Miralax] 17 gm PO DAILY powd.pack 04/05/19 [Rx] predniSONE 0 mg PO DIRECTED #30 tab 04/05/19 [Rx] Follow up Appointment(s)/Referral(s): Randolph Marcos MD [Primary Care Provider] - 1 Week (at [facility]) Activity/Diet/Wound Care/Special Instructions: Plavix on hold for Pain Management procedure scheduled for next week. Discharge Disposition: TRANSFER TO SNF/ECF
[2019-04-05 17:15] LABS: Glucose,Whole Blood 108 mg/dL (75-99)
[2019-04-06] MEDS ORDERED: predniSONE 20 MG TAB PO SCH (09:00)
== END 2019-04-05 18:33 | DRG 190 ==
LOC: EC 10:46 → 3NMEDONC 15:54
PROVIDERS: ADMIT Internal Medicine; ATTEND Internal Medicine
PROC: 5A09357 Assistance with Respiratory Ventilation, Less than 24 Consecutive Hours, Continuous Positive Airway Pressure (ICD-10-PCS; principal; 2019-04-02)
DX: J44.1 Chronic obstructive pulmonary disease with (acute) exacerbation (principal); J96.21 Acute and chronic respiratory failure with hypoxia; J96.22 Acute and chronic respiratory failure with hypercapnia; E11.51 Type 2 diabetes mellitus with diabetic peripheral angiopathy without gangrene; E11.65 Type 2 diabetes mellitus with hyperglycemia; I48.91 Unspecified atrial fibrillation; I50.9 Heart failure, unspecified; I11.0 Hypertensive heart disease with heart failure; E83.42 Hypomagnesemia; E11.39 Type 2 diabetes mellitus with other diabetic ophthalmic complication; I25.5 Ischemic cardiomyopathy; F01.50 Vascular dementia, unspecified severity, without behavioral disturbance, psychotic disturbance, mood disturbance, and anxiety; E78.5 Hyperlipidemia, unspecified; F32.9 Major depressive disorder, single episode, unspecified; F41.0 Panic disorder [episodic paroxysmal anxiety]; G89.4 Chronic pain syndrome; H42 Glaucoma in diseases classified elsewhere; H91.90 Unspecified hearing loss, unspecified ear; I25.10 Atherosclerotic heart disease of native coronary artery without angina pectoris; I25.2 Old myocardial infarction; K21.9 Gastro-esophageal reflux disease without esophagitis; K59.00 Constipation, unspecified; N40.1 Benign prostatic hyperplasia with lower urinary tract symptoms; M54.9 Dorsalgia, unspecified; M79.606 Pain in leg, unspecified; R29.6 Repeated falls; R33.8 Other retention of urine; T38.0X5A Adverse effect of glucocorticoids and synthetic analogues, initial encounter; K64.9 Unspecified hemorrhoids; R26.9 Unspecified abnormalities of gait and mobility; K57.90 Diverticulosis of intestine, part unspecified, without perforation or abscess without bleeding; Z79.02 Long term (current) use of antithrombotics/antiplatelets; Z79.4 Long term (current) use of insulin; Z79.51 Long term (current) use of inhaled steroids; Z79.899 Other long term (current) drug therapy; Z95.810 Presence of automatic (implantable) cardiac defibrillator; Z99.81 Dependence on supplemental oxygen; Z95.5 Presence of coronary angioplasty implant and graft; Z95.1 Presence of aortocoronary bypass graft; Z87.891 Personal history of nicotine dependence; Z87.11 Personal history of peptic ulcer disease; Z86.718 Personal history of other venous thrombosis and embolism; Z86.010 Personal history of colon polyps; Z86.14 Personal history of Methicillin resistant Staphylococcus aureus infection; Z87.01 Personal history of pneumonia (recurrent); I69.928 Other speech and language deficits following unspecified cerebrovascular disease; Z98.42 Cataract extraction status, left eye; Z98.41 Cataract extraction status, right eye; Z96.1 Presence of intraocular lens; Z82.49 Family history of ischemic heart disease and other diseases of the circulatory system; Z80.0 Family history of malignant neoplasm of digestive organs; Z82.5 Family history of asthma and other chronic lower respiratory diseases; Z83.79 Family history of other diseases of the digestive system
CPT/HCPCS: 36415; 71046; 80053; 81003; 82550; 83036; 83735; 83880; 84484; 85025; 85610; 85730; 93005; 94640; 94760; 96361; 96365; 96375; 96376; 99291